=== PATIENT | male | born 1975 | race Hispanic/Latino ===

== ENCOUNTER → 2019-12-04 | Day surgery (SDC) | payer OTHER ==
--- NOTE | 2019-12-02 13:36 | Diagnostic Imaging Report ---
EXAMINATION: CHEST 2 VIEWS INDICATION: Pre-operative COMPARISON: None FINDINGS: LINES/TUBES:Right IJ tunneled hemodialysis catheter terminates in the proximal right atrium. LUNGS:The lung volumes are low. Bibasilar subsegmental atelectasis. No focal consolidation or pulmonary edema. PLEURA:No pleural effusion or pneumothorax. MEDIASTINUM:The cardiomediastinal silhouette appears normal in size and shape. BONES/SOFT TISSUES:No acute osseous injury. ABDOMEN:No free air under the diaphragm. IMPRESSION: Low lung volumes with bibasilar subsegmental atelectasis. No focal pneumonia or pulmonary edema. Signed by: Anthony August MD on 12/02/2019 1:33 PM
[~2019-12-04] MED LIST: AMIODARONE HCL200 MG PO; ASPIR 8181 MG PO; BENZONATATE100 MG PO; EPHEDRINE SULFATE INJ 50 MG/ML VIAL ONE; FENTANYL CITRATE/PF 100MCG/2 ML INJ ONE; FUROSEMIDE40 MG PO; GABAPENTIN100 MG PO; HYOSCYAMINE 0.125 MG TAB ONE; LIDOCAINE HCL 2% LOCAL INJ 5 ML SDV VIAL INJ ONE; METOPROLOL TART25 MG PO; MIDAZOLAM HCL 2 MG/2 ML VIAL ONE; MIDODRINE HCL2.5 MG PO; NEOSTIGMINE 1 MG/ML 10ML VIAL ONE; PROPOFOL IV EMULSION 10 MG/ML 50 ML VIAL ONE; SODIUM CHLORIDE 0.9% 1000ML 0 ML ONE; SODIUM CHLORIDE 0.9% 500ML 500 ML ONE
--- OUTSIDE RECORDS SUMMARY | 2019-12-04 08:01 | XMS REPORT ---
[facility] Address Unknown Phone Unavailable Care Team Providers Care General Foreman Name Role Phone BASILIO BURNETTE Unavailable Unavailable Payers Payer Name Policy Type Policy Number Effective Date Expiration Date Problems This patient has no known problems. Allergies, Adverse Reactions, Alerts Allergy Name Allergy Type Status Severity Reaction(s) Onset Date Inactive Date Treating Clinician Comments No Known Allergies DA Active U 2019-09-19 00:00:00 No Known Drug Allergies DA Active U 2019-09-12 00:00:00 No Known Drug Allergies DA Active U 2019-09-03 00:00:00 No Known Allergies DA Active U 2019-08-30 00:00:00 Medications This patient has no known medications. Results Test Description Test Time Test Comments Text Results Atomic Results Result Comments CHEST 2 VIEWS 2019-12-02 13:32:00 [place] [address] Patient Name: MILY MOSHER MR #: [id number] : 1975 Age/Sex: 44/M Req #: [id number] Adm Physician: Ordered by: JARAD NIELSON MD Report #: [id number] Location: OR Room/Bed: Procedure: [id number] DX/CHEST 2 VIEWS Exam Date: 12/02/19 Exam Time: 1315 REPORT STATUS: Signed EXAMINATION: CHEST 2 VIEWS INDICATION: Pre-operative COMPARISON: None FINDINGS: LINES/TUBES:Right IJ tunneled hemodialysis catheter terminates in the proximal right atrium. LUNGS:The lung volumes are low. Bibasilar subsegmental atelectasis. No focal consolidation or pulmonary edema. PLEURA:No pleural effusion or pneumothorax. MEDIASTINUM:The cardiomediastinal silhouette appears normal in size and shape. BONES/SOFT TISSUES:No acute osseous injury. ABDOMEN:No free air under the diaphragm. IMPRESSION: Low lung volumes with bibasilar subsegmental atelectasis. No focal pneumonia or pulmonary isidro a. Signed by: Jake Robertson MD on 12/02/2019 1:33 PM Dictated By: JAKE ROBERTSON MD 1333 Transcribed By: MAK on 12/02/19 1333 COPY TO: JARAD NIELSON MD GLUBED 2019-09-24 13:30:00 GLUBED (test code=GLUBED) 135 MG/DL 70-110 Performed by certified synthetic gem press operator at [facility] [id number] 08:50:00* Test Item Value Reference Range Comments GLUBED (test code=GLUBED) 131 MG/DL 70-110 Performed by certified synthetic gem press operator at [facility] BASIC METABOLIC [id number] 07:25:00* Test Item Value Reference Range Comments SODIUM (test code=NA) 135 mEq/L 134-147 POTASSIUM (test code=K) 3.5 mEq/L 3.4-5.0 CHLORIDE (test code=CL) 99 mEq/L 100-108 CARBON DIOXIDE (test code=CO2) 30 mEq/L 21-33 ANION GAP (test code=GAP) 10 0-20 GLUCOSE (test code=GLU) 129 mg/dL 70-110 BLOOD UREA NITROGEN (test code=BUN) 50 mg/dL 7-18 GLOMERULAR FILTRATION RATE (test code=GFR) 11.5 95-105 Units of measure=ml/min/1.73 m2 CREATININE (test code=CREAT) 5.5 mg/dL 0.6-1.3 CALCIUM (test code=CA) 9.4 mg/dL 8.0-10.5 [id number] 07:25:00* Test Item Value Reference Range Comments PHOSPHOROUS (test code=PHOS) 4.1 MG/DL 2.5-4.9 [id number] 07:25:00* Test Item Value Reference Range Comments MAGNESIUM (test code=MAG) 2.30 mg/dL 1.8-2.4 CBC W/AUTO [id number] 07:20:00* Test Item Value Reference Range Comments WHITE BLOOD CELL (test code=WBC) 13.77 x10 3/uL 4.5-11.0 RED BLOOD CELL (test code=RBC) 3.05 x10 6/uL 4.00-5.60 HEMOGLOBIN (test code=HGB) 9.5 g/dL 12.5-16.9 HEMATOCRIT (test code=HCT) 30.7 % 37.5-50.7 MEAN CELL VOLUME (test code=MCV) 100.7 fL 81.0-99.0 MEAN CELL HGB (test code=MCH) 31.1 pg 27.0-33.0 MEAN CELL HGB CONCETRATION (test code=MCHC) 30.9 g/dL 33.0-37.0 RED CELL DISTRIBUTION WIDTH CV (test code=RDW) 23.0 % 11.5-14.5 RED CELL DISTRIBUTION WIDTH SD (test code=RDW-SD) 81.0 fL 37.0-54.0 PLATELET COUNT (test code=PLT) 169 x10 3/uL 150-400 MEAN PLATELET VOLUME (test code=MPV) 11.5 fL 7.0-9.0 NEUTROPHIL % (test code=NT%) 78.7 % 56.0-77.0 IMMATURE GRANULOCYTE % (test code=IG%) 1.6 % 0.0-2.0 LYMPHOCYTE % (test code=LY%) 8.4 % 14.0-32.0 MONOCYTE % (test code=MO%) 8.0 % 4.8-9.0 EOSINOPHIL % (test code=EO%) 2.9 % 0.3-3.7 BASOPHIL % (test code=BA%) 0.4 % 0.0-2.0 NUCLEATED RBC % (test code=NRBC%) 0.0 % 0-0 NEUTROPHIL # (test code=NT#) 10.85 x10 3/uL 2.0-7.6 IMMATURE GRANULOCYTE # (test code=IG#) 0.22 x10 3/uL 0.00-0.03 LYMPHOCYTE # (test code=LY#) 1.15 x10 3/uL 1.0-3.8 MONOCYTE # (test code=MO#) 1.10 x10 3/uL 0.1-0.8 EOSINOPHIL # (test code=EO#) 0.40 x10 3/uL 0.0-0.2 BASOPHIL # (test code=BA#) 0.05 x10 3/uL 0.0-0.2 NUCLEATED RBC # (test code=NRBC#) 0.00 x10 3/uL 0.0-0.1 MANUAL DIFF REQUIRED (test code=MDIFF) NO [id number] 16:06:00* Test Item Value Reference Range Comments GLUBED (test code=GLUBED) 119 MG/DL 70-110 Performed by certified synthetic gem press operator at [facility] [id number] 12:14:00* Test Item Value Reference Range Comments GLUBED (test code=GLUBED) 140 MG/DL 70-110 Performed by certified synthetic gem press operator at [facility] TOTAL IRON BINDING [id number] 12:08:00* Test Item Value Reference Range Comments SERUM IRON (test code=IRON) 48 mcg/dL 35-150 TOTAL IRON BINDING CAPACITY (test code=TIBC) 200 mcg/dL 260-445 UIBC (test code=UIBC) 152 mcg/dL IRON SATURATION (test code=FESAT) 24.0 % 14-34 [id number] 12:08:00* Test Item Value Reference Range Comments TRANSFERRRIN (test code=TRANSF) 156 mg/dL 200-370 Performed At: [address] [id number] Beauchamp MD Ph:[phone] [id number] 08:56:00* Test Item Value Reference Range Comments GLUBED (test code=GLUBED) 110 MG/DL 70-110 Performed by certified synthetic gem press operator at [facility] BASIC METABOLIC [id number] 07:56:00* Test Item Value Reference Range Comments SODIUM (test code=NA) 137 mEq/L 134-147 POTASSIUM (test code=K) 3.2 mEq/L 3.4-5.0 CHLORIDE (test code=CL) 99 mEq/L 100-108 CARBON DIOXIDE (test code=CO2) 27 mEq/L 21-33 ANION GAP (test code=GAP) 14 0-20 GLUCOSE (test code=GLU) 122 mg/dL 70-110 BLOOD UREA NITROGEN (test code=BUN) 75 mg/dL 7-18 GLOMERULAR FILTRATION RATE (test code=GFR) 8.0 95-105 Units of measure=ml/min/1.73 m2 CREATININE (test code=CREAT) 7.5 mg/dL 0.6-1.3 CALCIUM (test code=CA) 9.3 mg/dL 8.0-10.5 [id number] 07:56:00* Test Item Value Reference Range Comments PHOSPHOROUS (test code=PHOS) 4.5 MG/DL 2.5-4.9 [id number] 07:56:00* Test Item Value Reference Range Comments MAGNESIUM (test code=MAG) 2.80 mg/dL 1.8-2.4 CBC W/AUTO [id number] 07:00:00* Test Item Value Reference Range Comments WHITE BLOOD CELL (test code=WBC) 14.79 x10 3/uL 4.5-11.0 RED BLOOD CELL (test code=RBC) 2.96 x10 6/uL 4.00-5.60 HEMOGLOBIN (test code=HGB) 9.0 g/dL 12.5-16.9 HEMATOCRIT (test code=HCT) 29.4 % 37.5-50.7 MEAN CELL VOLUME (test code=MCV) 99.3 fL 81.0-99.0 MEAN CELL HGB (test code=MCH) 30.4 pg 27.0-33.0 MEAN CELL HGB CONCETRATION (test code=MCHC) 30.6 g/dL 33.0-37.0 RED CELL DISTRIBUTION WIDTH CV (test code=RDW) 22.8 % 11.5-14.5 RED CELL DISTRIBUTION WIDTH SD (test code=RDW-SD) 79.7 fL 37.0-54.0 PLATELET COUNT (test code=PLT) 184 x10 3/uL 150-400 MEAN PLATELET VOLUME (test code=MPV) 11.2 fL 7.0-9.0 NEUTROPHIL % (test code=NT%) 78.6 % 56.0-77.0 IMMATURE GRANULOCYTE % (test code=IG%) 1.5 % 0.0-2.0 LYMPHOCYTE % (test code=LY%) 7.6 % 14.0-32.0 MONOCYTE % (test code=MO%) 9.4 % 4.8-9.0 EOSINOPHIL % (test code=EO%) 2.6 % 0.3-3.7 BASOPHIL % (test code=BA%) 0.3 % 0.0-2.0 NUCLEATED RBC % (test code=NRBC%) 0.0 % 0-0 NEUTROPHIL # (test code=NT#) 11.63 x10 3/uL 2.0-7.6 IMMATURE GRANULOCYTE # (test code=IG#) 0.22 x10 3/uL 0.00-0.03 LYMPHOCYTE # (test code=LY#) 1.12 x10 3/uL 1.0-3.8 MONOCYTE # (test code=MO#) 1.39 x10 3/uL 0.1-0.8 EOSINOPHIL # (test code=EO#) 0.39 x10 3/uL 0.0-0.2 BASOPHIL # (test code=BA#) 0.04 x10 3/uL 0.0-0.2 NUCLEATED RBC # (test code=NRBC#) 0.00 x10 3/uL 0.0-0.1 MANUAL DIFF REQUIRED (test code=MDIFF) NO [id number] 12:38:00* Test Item Value Reference Range Comments GLUBED (test code=GLUBED) 100 MG/DL 70-110 Performed by certified synthetic gem press operator at [facility] PROCALCITONIN (PCT)2019-09-22 09:41:00* Test Item Value Reference Range Comments PROCALCITONIN (PCT) (test code=PROCAL) 4.80 ng/mL 0.00-0.05 PROCALCITONIN (PCT) NORMAL RANGE (ADULT): <0.05 NG/ML. * a concentration <0.5 ng/mL represents a low risk of severe sepsis and/or septic shock.* a concentration >2 ng/mL represents a high risk of severe sepsis and/or septic shock.Nevertheless, concentrations <0.5 ng/mL do not exclude aninfection, on account of localized infections (withoutsystemic signs) which can be associated with such lowconcentrations, or a systemic infection in its initialstages (< 6 hours). Furthermore, increased procalcitonincan occur without infection. PCT concentrations between 0.5and 2.0 ng/mL should be interpreted taking into account thepatient's history. It is recommended to retest PCT within6-24 hours if any concentrations <2 ng/mL are obtained. [id number] 08:52:00* Test Item Value Reference Range Comments GLUBED (test code=GLUBED) 119 MG/DL 70-110 Performed by certified synthetic gem press operator at [facility] BASIC METABOLIC [id number] 04:34:00* Test Item Value Reference Range Comments SODIUM (test code=NA) 137 mEq/L 134-147 POTASSIUM (test code=K) 3.3 mEq/L 3.4-5.0 CHLORIDE (test code=CL) 101 mEq/L 100-108 CARBON DIOXIDE (test code=CO2) 28 mEq/L 21-33 ANION GAP (test code=GAP) 11 0-20 GLUCOSE (test code=GLU) 129 mg/dL 70-110 BLOOD UREA NITROGEN (test code=BUN) 45 mg/dL 7-18 GLOMERULAR FILTRATION RATE (test code=GFR) 13.1 95-105 Units of measure=ml/min/1.73 m2 CREATININE (test code=CREAT) 4.9 mg/dL 0.6-1.3 CALCIUM (test code=CA) 8.4 mg/dL 8.0-10.5 [id number] 04:34:00* Test Item Value Reference Range Comments PHOSPHOROUS (test code=PHOS) 3.7 MG/DL 2.5-4.9 [id number] 04:34:00* Test Item Value Reference Range Comments MAGNESIUM (test code=MAG) 2.30 mg/dL 1.8-2.4 CBC W/AUTO [id number] 04:17:00* Test Item Value Reference Range Comments WHITE BLOOD CELL (test code=WBC) 16.08 x10 3/uL 4.5-11.0 RED BLOOD CELL (test code=RBC) 3.04 x10 6/uL 4.00-5.60 HEMOGLOBIN (test code=HGB) 9.2 g/dL 12.5-16.9 HEMATOCRIT (test code=HCT) 30.0 % 37.5-50.7 MEAN CELL VOLUME (test code=MCV) 98.7 fL 81.0-99.0 MEAN CELL HGB (test code=MCH) 30.3 pg 27.0-33.0 MEAN CELL HGB CONCETRATION (test code=MCHC) 30.7 g/dL 33.0-37.0 RED CELL DISTRIBUTION WIDTH CV (test code=RDW) 23.0 % 11.5-14.5 RED CELL DISTRIBUTION WIDTH SD (test code=RDW-SD) 76.3 fL 37.0-54.0 PLATELET COUNT (test code=PLT) 191 x10 3/uL 150-400 MEAN PLATELET VOLUME (test code=MPV) 10.8 fL 7.0-9.0 NEUTROPHIL % (test code=NT%) 75.7 % 56.0-77.0 IMMATURE GRANULOCYTE % (test code=IG%) 1.6 % 0.0-2.0 LYMPHOCYTE % (test code=LY%) 10.1 % 14.0-32.0 MONOCYTE % (test code=MO%) 10.2 % 4.8-9.0 EOSINOPHIL % (test code=EO%) 2.1 % 0.3-3.7 BASOPHIL % (test code=BA%) 0.3 % 0.0-2.0 NUCLEATED RBC % (test code=NRBC%) 0.4 % 0-0 NEUTROPHIL # (test code=NT#) 12.18 x10 3/uL 2.0-7.6 IMMATURE GRANULOCYTE # (test code=IG#) 0.25 x10 3/uL 0.00-0.03 LYMPHOCYTE # (test code=LY#) 1.63 x10 3/uL 1.0-3.8 MONOCYTE # (test code=MO#) 1.64 x10 3/uL 0.1-0.8 EOSINOPHIL # (test code=EO#) 0.33 x10 3/uL 0.0-0.2 BASOPHIL # (test code=BA#) 0.05 x10 3/uL 0.0-0.2 NUCLEATED RBC # (test code=NRBC#) 0.06 x10 3/uL 0.0-0.1 MANUAL DIFF REQUIRED (test code=MDIFF) NO [id number] 21:11:00* Test Item Value Reference Range Comments GLUBED (test code=GLUBED) 100 MG/DL 70-110 Performed by certified synthetic gem press operator at [facility] [id number] 17:37:00* Test Item Value Reference Range Comments GLUBED (test code=GLUBED) 128 MG/DL 70-110 Performed by certified synthetic gem press operator at [facility] [id number] 13:20:00* Test Item Value Reference Range Comments GLUBED (test code=GLUBED) 135 MG/DL 70-110 Performed by certified synthetic gem press operator at [facility] - XR CHEST 1 [id number] 09:38:00 FAX: Blaine Pantoja [phone] [place]: St: ADM FAX: Ness Thrasher MD [phone] Name: MILY MOSHER [facility] : 1975 Age/S: 44/[place] [address] [place] [address] Unit #: [id number] Loc: [facility] [place] [address] Phys: Ness Thrasher MD Acct: [id number] Dis Date: Status: ADM IN PHONE #: [phone] Exam Date: 09/21/2019 09 FAX #: [phone] Reason: evaluate for infiltrate EXAMS: CPT CODE: [id number] XR CHEST 1 V 10780 CLINICAL HISTORY:evaluate for infiltrate COMPARISON:September 19, 2019 at 0449 Frontal film of the chest performed at 0821 on September 21, 2019 demonstrates a tracheostomy tube, dialysis catheter, and monitor leads in place. Previously noted left IJ catheter has been removed. Heart size is normal and alveolar and interstitial opacities are present bilaterally compatible without significant interval change since previous examination. IMPRESSION: 1. Interval removal of left IJ catheter. 2. Bilateral pulmonary opacities without significant interval change since previous examination. at 0938 Reported and signed by: Michael Pereira M.D. CC: Francine Pantoja DO; Ness Thrasher MD Technologist: Lyn birmingham RT(R) Trnscrd Date/Time/By: 09/21/2019 (09 38) : By: [email or web address] Orig Print D/T: S: 09/21/2019 (0941) PAGE 1 Signed Report PROCALCITONIN (PCT)2019-09-21 09:30:00* Test Item Value Reference Range Comments PROCALCITONIN (PCT) (test code=PROCAL) 5.53 ng/mL 0.00-0.05 PROCALCITONIN (PCT) NORMAL RANGE (ADULT): <0.05 NG/ML. * a concentration <0.5 ng/mL represents a low risk of severe sepsis and/or septic shock.* a concentration >2 ng/mL represents a high risk of severe sepsis and/or septic shock.Nevertheless, concentrations <0.5 ng/mL do not exclude aninfection, on account of localized infections (withoutsystemic signs) which can be associated with such lowconcentrations, or a systemic infection in its initialstages (< 6 hours). Furthermore, increased procalcitonincan occur without infection. PCT concentrations between 0.5and 2.0 ng/mL should be interpreted taking into account thepatient's history. It is recommended to retest PCT within6-24 hours if any concentrations <2 ng/mL are obtained. BASIC METABOLIC [id number] 05:43:00* Test Item Value Reference Range Comments SODIUM (test code=NA) 138 mEq/L 134-147 POTASSIUM (test code=K) 3.8 mEq/L 3.4-5.0 CHLORIDE (test code=CL) 102 mEq/L 100-108 CARBON DIOXIDE (test code=CO2) 27 mEq/L 21-33 ANION GAP (test code=GAP) 13 0-20 GLUCOSE (test code=GLU) 105 mg/dL 70-110 BLOOD UREA NITROGEN (test code=BUN) 68 mg/dL 7-18 GLOMERULAR FILTRATION RATE (test code=GFR) 10.0 95-105 Units of measure=ml/min/1.73 m2 CREATININE (test code=CREAT) 6.2 mg/dL 0.6-1.3 CALCIUM (test code=CA) 8.0 mg/dL 8.0-10.5 [id number] 05:43:00* Test Item Value Reference Range Comments PHOSPHOROUS (test code=PHOS) 6.2 MG/DL 2.5-4.9 BASIC METABOLIC [id number] 05:39:00* Test Item Value Reference Range Comments SODIUM (test code=NA) 138 mEq/L 134-147 POTASSIUM (test code=K) 3.8 mEq/L 3.4-5.0 CHLORIDE (test code=CL) 102 mEq/L 100-108 CARBON DIOXIDE (test code=CO2) 27 mEq/L 21-33 ANION GAP (test code=GAP) 13 0-20 GLUCOSE (test code=GLU) 105 mg/dL 70-110 BLOOD UREA NITROGEN (test code=BUN) 68 mg/dL 7-18 GLOMERULAR FILTRATION RATE (test code=GFR) 95-105 CREATININE (test code=CREAT) mg/dL 0.6-1.3 CALCIUM (test code=CA) 8.0 mg/dL 8.0-10.5 [id number] 05:39:00* Test Item Value Reference Range Comments PHOSPHOROUS (test code=PHOS) MG/DL 2.5-4.9 CBC W/AUTO [id number] 05:23:00* Test Item Value Reference Range Comments WHITE BLOOD CELL (test code=WBC) 17.33 x10 3/uL 4.5-11.0 RED BLOOD CELL (test code=RBC) 3.08 x10 6/uL 4.00-5.60 HEMOGLOBIN (test code=HGB) 9.3 g/dL 12.5-16.9 HEMATOCRIT (test code=HCT) 30.4 % 37.5-50.7 MEAN CELL VOLUME (test code=MCV) 98.7 fL 81.0-99.0 MEAN CELL HGB (test code=MCH) 30.2 pg 27.0-33.0 MEAN CELL HGB CONCETRATION (test code=MCHC) 30.6 g/dL 33.0-37.0 RED CELL DISTRIBUTION WIDTH CV (test code=RDW) 22.7 % 11.5-14.5 RED CELL DISTRIBUTION WIDTH SD (test code=RDW-SD) 64.5 fL 37.0-54.0 PLATELET COUNT (test code=PLT) 172 x10 3/uL 150-400 MEAN PLATELET VOLUME (test code=MPV) 11.0 fL 7.0-9.0 NEUTROPHIL % (test code=NT%) 76.7 % 56.0-77.0 IMMATURE GRANULOCYTE % (test code=IG%) 2.5 % 0.0-2.0 LYMPHOCYTE % (test code=LY%) 8.2 % 14.0-32.0 MONOCYTE % (test code=MO%) 10.7 % 4.8-9.0 EOSINOPHIL % (test code=EO%) 1.5 % 0.3-3.7 BASOPHIL % (test code=BA%) 0.4 % 0.0-2.0 NUCLEATED RBC % (test code=NRBC%) 0.5 % 0-0 NEUTROPHIL # (test code=NT#) 13.29 x10 3/uL 2.0-7.6 IMMATURE GRANULOCYTE # (test code=IG#) 0.44 x10 3/uL 0.00-0.03 LYMPHOCYTE # (test code=LY#) 1.42 x10 3/uL 1.0-3.8 MONOCYTE # (test code=MO#) 1.85 x10 3/uL 0.1-0.8 EOSINOPHIL # (test code=EO#) 0.26 x10 3/uL 0.0-0.2 BASOPHIL # (test code=BA#) 0.07 x10 3/uL 0.0-0.2 NUCLEATED RBC # (test code=NRBC#) 0.09 x10 3/uL 0.0-0.1 MANUAL DIFF REQUIRED (test code=MDIFF) NO ACUTE HEPATITIS [id number] 04:07:00* Test Item Value Reference Range Comments AB HEPATITIS A IGM (test code=HAVMAB) NON REACTIVE INDEX NON REACT. AG HEPATITIS B SURFACE (test code=HBSAG) NON REACTIVE INDEX NonReactive AB HEPATITIS B CORE IGM (test code=HBCMAB) NON REACTIVE INDEX NON REACT. AB HEPATITIS C (test code=HCVAB) NON REACTIVE INDEX NON REACT. COMMENTS: At start of hemodialysisAB HEPATITIS B [id number] 04:07:00* Test Item Value Reference Range Comments AB HEPATITIS B SURFACE (test code=HBSAB) < 3.1 mIU/mL Immunity>9.9 Status of Immunity Anti-HBs Level Inconsistent with Immunity 0.0 - 9.9Consistent with Immunity >9.9Performed At: [facility] [address] [place], [place] [id number] Sebastian Bowman MD Ph:[phone] COMMENTS: At start of [id number] 21:00:00* Test Item Value Reference Range Comments GLUBED (test code=GLUBED) 83 MG/DL 70-110 Performed by certified synthetic gem press operator at [facility] [id number] 12:42:00* Test Item Value Reference Range Comments GLUBED (test code=GLUBED) 79 MG/DL 70-110 Performed by certified synthetic gem press operator at [facility] CBC W/AUTO [id number] 10:32:00* Test Item Value Reference Range Comments WHITE BLOOD CELL (test code=WBC) 19.00 x10 3/uL 4.5-11.0 RED BLOOD CELL (test code=RBC) 2.81 x10 6/uL 4.00-5.60 HEMOGLOBIN (test code=HGB) 8.6 g/dL 12.5-16.9 HEMATOCRIT (test code=HCT) 27.2 % 37.5-50.7 MEAN CELL VOLUME (test code=MCV) 96.8 fL 81.0-99.0 MEAN CELL HGB (test code=MCH) 30.6 pg 27.0-33.0 MEAN CELL HGB CONCETRATION (test code=MCHC) 31.6 g/dL 33.0-37.0 RED CELL DISTRIBUTION WIDTH CV (test code=RDW) 22.4 % 11.5-14.5 RED CELL DISTRIBUTION WIDTH SD (test code=RDW-SD) 59.9 fL 37.0-54.0 PLATELET COUNT (test code=PLT) 163 x10 3/uL 150-400 MEAN PLATELET VOLUME (test code=MPV) 11.2 fL 7.0-9.0 MANUAL DIFF REQUIRED (test code=MDIFF) YES WBC [id number] 10:32:00* Test Item Value Reference Range Comments SEGMENTED NEUTROPHILS (test code=SEG) 79 % 37-69 LYMPHOCYTE (test code=LYMPH) 10 % 23-55 MONOCYTE (test code=MON) 4 % 0-10 EOSINOPHIL (test code=EOS) 2 % 0.0-4.0 BASOPHIL (test code=BASO) 1 % 0.0-2.0 METAMYELOCYTE (test code=META) 2.0 % 0.0-0.0 MYELOCYTE (test code=MYELO) 2 % 0.0-0.0 POLYCHROMASIA (test code=POLC) 2+ POIKILOCYTOSIS (test code=POIK) SLIGHT FEW ELLIPTOCYTES SEEN ANISOCYTOSIS (test code=ANISO) 2+ MACROCYTOSIS (test code=MACR) 1+ TARGET CELLS (test code=TGT) SEEN PLATELET ESTIMATE (test code=PLTEST) Adequate THOUSAND ADEQUATE PLATELET MORPHOLOGY (test code=PLTMORPH) LARGE PLATELETS LARGE PLTS AND RARE GIANT PLTS SEEN PLT AGGREGATES SEEN CBC W/AUTO [id number] 10:21:00* Test Item Value Reference Range Comments WHITE BLOOD CELL (test code=WBC) 19.00 x10 3/uL 4.5-11.0 RED BLOOD CELL (test code=RBC) 2.81 x10 6/uL 4.00-5.60 HEMOGLOBIN (test code=HGB) 8.6 g/dL 12.5-16.9 HEMATOCRIT (test code=HCT) 27.2 % 37.5-50.7 MEAN CELL VOLUME (test code=MCV) 96.8 fL 81.0-99.0 MEAN CELL HGB (test code=MCH) 30.6 pg 27.0-33.0 MEAN CELL HGB CONCETRATION (test code=MCHC) 31.6 g/dL 33.0-37.0 RED CELL DISTRIBUTION WIDTH CV (test code=RDW) 22.4 % 11.5-14.5 RED CELL DISTRIBUTION WIDTH SD (test code=RDW-SD) 59.9 fL 37.0-54.0 PLATELET COUNT (test code=PLT) 163 x10 3/uL 150-400 MEAN PLATELET VOLUME (test code=MPV) 11.2 fL 7.0-9.0 MANUAL DIFF REQUIRED (test code=MDIFF) YES WBC [id number] 10:21:00* Test Item Value Reference Range Comments ANISOCYTOSIS (test code=ANISO) PLATELET ESTIMATE (test code=PLTEST) THOUSAND ADEQUATE CBC W/AUTO [id number] 10:21:00* Test Item Value Reference Range Comments WHITE BLOOD CELL (test code=WBC) 19.00 x10 3/uL 4.5-11.0 RED BLOOD CELL (test code=RBC) 2.81 x10 6/uL 4.00-5.60 HEMOGLOBIN (test code=HGB) 8.6 g/dL 12.5-16.9 HEMATOCRIT (test code=HCT) 27.2 % 37.5-50.7 MEAN CELL VOLUME (test code=MCV) 96.8 fL 81.0-99.0 MEAN CELL HGB (test code=MCH) 30.6 pg 27.0-33.0 MEAN CELL HGB CONCETRATION (test code=MCHC) 31.6 g/dL 33.0-37.0 RED CELL DISTRIBUTION WIDTH CV (test code=RDW) 22.4 % 11.5-14.5 RED CELL DISTRIBUTION WIDTH SD (test code=RDW-SD) 59.9 fL 37.0-54.0 PLATELET COUNT (test code=PLT) 163 x10 3/uL 150-400 MEAN PLATELET VOLUME (test code=MPV) 11.2 fL 7.0-9.0 MANUAL DIFF REQUIRED (test code=MDIFF) YES WBC [id number] 10:21:00* Test Item Value Reference Range Comments ANISOCYTOSIS (test code=ANISO) PLATELET ESTIMATE (test code=PLTEST) THOUSAND ADEQUATE PROCALCITONIN (PCT)2019-09-20 09:13:00* Test Item Value Reference Range Comments PROCALCITONIN (PCT) (test code=PROCAL) 6.02 ng/mL 0.00-0.05 PROCALCITONIN (PCT) NORMAL RANGE (ADULT): <0.05 NG/ML. * a concentration <0.5 ng/mL represents a low risk of severe sepsis and/or septic shock.* a concentration >2 ng/mL represents a high risk of severe sepsis and/or septic shock.Nevertheless, concentrations <0.5 ng/mL do not exclude aninfection, on account of localized infections (withoutsystemic signs) which can be associated with such lowconcentrations, or a systemic infection in its initialstages (< 6 hours). Furthermore, increased procalcitonincan occur without infection. PCT concentrations between 0.5and 2.0 ng/mL should be interpreted taking into account thepatient's history. It is recommended to retest PCT within6-24 hours if any concentrations <2 ng/mL are obtained. BASIC METABOLIC [id number] 07:04:00* Test Item Value Reference Range Comments SODIUM (test code=NA) 137 mEq/L 134-147 POTASSIUM (test code=K) 3.7 mEq/L 3.4-5.0 CHLORIDE (test code=CL) 103 mEq/L 100-108 CARBON DIOXIDE (test code=CO2) 26 mEq/L 21-33 ANION GAP (test code=GAP) 12 0-20 GLUCOSE (test code=GLU) 87 mg/dL 70-110 BLOOD UREA NITROGEN (test code=BUN) 39 mg/dL 7-18 GLOMERULAR FILTRATION RATE (test code=GFR) 17.6 95-105 Units of measure=ml/min/1.73 m2 CREATININE (test code=CREAT) 3.8 mg/dL 0.6-1.3 CALCIUM (test code=CA) 7.7 mg/dL 8.0-10.5 CBC W/AUTO [id number] 06:34:00* Test Item Value Reference Range Comments WHITE BLOOD CELL (test code=WBC) 19.00 x10 3/uL 4.5-11.0 RED BLOOD CELL (test code=RBC) 2.81 x10 6/uL 4.00-5.60 HEMOGLOBIN (test code=HGB) 8.6 g/dL 12.5-16.9 HEMATOCRIT (test code=HCT) 27.2 % 37.5-50.7 MEAN CELL VOLUME (test code=MCV) 96.8 fL 81.0-99.0 MEAN CELL HGB (test code=MCH) 30.6 pg 27.0-33.0 MEAN CELL HGB CONCETRATION (test code=MCHC) 31.6 g/dL 33.0-37.0 RED CELL DISTRIBUTION WIDTH CV (test code=RDW) 22.4 % 11.5-14.5 RED CELL DISTRIBUTION WIDTH SD (test code=RDW-SD) 59.9 fL 37.0-54.0 PLATELET COUNT (test code=PLT) 163 x10 3/uL 150-400 MEAN PLATELET VOLUME (test code=MPV) 11.2 fL 7.0-9.0 NEUTROPHIL % (test code=NT%) % 56.0-77.0 LYMPHOCYTE % (test code=LY%) % 14.0-32.0 NEUTROPHIL # (test code=NT#) x10 3/uL 2.0-7.6 LYMPHOCYTE # (test code=LY#) x10 3/uL 1.0-3.8 MANUAL DIFF REQUIRED (test code=MDIFF) [id number] 06:19:00* Test Item Value Reference Range Comments GLUBED (test code=GLUBED) 81 MG/DL 70-110 Performed by certified synthetic gem press operator at [facility] HGB [id number] 21:37:00* Test Item Value Reference Range Comments HEMOGLOBIN (test code=HGB) 8.8 g/dL 12.5-16.9 HEMATOCRIT (test code=HCT) 28.4 % 37.5-50.7 [id number] 21:06:00* Test Item Value Reference Range Comments GLUBED (test code=GLUBED) 88 MG/DL 70-110 Performed by certified [facility] gem [facility] operator [facility] [facility]PATITIS [id number] 16:57:00* Test Item Value Reference Range Comments AB HEPATITIS A IGM (test code=HAVMAB) NON REACTIVE INDEX NON REACT. AG HEPATITIS B SURFACE (test code=HBSAG) NON REACTIVE INDEX NonReactive AB HEPATITIS B CORE IGM (test code=HBCMAB) NON REACTIVE INDEX NON REACT. AB HEPATITIS C (test code=HCVAB) NON REACTIVE INDEX NON REACT. COMMENTS: At start of hemodialysisAB HEPATITIS B [id number] 16:57:00* Test Item Value Reference Range Comments AB HEPATITIS B SURFACE (test code=HBSAB) COMMENTS: At start of hemodialysisACUTE HEPATITIS [id number] 16:35:00* Test Item Value Reference Range Comments AB HEPATITIS A IGM (test code=HAVMAB) INDEX NON REACT. AG HEPATITIS B SURFACE (test code=HBSAG) NON REACTIVE INDEX NonReactive AB HEPATITIS B CORE IGM (test code=HBCMAB) INDEX NON REACT. AB HEPATITIS C (test code=HCVAB) INDEX NON REACT. COMMENTS: At start of hemodialysisAB HEPATITIS B [id number] 16:35:00* Test Item Value Reference Range Comments AB HEPATITIS B SURFACE (test code=HBSAB) COMMENTS: At start of hemodialysisTOTAL IRON BINDING [id number] 16:00:00 * Test Item Value Reference Range Comments SERUM IRON (test code=IRON) 48 mcg/dL 35-150 TOTAL IRON BINDING CAPACITY (test code=TIBC) 200 mcg/dL 260-445 UIBC (test code=UIBC) 152 mcg/dL IRON SATURATION (test code=FESAT) 24.0 % 14-34 [id number] 16:00:00* Test Item Value Reference Range Comments TRANSFERRRIN (test code=TRANSF) HGB [id number] 13:13:00* Test Item Value Reference Range Comments HEMOGLOBIN (test code=HGB) 7.0 g/dL 12.5-16.9 HEMATOCRIT (test code=HCT) 23.2 % 37.5-50.7 [id number] 11:55:00* Test Item Value Reference Range Comments GLUBED (test code=GLUBED) 89 MG/DL 70-110 Performed by certified synthetic gem press operator at [facility] CBC W/AUTO [id number] 11:27:00* Test Item Value Reference Range Comments WHITE BLOOD CELL (test code=WBC) 19.84 x10 3/uL 4.5-11.0 RED BLOOD CELL (test code=RBC) 2.15 x10 6/uL 4.00-5.60 HEMOGLOBIN (test code=HGB) 6.7 g/dL 12.5-16.9 HEMATOCRIT (test code=HCT) 21.3 % 37.5-50.7 MEAN CELL VOLUME (test code=MCV) 99.1 fL 81.0-99.0 MEAN CELL HGB (test code=MCH) 31.2 pg 27.0-33.0 MEAN CELL HGB CONCETRATION (test code=MCHC) 31.5 g/dL 33.0-37.0 RED CELL DISTRIBUTION WIDTH CV (test code=RDW) 22.3 % 11.5-14.5 RED CELL DISTRIBUTION WIDTH SD (test code=RDW-SD) 61.2 fL 37.0-54.0 PLATELET COUNT (test code=PLT) 157 x10 3/uL 150-400 MEAN PLATELET VOLUME (test code=MPV) 11.7 fL 7.0-9.0 MANUAL DIFF REQUIRED (test code=MDIFF) YES WBC [id number] 11:27:00* Test Item Value Reference Range Comments SEGMENTED NEUTROPHILS (test code=SEG) 79.8 % 37-69 LYMPHOCYTE (test code=LYMPH) 6.4 % 23-55 MONOCYTE (test code=MON) 9.2 % 0-10 BASOPHIL (test code=BASO) 1.9 % 0.0-2.0 METAMYELOCYTE (test code=META) 0.9 % 0.0-0.0 MYELOCYTE (test code=MYELO) 1.8 % 0.0-0.0 NUCLEATED RED BLOOD CELL (test code=NRBC) 4.6 % ANISOCYTOSIS (test code=ANISO) 2+ MACROCYTOSIS (test code=MACR) 1+ PLATELET ESTIMATE (test code=PLTEST) Adequate THOUSAND ADEQUATE CBC W/AUTO [id number] 11:26:00* Test Item Value Reference Range Comments WHITE BLOOD CELL (test code=WBC) 19.84 x10 3/uL 4.5-11.0 RED BLOOD CELL (test code=RBC) 2.15 x10 6/uL 4.00-5.60 HEMOGLOBIN (test code=HGB) 6.7 g/dL 12.5-16.9 HEMATOCRIT (test code=HCT) 21.3 % 37.5-50.7 MEAN CELL VOLUME (test code=MCV) 99.1 fL 81.0-99.0 MEAN CELL HGB (test code=MCH) 31.2 pg 27.0-33.0 MEAN CELL HGB CONCETRATION (test code=MCHC) 31.5 g/dL 33.0-37.0 RED CELL DISTRIBUTION WIDTH CV (test code=RDW) 22.3 % 11.5-14.5 RED CELL DISTRIBUTION WIDTH SD (test code=RDW-SD) 61.2 fL 37.0-54.0 PLATELET COUNT (test code=PLT) 157 x10 3/uL 150-400 MEAN PLATELET VOLUME (test code=MPV) 11.7 fL 7.0-9.0 MANUAL DIFF REQUIRED (test code=MDIFF) YES WBC [id number] 11:26:00* Test Item Value Reference Range Comments ANISOCYTOSIS (test code=ANISO) PLATELET ESTIMATE (test code=PLTEST) THOUSAND ADEQUATE CBC W/AUTO [id number] 11:26:00* Test Item Value Reference Range Comments WHITE BLOOD CELL (test code=WBC) 19.84 x10 3/uL 4.5-11.0 RED BLOOD CELL (test code=RBC) 2.15 x10 6/uL 4.00-5.60 HEMOGLOBIN (test code=HGB) 6.7 g/dL 12.5-16.9 HEMATOCRIT (test code=HCT) 21.3 % 37.5-50.7 MEAN CELL VOLUME (test code=MCV) 99.1 fL 81.0-99.0 MEAN CELL HGB (test code=MCH) 31.2 pg 27.0-33.0 MEAN CELL HGB CONCETRATION (test code=MCHC) 31.5 g/dL 33.0-37.0 RED CELL DISTRIBUTION WIDTH CV (test code=RDW) 22.3 % 11.5-14.5 RED CELL DISTRIBUTION WIDTH SD (test code=RDW-SD) 61.2 fL 37.0-54.0 PLATELET COUNT (test code=PLT) 157 x10 3/uL 150-400 MEAN PLATELET VOLUME (test code=MPV) 11.7 fL 7.0-9.0 MANUAL DIFF REQUIRED (test code=MDIFF) YES WBC [id number] 11:26:00* Test Item Value Reference Range Comments ANISOCYTOSIS (test code=ANISO) PLATELET ESTIMATE (test code=PLTEST) THOUSAND ADEQUATE CBC W/AUTO [id number] 07:27:00* Test Item Value Reference Range Comments WHITE BLOOD CELL (test code=WBC) 19.84 x10 3/uL 4.5-11.0 RED BLOOD CELL (test code=RBC) 2.15 x10 6/uL 4.00-5.60 HEMOGLOBIN (test code=HGB) 6.7 g/dL 12.5-16.9 HEMATOCRIT (test code=HCT) 21.3 % 37.5-50.7 MEAN CELL VOLUME (test code=MCV) 99.1 fL 81.0-99.0 MEAN CELL HGB (test code=MCH) 31.2 pg 27.0-33.0 MEAN CELL HGB CONCETRATION (test code=MCHC) 31.5 g/dL 33.0-37.0 RED CELL DISTRIBUTION WIDTH CV (test code=RDW) 22.3 % 11.5-14.5 RED CELL DISTRIBUTION WIDTH SD (test code=RDW-SD) 61.2 fL 37.0-54.0 PLATELET COUNT (test code=PLT) 157 x10 3/uL 150-400 MEAN PLATELET VOLUME (test code=MPV) 11.7 fL 7.0-9.0 NEUTROPHIL % (test code=NT%) % 56.0-77.0 LYMPHOCYTE % (test code=LY%) % 14.0-32.0 NEUTROPHIL # (test code=NT#) x10 3/uL 2.0-7.6 LYMPHOCYTE # (test code=LY#) x10 3/uL 1.0-3.8 MANUAL DIFF REQUIRED (test code=MDIFF) C REACTIVE [id number] 07:23:00* Test Item Value Reference Range Comments C REACTIVE PROTEIN (test code=CRP) 167.0 MG/L 0.0-2.9 COMPREHENSIVE METABOLIC [id number] 07:18:00* Test Item Value Reference Range Comments SODIUM (test code=NA) 141 mEq/L 134-147 POTASSIUM (test code=K) 3.5 mEq/L 3.4-5.0 CHLORIDE (test code=CL) 107 mEq/L 100-108 CARBON DIOXIDE (test code=CO2) 26 mEq/L 21-33 ANION GAP (test code=GAP) 12 0-20 GLUCOSE (test code=GLU) 101 mg/dL 70-110 BLOOD UREA NITROGEN (test code=BUN) 40 mg/dL 7-18 GLOMERULAR FILTRATION RATE (test code=GFR) 21.4 95-105 Units of measure=ml/min/1.73 m2 CREATININE (test code=CREAT) 3.2 mg/dL 0.6-1.3 TOTAL PROTEIN (test code=PROT) 5.8 g/dL 6.4-8.2 ALBUMIN (test code=ALB) 2.20 g/dL 3.4-5.0 CALCIUM (test code=CA) 7.8 mg/dL 8.0-10.5 BILIRUBIN TOTAL (test code=BILT) 1.4 MG/DL <1.5 SGOT/AST (test code=AST) 199 IUnit/L 15-37 SGPT/ALT (test code=ALT) 147 IUnit/L 15-65 ALKALINE PHOSPHATASE TOTAL (test code=ALKP) 237 IUnit/L 20-125 COMPREHENSIVE METABOLIC [id number] 07:14:00* Test Item Value Reference Range Comments SODIUM (test code=NA) 141 mEq/L 134-147 POTASSIUM (test code=K) 3.5 mEq/L 3.4-5.0 CHLORIDE (test code=CL) 107 mEq/L 100-108 CARBON DIOXIDE (test code=CO2) 26 mEq/L 21-33 ANION GAP (test code=GAP) 12 0-20 GLUCOSE (test code=GLU) 101 mg/dL 70-110 BLOOD UREA NITROGEN (test code=BUN) 40 mg/dL 7-18 GLOMERULAR FILTRATION RATE (test code=GFR) 95-105 CREATININE (test code=CREAT) mg/dL 0.6-1.3 TOTAL PROTEIN (test code=PROT) g/dL 6.4-8.2 ALBUMIN (test code=ALB) g/dL 3.4-5.0 CALCIUM (test code=CA) 7.8 mg/dL 8.0-10.5 BILIRUBIN TOTAL (test code=BILT) MG/DL <1.5 SGOT/AST (test code=AST) IUnit/L 15-37 SGPT/ALT (test code=ALT) IUnit/L 15-65 ALKALINE PHOSPHATASE TOTAL (test code=ALKP) IUnit/L 20-125 - XR CHEST 1 [id number] 06:23:00 FAX: Sam Goncalves MD [place]: [address]: ADM FAX: Blaine Pantoja [phone] Name: MILY MOSHER [facility] : 1975 Age/S: 44/M [address] [place] [address] Blvd Unit #: [id number] Loc: G.3310 [place] [address] Phys: Sam Mayorga MD Acct: [id number] Dis Date: Status: ADM IN PHONE #: [phone] Exam Date: 09/19/2019 0553 FAX #: [phone] Reason: VDRF post Trach EXAMS: CPT CODE: [id number] XR CHEST 1 V 58543 Chest, single view dated 09/19/2019. HISTORY: Respiratory distress. Comparison is made to a prior study dated 09/03/2019. There has been interval placement of a tracheostomy tube. A left jugular central venous catheter is identified with the tip projecting in the superior vena cava. A right jugular hemodialysis catheter is identified with the tip projecting in the lower right atrium or inferior vena cava. A pneumothorax is not identified. The cardiomediastinal shadow is stable. The lungs demonstrate pulmonary vascular congestion with bilateral interstitial and airspace opacities, likely representing pulmonary edema. Atelectasis is suspected in both lung bases. No acute pleural space abnormalities are detected. IMPRESSION: 1. B ilateral interstitial and airspace opacities, likely representing pulmon jj edema. 2. Bilateral basilar atelectasis. SL: 131 at 0623 R eported and signed by: Cesar Allen M.D. CC: Sam sosa MD; [facility] Technologist: Michele Winslow RT(R); Milagro Dickens RT(R) Trncord Date/Time/By: 09/19/2019 (0623) : By: Anika Orig Print D/T: S: 09/19/2019 (0626) PAGE 1 Signed Report [id number] 04:04:00* Test Item Value Reference Range Comments VANCOMYCIN (test code=VANCO) 19.4 mcg/mL PROCALCITONIN (PCT)2019-09-19 03:56:00* Test Item Value Reference Range Comments PROCALCITONIN (PCT) (test code=PROCAL) 6.84 ng/mL 0.00-0.05 PROCALCITONIN (PCT) NORMAL RANGE (ADULT): <0.05 NG/ML. * a concentration <0.5 ng/mL represents a low risk of severe sepsis and/or septic shock.* a concentration >2 ng/mL represents a high risk of severe sepsis and/or septic shock.Nevertheless, concentrations <0.5 ng/mL do not exclude aninfection, on account of localized infections (withoutsystemic signs) which can be associated with such lowconcentrations, or a systemic infection in its initialstages (< 6 hours). Furthermore, increased procalcitonincan occur without infection. PCT concentrations between 0.5and 2.0 ng/mL should be interpreted taking into account thepatient's history. It is recommended to retest PCT within6-24 hours if any concentrations <2 ng/mL are obtained. C REACTIVE [id number] 03:37:00* Test Item Value Reference Range Comments C REACTIVE PROTEIN (test code=CRP) 203.0 MG/L 0.0-2.9 CBC W/AUTO [id number] 03:10:00* Test Item Value Reference Range Comments WHITE BLOOD CELL (test code=WBC) 23.65 x10 3/uL 4.5-11.0 RED BLOOD CELL (test code=RBC) 2.36 x10 6/uL 4.00-5.60 HEMOGLOBIN (test code=HGB) 7.2 g/dL 12.5-16.9 HEMATOCRIT (test code=HCT) 23.4 % 37.5-50.7 MEAN CELL VOLUME (test code=MCV) 99.2 fL 81.0-99.0 MEAN CELL HGB (test code=MCH) 30.5 pg 27.0-33.0 MEAN CELL HGB CONCETRATION (test code=MCHC) 30.8 g/dL 33.0-37.0 RED CELL DISTRIBUTION WIDTH CV (test code=RDW) 22.1 % 11.5-14.5 RED CELL DISTRIBUTION WIDTH SD (test code=RDW-SD) 60.2 fL 37.0-54.0 PLATELET COUNT (test code=PLT) 165 x10 3/uL 150-400 MEAN PLATELET VOLUME (test code=MPV) 12.0 fL 7.0-9.0 MANUAL DIFF REQUIRED (test code=MDIFF) YES WBC [id number] 03:10:00* Test Item Value Reference Range Comments SEGMENTED NEUTROPHILS (test code=SEG) 86.4 % 37-69 LYMPHOCYTE (test code=LYMPH) 5.4 % 23-55 MONOCYTE (test code=MON) 5.5 % 0-10 EOSINOPHIL (test code=EOS) 0.9 % 0.0-4.0 METAMYELOCYTE (test code=META) 1.8 % 0.0-0.0 NUCLEATED RED BLOOD CELL (test code=NRBC) 2.7 % POLYCHROMASIA (test code=POLC) 2+ HYPOCHROMIA (test code=HYPO) 1+ ANISOCYTOSIS (test code=ANISO) 1+ MACROCYTOSIS (test code=MACR) 1+ PLATELET ESTIMATE (test code=PLTEST) Adequate THOUSAND ADEQUATE COMPREHENSIVE METABOLIC [id number] 03:10:00* Test Item Value Reference Range Comments SODIUM (test code=NA) 140 mEq/L 134-147 POTASSIUM (test code=K) 3.7 mEq/L 3.4-5.0 CHLORIDE (test code=CL) 106 mEq/L 100-108 CARBON DIOXIDE (test code=CO2) 27 mEq/L 21-33 ANION GAP (test code=GAP) 11 0-20 GLUCOSE (test code=GLU) 104 mg/dL 70-110 BLOOD UREA NITROGEN (test code=BUN) 33 mg/dL 7-18 GLOMERULAR FILTRATION RATE (test code=GFR) 27.2 95-105 Units of measure=ml/min/1.73 m2 CREATININE (test code=CREAT) 2.6 mg/dL 0.6-1.3 TOTAL PROTEIN (test code=PROT) 6.1 g/dL 6.4-8.2 ALBUMIN (test code=ALB) 2.20 g/dL 3.4-5.0 CALCIUM (test code=CA) 7.7 mg/dL 8.0-10.5 BILIRUBIN TOTAL (test code=BILT) 1.5 MG/DL <1.5 SGOT/AST (test code=AST) 212 IUnit/L 15-37 SGPT/ALT (test code=ALT) 149 IUnit/L 15-65 ALKALINE PHOSPHATASE TOTAL (test code=ALKP) 249 IUnit/L 20-125 THYROID STIMULATING [id number] 03:10:00* Test Item Value Reference Range Comments THYROID STIMULATING HORMONE (test code=TSH) 3.45 0.42-5.47 Results in ifeoma-International Units/mL CBC W/AUTO [id number] 03:09:00* Test Item Value Reference Range Comments WHITE BLOOD CELL (test code=WBC) 23.65 x10 3/uL 4.5-11.0 RED BLOOD CELL (test code=RBC) 2.36 x10 6/uL 4.00-5.60 HEMOGLOBIN (test code=HGB) 7.2 g/dL 12.5-16.9 HEMATOCRIT (test code=HCT) 23.4 % 37.5-50.7 MEAN CELL VOLUME (test code=MCV) 99.2 fL 81.0-99.0 MEAN CELL HGB (test code=MCH) 30.5 pg 27.0-33.0 MEAN CELL HGB CONCETRATION (test code=MCHC) 30.8 g/dL 33.0-37.0 RED CELL DISTRIBUTION WIDTH CV (test code=RDW) 22.1 % 11.5-14.5 RED CELL DISTRIBUTION WIDTH SD (test code=RDW-SD) 60.2 fL 37.0-54.0 PLATELET COUNT (test code=PLT) 165 x10 3/uL 150-400 MEAN PLATELET VOLUME (test code=MPV) 12.0 fL 7.0-9.0 MANUAL DIFF REQUIRED (test code=MDIFF) YES WBC [id number] 03:09:00* Test Item Value Reference Range Comments ANISOCYTOSIS (test code=ANISO) PLATELET ESTIMATE (test code=PLTEST) THOUSAND ADEQUATE CBC W/AUTO [id number] 03:09:00* Test Item Value Reference Range Comments WHITE BLOOD CELL (test code=WBC) 23.65 x10 3/uL 4.5-11.0 RED BLOOD CELL (test code=RBC) 2.36 x10 6/uL 4.00-5.60 HEMOGLOBIN (test code=HGB) 7.2 g/dL 12.5-16.9 HEMATOCRIT (test code=HCT) 23.4 % 37.5-50.7 MEAN CELL VOLUME (test code=MCV) 99.2 fL 81.0-99.0 MEAN CELL HGB (test code=MCH) 30.5 pg 27.0-33.0 MEAN CELL HGB CONCETRATION (test code=MCHC) 30.8 g/dL 33.0-37.0 RED CELL DISTRIBUTION WIDTH CV (test code=RDW) 22.1 % 11.5-14.5 RED CELL DISTRIBUTION WIDTH SD (test code=RDW-SD) 60.2 fL 37.0-54.0 PLATELET COUNT (test code=PLT) 165 x10 3/uL 150-400 MEAN PLATELET VOLUME (test code=MPV) 12.0 fL 7.0-9.0 MANUAL DIFF REQUIRED (test code=MDIFF) YES WBC [id number] 03:09:00* Test Item Value Reference Range Comments ANISOCYTOSIS (test code=ANISO) PLATELET ESTIMATE (test code=PLTEST) THOUSAND ADEQUATE COMPREHENSIVE METABOLIC [id number] 02:58:00* Test Item Value Reference Range Comments SODIUM (test code=NA) 140 mEq/L 134-147 POTASSIUM (test code=K) 3.7 mEq/L 3.4-5.0 CHLORIDE (test code=CL) 106 mEq/L 100-108 CARBON DIOXIDE (test code=CO2) 27 mEq/L 21-33 ANION GAP (test code=GAP) 11 0-20 GLUCOSE (test code=GLU) 104 mg/dL 70-110 BLOOD UREA NITROGEN (test code=BUN) 33 mg/dL 7-18 GLOMERULAR FILTRATION RATE (test code=GFR) 95-105 CREATININE (test code=CREAT) mg/dL 0.6-1.3 TOTAL PROTEIN (test code=PROT) g/dL 6.4-8.2 ALBUMIN (test code=ALB) g/dL 3.4-5.0 CALCIUM (test code=CA) 7.7 mg/dL 8.0-10.5 BILIRUBIN TOTAL (test code=BILT) MG/DL <1.5 SGOT/AST (test code=AST) IUnit/L 15-37 SGPT/ALT (test code=ALT) IUnit/L 15-65 ALKALINE PHOSPHATASE TOTAL (test code=ALKP) IUnit/L 20-125 THYROID STIMULATING [id number] 02:58:00* Test Item Value Reference Range Comments THYROID STIMULATING HORMONE (test code=TSH) 0.42-5.47 CBC W/AUTO [id number] 02:43:00* Test Item Value Reference Range Comments WHITE BLOOD CELL (test code=WBC) 23.65 x10 3/uL 4.5-11.0 RED BLOOD CELL (test code=RBC) 2.36 x10 6/uL 4.00-5.60 HEMOGLOBIN (test code=HGB) 7.2 g/dL 12.5-16.9 HEMATOCRIT (test code=HCT) 23.4 % 37.5-50.7 MEAN CELL VOLUME (test code=MCV) 99.2 fL 81.0-99.0 MEAN CELL HGB (test code=MCH) 30.5 pg 27.0-33.0 MEAN CELL HGB CONCETRATION (test code=MCHC) 30.8 g/dL 33.0-37.0 RED CELL DISTRIBUTION WIDTH CV (test code=RDW) 22.1 % 11.5-14.5 RED CELL DISTRIBUTION WIDTH SD (test code=RDW-SD) 60.2 fL 37.0-54.0 PLATELET COUNT (test code=PLT) 165 x10 3/uL 150-400 MEAN PLATELET VOLUME (test code=MPV) 12.0 fL 7.0-9.0 NEUTROPHIL % (test code=NT%) % 56.0-77.0 LYMPHOCYTE % (test code=LY%) % 14.0-32.0 NEUTROPHIL # (test code=NT#) x10 3/uL 2.0-7.6 LYMPHOCYTE # (test code=LY#) x10 3/uL 1.0-3.8 MANUAL DIFF REQUIRED (test code=MDIFF) ARTERIAL BLOOD [id number] 01:50:00* Test Item Value Reference Range Comments ARTERIAL BLOOD GAS PH (test code=PHA) 7.451 7.35-7.45 ARTERIAL BLOOD GAS PCO2 (test code=PCO2A) 36.8 mmHg 35-45 ARTERIAL BLOOD GAS PO2 (test code=PO2A) 93 mmHg 80-100 BICARBONATE TOTAL HCO3 (test code=HCO3) 25.5 mmol/L 22.0-26.0 BASE EXCESS (test code=KIZZY) 2.0 mmol/L -4-4 ABG O2 SATURATION (test code=SATA) 97 % 90-100 FIO2 (test code=FIO2A) 40 % ABG DELIVERY (test code=NICOL) Vent ABG VENT MODE (test code=MODEA) AC v con ABG VENT RESP RATE (test code=RRA) 32 /MIN ABG TIDAL VOLUME (test code=TVA) 440 ml ABG PEEP (test code=PEEPA) 5 cmH2O Performed by certified synthetic gem press operator at [facility] ABG TEMPERATURE (test code=TEMPA) 99.9 F ABG SITE (test code=SITEA) Art line PREDICTED AA GRADIENT (test code=AP) 62 PREDICTED PO2 (test code=OP) 178 a/A RATIO (test code=RATIO) 0.39 TCO2 ARTERIAL (test code=TCO2A) 27 A-A GRADIENT (test code=AAGRADE) 148 - XR CHEST 1 [id number] 08:00:00Patient Name: MILY MOSHER Unit No: [id number] EXAMS: CPT CODE: [id number] XR CHEST 1 V 06789 HISTORY: Hypoxemia Comparison September 17, 2019 Location code: B2 FINDINGS: Frontal view of the chest demonstrates normal cardiomediastinal silhouette. The trachea is midline. Diffuse interstitial and alveolar opacities noted. There is no effusion or pneumothorax. The bones are intact. Tracheostomy tube and bilateral IJ catheters noted. Removal of NG tube. IMPRESSION: 1. Stable diffuse interstitial coarsening. Underlying airspace disease may present. at 0800 Reported and signed by: Norris Camara M.D. CC: Yasmany Byrnes MD; Malachi Perez MD Technologist: Charlnie Hernandez Fluoro Time: DAP (Gy m2): Air Kerma (mGy): Trscr Dt/Tm: 09/18/2019 (0800) by:[email or web address] Printed Date/Time: 09/18/2019 (0803) Name: MILY MOSHER [facility] Phys: Malachi De La Paz MD [address] : 1975 Age: 44 Sex: [place] [address] Loc: P.0226 1 Exam Date: 09/18/2019 Status: ADM IN PH: FAX: PAGE 1 Signed Report PROTHROMBIN [id number] 04:56:00* Test Item Value Reference Range Comments PROTHROMBIN TIME PATIENT (test code=PTP) 12.5 SECONDS 10.3-12.9 INTERNATIONAL NORMAL RATIO (test code=INR) 1.08 INR UNIT 0.9-1.11 The INR is useful only for monitoring anticoagulant therapy.It may be unreliable in the initial phase of antigoagulationand in unstable patients. Indication for Anticoagulation Recommended INR 1. Prevention of venous thomboembolism 2.0-3.0in high-risk patients; treatment of venousthrombosis and pulmonary embolism aftera course of heparin; prevention of systemicembolism in a variety of conditions, including atrial fibrillation and prothetic tissue heart valves, 2. Prosthetic mechanical heart valves; 2.5-3.5recurrent systemic embolism. THROMBOPLASTIN TIME [id number] 04:56:00* Test Item Value Reference Range Comments THROMBOPLASTIN TIME PARTIAL (test code=PTT) 31.1 SECONDS 26.0-35.9 INTERPRETATIVE DATA:Therapeutic range: Unfractionated heparin:47 - 71 seconds Argatroban:1.5 to 3 times the baseline PTT BASIC METABOLIC [id number] 04:55:00* Test Item Value Reference Range Comments SODIUM (test code=NA) 136 MMOL/L 136-143 POTASSIUM (test code=K) 4.2 MMOL/L 3.5-5.1 CHLORIDE (test code=CL) 99 MMOL/L 98-107 CARBON DIOXIDE (test code=CO2) 23 mmol/L 24-31 GLUCOSE (test code=GLU) 74 mg/dL 70-104 BLOOD UREA NITROGEN (test code=BUN) 40.9 MG/DL 7.0-21.0 GLOMERULAR FILTRATION RATE (test code=GFR) 35 >60 The estimated glomerular filtration rate is computed usingpatient race, age (>18), sex, and serum creatinine. If anyof the needed data elements are missing the Laboratory cannot compute an estimation of the glomerular filtration rate. CREATININE (test code=CREAT) 2.2 mg/dL 0.8-1.5 CALCIUM (test code=CA) 7.2 mg/dL 8.8-10.2 [id number] 04:55:00* Test Item Value Reference Range Comments PHOSPHOROUS (test code=PHOS) 2.9 mg/dL 2.7-4.5 [id number] 04:55:00* Test Item Value Reference Range Comments MAGNESIUM (test code=MAG) 1.7 mg/dL 1.4-2.6 CBC W/AUTO [id number] 04:45:00* Test Item Value Reference Range Comments WHITE BLOOD CELL (test code=WBC) 25.5 x10 3/uL 4.8-10.8 RED BLOOD CELL (test code=RBC) 2.34 x10 6/uL 4.70-6.10 HEMOGLOBIN (test code=HGB) 7.1 g/dL 14.5-20 HEMATOCRIT (test code=HCT) 22.0 % 42.0-52.0 MEAN CELL VOLUME (test code=MCV) 94.0 fL 80.0-94.0 MEAN CELL HGB (test code=MCH) 30.3 pg 27-31 MEAN CELL HGB CONCENTRATION (test code=MCHC) 32.3 G/DL 33-36.5 RED CELL DISTRIBUTION WIDTH (test code=RDW) 20.1 % 12.9-16.9 PLATELET COUNT (test code=PLT) 159 150-440 MEAN PLATELET VOLUME (test code=MPV) 12.4 fL 8.9-12.4 NEUTROPHIL % (test code=NT%) 73.2 % 42.2-75.2 LYMPHOCYTE % (test code=LY%) 9.4 % 20.5-51.1 MONOCYTE % (test code=MO%) 8.4 % 1.7-9.3 EOSINOPHIL % (test code=EO%) 0.2 % 0.0-7.0 BASOPHIL % (test code=BA%) 0.2 % 0-2.5 NEUTROPHIL # (test code=NT#) 18.66 x10 3/uL 1.80-7.70 LYMPHOCYTE # (test code=LY#) 2.39 x10 3/uL 1.00-4.80 MONOCYTE # (test code=MO#) 2.15 x10 3/uL 0.00-0.80 EOSINOPHIL # (test code=EO#) 0.04 x10 3/uL 0.00-0.45 BASOPHIL # (test code=BA#) 0.06 x10 3/uL 0.0-0.20 CALCIUM [id number] 04:40:00* Test Item Value Reference Range Comments CALCIUM IONIZED (test code=YVON) 1.00 mmol/L 1.1-1.3 ARTERIAL BLOOD [id number] 04:39:00* Test Item Value Reference Range Comments ARTERIAL BLOOD GAS PH (test code=PHA) 7.42 7.35-7.45 ARTERIAL BLOOD GAS PCO2 (test code=PCO2A) 35.8 mmHg 35.0-45.0 ARTERIAL BLOOD GAS PO2 (test code=PO2A) 77.0 mmHg 80.0-95.0 BICARBONATE TOTAL HCO3 (test code=HCO3) 22.8 mmol/L 22.0-24.0 BASE EXCESS (test code=KIZZY) -1.4 mmol/L (+/-)2.0 ABG O2 SATURATION (test code=SATA) 93.8 % 95.0-100.0 ABG TYPE (test code=TYPEA) VENTILATOR ARTERIAL FIO2 (test code=FIO2A) 35 % ABG DELIVERY (test code=NICOL) Vent ABG VENT MODE (test code=MODEA) AC Volume ABG VENT RESP RATE (test code=RRA) 32 /MIN ABG TIDAL VOLUME (test code=TIDAL VOLUME) 440 ML ABG PEEP (test code=PEEP) 5 cmH2O ABG SITE (test code=SITEA) Art line ABG POSITION (test code=PT POSITION) SUPINE ALLENS TEST (test code=ALLENS) NOT APPLICAPLE METHEMOGLOBIN (test code=METHGB) % 0-1.5 BASIC METABOLIC [id number] 17:37:00* Test Item Value Reference Range Comments SODIUM (test code=NA) 136 MMOL/L 136-143 POTASSIUM (test code=K) 4.6 MMOL/L 3.5-5.1 CHLORIDE (test code=CL) 100 MMOL/L 98-107 CARBON DIOXIDE (test code=CO2) 23 mmol/L 24-31 GLUCOSE (test code=GLU) 92 mg/dL 70-104 BLOOD UREA NITROGEN (test code=BUN) 49.3 MG/DL 7.0-21.0 GLOMERULAR FILTRATION RATE (test code=GFR) 30 >60 The estimated glomerular filtration rate is computed usingpatient race, age (>18), sex, and serum creatinine. If anyof the needed data elements are missing the Laboratory cannot compute an estimation of the glomerular filtration rate. CREATININE (test code=CREAT) 2.5 mg/dL 0.8-1.5 CALCIUM (test code=CA) 7.3 mg/dL 8.8-10.2 [id number] 17:37:00* Test Item Value Reference Range Comments PHOSPHOROUS (test code=PHOS) 4.2 mg/dL 2.7-4.5 [id number] 17:37:00* Test Item Value Reference Range Comments MAGNESIUM (test code=MAG) 1.9 mg/dL 1.4-2.6 CALCIUM [id number] 17:16:00* Test Item Value Reference Range Comments CALCIUM IONIZED (test code=YVON) 0.99 mmol/L 1.1-1.3 - XR FLUOROSCOPY 0-60 [id number] 16:20:00Patient Name: MILY MOSHER Unit No: [id number] EXAMS: CPT CODE: [id number] XR FLUOROSCOPY 0-60 MIN 07897 Examination: Operative fluoroscopy Location code: S17 Comparison: None Discussion: Clinical history is remarkable for catheter placement. Tunnel catheter appears to been placed likely from right IJ approach. 50.5 seconds fluoroscopic time was utilized. Impression: Please refer to the operative report. at 1620 Reported and signed by: ROBBY ZARAGOZA M.D. CC: Yasmany Byrnes MD Technologist: Nikolas Jugo Fluoro Time: DAP (Gy m2): Air Kerma (mGy): Trscr Dt/Tm: 09/17/2019 (1620) by:[email or web address] Printed Date/Time: 09/17/2019 (7072) Name: MILY MOSHER [facility] Phys: Yasmany Sliva [id number] : 1975 Age: 44 Sex: M [place] [address] Loc: P.0226 1 Exam Date: 09/17/2019 Status: ADM IN PH: FAX: PAGE 1 Signed Report [id number] 08:56:00* Test Item Value Reference Range Comments MAGNESIUM (test code=MAG) 2.0 mg/dL 1.4-2.6 - XR CHEST 1 [id number] 08:17:00Patient Name: MILY MOSHER Unit No: [id number] EXAMS: CPT CODE: [id number] XR CHEST 1 V [id number] EXAM: - XR CHEST 1 V LOCATION: C3 HISTORY: hypoxemia COMPARISON: 09/16/2019 FINDINGS: Single view of the chest. Indwelling lines and tubes are unchanged in position. Endotracheal tube tip is 5 cm above the crist[place]. No pneumothorax. Unchanged interstitial opacities in the mid to lower lungs bilaterally. Prominence of the perihilar vasculature. The mediastinal contours are unremarkable/unchanged. No acute osseous findings are present. IMPRESSION: Unchanged vascular congestion and interstitial edema. at 0817 Reported and signed by: CYNTHIA DYER M.D. CC: Yasmany Byrnes MD; Cresencio [place] MD Technologist: Charline Hernandez Fluoro Time: DAP (Gy m2): Air Kerma (mGy): Trscr Dt/Tm: 09/17/2019 (816) by:[email or web address] Printed Date/Time: 09/17/2019 (819) Name: MOSHER,[facility] Phys: Cresencio Padilla [address] : 1975 Age: 44 Sex: M [place], [place] [id number] Loc: P.0226 1 Exam Date: 09/17/2019 Status: ADM IN PH: FAX: PAGE 1 Signed Report CALCIUM [id number] 07:51:00* Test Item Value Reference Range Comments CALCIUM IONIZED (test code=YVON) 1.07 mmol/L 1.1-1.3 RENAL FUNCTION [id number] 05:35:00* Test Item Value Reference Range Comments SODIUM (test code=NA) 134 MMOL/L 136-143 POTASSIUM (test code=K) 4.7 MMOL/L 3.5-5.1 CHLORIDE (test code=CL) 100 MMOL/L 98-107 CARBON DIOXIDE (test code=CO2) 16 mmol/L 24-31 GLUCOSE (test code=GLU) 101 mg/dL 70-104 BLOOD UREA NITROGEN (test code=BUN) 47.3 MG/DL 7.0-21.0 GLOMERULAR FILTRATION RATE (test code=GFR) 32 >60 The estimated glomerular filtration rate is computed usingpatient race, age (>18), sex, and serum creatinine. If anyof the needed data elements are missing the Laboratory cannot compute an estimation of the glomerular filtration rate. CREATININE (test code=CREAT) 2.4 mg/dL 0.8-1.5 ALBUMIN (test code=ALB) 3.4 G/DL 3.5-5.0 CALCIUM (test code=CA) 8.1 mg/dL 8.8-10.2 PHOSPHOROUS (test code=PHOS) 2.8 mg/dL 2.7-4.5 BASIC METABOLIC [id number] 04:52:00* Test Item Value Reference Range Comments SODIUM (test code=NA) 137 MMOL/L 136-143 POTASSIUM (test code=K) 4.6 MMOL/L 3.5-5.1 CHLORIDE (test code=CL) 100 MMOL/L 98-107 CARBON DIOXIDE (test code=CO2) 24 mmol/L 24-31 GLUCOSE (test code=GLU) 102 mg/dL 70-104 BLOOD UREA NITROGEN (test code=BUN) 47.4 MG/DL 7.0-21.0 GLOMERULAR FILTRATION RATE (test code=GFR) 33 >60 The estimated glomerular filtration rate is computed usingpatient race, age (>18), sex, and serum creatinine. If anyof the needed data elements are missing the Laboratory cannot compute an estimation of the glomerular filtration rate. CREATININE (test code=CREAT) 2.3 mg/dL 0.8-1.5 CALCIUM (test code=CA) 7.7 mg/dL 8.8-10.2 ARTERIAL BLOOD [id number] 04:29:00* Test Item Value Reference Range Comments ARTERIAL BLOOD GAS PH (test code=PHA) 7.36 7.35-7.45 ARTERIAL BLOOD GAS PCO2 (test code=PCO2A) 42.4 mmHg 35.0-45.0 ARTERIAL BLOOD GAS PO2 (test code=PO2A) 67.6 mmHg 80.0-95.0 BICARBONATE TOTAL HCO3 (test code=HCO3) 23.3 mmol/L 22.0-24.0 BASE EXCESS (test code=KIZZY) -2.2 mmol/L (+/-)2.0 ABG O2 SATURATION (test code=SATA) 91.9 % 95.0-100.0 ABG TYPE (test code=TYPEA) VENTILATOR ARTERIAL FIO2 (test code=FIO2A) 40 % ABG DELIVERY (test code=NICOL) Vent ABG VENT MODE (test code=MODEA) AC Volume ABG VENT RESP RATE (test code=RRA) 32 /MIN ABG TIDAL VOLUME (test code=TIDAL VOLUME) 440 ML ABG PEEP (test code=PEEP) 5 cmH2O ABG SITE (test code=SITEA) Art line ABG POSITION (test code=PT POSITION) SEMI ALLENS TEST (test code=ALLENS) NOT APPLICAPLE METHEMOGLOBIN (test code=METHGB) % 0-1.5 CBC W/AUTO [id number] 04:28:00* Test Item Value Reference Range Comments WHITE BLOOD CELL (test code=WBC) 37.7 x10 3/uL 4.8-10.8 RED BLOOD CELL (test code=RBC) 2.81 x10 6/uL 4.70-6.10 HEMOGLOBIN (test code=HGB) 8.5 g/dL 14.5-20 HEMATOCRIT (test code=HCT) 26.5 % 42.0-52.0 MEAN CELL VOLUME (test code=MCV) 94.3 fL 80.0-94.0 MEAN CELL HGB (test code=MCH) 30.2 pg 27-31 MEAN CELL HGB CONCENTRATION (test code=MCHC) 32.1 G/DL 33-36.5 RED CELL DISTRIBUTION WIDTH (test code=RDW) 19.5 % 12.9-16.9 PLATELET COUNT (test code=PLT) 162 150-440 MEAN PLATELET VOLUME (test code=MPV) 12.2 fL 8.9-12.4 NEUTROPHIL % (test code=NT%) 69.4 % 42.2-75.2 LYMPHOCYTE % (test code=LY%) 10.3 % 20.5-51.1 MONOCYTE % (test code=MO%) 10.1 % 1.7-9.3 EOSINOPHIL % (test code=EO%) 0.1 % 0.0-7.0 BASOPHIL % (test code=BA%) 0.5 % 0-2.5 NEUTROPHIL # (test code=NT#) 26.18 x10 3/uL 1.80-7.70 LYMPHOCYTE # (test code=LY#) 3.88 x10 3/uL 1.00-4.80 MONOCYTE # (test code=MO#) 3.81 x10 3/uL 0.00-0.80 EOSINOPHIL # (test code=EO#) 0.03 x10 3/uL 0.00-0.45 BASOPHIL # (test code=BA#) 0.17 x10 3/uL 0.0-0.20 [id number] 03:39:00* Test Item Value Reference Range Comments VANCOMYCIN (test code=VANCO) 13.3 ug/mL 5.0-40.0 BASIC METABOLIC [id number] 19:07:00* Test Item Value Reference Range Comments SODIUM (test code=NA) 137 MMOL/L 136-143 POTASSIUM (test code=K) 5.0 MMOL/L 3.5-5.1 CHLORIDE (test code=CL) 102 MMOL/L 98-107 CARBON DIOXIDE (test code=CO2) 20 mmol/L 24-31 GLUCOSE (test code=GLU) 121 mg/dL 70-104 BLOOD UREA NITROGEN (test code=BUN) 50.4 MG/DL 7.0-21.0 GLOMERULAR FILTRATION RATE (test code=GFR) 29 >60 The estimated glomerular filtration rate is computed usingpatient race, age (>18), sex, and serum creatinine. If anyof the needed data elements are missing the Laboratory cannot compute an estimation of the glomerular filtration rate. CREATININE (test code=CREAT) 2.6 mg/dL 0.8-1.5 CALCIUM (test code=CA) 8.0 mg/dL 8.8-10.2 [id number] 19:07:00* Test Item Value Reference Range Comments PHOSPHOROUS (test code=PHOS) 3.0 mg/dL 2.7-4.5 [id number] 19:07:00* Test Item Value Reference Range Comments MAGNESIUM (test code=MAG) 2.2 mg/dL 1.4-2.6 CALCIUM [id number] 18:48:00* Test Item Value Reference Range Comments CALCIUM IONIZED (test code=YVON) 1.09 mmol/L 1.1-1.3 ARTERIAL BLOOD [id number] 15:08:00* Test Item Value Reference Range Comments ARTERIAL BLOOD GAS PH (test code=PHA) 7.29 7.35-7.45 ARTERIAL BLOOD GAS PCO2 (test code=PCO2A) 44.0 mmHg 35.0-45.0 ARTERIAL BLOOD GAS PO2 (test code=PO2A) 251.0 mmHg 80.0-95.0 BICARBONATE TOTAL HCO3 (test code=HCO3) 21.2 mmol/L 22.0-24.0 BASE EXCESS (test code=KIZZY) -5.2 mmol/L (+/-)2.0 ABG O2 SATURATION (test code=SATA) 97.7 % 95.0-100.0 ABG TYPE (test code=TYPEA) VENTILATOR ARTERIAL FIO2 (test code=FIO2A) 100 % ABG DELIVERY (test code=NICOL) Vent ABG VENT MODE (test code=MODEA) A/C 32 ABG PATIENT RESP RATE (test code=RRPATA) 34 /MIN 12-20 ABG VENT RESP RATE (test code=RRA) 32 /MIN ABG TIDAL VOLUME (test code=TIDAL VOLUME) 440 ML ABG PEEP (test code=PEEP) 450 cmH2O ABG SITE (test code=SITEA) ARET LINE ALLENS TEST (test code=ALLENS) N/A TOTAL HGB (test code=THB) 9.9 g/dL 13.0-17.0 METHEMOGLOBIN (test code=METHGB) 0.9 % 0-1.5 - XR CHEST 1 [id number] 08:04:00Patient Name: MILY MOSHER Unit No: [id number] EXAMS: CPT CODE: [id number] XR CHEST 1 V 03061 HISTORY: Dyspnea, hypoxemia Comparison to September 15, 2019 Location code: B2 FINDINGS: Frontal view of the chest demonstrates normal cardiomediastinal silhouette. The trachea is midline. Central venous congestion with mild interstitial edema. There is no effusion or pneumothorax. The bones are intact. Support lines and tubes are stable. IMPRESSION: Central venous congestion with interstitial edema. at 0804 Reported and signed by: Norris Camara M.D. CC: Yasmany Byrnes MD; Cresencio [place] MD Technologist: Charline Hernandez Fluoro Time: DAP (Gy m2): Air Kerma (mGy): Trscr Dt/Tm: 09/16/2019 (0804) by:[email or web address] Printed Date/Time: 09/16/2019 (0807) Name: MILY MOSHER [facility] Phys: Cresencio Padilla [address] : 1975 Age: 44 [facility]: [place] [address] [id number] Loc: P.0226 1 Exam Date: 09/16/2019 Status: ADM IN PH: FAX: PAGE 1 Signed Report CALCIUM [id number] 07:35:00* Test Item Value Reference Range Comments CALCIUM IONIZED (test code=YVON) 1.07 mmol/L 1.1-1.3 ARTERIAL BLOOD [id number] 05:41:00* Test Item Value Reference Range Comments ARTERIAL BLOOD GAS PH (test code=PHA) 7.33 7.35-7.45 ARTERIAL BLOOD GAS PCO2 (test code=PCO2A) 44.5 mmHg 35.0-45.0 ARTERIAL BLOOD GAS PO2 (test code=PO2A) 83.0 mmHg 80.0-95.0 BICARBONATE TOTAL HCO3 (test code=HCO3) 23.0 mmol/L 22.0-24.0 BASE EXCESS (test code=KIZZY) -3.2 mmol/L (+/-)2.0 ABG O2 SATURATION (test code=SATA) % 95.0-100.0 ABG TYPE (test code=TYPEA) VENTILATOR ARTERIAL FIO2 (test code=FIO2A) 50 % ABG DELIVERY (test code=NICOL) Vent ABG VENT MODE (test code=MODEA) AC Volume ABG PATIENT RESP RATE (test code=RRPATA) 32 /MIN 12-20 ABG VENT RESP RATE (test code=RRA) 32 /MIN ABG TIDAL VOLUME (test code=TIDAL VOLUME) 440 ML ABG PEEP (test code=PEEP) 5 cmH2O ABG SITE (test code=SITEA) Art line ABG POSITION (test code=PT POSITION) SEMI ALLENS TEST (test code=ALLENS) NOT APPLICAPLE HGB TEMP CORRECTED (test code=HGBTC) G/DL TOTAL HGB (test code=THB) 12.4 g/dL 13.0-17.0 METHEMOGLOBIN (test code=METHGB) % 0-1.5 LACTIC [id number] 05:03:00* Test Item Value Reference Range Comments LACTIC ACID (test code=LACT) 8.4 mg/dL 4.5-18.0 VANCOMYCIN [id number] 05:02:00* Test Item Value Reference Range Comments VANCOMYCIN TROUGH (test code=VANCT) 19.4 mcg/ML 10.0-20.0 BASIC METABOLIC [id number] 05:02:00* Test Item Value Reference Range Comments SODIUM (test code=NA) 136 MMOL/L 136-143 POTASSIUM (test code=K) 5.3 MMOL/L 3.5-5.1 CHLORIDE (test code=CL) 99 MMOL/L 98-107 CARBON DIOXIDE (test code=CO2) 24 mmol/L 24-31 GLUCOSE (test code=GLU) 139 mg/dL 70-104 BLOOD UREA NITROGEN (test code=BUN) 44.3 MG/DL 7.0-21.0 GLOMERULAR FILTRATION RATE (test code=GFR) 42 >60 The estimated glomerular filtration rate is computed usingpatient race, age (>18), sex, and serum creatinine. If anyof the needed data elements are missing the Laboratory cannot compute an estimation of the glomerular filtration rate. CREATININE (test code=CREAT) 1.9 mg/dL 0.8-1.5 CALCIUM (test code=CA) 8.1 mg/dL 8.8-10.2 LIVER FUNCTION [id number] 05:02:00* Test Item Value Reference Range Comments TOTAL PROTEIN (test code=PROT) 6.6 g/dL 6.3-8.3 ALBUMIN (test code=ALB) 3.6 G/DL 3.5-5.0 BILIRUBIN TOTAL (test code=BILT) 1.0 mg/dL 0.2-1.0 BILIRUBIN DIRECT (test code=BILD) 0.4 mg/dL 0.0-0.2 SGOT/AST (test code=AST) 103 IU/L 10-34 SGPT/ALT (test code=ALT) 118 U/L 10-44 ALKALINE PHOSPHATASE (test code=ALKP) 195 U/L 45-120 [id number] 05:02:00* Test Item Value Reference Range Comments PHOSPHOROUS (test code=PHOS) 3.1 mg/dL 2.7-4.5 [id number] 05:02:00* Test Item Value Reference Range Comments MAGNESIUM (test code=MAG) 2.1 mg/dL 1.4-2.6 PROTHROMBIN [id number] 04:51:00* Test Item Value Reference Range Comments PROTHROMBIN TIME PATIENT (test code=PTP) 12.3 SECONDS 10.3-12.9 INTERNATIONAL NORMAL RATIO (test code=INR) 1.06 INR UNIT 0.9-1.11 The INR is useful only for monitoring anticoagulant therapy.It may be unreliable in the initial phase of antigoagulationand in unstable patients. Indication for Anticoagulation Recommended INR 1. Prevention of venous thomboembolism 2.0-3.0in high-risk patients; treatment of venousthrombosis and pulmonary embolism aftera course of heparin; prevention of systemicembolism in a variety of conditions, including atrial fibrillation and prothetic tissue heart valves, 2. Prosthetic mechanical heart valves; 2.5-3.5recurrent systemic embolism. THROMBOPLASTIN TIME [id number] 04:51:00* Test Item Value Reference Range Comments THROMBOPLASTIN TIME PARTIAL (test code=PTT) 28.1 SECONDS 26.0-35.9 INTERPRETATIVE DATA:Therapeutic range: Unfractionated heparin:47 - 71 seconds Argatroban:1.5 to 3 times the baseline PTT CBC W/AUTO [id number] 04:32:00* Test Item Value Reference Range Comments WHITE BLOOD CELL (test code=WBC) 30.4 x10 3/uL 4.8-10.8 RED BLOOD CELL (test code=RBC) 3.08 x10 6/uL 4.70-6.10 HEMOGLOBIN (test code=HGB) 9.3 g/dL 14.5-20 HEMATOCRIT (test code=HCT) 28.8 % 42.0-52.0 MEAN CELL VOLUME (test code=MCV) 93.5 fL 80.0-94.0 MEAN CELL HGB (test code=MCH) 30.2 pg 27-31 MEAN CELL HGB CONCENTRATION (test code=MCHC) 32.3 G/DL 33-36.5 RED CELL DISTRIBUTION WIDTH (test code=RDW) 18.7 % 12.9-16.9 PLATELET COUNT (test code=PLT) 133 150-440 MEAN PLATELET VOLUME (test code=MPV) 12.6 fL 8.9-12.4 NEUTROPHIL % (test code=NT%) 75.4 % 42.2-75.2 LYMPHOCYTE % (test code=LY%) 6.9 % 20.5-51.1 MONOCYTE % (test code=MO%) 10.3 % 1.7-9.3 EOSINOPHIL % (test code=EO%) 0.0 % 0.0-7.0 BASOPHIL % (test code=BA%) 0.5 % 0-2.5 NEUTROPHIL # (test code=NT#) 22.88 x10 3/uL 1.80-7.70 LYMPHOCYTE # (test code=LY#) 2.09 x10 3/uL 1.00-4.80 MONOCYTE # (test code=MO#) 3.12 x10 3/uL 0.00-0.80 EOSINOPHIL # (test code=EO#) 0.01 x10 3/uL 0.00-0.45 BASOPHIL # (test code=BA#) 0.16 x10 3/uL 0.0-0.20 [id number] 21:48:00* Test Item Value Reference Range Comments GLUBED (test code=GLUBED) 117 MG/DL 70-105 CALCIUM [id number] 17:27:00* Test Item Value Reference Range Comments CALCIUM IONIZED (test code=YVON) 1.06 mmol/L 1.1-1.3 BASIC METABOLIC [id number] 17:23:00* Test Item Value Reference Range Comments SODIUM (test code=NA) 135 MMOL/L 136-143 POTASSIUM (test code=K) 5.0 MMOL/L 3.5-5.1 CHLORIDE (test code=CL) 99 MMOL/L 98-107 CARBON DIOXIDE (test code=CO2) 20 mmol/L 24-31 GLUCOSE (test code=GLU) 107 mg/dL 70-104 BLOOD UREA NITROGEN (test code=BUN) 45.2 MG/DL 7.0-21.0 GLOMERULAR FILTRATION RATE (test code=GFR) 37 >60 The estimated glomerular filtration rate is computed usingpatient race, age (>18), sex, and serum creatinine. If anyof the needed data elements are missing the Laboratory cannot compute an estimation of the glomerular filtration rate. CREATININE (test code=CREAT) 2.1 mg/dL 0.8-1.5 CALCIUM (test code=CA) 7.9 mg/dL 8.8-10.2 [id number] 17:23:00* Test Item Value Reference Range Comments PHOSPHOROUS (test code=PHOS) 3.1 mg/dL 2.7-4.5 [id number] 17:23:00* Test Item Value Reference Range Comments MAGNESIUM (test code=MAG) 2.0 mg/dL 1.4-2.6 - XR CHEST 1 [id number] 16:28:00Patient Name: MILY MOSHER Unit No: [id number] EXAMS: CPT CODE: [id number] XR CHEST 1 V 64133 EXAM: Portable chest x-ray Dictation location: A1 COMPARISON: Chest x-ray performed earlier the same day INDICATION: LINE PLACEMENT DISCUSSION: The previously noted left IJ central venous catheter has been removed and replaced; the new left IJ central venous catheter tip overlies the appropriate position over the upper SVC. The endotracheal tube and right IJ central venous catheter are unchanged in position. No pneumothorax is seen. There is persistent bilateral interstitial and alveolar opacity over the lungs, not significant changed. The cardiac silhouette is within normal limits. No acute bony abnormalities are identified. IMPRESSION: Interval replacement of the left IJ central venous catheter, with tip over the appropriate position over the upper SVC. No pneumothorax is seen. Otherwise, no interval change. at 1628 Reported and signed by: Ronny Rosas M.D. CC: Yasmany Byrnes MD; Cresencio [place] MD Technologist: Cathie Fulton Time: DAP (Gy m2): Air Kerma (mGy): Trscr Dt/Tm: 09/15/2019 (1628) by:[email or web address] Printed Date/Time: 09/15/2019 (2925) Name: MILY MOSHER [facility] Phys: Cresencio Padilla [address] : 1975 Age: 44 Sex: [place] [address] Loc: P.0226 1 Exam Date: 09/15/2019 Status: ADM IN PH: FAX: PAGE 1 Signed Report - XR CHEST 1 [id number] 12:45:00Patient Name: MILY MOSHER Unit No: [id number] EXAMS: CPT CODE: [id number] XR CHEST 1 V 66536 EXAM: Portable chest x-ray Dictation location: B2 COMPARISON: Chest x-ray performed earlier the same day INDICATION: line placement DISCUSSION: There has been interval removal and replacement of the right IJ central venous catheter, with a new catheter overlying the appropriate position over the upper SVC. No pneumothorax is seen. The left IJ central venous catheter, endotracheal tube, and upper enteric tube are unchanged in position. Interstitial and alveolar opacity throughout the lungs is similar. The cardiac silhouette is within normal limits. No acute bony abnormalities are identified. IMPRESSION: 1. Interval replacement of the right IJ central venous catheter, with tip over the appropriate position. No pneumothorax is seen. 2. Otherwise, no interval change. at 1245 Reported and signed by: Ronny Rosas M.D. CC: Yasmany Byrnes MD; Cresencio [place] MD Technologist: Cathie Fulton Time: DAP (Gy m2): Air Kerma (mGy): Trscr Dt/Tm: 09/15/2019 (1245) by:[email or web address] Printed Date/Time: 09/15/2019 (0847) Name: MILY MOSHER [facility] Phys: [id number] - Cresencio [place] [address] : 1975 Age: 44 Sex: [place] [address] Loc: P.0226 1 Exam Date: 09/15/2019 Status: ADM IN PH: FAX: PAGE 1 Signed Report - XR CHEST 1 [id number] 07:27:00Patient Name: MILY MOSHER Unit No: [id number] EXAMS: CPT CODE: [id number] XR CHEST 1 V 03189 EXAM: Portable chest x-ray Dictation location: A1 COMPARISON: Chest x-ray performed one day prior INDICATION: hypoxemia DI SCUSSION: The endotracheal tube, right and left IJ central venous catheter s, and upper enteric tube overlie the appropriate position. There is slightly improved bilateral alveolar opacity. No pleural effusion is se en. The cardiomediastinal silhouette is within normal limits. No acute b racquel abnormalities are identified. IMPRESSION: Slightly i mproved pneumonia or pulmonary edema. Electronically Karen d by Marisol Rosas on 09/15/2019 at 07 Reported and signed by: Ronny Rosas M.D. CC: Yasmany Byrnes MD; Cresencio Menard echnologist: Norma Fulton Time : DAP (Gy m2): Air Kerma (mGy): Trscr Dt/Tm: 09/15/2019 (726) by:[email or web address] Printed Date/Time: 09/15/2019 (729 ) Name: MILY MOSHER [facility] Phys: Cresencio Padilla [address] : 1975 Age: 44 Sex: [place] [address] Loc: P.0226 1 E xam Date: 09/15/2019 Status: ADM IN PH: FAX: PAGE 1 Signed Report BASIC METABOLIC [id number] 04:47:00* Test Item Value Reference Range Comments SODIUM (test code=NA) 138 MMOL/L 136-143 POTASSIUM (test code=K) 4.7 MMOL/L 3.5-5.1 CHLORIDE (test code=CL) 100 MMOL/L 98-107 CARBON DIOXIDE (test code=CO2) 24 mmol/L 24-31 GLUCOSE (test code=GLU) 133 mg/dL 70-104 BLOOD UREA NITROGEN (test code=BUN) 48.2 MG/DL 7.0-21.0 GLOMERULAR FILTRATION RATE (test code=GFR) 35 >60 The estimated glomerular filtration rate is computed usingpatient race, age (>18), sex, and serum creatinine. If anyof the needed data elements are missing the Laboratory cannot compute an estimation of the glomerular filtration rate. CREATININE (test code=CREAT) 2.2 mg/dL 0.8-1.5 CALCIUM (test code=CA) 7.4 mg/dL 8.8-10.2 [id number] 04:47:00* Test Item Value Reference Range Comments MAGNESIUM (test code=MAG) 2.1 mg/dL 1.4-2.6 [id number] 04:47:00* Test Item Value Reference Range Comments PHOSPHOROUS (test code=PHOS) 3.2 mg/dL 2.7-4.5 [id number] 04:46:00* Test Item Value Reference Range Comments VANCOMYCIN (test code=VANCO) 18.3 ug/mL 5.0-40.0 CBC W/AUTO [id number] 04:44:00* Test Item Value Reference Range Comments WHITE BLOOD CELL (test code=WBC) 37.4 x10 3/uL 4.8-10.8 RED BLOOD CELL (test code=RBC) 3.11 x10 6/uL 4.70-6.10 HEMOGLOBIN (test code=HGB) 9.3 g/dL 14.5-20 HEMATOCRIT (test code=HCT) 29.0 % 42.0-52.0 MEAN CELL VOLUME (test code=MCV) 93.2 fL 80.0-94.0 MEAN CELL HGB (test code=MCH) 29.9 pg 27-31 MEAN CELL HGB CONCENTRATION (test code=MCHC) 32.1 G/DL 33-36.5 RED CELL DISTRIBUTION WIDTH (test code=RDW) 18.6 % 12.9-16.9 PLATELET COUNT (test code=PLT) 130 150-440 MEAN PLATELET VOLUME (test code=MPV) 12.4 fL 8.9-12.4 NEUTROPHIL % (test code=NT%) 73.0 % 42.2-75.2 LYMPHOCYTE % (test code=LY%) 8.2 % 20.5-51.1 MONOCYTE % (test code=MO%) 9.9 % 1.7-9.3 EOSINOPHIL % (test code=EO%) 0.0 % 0.0-7.0 BASOPHIL % (test code=BA%) 0.6 % 0-2.5 NEUTROPHIL # (test code=NT#) 27.26 x10 3/uL 1.80-7.70 LYMPHOCYTE # (test code=LY#) 3.07 x10 3/uL 1.00-4.80 MONOCYTE # (test code=MO#) 3.70 x10 3/uL 0.00-0.80 EOSINOPHIL # (test code=EO#) 0.00 x10 3/uL 0.00-0.45 BASOPHIL # (test code=BA#) 0.24 x10 3/uL 0.0-0.20 LACTIC [id number] 04:39:00* Test Item Value Reference Range Comments LACTIC ACID (test code=LACT) 10.0 mg/dL 4.5-18.0 ARTERIAL BLOOD [id number] 04:28:00* Test Item Value Reference Range Comments ARTERIAL BLOOD GAS PH (test code=PHA) 7.33 7.35-7.45 ARTERIAL BLOOD GAS PCO2 (test code=PCO2A) 41.7 mmHg 35.0-45.0 ARTERIAL BLOOD GAS PO2 (test code=PO2A) 90.9 mmHg 80.0-95.0 BICARBONATE TOTAL HCO3 (test code=HCO3) 21.4 mmol/L 22.0-24.0 BASE EXCESS (test code=KIZZY) -4.3 mmol/L (+/-)2.0 ABG O2 SATURATION (test code=SATA) 95.9 % 95.0-100.0 ABG TYPE (test code=TYPEA) VENTILATOR ARTERIAL FIO2 (test code=FIO2A) 60 % ABG VENT MODE (test code=MODEA) AC Volume ABG PATIENT RESP RATE (test code=RRPATA) 32 /MIN 12-20 ABG VENT RESP RATE (test code=RRA) 32 /MIN ABG TIDAL VOLUME (test code=TIDAL VOLUME) 440 ML ABG PEEP (test code=PEEP) 5 cmH2O ABG SITE (test code=SITEA) Art line ALLENS TEST (test code=ALLENS) NOT APPLICAPLE TOTAL HGB (test code=THB) 10.5 g/dL 13.0-17.0 METHEMOGLOBIN (test code=METHGB) % 0-1.5 CALCIUM [id number] 04:23:00* Test Item Value Reference Range Comments CALCIUM IONIZED (test code=YVON) 1.07 mmol/L 1.1-1.3 [id number] 04:22:00* Test Item Value Reference Range Comments GLUBED (test code=GLUBED) 139 MG/DL 70-105 BASIC METABOLIC [id number] 18:56:00* Test Item Value Reference Range Comments SODIUM (test code=NA) 138 MMOL/L 136-143 POTASSIUM (test code=K) 4.7 MMOL/L 3.5-5.1 CHLORIDE (test code=CL) 98 MMOL/L 98-107 CARBON DIOXIDE (test code=CO2) 25 mmol/L 24-31 GLUCOSE (test code=GLU) 188 mg/dL 70-104 BLOOD UREA NITROGEN (test code=BUN) 56.5 MG/DL 7.0-21.0 GLOMERULAR FILTRATION RATE (test code=GFR) 29 >60 The estimated glomerular filtration rate is computed usingpatient race, age (>18), sex, and serum creatinine. If anyof the needed data elements are missing the Laboratory cannot compute an estimation of the glomerular filtration rate. CREATININE (test code=CREAT) 2.6 mg/dL 0.8-1.5 CALCIUM (test code=CA) 7.5 mg/dL 8.8-10.2 [id number] 18:56:00* Test Item Value Reference Range Comments PHOSPHOROUS (test code=PHOS) 3.6 mg/dL 2.7-4.5 [id number] 18:56:00* Test Item Value Reference Range Comments MAGNESIUM (test code=MAG) 2.3 mg/dL 1.4-2.6 CALCIUM [id number] 18:38:00* Test Item Value Reference Range Comments CALCIUM IONIZED (test code=YVON) 1.05 mmol/L 1.1-1.3 PROTHROMBIN [id number] 12:24:00* Test Item Value Reference Range Comments PROTHROMBIN TIME PATIENT (test code=PTP) 13.2 SECONDS 10.3-12.9 INTERNATIONAL NORMAL RATIO (test code=INR) 1.13 INR UNIT 0.9-1.11 The INR is useful only for monitoring anticoagulant therapy.It may be unreliable in the initial phase of antigoagulationand in unstable patients. Indication for Anticoagulation Recommended INR 1. Prevention of venous thomboembolism 2.0-3.0in high-risk patients; treatment of venousthrombosis and pulmonary embolism aftera course of heparin; prevention of systemicembolism in a variety of conditions, including atrial fibrillation and prothetic tissue heart valves, 2. Prosthetic mechanical heart valves; 2.5-3.5recurrent systemic embolism. THROMBOPLASTIN TIME [id number] 12:24:00* Test Item Value Reference Range Comments THROMBOPLASTIN TIME PARTIAL (test code=PTT) 31.1 SECONDS 26.0-35.9 INTERPRETATIVE DATA:Therapeutic range: Unfractionated heparin:47 - 71 seconds Argatroban:1.5 to 3 times the baseline PTT CBC W/O [id number] 12:16:00* Test Item Value Reference Range Comments WHITE BLOOD CELL (test code=WBC) 39.8 x10 3/uL 4.8-10.8 RED BLOOD CELL (test code=RBC) 3.34 x10 6/uL 4.70-6.10 HEMOGLOBIN (test code=HGB) 9.9 g/dL 14.5-20 HEMATOCRIT (test code=HCT) 30.8 % 42.0-52.0 MEAN CELL VOLUME (test code=MCV) 92.2 fL 80.0-94.0 MEAN CELL HGB (test code=MCH) 29.6 pg 27-31 MEAN CELL HGB CONCENTRATION (test code=MCHC) 32.1 G/DL 33-36.5 RED CELL DISTRIBUTION WIDTH (test code=RDW-SD) 58 % 35-47 PLATELET COUNT (test code=PLT) 136 150-440 - XR CHEST 1 [id number] 08:20:00Patient Name: MILY MOSHER Unit No: [id number] EXAMS: CPT CODE: [id number] XR CHEST 1 V [id number] HISTORY: ET tube, ECMO Comparison September 13, 2019 Location code: B2 FINDINGS: Frontal view of the chest demonstrates normal cardiomediastinal silhouette. The trachea is midline. Diffuse bilateral alveolar opacities. There is no effusion or pneumothorax. The bones are intact. ET tube, NG tube and bilateral IJ catheters are stable. IMPRESSION: Diffuse bilateral airspace disease, slightly progressed from prior at 0820 Reported and signed by: Norris Camara M.D. CC: Miriam Chirinos MD; Yasmany Byrnes MD Technologist: Norma Fulton Time: DAP (Gy m2): Air Kerma (mGy): Trscr Dt/Tm: 09/14/2019 (0820) by:[email or web address] Printed Date/Time: 09/14/2019 (6323) Name: MILY MOSHER [facility] Phys: LU0.1 - Craig Chirinosnjanet [address] : 1975 Age: 44 Sex: [place] [address] [id number] Loc: P.0226 1 Exam Date: 09/14/2019 Status: ADM IN PH: FAX: PAGE 1 Signed Report ARTERIAL BLOOD GAS 2019-09-14 06:11:00* Test Item Value Reference Range Comments ARTERIAL BLOOD GAS PH (test code=PHA) 7.34 7.35-7.45 ARTERIAL BLOOD GAS PCO2 (test code=PCO2A) 48.4 mmHg 35.0-45.0 ARTERIAL BLOOD GAS PO2 (test code=PO2A) 72.5 mmHg 80.0-95.0 BICARBONATE TOTAL HCO3 (test code=HCO3) 25.6 mmol/L 22.0-24.0 BASE EXCESS (test code=KIZZY) -0.5 mmol/L (+/-)2.0 ABG O2 SATURATION (test code=SATA) 92.7 % 95.0-100.0 ABG TYPE (test code=TYPEA) VENTILATOR ARTERIAL FIO2 (test code=FIO2A) 60 % ABG DELIVERY (test code=NICOL) Vent ABG VENT MODE (test code=MODEA) AC Volume ABG PATIENT RESP RATE (test code=RRPATA) 34 /MIN 12-20 ABG VENT RESP RATE (test code=RRA) 32 /MIN ABG TIDAL VOLUME (test code=TIDAL VOLUME) 440 ML ABG PEEP (test code=PEEP) 5 cmH2O ABG SITE (test code=SITEA) Art line ABG POSITION (test code=PT POSITION) SEMI ALLENS TEST (test code=ALLENS) NOT APPLICAPLE TOTAL HGB (test code=THB) 11.6 g/dL 13.0-17.0 METHEMOGLOBIN (test code=METHGB) 0.8 % 0-1.5 LACTIC [id number] 05:39:00* Test Item Value Reference Range Comments LACTIC ACID (test code=LACT) 15.1 mg/dL 4.5-18.0 [id number] 05:38:00* Test Item Value Reference Range Comments PHOSPHOROUS (test code=PHOS) 2.8 mg/dL 2.7-4.5 [id number] 05:38:00* Test Item Value Reference Range Comments MAGNESIUM (test code=MAG) 2.1 mg/dL 1.4-2.6 BASIC METABOLIC [id number] 05:37:00* Test Item Value Reference Range Comments SODIUM (test code=NA) 133 MMOL/L 136-143 POTASSIUM (test code=K) 3.9 MMOL/L 3.5-5.1 CHLORIDE (test code=CL) 100 MMOL/L 98-107 CARBON DIOXIDE (test code=CO2) 25 mmol/L 24-31 GLUCOSE (test code=GLU) 135 mg/dL 70-104 BLOOD UREA NITROGEN (test code=BUN) 36.9 MG/DL 7.0-21.0 GLOMERULAR FILTRATION RATE (test code=GFR) 47 >60 The estimated glomerular filtration rate is computed usingpatient race, age (>18), sex, and serum creatinine. If anyof the needed data elements are missing the Laboratory cannot compute an estimation of the glomerular filtration rate. CREATININE (test code=CREAT) 1.7 mg/dL 0.8-1.5 CALCIUM (test code=CA) 7.3 mg/dL 8.8-10.2 CBC W/AUTO [id number] 05:32:00* Test Item Value Reference Range Comments WHITE BLOOD CELL (test code=WBC) 35.1 x10 3/uL 4.8-10.8 RED BLOOD CELL (test code=RBC) 3.47 x10 6/uL 4.70-6.10 HEMOGLOBIN (test code=HGB) 10.1 g/dL 14.5-20 HEMATOCRIT (test code=HCT) 32.0 % 42.0-52.0 MEAN CELL VOLUME (test code=MCV) 92.2 fL 80.0-94.0 MEAN CELL HGB (test code=MCH) 29.1 pg 27-31 MEAN CELL HGB CONCENTRATION (test code=MCHC) 31.6 G/DL 33-36.5 RED CELL DISTRIBUTION WIDTH (test code=RDW) 18.9 % 12.9-16.9 PLATELET COUNT (test code=PLT) 134 150-440 MEAN PLATELET VOLUME (test code=MPV) 12.2 fL 8.9-12.4 NEUTROPHIL % (test code=NT%) 75.8 % 42.2-75.2 LYMPHOCYTE % (test code=LY%) 5.8 % 20.5-51.1 MONOCYTE % (test code=MO%) 10.5 % 1.7-9.3 EOSINOPHIL % (test code=EO%) 0.0 % 0.0-7.0 BASOPHIL % (test code=BA%) 0.2 % 0-2.5 NEUTROPHIL # (test code=NT#) 26.61 x10 3/uL 1.80-7.70 LYMPHOCYTE # (test code=LY#) 2.04 x10 3/uL 1.00-4.80 MONOCYTE # (test code=MO#) 3.68 x10 3/uL 0.00-0.80 EOSINOPHIL # (test code=EO#) 0.01 x10 3/uL 0.00-0.45 BASOPHIL # (test code=BA#) 0.08 x10 3/uL 0.0-0.20 [id number] 04:57:00* Test Item Value Reference Range Comments VANCOMYCIN (test code=VANCO) 23.7 ug/mL 5.0-40.0 ARTERIAL BLOOD [id number] 04:20:00* Test Item Value Reference Range Comments ARTERIAL BLOOD GAS PH (test code=PHA) 7.34 7.35-7.45 ARTERIAL BLOOD GAS PCO2 (test code=PCO2A) 47.0 mmHg 35.0-45.0 ARTERIAL BLOOD GAS PO2 (test code=PO2A) 75.5 mmHg 80.0-95.0 BICARBONATE TOTAL HCO3 (test code=HCO3) 24.7 mmol/L 22.0-24.0 BASE EXCESS (test code=KIZZY) -1.3 mmol/L (+/-)2.0 ABG O2 SATURATION (test code=SATA) 93.7 % 95.0-100.0 ABG TYPE (test code=TYPEA) VENTILATOR ARTERIAL FIO2 (test code=FIO2A) 60 % ABG DELIVERY (test code=NICOL) Vent ABG VENT MODE (test code=MODEA) AC Volume ABG PATIENT RESP RATE (test code=RRPATA) 32 /MIN 12-20 ABG VENT RESP RATE (test code=RRA) 32 /MIN ABG TIDAL VOLUME (test code=TIDAL VOLUME) 440 ML ABG PEEP (test code=PEEP) 5 cmH2O ABG SITE (test code=SITEA) Art line ABG POSITION (test code=PT POSITION) SEMI ALLENS TEST (test code=ALLENS) NOT APPLICAPLE TOTAL HGB (test code=THB) 11.4 g/dL 13.0-17.0 METHEMOGLOBIN (test code=METHGB) 0.9 % 0-1.5 CALCIUM [id number] 04:20:00* Test Item Value Reference Range Comments CALCIUM IONIZED (test code=YVON) 1.10 mmol/L 1.1-1.3 [id number] 03:38:00* Test Item Value Reference Range Comments GLUBED (test code=GLUBED) 113 MG/DL 70-105 [id number] 03:38:00* Test Item Value Reference Range Comments GLUBED (test code=GLUBED) 123 MG/DL 70-105 [id number] 03:38:00* Test Item Value Reference Range Comments GLUBED (test code=GLUBED) 123 MG/DL 70-105 ARTERIAL BLOOD [id number] 01:24:00* Test Item Value Reference Range Comments ARTERIAL BLOOD GAS PH (test code=PHA) 7.31 7.35-7.45 ARTERIAL BLOOD GAS PCO2 (test code=PCO2A) 49.9 mmHg 35.0-45.0 ARTERIAL BLOOD GAS PO2 (test code=PO2A) 90.6 mmHg 80.0-95.0 BICARBONATE TOTAL HCO3 (test code=HCO3) 24.6 mmol/L 22.0-24.0 BASE EXCESS (test code=KIZZY) -2.0 mmol/L (+/-)2.0 ABG O2 SATURATION (test code=SATA) 95.8 % 95.0-100.0 ABG TYPE (test code=TYPEA) VENTILATOR ARTERIAL FIO2 (test code=FIO2A) 60 % ABG DELIVERY (test code=NICOL) Vent ABG VENT MODE (test code=MODEA) AC Volume ABG PATIENT RESP RATE (test code=RRPATA) 32 /MIN 12-20 ABG VENT RESP RATE (test code=RRA) 32 /MIN ABG TIDAL VOLUME (test code=TIDAL VOLUME) 430 ML ABG PEEP (test code=PEEP) 8 cmH2O ABG SITE (test code=SITEA) Art line ABG POSITION (test code=PT POSITION) SEMI ALLENS TEST (test code=ALLENS) NOT APPLICAPLE TOTAL HGB (test code=THB) 11.8 g/dL 13.0-17.0 METHEMOGLOBIN (test code=METHGB) <0.8 % 0-1.5 ARTERIAL BLOOD [id number] 00:34:00* Test Item Value Reference Range Comments ARTERIAL BLOOD GAS PH (test code=PHA) 7.28 7.35-7.45 ARTERIAL BLOOD GAS PCO2 (test code=PCO2A) 53.5 mmHg 35.0-45.0 ARTERIAL BLOOD GAS PO2 (test code=PO2A) 86.8 mmHg 80.0-95.0 BICARBONATE TOTAL HCO3 (test code=HCO3) 24.7 mmol/L 22.0-24.0 BASE EXCESS (test code=KIZZY) -2.5 mmol/L (+/-)2.0 ABG O2 SATURATION (test code=SATA) 95.1 % 95.0-100.0 ABG TYPE (test code=TYPEA) VENTILATOR ARTERIAL FIO2 (test code=FIO2A) 60 % ABG DELIVERY (test code=NICOL) Vent ABG VENT MODE (test code=MODEA) AC Volume ABG PATIENT RESP RATE (test code=RRPATA) 31 /MIN 12-20 ABG VENT RESP RATE (test code=RRA) 30 /MIN ABG TIDAL VOLUME (test code=TIDAL VOLUME) 430 ML ABG PEEP (test code=PEEP) 10 cmH2O ABG SITE (test code=SITEA) Art line ABG POSITION (test code=PT POSITION) SEMI ALLENS TEST (test code=ALLENS) NOT APPLICAPLE TOTAL HGB (test code=THB) 11.8 g/dL 13.0-17.0 METHEMOGLOBIN (test code=METHGB) <0.8 % 0-1.5 CBC W/MANUAL [id number] 21:12:00* Test Item Value Reference Range Comments WHITE BLOOD CELL (test code=WBC) 34.1 x10 3/uL 4.8-10.8 CORRECTED WBC (test code=CWBC) 30.4 K/mm3 4.8-10.8 | ~~ Corrected WBC Result ~~ || WBC has been corrected due to NRBC | RED BLOOD CELL (test code=RBC) 3.39 x10 6/uL 4.70-6.10 HEMOGLOBIN (test code=HGB) 10.1 g/dL 14.5-20 HEMATOCRIT (test code=HCT) 30.9 % 42.0-52.0 MEAN CELL VOLUME (test code=MCV) 91.2 fL 80.0-94.0 MEAN CELL HGB (test code=MCH) 29.8 pg 27-31 MEAN CELL HGB CONCENTRATION (test code=MCHC) 32.7 G/DL 33-36.5 RED CELL DISTRIBUTION WIDTH (test code=RDW) 18.6 % 12.9-16.9 PLATELET COUNT (test code=PLT) 153 150-440 MEAN PLATELET VOLUME (test code=MPV) 12.2 fL 8.9-12.4 TOTAL CELLS COUNTED (test code=TCC) 100 #CELLS SEGMENTED NEUTROPHILS (test code=SEG) 76 % 43-65 BAND NEUTROPHIL (test code=BAND) 4 % 0-1 LYMPHOCYTE (test code=LYMPH) 9 % 20.5-45.5 MONOCYTE (test code=MON) 9 % 5.5-11.7 MYELOCYTE (test code=MYELO) 2 % 0-0 NUCLEATED RED BLOOD CELL (test code=NRBC) 12.0 % 0-1 Result reported to by LIZANDRO on 09/13/19 @ 2111. PERIPHERAL SMEAR submitted to Pathologist for review.Refer to Corrected WBC Result. ANISOCYTOSIS (test code=ANISO) 1+ NONE SEEN CBC W/MANUAL [id number] 21:12:00* Test Item Value Reference Range Comments WHITE BLOOD CELL (test code=WBC) 34.1 x10 3/uL 4.8-10.8 CORRECTED WBC (test code=CWBC) 30.4 K/mm3 4.8-10.8 | ~~ Corrected WBC Result ~~ || WBC has been corrected due to NRBC | RED BLOOD CELL (test code=RBC) 3.39 x10 6/uL 4.70-6.10 HEMOGLOBIN (test code=HGB) 10.1 g/dL 14.5-20 HEMATOCRIT (test code=HCT) 30.9 % 42.0-52.0 MEAN CELL VOLUME (test code=MCV) 91.2 fL 80.0-94.0 MEAN CELL HGB (test code=MCH) 29.8 pg 27-31 MEAN CELL HGB CONCENTRATION (test code=MCHC) 32.7 G/DL 33-36.5 RED CELL DISTRIBUTION WIDTH (test code=RDW) 18.6 % 12.9-16.9 PLATELET COUNT (test code=PLT) 153 150-440 MEAN PLATELET VOLUME (test code=MPV) 12.2 fL 8.9-12.4 TOTAL CELLS COUNTED (test code=TCC) 100 #CELLS SEGMENTED NEUTROPHILS (test code=SEG) 76 % 43-65 BAND NEUTROPHIL (test code=BAND) 4 % 0-1 LYMPHOCYTE (test code=LYMPH) 9 % 20.5-45.5 MONOCYTE (test code=MON) 9 % 5.5-11.7 MYELOCYTE (test code=MYELO) 2 % 0-0 NUCLEATED RED BLOOD CELL (test code=NRBC) 12.0 % 0-1 Result reported to by LIZANDRO on 09/13/19 @ 2111. PERIPHERAL SMEAR submitted to Pathologist for review.Refer to Corrected WBC Result. ANISOCYTOSIS (test code=ANISO) 1+ NONE SEEN ARTERIAL BLOOD [id number] 20:46:00* Test Item Value Reference Range Comments ARTERIAL BLOOD GAS PH (test code=PHA) 7.33 7.35-7.45 ARTERIAL BLOOD GAS PCO2 (test code=PCO2A) 46.6 mmHg 35.0-45.0 ARTERIAL BLOOD GAS PO2 (test code=PO2A) 87.1 mmHg 80.0-95.0 BICARBONATE TOTAL HCO3 (test code=HCO3) 24.1 mmol/L 22.0-24.0 BASE EXCESS (test code=KIZZY) -2.0 mmol/L (+/-)2.0 ABG O2 SATURATION (test code=SATA) 95.4 % 95.0-100.0 ABG TYPE (test code=TYPEA) VENTILATOR ARTERIAL FIO2 (test code=FIO2A) 60 % ABG DELIVERY (test code=NICOL) Vent ABG VENT MODE (test code=MODEA) AC Volume ABG PATIENT RESP RATE (test code=RRPATA) 31 /MIN 12-20 ABG VENT RESP RATE (test code=RRA) 30 /MIN ABG TIDAL VOLUME (test code=TIDAL VOLUME) 430 ML ABG PEEP (test code=PEEP) 10 cmH2O ABG SITE (test code=SITEA) Art line ABG POSITION (test code=PT POSITION) SEMI ALLENS TEST (test code=ALLENS) NOT APPLICAPLE TOTAL HGB (test code=THB) 12.1 g/dL 13.0-17.0 METHEMOGLOBIN (test code=METHGB) 1.0 % 0-1.5 CALCIUM [id number] 20:46:00* Test Item Value Reference Range Comments CALCIUM IONIZED (test code=YVON) 1.09 mmol/L 1.1-1.3 CBC W/MANUAL [id number] 20:43:00* Test Item Value Reference Range Comments WHITE BLOOD CELL (test code=WBC) 34.1 x10 3/uL 4.8-10.8 RED BLOOD CELL (test code=RBC) 3.39 x10 6/uL 4.70-6.10 HEMOGLOBIN (test code=HGB) 10.1 g/dL 14.5-20 HEMATOCRIT (test code=HCT) 30.9 % 42.0-52.0 MEAN CELL VOLUME (test code=MCV) 91.2 fL 80.0-94.0 MEAN CELL HGB (test code=MCH) 29.8 pg 27-31 MEAN CELL HGB CONCENTRATION (test code=MCHC) 32.7 G/DL 33-36.5 RED CELL DISTRIBUTION WIDTH (test code=RDW) 18.6 % 12.9-16.9 PLATELET COUNT (test code=PLT) 153 150-440 MEAN PLATELET VOLUME (test code=MPV) 12.2 fL 8.9-12.4 TOTAL CELLS COUNTED (test code=TCC) #CELLS SEGMENTED NEUTROPHILS (test code=SEG) % 43-65 LYMPHOCYTE (test code=LYMPH) % 20.5-45.5 CBC W/MANUAL [id number] 20:43:00* Test Item Value Reference Range Comments WHITE BLOOD CELL (test code=WBC) 34.1 x10 3/uL 4.8-10.8 RED BLOOD CELL (test code=RBC) 3.39 x10 6/uL 4.70-6.10 HEMOGLOBIN (test code=HGB) 10.1 g/dL 14.5-20 HEMATOCRIT (test code=HCT) 30.9 % 42.0-52.0 MEAN CELL VOLUME (test code=MCV) 91.2 fL 80.0-94.0 MEAN CELL HGB (test code=MCH) 29.8 pg 27-31 MEAN CELL HGB CONCENTRATION (test code=MCHC) 32.7 G/DL 33-36.5 RED CELL DISTRIBUTION WIDTH (test code=RDW) 18.6 % 12.9-16.9 PLATELET COUNT (test code=PLT) 153 150-440 MEAN PLATELET VOLUME (test code=MPV) 12.2 fL 8.9-12.4 TOTAL CELLS COUNTED (test code=TCC) #CELLS SEGMENTED NEUTROPHILS (test code=SEG) % 43-65 LYMPHOCYTE (test code=LYMPH) % 20.5-45.5 BASIC METABOLIC [id number] 20:38:00* Test Item Value Reference Range Comments SODIUM (test code=NA) 137 MMOL/L 136-143 POTASSIUM (test code=K) 5.1 MMOL/L 3.5-5.1 CHLORIDE (test code=CL) 100 MMOL/L 98-107 CARBON DIOXIDE (test code=CO2) 25 mmol/L 24-31 GLUCOSE (test code=GLU) 126 mg/dL 70-104 BLOOD UREA NITROGEN (test code=BUN) 38.0 MG/DL 7.0-21.0 GLOMERULAR FILTRATION RATE (test code=GFR) 44 >60 The estimated glomerular filtration rate is computed usingpatient race, age (>18), sex, and serum creatinine. If anyof the needed data elements are missing the Laboratory cannot compute an estimation of the glomerular filtration rate. CREATININE (test code=CREAT) 1.8 mg/dL 0.8-1.5 CALCIUM (test code=CA) 7.9 mg/dL 8.8-10.2 [id number] 20:38:00* Test Item Value Reference Range Comments PHOSPHOROUS (test code=PHOS) 3.1 mg/dL 2.7-4.5 [id number] 20:38:00* Test Item Value Reference Range Comments MAGNESIUM (test code=MAG) 2.5 mg/dL 1.4-2.6 LACTIC [id number] 20:38:00* Test Item Value Reference Range Comments LACTIC ACID (test code=LACT) 14.9 mg/dL 4.5-18.0 ARTERIAL BLOOD [id number] 18:30:00* Test Item Value Reference Range Comments ARTERIAL BLOOD GAS PH (test code=PHA) 7.31 7.35-7.45 ARTERIAL BLOOD GAS PCO2 (test code=PCO2A) 49.4 mmHg 35.0-45.0 ARTERIAL BLOOD GAS PO2 (test code=PO2A) 80.5 mmHg 80.0-95.0 BICARBONATE TOTAL HCO3 (test code=HCO3) 24.4 mmol/L 22.0-24.0 BASE EXCESS (test code=KIZZY) -2.1 mmol/L (+/-)2.0 ABG O2 SATURATION (test code=SATA) 94.1 % 95.0-100.0 ABG TYPE (test code=TYPEA) VENTILATOR ARTERIAL FIO2 (test code=FIO2A) 60 % ABG VENT MODE (test code=MODEA) AC Volume ABG PATIENT RESP RATE (test code=RRPATA) 31 /MIN 12-20 ABG VENT RESP RATE (test code=RRA) 30 /MIN ABG TIDAL VOLUME (test code=TIDAL VOLUME) 430 ML ABG PEEP (test code=PEEP) 10 cmH2O ABG SITE (test code=SITEA) Art line ABG POSITION (test code=PT POSITION) SF ALLENS TEST (test code=ALLENS) NA TOTAL HGB (test code=THB) 12.2 g/dL 13.0-17.0 METHEMOGLOBIN (test code=METHGB) 0.9 % 0-1.5 CALCIUM [id number] 18:30:00* Test Item Value Reference Range Comments CALCIUM IONIZED (test code=YVON) 1.12 mmol/L 1.1-1.3 CALCIUM [id number] 16:36:00* Test Item Value Reference Range Comments CALCIUM IONIZED (test code=YVON) 1.15 mmol/L 1.1-1.3 ARTERIAL BLOOD [id number] 16:35:00* Test Item Value Reference Range Comments ARTERIAL BLOOD GAS PH (test code=PHA) 7.26 7.35-7.45 ARTERIAL BLOOD GAS PCO2 (test code=PCO2A) 49.5 mmHg 35.0-45.0 ARTERIAL BLOOD GAS PO2 (test code=PO2A) 99.7 mmHg 80.0-95.0 BICARBONATE TOTAL HCO3 (test code=HCO3) 21.0 mmol/L 22.0-24.0 BASE EXCESS (test code=KIZZY) -6.3 mmol/L (+/-)2.0 ABG O2 SATURATION (test code=SATA) 96.1 % 95.0-100.0 ABG TYPE (test code=TYPEA) VENTILATOR ARTERIAL FIO2 (test code=FIO2A) 70 % ABG VENT MODE (test code=MODEA) AC Volume ABG PATIENT RESP RATE (test code=RRPATA) 31 /MIN 12-20 ABG VENT RESP RATE (test code=RRA) 28 /MIN ABG TIDAL VOLUME (test code=TIDAL VOLUME) 430 ML ABG PEEP (test code=PEEP) 10 cmH2O ABG SITE (test code=SITEA) Art line ABG POSITION (test code=PT POSITION) SF ALLENS TEST (test code=ALLENS) NA TOTAL HGB (test code=THB) 12.1 g/dL 13.0-17.0 METHEMOGLOBIN (test code=METHGB) <0.8 % 0-1.5 - DUP VEIN [id number] 14:59:00Patient Name: MILY MOSHER Unit No: [id number] EXAMS: CPT CODE: [id number] DUP VEIN JOSEPH [id number] Bilateral lower extremity venous Doppler ultrasound 09/13/2019 CLINICAL INDICATION: Edema COMPARISON: None available LOCATION: W1 TECHNIQUE: Grayscale, color Doppler, spectral wave form analysis of the deep venous system of the bilateral lower extremities was performed. FINDINGS: The left common femoral and bilateral femoral, and popliteal veins are normally compressible and demonstrate normal spontaneous phasic wave forms. The visualized calf veins are patent. The right common femoral vein is not visualized due to an overlying dressing. IMPRESSION: No evidence for deep venous thrombus in either visualized lower extremity. at 0652 Reported and signed by: ERIK MTZ M.D. CC: Yasmany Byrnes MD; Cresencio [place] MD Technologist: Shira Spencer Probe: Trscr Dt/Tm: 09/13/2019 (3238) by:[email or web address] Printed Date/Time: 09/13/2019 (0702) Name: [facility] Phys: Cresencio Padilla [address] : 0 1975 Age: 44 Sex: [place] [address] Acct No: [id number] Loc: P.0226 1 Exam Date: 019 Status: ADM IN PH: FAX: PAGE 1 Signed Report CBC W/MANUAL [id number] 13:56:00* Test Item Value Reference Range Comments WHITE BLOOD CELL (test code=WBC) 35.0 x10 3/uL 4.8-10.8 CORRECTED WBC (test code=CWBC) 31.5 K/mm3 4.8-10.8 | ~~ Corrected WBC Result ~~ || WBC has been corrected due to NRBC | RED BLOOD CELL (test code=RBC) 3.68 x10 6/uL 4.70-6.10 HEMOGLOBIN (test code=HGB) 10.7 g/dL 14.5-20 HEMATOCRIT (test code=HCT) 33.3 % 42.0-52.0 MEAN CELL VOLUME (test code=MCV) 90.5 fL 80.0-94.0 MEAN CELL HGB (test code=MCH) 29.1 pg 27-31 MEAN CELL HGB CONCENTRATION (test code=MCHC) 32.1 G/DL 33-36.5 RED CELL DISTRIBUTION WIDTH (test code=RDW) 18.7 % 12.9-16.9 PLATELET COUNT (test code=PLT) 190 150-440 MEAN PLATELET VOLUME (test code=MPV) 11.5 fL 8.9-12.4 TOTAL CELLS COUNTED (test code=TCC) 100 #CELLS SEGMENTED NEUTROPHILS (test code=SEG) 75 % 43-65 BAND NEUTROPHIL (test code=BAND) 4 % 0-1 LYMPHOCYTE (test code=LYMPH) 9 % 20.5-45.5 MONOCYTE (test code=MON) 8 % 5.5-11.7 MYELOCYTE (test code=MYELO) 4 % 0-0 NUCLEATED RED BLOOD CELL (test code=NRBC) 11.0 % 0-1 Refer to Corrected WBC Result. POLYCHROMASIA (test code=POLC) 1+ NONE SEEN ANISOCYTOSIS (test code=ANISO) 1+ NONE SEEN PLATELET MORPHOLOGY (test code=PLTMORPH) NORMAL NORMAL BASIC METABOLIC [id number] 13:02:00* Test Item Value Reference Range Comments SODIUM (test code=NA) 138 MMOL/L 136-143 POTASSIUM (test code=K) 5.1 MMOL/L 3.5-5.1 CHLORIDE (test code=CL) 102 MMOL/L 98-107 CARBON DIOXIDE (test code=CO2) 26 mmol/L 24-31 GLUCOSE (test code=GLU) 123 mg/dL 70-104 BLOOD UREA NITROGEN (test code=BUN) 35.4 MG/DL 7.0-21.0 GLOMERULAR FILTRATION RATE (test code=GFR) 47 >60 The estimated glomerular filtration rate is computed usingpatient race, age (>18), sex, and serum creatinine. If anyof the needed data elements are missing the Laboratory cannot compute an estimation of the glomerular filtration rate. CREATININE (test code=CREAT) 1.7 mg/dL 0.8-1.5 CALCIUM (test code=CA) 8.1 mg/dL 8.8-10.2 [id number] 13:02:00* Test Item Value Reference Range Comments PHOSPHOROUS (test code=PHOS) 3.6 mg/dL 2.7-4.5 [id number] 13:02:00* Test Item Value Reference Range Comments MAGNESIUM (test code=MAG) 2.5 mg/dL 1.4-2.6 LACTIC [id number] 13:01:00* Test Item Value Reference Range Comments LACTIC ACID (test code=LACT) 16.8 mg/dL 4.5-18.0 THROMBOPLASTIN TIME [id number] 12:55:00* Test Item Value Reference Range Comments THROMBOPLASTIN TIME PARTIAL (test code=PTT) 45.8 SECONDS 26.0-35.9 INTERPRETATIVE DATA:Therapeutic range: Unfractionated heparin:47 - 71 seconds Argatroban:1.5 to 3 times the baseline PTT CBC W/MANUAL [id number] 12:23:00* Test Item Value Reference Range Comments WHITE BLOOD CELL (test code=WBC) 35.0 x10 3/uL 4.8-10.8 RED BLOOD CELL (test code=RBC) 3.68 x10 6/uL 4.70-6.10 HEMOGLOBIN (test code=HGB) 10.7 g/dL 14.5-20 HEMATOCRIT (test code=HCT) 33.3 % 42.0-52.0 MEAN CELL VOLUME (test code=MCV) 90.5 fL 80.0-94.0 MEAN CELL HGB (test code=MCH) 29.1 pg 27-31 MEAN CELL HGB CONCENTRATION (test code=MCHC) 32.1 G/DL 33-36.5 RED CELL DISTRIBUTION WIDTH (test code=RDW) 18.7 % 12.9-16.9 PLATELET COUNT (test code=PLT) 190 150-440 MEAN PLATELET VOLUME (test code=MPV) 11.5 fL 8.9-12.4 TOTAL CELLS COUNTED (test code=TCC) #CELLS SEGMENTED NEUTROPHILS (test code=SEG) % 43-65 LYMPHOCYTE (test code=LYMPH) % 20.5-45.5 CBC W/MANUAL [id number] 12:17:00* Test Item Value Reference Range Comments WHITE BLOOD CELL (test code=WBC) 35.0 x10 3/uL 4.8-10.8 RED BLOOD CELL (test code=RBC) 3.68 x10 6/uL 4.70-6.10 HEMOGLOBIN (test code=HGB) 10.7 g/dL 14.5-20 HEMATOCRIT (test code=HCT) 33.3 % 42.0-52.0 MEAN CELL VOLUME (test code=MCV) 90.5 fL 80.0-94.0 MEAN CELL HGB (test code=MCH) 29.1 pg 27-31 MEAN CELL HGB CONCENTRATION (test code=MCHC) 32.1 G/DL 33-36.5 RED CELL DISTRIBUTION WIDTH (test code=RDW) 18.7 % 12.9-16.9 PLATELET COUNT (test code=PLT) 190 150-440 MEAN PLATELET VOLUME (test code=MPV) 11.5 fL 8.9-12.4 TOTAL CELLS COUNTED (test code=TCC) #CELLS SEGMENTED NEUTROPHILS (test code=SEG) % 43-65 LYMPHOCYTE (test code=LYMPH) % 20.5-45.5 ARTERIAL BLOOD [id number] 12:16:00* Test Item Value Reference Range Comments ARTERIAL BLOOD GAS PH (test code=PHA) 7.31 7.35-7.45 ARTERIAL BLOOD GAS PCO2 (test code=PCO2A) 46.3 mmHg 35.0-45.0 ARTERIAL BLOOD GAS PO2 (test code=PO2A) 93.2 mmHg 80.0-95.0 BICARBONATE TOTAL HCO3 (test code=HCO3) 22.5 mmol/L 22.0-24.0 BASE EXCESS (test code=KIZZY) -3.9 mmol/L (+/-)2.0 ABG O2 SATURATION (test code=SATA) 95.9 % 95.0-100.0 ABG TYPE (test code=TYPEA) VENTILATOR ARTERIAL FIO2 (test code=FIO2A) 70 % ABG VENT MODE (test code=MODEA) AC Volume ABG PATIENT RESP RATE (test code=RRPATA) 31 /MIN 12-20 ABG VENT RESP RATE (test code=RRA) 28 /MIN ABG TIDAL VOLUME (test code=TIDAL VOLUME) 430 ML ABG PEEP (test code=PEEP) 10 cmH2O ABG SITE (test code=SITEA) Art line ABG POSITION (test code=PT POSITION) SF ALLENS TEST (test code=ALLENS) NA TOTAL HGB (test code=THB) 11.8 g/dL 13.0-17.0 METHEMOGLOBIN (test code=METHGB) <0.8 % 0-1.5 CALCIUM [id number] 12:16:00* Test Item Value Reference Range Comments CALCIUM IONIZED (test code=YVON) 1.14 mmol/L 1.1-1.3 CBC W/MANUAL [id number] 08:49:00* Test Item Value Reference Range Comments WHITE BLOOD CELL (test code=WBC) 35.8 x10 3/uL 4.8-10.8 RED BLOOD CELL (test code=RBC) 3.78 x10 6/uL 4.70-6.10 HEMOGLOBIN (test code=HGB) 11.1 g/dL 14.5-20 HEMATOCRIT (test code=HCT) 34.2 % 42.0-52.0 MEAN CELL VOLUME (test code=MCV) 90.5 fL 80.0-94.0 MEAN CELL HGB (test code=MCH) 29.4 pg 27-31 MEAN CELL HGB CONCENTRATION (test code=MCHC) 32.5 G/DL 33-36.5 RED CELL DISTRIBUTION WIDTH (test code=RDW) 18.7 % 12.9-16.9 PLATELET COUNT (test code=PLT) 176 150-440 MEAN PLATELET VOLUME (test code=MPV) 12.3 fL 8.9-12.4 TOTAL CELLS COUNTED (test code=TCC) 100 #CELLS SEGMENTED NEUTROPHILS (test code=SEG) 76 % 43-65 BAND NEUTROPHIL (test code=BAND) 3 % 0-1 LYMPHOCYTE (test code=LYMPH) 11 % 20.5-45.5 MONOCYTE (test code=MON) 10 % 5.5-11.7 HYPOCHROMIA (test code=HYPO) 1+ NONE SEEN PLATELET ESTIMATE (test code=PLTEST) ADEQUATE ADEQUATE THROMBOPLASTIN TIME [id number] 07:16:00* Test Item Value Reference Range Comments THROMBOPLASTIN TIME PARTIAL (test code=PTT) 41.6 SECONDS 26.0-35.9 DELTA NOTIFIED ORTIZ DREW RN @0716INTERPRETATIVE DATA:Therapeutic range: Unfractionated heparin:47 - 71 seconds Argatroban:1.5 to 3 times the baseline PTT ARTERIAL BLOOD [id number] 06:50:00* Test Item Value Reference Range Comments ARTERIAL BLOOD GAS PH (test code=PHA) 7.31 7.35-7.45 ARTERIAL BLOOD GAS PCO2 (test code=PCO2A) 44.0 mmHg 35.0-45.0 ARTERIAL BLOOD GAS PO2 (test code=PO2A) 84.2 mmHg 80.0-95.0 BICARBONATE TOTAL HCO3 (test code=HCO3) 21.7 mmol/L 22.0-24.0 BASE EXCESS (test code=KIZZY) -4.4 mmol/L (+/-)2.0 ABG O2 SATURATION (test code=SATA) 95.0 % 95.0-100.0 ABG TYPE (test code=TYPEA) VENTILATOR ARTERIAL FIO2 (test code=FIO2A) 70 % ABG DELIVERY (test code=NICOL) Vent ABG VENT MODE (test code=MODEA) AC Volume ABG VENT RESP RATE (test code=RRA) 28 /MIN ABG TIDAL VOLUME (test code=TIDAL VOLUME) 430 ML ABG PEEP (test code=PEEP) 10 cmH2O ABG SITE (test code=SITEA) Art line ABG POSITION (test code=PT POSITION) SUPINE ALLENS TEST (test code=ALLENS) NOT APPLICAPLE METHEMOGLOBIN (test code=METHGB) % 0-1.5 CALCIUM [id number] 06:50:00* Test Item Value Reference Range Comments CALCIUM IONIZED (test code=YVON) 1.12 mmol/L 1.1-1.3 - XR CHEST 1 [id number] 05:19:00Patient Name: MILY MOSHER Unit No: [id number] EXAMS: CPT CODE: [id number] XR CHEST 1 V [id number] STUDY: Chest radiograph HISTORY: ECMO, endotracheal tube. COMPARISON: 09/12/2019 TECHNIQUE: Frontal view of the chest. SITE: R16 FINDINGS: Endotracheal tube, bilateral internal jugular venous catheters and enteric tube are in similar positions. The cardiac silhouette is stable in size. Again seen is pulmonary vascular congestion. There is a streaky opacity at the left lung base, unchanged. There are persistent small pleural effusions. No pneumothorax is demonstrated. IMPRESSION: No significant interval change. at 0519 Reported and signed by: ELLA AVALOS M.D. CC: Miriam Chirinos MD; Yasmany Byrnes MD Technologist: Charline Hernandez Fluoro Time: DAP (Gy m2): Air Kerma (mGy): Trscr Dt/Tm: 09/13/2019 (0509) by:[email or web address] Printed Date/Time: 09/13/2019 (2739) Name: MILY MOSHER [facility] Phys: [id number] - Miriam Chirinos [id number] : 1975 Age: 44 Sex: [place] [id number] Loc: P.[id number] 1 Exam Date: 09/13/2019 Status: ADM IN PH: FAX: PAGE 1 Signed Report ARTERIAL BLOOD GAS 2019-09-13 05:17:00* Test Item Value Reference Range Comments ARTERIAL BLOOD GAS PH (test code=PHA) 7.30 7.35-7.45 ARTERIAL BLOOD GAS PCO2 (test code=PCO2A) 48.4 mmHg 35.0-45.0 ARTERIAL BLOOD GAS PO2 (test code=PO2A) 88.4 mmHg 80.0-95.0 BICARBONATE TOTAL HCO3 (test code=HCO3) 23.2 mmol/L 22.0-24.0 BASE EXCESS (test code=KIZZY) -3.4 mmol/L (+/-)2.0 ABG O2 SATURATION (test code=SATA) 95.4 % 95.0-100.0 ABG TYPE (test code=TYPEA) VENTILATOR ARTERIAL FIO2 (test code=FIO2A) 70 % ABG DELIVERY (test code=NICOL) Vent ABG VENT MODE (test code=MODEA) AC Volume ABG VENT RESP RATE (test code=RRA) 28 /MIN ABG TIDAL VOLUME (test code=TIDAL VOLUME) 430 ML ABG PEEP (test code=PEEP) 10 cmH2O ABG SITE (test code=SITEA) Art line ABG POSITION (test code=PT POSITION) SUPINE ALLENS TEST (test code=ALLENS) NOT APPLICAPLE METHEMOGLOBIN (test code=METHGB) % 0-1.5 VANCOMYCIN [id number] 04:02:00* Test Item Value Reference Range Comments VANCOMYCIN TROUGH (test code=VANCT) 20.7 mcg/ML 10.0-20.0 [id number] 03:26:00* Test Item Value Reference Range Comments PHOSPHOROUS (test code=PHOS) 4.1 mg/dL 2.7-4.5 BASIC METABOLIC [id number] 03:25:00* Test Item Value Reference Range Comments SODIUM (test code=NA) 139 MMOL/L 136-143 POTASSIUM (test code=K) 4.6 MMOL/L 3.5-5.1 CHLORIDE (test code=CL) 102 MMOL/L 98-107 CARBON DIOXIDE (test code=CO2) 23 mmol/L 24-31 GLUCOSE (test code=GLU) 146 mg/dL 70-104 BLOOD UREA NITROGEN (test code=BUN) 37.2 MG/DL 7.0-21.0 GLOMERULAR FILTRATION RATE (test code=GFR) 51 >60 The estimated glomerular filtration rate is computed usingpatient race, age (>18), sex, and serum creatinine. If anyof the needed data elements are missing the Laboratory cannot compute an estimation of the glomerular filtration rate. CREATININE (test code=CREAT) 1.6 mg/dL 0.8-1.5 CALCIUM (test code=CA) 7.9 mg/dL 8.8-10.2 LACTIC [id number] 03:25:00* Test Item Value Reference Range Comments LACTIC ACID (test code=LACT) 16.9 mg/dL 4.5-18.0 [id number] 03:25:00* Test Item Value Reference Range Comments MAGNESIUM (test code=MAG) 2.3 mg/dL 1.4-2.6 [id number] 03:19:00* Test Item Value Reference Range Comments GLUBED (test code=GLUBED) 129 MG/DL 70-105 [id number] 03:19:00* Test Item Value Reference Range Comments GLUBED (test code=GLUBED) 128 MG/DL 70-105 CBC W/MANUAL [id number] 03:10:00* Test Item Value Reference Range Comments WHITE BLOOD CELL (test code=WBC) 35.8 x10 3/uL 4.8-10.8 RED BLOOD CELL (test code=RBC) 3.78 x10 6/uL 4.70-6.10 HEMOGLOBIN (test code=HGB) 11.1 g/dL 14.5-20 HEMATOCRIT (test code=HCT) 34.2 % 42.0-52.0 MEAN CELL VOLUME (test code=MCV) 90.5 fL 80.0-94.0 MEAN CELL HGB (test code=MCH) 29.4 pg 27-31 MEAN CELL HGB CONCENTRATION (test code=MCHC) 32.5 G/DL 33-36.5 RED CELL DISTRIBUTION WIDTH (test code=RDW) 18.7 % 12.9-16.9 PLATELET COUNT (test code=PLT) 176 150-440 MEAN PLATELET VOLUME (test code=MPV) 12.3 fL 8.9-12.4 TOTAL CELLS COUNTED (test code=TCC) #CELLS SEGMENTED NEUTROPHILS (test code=SEG) % 43-65 LYMPHOCYTE (test code=LYMPH) % 20.5-45.5 CBC W/MANUAL [id number] 03:10:00* Test Item Value Reference Range Comments WHITE BLOOD CELL (test code=WBC) 35.8 x10 3/uL 4.8-10.8 RED BLOOD CELL (test code=RBC) 3.78 x10 6/uL 4.70-6.10 HEMOGLOBIN (test code=HGB) 11.1 g/dL 14.5-20 HEMATOCRIT (test code=HCT) 34.2 % 42.0-52.0 MEAN CELL VOLUME (test code=MCV) 90.5 fL 80.0-94.0 MEAN CELL HGB (test code=MCH) 29.4 pg 27-31 MEAN CELL HGB CONCENTRATION (test code=MCHC) 32.5 G/DL 33-36.5 RED CELL DISTRIBUTION WIDTH (test code=RDW) 18.7 % 12.9-16.9 PLATELET COUNT (test code=PLT) 176 150-440 MEAN PLATELET VOLUME (test code=MPV) 12.3 fL 8.9-12.4 TOTAL CELLS COUNTED (test code=TCC) #CELLS SEGMENTED NEUTROPHILS (test code=SEG) % 43-65 LYMPHOCYTE (test code=LYMPH) % 20.5-45.5 ARTERIAL BLOOD [id number] 03:09:00* Test Item Value Reference Range Comments ARTERIAL BLOOD GAS PH (test code=PHA) 7.30 7.35-7.45 ARTERIAL BLOOD GAS PCO2 (test code=PCO2A) 47.8 mmHg 35.0-45.0 ARTERIAL BLOOD GAS PO2 (test code=PO2A) 81.9 mmHg 80.0-95.0 BICARBONATE TOTAL HCO3 (test code=HCO3) 23.0 mmol/L 22.0-24.0 BASE EXCESS (test code=KIZZY) -3.5 mmol/L (+/-)2.0 ABG O2 SATURATION (test code=SATA) 94.7 % 95.0-100.0 ABG TYPE (test code=TYPEA) VENTILATOR ARTERIAL FIO2 (test code=FIO2A) 70 % ABG DELIVERY (test code=NICOL) Vent ABG VENT MODE (test code=MODEA) AC Volume ABG VENT RESP RATE (test code=RRA) 30 /MIN ABG TIDAL VOLUME (test code=TIDAL VOLUME) 430 ML ABG PEEP (test code=PEEP) 10 cmH2O ABG SITE (test code=SITEA) Art line ABG POSITION (test code=PT POSITION) SUPINE ALLENS TEST (test code=ALLENS) NOT APPLICAPLE METHEMOGLOBIN (test code=METHGB) <0.8 % 0-1.5 THROMBOPLASTIN TIME [id number] 00:39:00* Test Item Value Reference Range Comments THROMBOPLASTIN TIME PARTIAL (test code=PTT) 70.7 SECONDS 26.0-35.9 INTERPRETATIVE DATA:Therapeutic range: Unfractionated heparin:47 - 71 seconds Argatroban:1.5 to 3 times the baseline PTT ARTERIAL BLOOD [id number] 00:21:00* Test Item Value Reference Range Comments ARTERIAL BLOOD GAS PH (test code=PHA) 7.25 7.35-7.45 ARTERIAL BLOOD GAS PCO2 (test code=PCO2A) 53.6 mmHg 35.0-45.0 ARTERIAL BLOOD GAS PO2 (test code=PO2A) 84.4 mmHg 80.0-95.0 BICARBONATE TOTAL HCO3 (test code=HCO3) 23.1 mmol/L 22.0-24.0 BASE EXCESS (test code=KIZZY) -4.5 mmol/L (+/-)2.0 ABG O2 SATURATION (test code=SATA) 94.5 % 95.0-100.0 ABG TYPE (test code=TYPEA) VENTILATOR ARTERIAL FIO2 (test code=FIO2A) 70 % ABG DELIVERY (test code=NICOL) Vent ABG VENT MODE (test code=MODEA) AC Volume ABG VENT RESP RATE (test code=RRA) 30 /MIN ABG TIDAL VOLUME (test code=TIDAL VOLUME) 400 ML ABG PEEP (test code=PEEP) 10 cmH2O ABG SITE (test code=SITEA) Art line ABG POSITION (test code=PT POSITION) SUPINE ALLENS TEST (test code=ALLENS) NOT APPLICAPLE METHEMOGLOBIN (test code=METHGB) <0.8 % 0-1.5 CALCIUM [id number] 00:21:00* Test Item Value Reference Range Comments CALCIUM IONIZED (test code=YVON) 1.14 mmol/L 1.1-1.3 [id number] 21:57:00* Test Item Value Reference Range Comments GLUBED (test code=GLUBED) 85 MG/DL 70-105 [id number] 21:57:00* Test Item Value Reference Range Comments GLUBED (test code=GLUBED) 124 MG/DL 70-105 [id number] 21:56:00* Test Item Value Reference Range Comments GLUBED (test code=GLUBED) 117 MG/DL 70-105 [id number] 21:56:00* Test Item Value Reference Range Comments GLUBED (test code=GLUBED) 104 MG/DL 70-105 ARTERIAL BLOOD [id number] 21:22:00* Test Item Value Reference Range Comments ARTERIAL BLOOD GAS PH (test code=PHA) 7.20 7.35-7.45 ARTERIAL BLOOD GAS PCO2 (test code=PCO2A) 57.0 mmHg 35.0-45.0 ARTERIAL BLOOD GAS PO2 (test code=PO2A) 92.9 mmHg 80.0-95.0 BICARBONATE TOTAL HCO3 (test code=HCO3) 21.8 mmol/L 22.0-24.0 BASE EXCESS (test code=KIZZY) -6.7 mmol/L (+/-)2.0 ABG O2 SATURATION (test code=SATA) 95.2 % 95.0-100.0 ABG TYPE (test code=TYPEA) VENTILATOR ARTERIAL FIO2 (test code=FIO2A) 70 % ABG DELIVERY (test code=NICOL) Vent ABG VENT MODE (test code=MODEA) AC Volume ABG VENT RESP RATE (test code=RRA) 30 /MIN ABG TIDAL VOLUME (test code=TIDAL VOLUME) 380 ML ABG PEEP (test code=PEEP) 10 cmH2O ABG SITE (test code=SITEA) Art line ABG POSITION (test code=PT POSITION) SUPINE ALLENS TEST (test code=ALLENS) NOT APPLICAPLE METHEMOGLOBIN (test code=METHGB) 0.9 % 0-1.5 ARTERIAL BLOOD [id number] 20:32:00* Test Item Value Reference Range Comments ARTERIAL BLOOD GAS PH (test code=PHA) 7.15 7.35-7.45 ARTERIAL BLOOD GAS PCO2 (test code=PCO2A) 62.7 mmHg 35.0-45.0 Critical Value reported toFirst Name:ELLA Last Name:CONSUELO READ BACK AND VERIFIEDby P.RCS.TV, on 09/12/19, @ 2030. ARTERIAL BLOOD GAS PO2 (test code=PO2A) 107.6 mmHg 80.0-95.0 BICARBONATE TOTAL HCO3 (test code=HCO3) 21.4 mmol/L 22.0-24.0 BASE EXCESS (test code=KIZZY) -8.1 mmol/L (+/-)2.0 ABG O2 SATURATION (test code=SATA) 96.3 % 95.0-100.0 ABG TYPE (test code=TYPEA) VENTILATOR ARTERIAL FIO2 (test code=FIO2A) 70 % ABG DELIVERY (test code=NICOL) Vent ABG VENT MODE (test code=MODEA) AC Volume ABG VENT RESP RATE (test code=RRA) 30 /MIN ABG TIDAL VOLUME (test code=TIDAL VOLUME) 360 ML ABG PEEP (test code=PEEP) 10 cmH2O ABG SITE (test code=SITEA) Art line ABG POSITION (test code=PT POSITION) SUPINE ALLENS TEST (test code=ALLENS) NOT APPLICAPLE METHEMOGLOBIN (test code=METHGB) 0.9 % 0-1.5 ARTERIAL BLOOD [id number] 19:37:00* Test Item Value Reference Range Comments ARTERIAL BLOOD GAS PH (test code=PHA) 7.13 7.35-7.45 ARTERIAL BLOOD GAS PCO2 (test code=PCO2A) 68.5 mmHg 35.0-45.0 Critical Value reported toFirst Name:ELLA Last Name:DIPIKA READ BACK AND VERIFIEDby P.[employer]CS.[employer], on 09/12/19, @ 1936. ARTERIAL BLOOD GAS PO2 (test code=PO2A) 111.0 mmHg 80.0-95.0 BICARBONATE TOTAL HCO3 (test code=HCO3) 22.3 mmol/L 22.0-24.0 BASE EXCESS (test code=KIZZY) -7.7 mmol/L (+/-)2.0 ABG O2 SATURATION (test code=SATA) 96.6 % 95.0-100.0 ABG TYPE (test code=TYPEA) VENTILATOR ARTERIAL FIO2 (test code=FIO2A) 70 % ABG DELIVERY (test code=NICOL) Vent ABG VENT MODE (test code=MODEA) AC Volume ABG VENT RESP RATE (test code=RRA) 26 /MIN ABG TIDAL VOLUME (test code=TIDAL VOLUME) 350 ML ABG PEEP (test code=PEEP) 12 cmH2O ABG SITE (test code=SITEA) Art line ABG POSITION (test code=PT POSITION) SUPINE ALLENS TEST (test code=ALLENS) NOT APPLICAPLE METHEMOGLOBIN (test code=METHGB) <0.8 % 0-1.5 THROMBOPLASTIN TIME [id number] 19:10:00* Test Item Value Reference Range Comments THROMBOPLASTIN TIME PARTIAL (test code=PTT) 46.8 SECONDS 26.0-35.9 INTERPRETATIVE DATA:Therapeutic range: Unfractionated heparin:47 - 71 seconds Argatroban:1.5 to 3 times the baseline PTT CBC W/AUTO [id number] 19:04:00* Test Item Value Reference Range Comments WHITE BLOOD CELL (test code=WBC) 40.4 x10 3/uL 4.8-10.8 RED BLOOD CELL (test code=RBC) 3.97 x10 6/uL 4.70-6.10 HEMOGLOBIN (test code=HGB) 11.6 g/dL 14.5-20 HEMATOCRIT (test code=HCT) 36.0 % 42.0-52.0 MEAN CELL VOLUME (test code=MCV) 90.7 fL 80.0-94.0 MEAN CELL HGB (test code=MCH) 29.2 pg 27-31 MEAN CELL HGB CONCENTRATION (test code=MCHC) 32.2 G/DL 33-36.5 RED CELL DISTRIBUTION WIDTH (test code=RDW) 18.4 % 12.9-16.9 PLATELET COUNT (test code=PLT) 202 150-440 MEAN PLATELET VOLUME (test code=MPV) 12.2 fL 8.9-12.4 NEUTROPHIL % (test code=NT%) 69.4 % 42.2-75.2 LYMPHOCYTE % (test code=LY%) 5.9 % 20.5-51.1 MONOCYTE % (test code=MO%) 13.5 % 1.7-9.3 EOSINOPHIL % (test code=EO%) 0.0 % 0.0-7.0 BASOPHIL % (test code=BA%) 0.8 % 0-2.5 NEUTROPHIL # (test code=NT#) 28.08 x10 3/uL 1.80-7.70 LYMPHOCYTE # (test code=LY#) 2.39 x10 3/uL 1.00-4.80 MONOCYTE # (test code=MO#) 5.45 x10 3/uL 0.00-0.80 EOSINOPHIL # (test code=EO#) 0.01 x10 3/uL 0.00-0.45 BASOPHIL # (test code=BA#) 0.32 x10 3/uL 0.0-0.20 LACTIC [id number] 19:01:00* Test Item Value Reference Range Comments LACTIC ACID (test code=LACT) 14.8 mg/dL 4.5-18.0 BASIC METABOLIC [id number] 19:00:00* Test Item Value Reference Range Comments SODIUM (test code=NA) 136 MMOL/L 136-143 POTASSIUM (test code=K) 4.4 MMOL/L 3.5-5.1 CHLORIDE (test code=CL) 100 MMOL/L 98-107 CARBON DIOXIDE (test code=CO2) 23 mmol/L 24-31 GLUCOSE (test code=GLU) 107 mg/dL 70-104 BLOOD UREA NITROGEN (test code=BUN) 44.2 MG/DL 7.0-21.0 GLOMERULAR FILTRATION RATE (test code=GFR) 35 >60 The estimated glomerular filtration rate is computed usingpatient race, age (>18), sex, and serum creatinine. If anyof the needed data elements are missing the Laboratory cannot compute an estimation of the glomerular filtration rate. CREATININE (test code=CREAT) 2.2 mg/dL 0.8-1.5 CALCIUM (test code=CA) 8.7 mg/dL 8.8-10.2 [id number] 19:00:00* Test Item Value Reference Range Comments PHOSPHOROUS (test code=PHOS) 6.0 mg/dL 2.7-4.5 [id number] 19:00:00* Test Item Value Reference Range Comments MAGNESIUM (test code=MAG) 2.2 mg/dL 1.4-2.6 ARTERIAL BLOOD [id number] 18:37:00* Test Item Value Reference Range Comments ARTERIAL BLOOD GAS PH (test code=PHA) 7.17 7.35-7.45 ARTERIAL BLOOD GAS PCO2 (test code=PCO2A) 58.0 mmHg 35.0-45.0 ARTERIAL BLOOD GAS PO2 (test code=PO2A) 81.0 mmHg 80.0-95.0 BICARBONATE TOTAL HCO3 (test code=HCO3) 21.0 mmol/L 22.0-24.0 BASE EXCESS (test code=KIZZY) -8.0 mmol/L (+/-)2.0 ABG O2 SATURATION (test code=SATA) 93.0 % 95.0-100.0 ABG VENT MODE (test code=MODEA) AC Pressure ABG PATIENT RESP RATE (test code=RRPATA) 26 /MIN 12-20 ABG VENT RESP RATE (test code=RRA) 26 /MIN ABG PEEP (test code=PEEP) 13 cmH2O HGB TEMP CORRECTED (test code=HGBTC) G/DL TOTAL HGB (test code=THB) 12.7 g/dL 13.0-17.0 METHEMOGLOBIN (test code=METHGB) 0.8 % 0-1.5 ARTERIAL BLOOD [id number] 17:22:00* Test Item Value Reference Range Comments ARTERIAL BLOOD GAS PH (test code=PHA) 7.11 7.35-7.45 ARTERIAL BLOOD GAS PCO2 (test code=PCO2A) 66.0 mmHg 35.0-45.0 Critical Value reported toFirst Name:ELLA LOCKETT Last Name:RESULTS READ BACK AND VERIFIEDby P.RCS.SXL, on 09/12/19, @ 0594. ARTERIAL BLOOD GAS PO2 (test code=PO2A) 112.0 mmHg 80.0-95.0 BICARBONATE TOTAL HCO3 (test code=HCO3) 21.0 mmol/L 22.0-24.0 BASE EXCESS (test code=KIZZY) -8.9 mmol/L (+/-)2.0 ABG O2 SATURATION (test code=SATA) 96.0 % 95.0-100.0 ABG VENT MODE (test code=MODEA) AC Pressure ABG PATIENT RESP RATE (test code=RRPATA) 22 /MIN 12-20 ABG VENT RESP RATE (test code=RRA) 22 /MIN ABG SITE (test code=SITEA) Art line TOTAL HGB (test code=THB) 12.6 g/dL 13.0-17.0 METHEMOGLOBIN (test code=METHGB) 1.0 % 0-1.5 LACTIC [id number] 15:46:00* Test Item Value Reference Range Comments LACTIC ACID (test code=LACT) 17.0 mg/dL 4.5-18.0 ARTERIAL BLOOD [id number] 13:25:00* Test Item Value Reference Range Comments ARTERIAL BLOOD GAS PH (test code=PHA) 7.28 7.35-7.45 ARTERIAL BLOOD GAS PCO2 (test code=PCO2A) 43.7 mmHg 35.0-45.0 ARTERIAL BLOOD GAS PO2 (test code=PO2A) 149.0 mmHg 80.0-95.0 BICARBONATE TOTAL HCO3 (test code=HCO3) 20.3 mmol/L 22.0-24.0 BASE EXCESS (test code=KIZZY) -6.1 mmol/L (+/-)2.0 ABG O2 SATURATION (test code=SATA) 96.7 % 95.0-100.0 ABG TYPE (test code=TYPEA) VENTILATOR ARTERIAL FIO2 (test code=FIO2A) 100 % ABG DELIVERY (test code=NICOL) Vent ABG VENT MODE (test code=MODEA) AC Volume ABG PATIENT RESP RATE (test code=RRPATA) 20 /MIN 12-20 ABG VENT RESP RATE (test code=RRA) 20 /MIN ABG TIDAL VOLUME (test code=TIDAL VOLUME) 500 ML ABG SITE (test code=SITEA) Art line HGB TEMP CORRECTED (test code=HGBTC) 10.1 G/DL METHEMOGLOBIN (test code=METHGB) % 0-1.5 COAGULATION TIME [id number] 12:00:00* Test Item Value Reference Range Comments COAGULATION TIME ACTIVATED (test code=ACT) 153 SECONDS 74-137 ARTERIAL BLOOD [id number] 11:59:00* Test Item Value Reference Range Comments ARTERIAL BLOOD GAS PH (test code=PHA) 7.39 7.35-7.45 ARTERIAL BLOOD GAS PCO2 (test code=PCO2A) 34.2 mmHg 35.0-45.0 ARTERIAL BLOOD GAS PO2 (test code=PO2A) 142.0 mmHg 80.0-95.0 BICARBONATE TOTAL HCO3 (test code=HCO3) 20.5 mmol/L 22.0-24.0 BASE EXCESS (test code=KIZZY) -3.8 mmol/L (+/-)2.0 ABG O2 SATURATION (test code=SATA) 96.5 % 95.0-100.0 ABG TYPE (test code=TYPEA) VENTILATOR ARTERIAL FIO2 (test code=FIO2A) 100 % ABG DELIVERY (test code=NICOL) Vent ABG VENT MODE (test code=MODEA) AC Volume ABG PATIENT RESP RATE (test code=RRPATA) 20 /MIN 12-20 ABG VENT RESP RATE (test code=RRA) 20 /MIN ABG TIDAL VOLUME (test code=TIDAL VOLUME) 450 ML ABG PEEP (test code=PEEP) 5 cmH2O ABG SITE (test code=SITEA) ART LINE TOTAL HGB (test code=THB) 8.5 g/dL 13.0-17.0 METHEMOGLOBIN (test code=METHGB) 0.9 % 0-1.5 CBC W/MANUAL [id number] 11:20:00* Test Item Value Reference Range Comments WHITE BLOOD CELL (test code=WBC) 34.3 x10 3/uL 4.8-10.8 RED BLOOD CELL (test code=RBC) 2.79 x10 6/uL 4.70-6.10 HEMOGLOBIN (test code=HGB) 8.3 g/dL 14.5-20 HEMATOCRIT (test code=HCT) 25.7 % 42.0-52.0 MEAN CELL VOLUME (test code=MCV) 92.1 fL 80.0-94.0 MEAN CELL HGB (test code=MCH) 29.7 pg 27-31 MEAN CELL HGB CONCENTRATION (test code=MCHC) 32.3 G/DL 33-36.5 RED CELL DISTRIBUTION WIDTH (test code=RDW) 18.2 % 12.9-16.9 PLATELET COUNT (test code=PLT) 197 150-440 MEAN PLATELET VOLUME (test code=MPV) 12.9 fL 8.9-12.4 TOTAL CELLS COUNTED (test code=TCC) 100 #CELLS SEGMENTED NEUTROPHILS (test code=SEG) 78 % 43-65 BAND NEUTROPHIL (test code=BAND) 7 % 0-1 LYMPHOCYTE (test code=LYMPH) 9 % 20.5-45.5 MONOCYTE (test code=MON) 6 % 5.5-11.7 POLYCHROMASIA (test code=POLC) 1+ NONE SEEN BASOPHILIC STIPPLING (test code=STP) 1+ NONE SEEN ANISOCYTOSIS (test code=ANISO) 1+ NONE SEEN PLATELET ESTIMATE (test code=PLTEST) ADEQUATE ADEQUATE LACTIC [id number] 10:42:00* Test Item Value Reference Range Comments LACTIC ACID (test code=LACT) 30.7 mg/dL 4.5-18.0 Critical Value reported toFirst Name:LOBO Last Name:JULIANE READ BACK AND VERIFIEDby JESSA, on 09/12/19, @ 1042. PROCALCITONIN (PCT)2019-09-12 10:22:00* Test Item Value Reference Range Comments PROCALCITONIN (PCT) (test code=PROCAL) 1.19 NG/ML 0.00-0.09 INTERPRETATIVE DATA:HIGH ACUITY INFECTIONS ALGORITHM:(i.e. high risk, severe sepsis, ICU) If PCT concentration <0.25 ng/mL or drops by 90%, stoppingantibiotic therapy is strongly encouraged. If PCT concentration <0.50 ng/mL or drops by 80%, stoppingantibiotic therapy is encouraged. If PCT concentration >0.50 ng/mL, stopping antibiotictherapy is discouraged. If PCT concentration >1.00 ng/mL, stopping antibiotictherapy is strongly discouraged. Consider continuing antibiotics if clinically unstable. MODERATE ACUITY INFECTIONS ALGORITHM:(hospitalized non-ICU patients with respiratory tractinfections or sepsis) If PCT concentration <0.10 ng/mL or drops by 90%, stoppingantibiotic therapy is strongly encouraged. If PCT concentration <0.25 ng/mL or drops by 80%, stoppingantibiotic therapy is encouraged. If PCT concentration >0.25 ng/mL, stopping antibiotictherapy is discouraged. If PCT concentration >0.50 ng/mL, stopping antibiotictherapy is strongly discouraged. Consider continuing antibiotics if clinically unstable. BASIC METABOLIC [id number] 09:08:00* Test Item Value Reference Range Comments SODIUM (test code=NA) 140 MMOL/L 136-143 POTASSIUM (test code=K) 4.7 MMOL/L 3.5-5.1 CHLORIDE (test code=CL) 101 MMOL/L 98-107 CARBON DIOXIDE (test code=CO2) 23 mmol/L 24-31 GLUCOSE (test code=GLU) 124 mg/dL 70-104 BLOOD UREA NITROGEN (test code=BUN) 36.3 MG/DL 7.0-21.0 GLOMERULAR FILTRATION RATE (test code=GFR) 51 >60 The estimated glomerular filtration rate is computed usingpatient race, age (>18), sex, and serum creatinine. If anyof the needed data elements are missing the Laboratory cannot compute an estimation of the glomerular filtration rate. CREATININE (test code=CREAT) 1.6 mg/dL 0.8-1.5 CALCIUM (test code=CA) 9.6 mg/dL 8.8-10.2 THROMBOPLASTIN TIME [id number] 08:36:00* Test Item Value Reference Range Comments THROMBOPLASTIN TIME PARTIAL (test code=PTT) 74.1 SECONDS 26.0-35.9 INTERPRETATIVE DATA:Therapeutic range: Unfractionated heparin:47 - 71 seconds Argatroban:1.5 to 3 times the baseline PTT LACTIC [id number] 08:26:00* Test Item Value Reference Range Comments LACTIC ACID (test code=LACT) 25.0 mg/dL 4.5-18.0 Critical Value reported toFirst Name:Madison Last Name:MAAMEKALEY READ BACK AND VERIFIEDby PAimeLABAime, on 09/12/19, @ 0826. - XR CHEST 1 [id number] 08:08:00Patient Name: MILY MOSHER Unit No: [id number] EXAMS: CPT CODE: [id number] XR CHEST 1 V [id number] Chest one view AP 09/12/2019 8:08 AM CLINICAL INDICATION: Acute respiratory failure COMPARISON: 09/11/2019 LOCATION: W1 IMPRESSION: Cardiomediastinal contours are within normal limits. There is moderately advanced pulmonary edema, similar to the prior examination. Superimposed pneumonia should be excluded clinically. There are trace bilateral pleural effusions. Support hardware is unchanged in position. at 0808 Reported and signed by: ERIK MTZ M.D. CC: Miriam Chirinos MD; Yasmany Byrnes MD Technologist: Charline Hernandez Fluoro Time: DAP (Gy m2): Air Kerma (mGy): Trscr Dt/Tm: 09/12/2019 (0808) by:[email or web address] Printed Date/Time: 09/12/2019 (08) Name: [facility] Phys: [id number] - Miriam Chirinos [id number] : 1975 Age: 44 Sex: [place] [address] Acct No: B [id number] Loc: P.0226 1 Exam Date: 09/12 Status: ADM IN PH: FAX: PAGE 1 Signed Report HGB [id number] 08:05:00 * Test Item Value Reference Range Comments HEMOGLOBIN (test code=HGB) 8.5 g/dL 14.5-20 HEMATOCRIT (test code=HCT) 25.8 % 42.0-52.0 VANCOMYCIN [id number] 05:08:00* Test Item Value Reference Range Comments VANCOMYCIN TROUGH (test code=VANCT) 15.5 mcg/ML 10.0-20.0 [id number] 05:08:00* Test Item Value Reference Range Comments PHOSPHOROUS (test code=PHOS) 3.1 mg/dL 2.7-4.5 THROMBOPLASTIN TIME [id number] 04:55:00* Test Item Value Reference Range Comments THROMBOPLASTIN TIME PARTIAL (test code=PTT) 68.4 SECONDS 26.0-35.9 INTERPRETATIVE DATA:Therapeutic range: Unfractionated heparin:47 - 71 seconds Argatroban:1.5 to 3 times the baseline PTT BASIC METABOLIC [id number] 04:54:00* Test Item Value Reference Range Comments SODIUM (test code=NA) 138 MMOL/L 136-143 POTASSIUM (test code=K) 4.2 MMOL/L 3.5-5.1 CHLORIDE (test code=CL) 101 MMOL/L 98-107 CARBON DIOXIDE (test code=CO2) 26 mmol/L 24-31 GLUCOSE (test code=GLU) 128 mg/dL 70-104 BLOOD UREA NITROGEN (test code=BUN) 36.0 MG/DL 7.0-21.0 GLOMERULAR FILTRATION RATE (test code=GFR) 59 >60 The estimated glomerular filtration rate is computed usingpatient race, age (>18), sex, and serum creatinine. If anyof the needed data elements are missing the Laboratory cannot compute an estimation of the glomerular filtration rate. CREATININE (test code=CREAT) 1.4 mg/dL 0.8-1.5 CALCIUM (test code=CA) 9.7 mg/dL 8.8-10.2 [id number] 04:53:00* Test Item Value Reference Range Comments MAGNESIUM (test code=MAG) 2.1 mg/dL 1.4-2.6 LACTIC [id number] 04:51:00* Test Item Value Reference Range Comments LACTIC ACID (test code=LACT) 16.7 mg/dL 4.5-18.0 CBC W/MANUAL [id number] 04:33:00* Test Item Value Reference Range Comments WHITE BLOOD CELL (test code=WBC) 34.3 x10 3/uL 4.8-10.8 RED BLOOD CELL (test code=RBC) 2.79 x10 6/uL 4.70-6.10 HEMOGLOBIN (test code=HGB) 8.3 g/dL 14.5-20 HEMATOCRIT (test code=HCT) 25.7 % 42.0-52.0 MEAN CELL VOLUME (test code=MCV) 92.1 fL 80.0-94.0 MEAN CELL HGB (test code=MCH) 29.7 pg 27-31 MEAN CELL HGB CONCENTRATION (test code=MCHC) 32.3 G/DL 33-36.5 RED CELL DISTRIBUTION WIDTH (test code=RDW) 18.2 % 12.9-16.9 PLATELET COUNT (test code=PLT) 197 150-440 MEAN PLATELET VOLUME (test code=MPV) 12.9 fL 8.9-12.4 TOTAL CELLS COUNTED (test code=TCC) #CELLS SEGMENTED NEUTROPHILS (test code=SEG) % 43-65 LYMPHOCYTE (test code=LYMPH) % 20.5-45.5 CBC W/MANUAL [id number] 04:33:00* Test Item Value Reference Range Comments WHITE BLOOD CELL (test code=WBC) 34.3 x10 3/uL 4.8-10.8 RED BLOOD CELL (test code=RBC) 2.79 x10 6/uL 4.70-6.10 HEMOGLOBIN (test code=HGB) 8.3 g/dL 14.5-20 HEMATOCRIT (test code=HCT) 25.7 % 42.0-52.0 MEAN CELL VOLUME (test code=MCV) 92.1 fL 80.0-94.0 MEAN CELL HGB (test code=MCH) 29.7 pg 27-31 MEAN CELL HGB CONCENTRATION (test code=MCHC) 32.3 G/DL 33-36.5 RED CELL DISTRIBUTION WIDTH (test code=RDW) 18.2 % 12.9-16.9 PLATELET COUNT (test code=PLT) 197 150-440 MEAN PLATELET VOLUME (test code=MPV) 12.9 fL 8.9-12.4 TOTAL CELLS COUNTED (test code=TCC) #CELLS SEGMENTED NEUTROPHILS (test code=SEG) % 43-65 LYMPHOCYTE (test code=LYMPH) % 20.5-45.5 CALCIUM [id number] 04:26:00* Test Item Value Reference Range Comments CALCIUM IONIZED (test code=YVON) 1.32 mmol/L 1.1-1.3 ARTERIAL BLOOD [id number] 04:25:00* Test Item Value Reference Range Comments ARTERIAL BLOOD GAS PH (test code=PHA) 7.34 7.35-7.45 ARTERIAL BLOOD GAS PCO2 (test code=PCO2A) 45.2 mmHg 35.0-45.0 ARTERIAL BLOOD GAS PO2 (test code=PO2A) 119.0 mmHg 80.0-95.0 BICARBONATE TOTAL HCO3 (test code=HCO3) 23.9 mmol/L 22.0-24.0 BASE EXCESS (test code=KIZZY) -1.9 mmol/L (+/-)2.0 ABG O2 SATURATION (test code=SATA) 97.1 % 95.0-100.0 ABG TYPE (test code=TYPEA) VENTILATOR ARTERIAL FIO2 (test code=FIO2A) 70 % ABG DELIVERY (test code=NICOL) Vent ABG VENT MODE (test code=MODEA) AC Pressure ABG VENT RESP RATE (test code=RRA) 20 /MIN ABG PEEP (test code=PEEP) 13 cmH2O ABG SITE (test code=SITEA) Art line ABG POSITION (test code=PT POSITION) SUPINE ALLENS TEST (test code=ALLENS) NOT APPLICAPLE METHEMOGLOBIN (test code=METHGB) <0.8 % 0-1.5 ARTERIAL BLOOD [id number] 02:39:00* Test Item Value Reference Range Comments ARTERIAL BLOOD GAS PH (test code=PHA) 7.31 7.35-7.45 ARTERIAL BLOOD GAS PCO2 (test code=PCO2A) 50.3 mmHg 35.0-45.0 ARTERIAL BLOOD GAS PO2 (test code=PO2A) 86.9 mmHg 80.0-95.0 BICARBONATE TOTAL HCO3 (test code=HCO3) 24.9 mmol/L 22.0-24.0 BASE EXCESS (test code=KIZZY) -1.5 mmol/L (+/-)2.0 ABG O2 SATURATION (test code=SATA) 94.7 % 95.0-100.0 ABG TYPE (test code=TYPEA) VENTILATOR ARTERIAL FIO2 (test code=FIO2A) 70 % ABG DELIVERY (test code=NICOL) Vent ABG VENT MODE (test code=MODEA) AC Pressure ABG VENT RESP RATE (test code=RRA) 20 /MIN ABG PEEP (test code=PEEP) 13 cmH2O ABG SITE (test code=SITEA) Art line ABG POSITION (test code=PT POSITION) SUPINE ALLENS TEST (test code=ALLENS) NOT APPLICAPLE METHEMOGLOBIN (test code=METHGB) <0.8 % 0-1.5 LACTIC [id number] 01:00:00* Test Item Value Reference Range Comments LACTIC ACID (test code=LACT) 12.9 mg/dL 4.5-18.0 BASIC METABOLIC [id number] 00:40:00* Test Item Value Reference Range Comments SODIUM (test code=NA) 135 MMOL/L 136-143 POTASSIUM (test code=K) 4.2 MMOL/L 3.5-5.1 CHLORIDE (test code=CL) 98 MMOL/L 98-107 CARBON DIOXIDE (test code=CO2) 26 mmol/L 24-31 GLUCOSE (test code=GLU) 111 mg/dL 70-104 BLOOD UREA NITROGEN (test code=BUN) 34.3 MG/DL 7.0-21.0 GLOMERULAR FILTRATION RATE (test code=GFR) 55 >60 The estimated glomerular filtration rate is computed usingpatient race, age (>18), sex, and serum creatinine. If anyof the needed data elements are missing the Laboratory cannot compute an estimation of the glomerular filtration rate. CREATININE (test code=CREAT) 1.5 mg/dL 0.8-1.5 CALCIUM (test code=CA) 9.9 mg/dL 8.8-10.2 [id number] 00:40:00* Test Item Value Reference Range Comments PHOSPHOROUS (test code=PHOS) 3.4 mg/dL 2.7-4.5 [id number] 00:40:00* Test Item Value Reference Range Comments MAGNESIUM (test code=MAG) 2.4 mg/dL 1.4-2.6 CALCIUM [id number] 00:35:00* Test Item Value Reference Range Comments CALCIUM IONIZED (test code=YVON) 1.31 mmol/L 1.1-1.3 THROMBOPLASTIN TIME [id number] 00:35:00* Test Item Value Reference Range Comments THROMBOPLASTIN TIME PARTIAL (test code=PTT) 70.5 SECONDS 26.0-35.9 INTERPRETATIVE DATA:Therapeutic range: Unfractionated heparin:47 - 71 seconds Argatroban:1.5 to 3 times the baseline PTT ARTERIAL BLOOD [id number] 00:34:00* Test Item Value Reference Range Comments ARTERIAL BLOOD GAS PH (test code=PHA) 7.31 7.35-7.45 ARTERIAL BLOOD GAS PCO2 (test code=PCO2A) 47.6 mmHg 35.0-45.0 ARTERIAL BLOOD GAS PO2 (test code=PO2A) 115.2 mmHg 80.0-95.0 BICARBONATE TOTAL HCO3 (test code=HCO3) 23.3 mmol/L 22.0-24.0 BASE EXCESS (test code=KIZZY) -3.1 mmol/L (+/-)2.0 ABG O2 SATURATION (test code=SATA) 96.9 % 95.0-100.0 ABG TYPE (test code=TYPEA) VENTILATOR ARTERIAL FIO2 (test code=FIO2A) 80 % ABG DELIVERY (test code=NICOL) Vent ABG VENT MODE (test code=MODEA) AC Pressure ABG VENT RESP RATE (test code=RRA) 22 /MIN ABG PEEP (test code=PEEP) 14 cmH2O ABG SITE (test code=SITEA) Art line ABG POSITION (test code=PT POSITION) SUPINE ALLENS TEST (test code=ALLENS) NOT APPLICAPLE METHEMOGLOBIN (test code=METHGB) <0.8 % 0-1.5 HGB [id number] 00:27:00* Test Item Value Reference Range Comments HEMOGLOBIN (test code=HGB) 8.6 g/dL 14.5-20 HEMATOCRIT (test code=HCT) 26.1 % 42.0-52.0 [id number] 21:12:00* Test Item Value Reference Range Comments GLUBED (test code=GLUBED) 123 MG/DL 70-105 [id number] 21:12:00* Test Item Value Reference Range Comments GLUBED (test code=GLUBED) 105 MG/DL 70-105 [id number] 21:12:00* Test Item Value Reference Range Comments GLUBED (test code=GLUBED) 108 MG/DL 70-105 THROMBOPLASTIN TIME [id number] 20:52:00* Test Item Value Reference Range Comments THROMBOPLASTIN TIME PARTIAL (test code=PTT) 74.1 SECONDS 26.0-35.9 INTERPRETATIVE DATA:Therapeutic range: Unfractionated heparin:47 - 71 seconds Argatroban:1.5 to 3 times the baseline PTT BASIC METABOLIC [id number] 20:47:00* Test Item Value Reference Range Comments SODIUM (test code=NA) 137 MMOL/L 136-143 POTASSIUM (test code=K) 4.3 MMOL/L 3.5-5.1 CHLORIDE (test code=CL) 99 MMOL/L 98-107 CARBON DIOXIDE (test code=CO2) 26 mmol/L 24-31 GLUCOSE (test code=GLU) 151 mg/dL 70-104 BLOOD UREA NITROGEN (test code=BUN) 35.8 MG/DL 7.0-21.0 GLOMERULAR FILTRATION RATE (test code=GFR) 55 >60 The estimated glomerular filtration rate is computed usingpatient race, age (>18), sex, and serum creatinine. If anyof the needed data elements are missing the Laboratory cannot compute an estimation of the glomerular filtration rate. CREATININE (test code=CREAT) 1.5 mg/dL 0.8-1.5 CALCIUM (test code=CA) 9.5 mg/dL 8.8-10.2 LACTIC [id number] 20:46:00* Test Item Value Reference Range Comments LACTIC ACID (test code=LACT) 18.6 mg/dL 4.5-18.0 Critical Value reported toFirst Name:LIZZY Last Name:JENI READ BACK AND VERIFIEDby P.[facility], on 09/11/19, @ 2044. HGB [id number] 20:30:00* Test Item Value Reference Range Comments HEMOGLOBIN (test code=HGB) 8.6 g/dL 14.5-20 HEMATOCRIT (test code=HCT) 26.3 % 42.0-52.0 ARTERIAL BLOOD [id number] 20:23:00* Test Item Value Reference Range Comments ARTERIAL BLOOD GAS PH (test code=PHA) 7.28 7.35-7.45 ARTERIAL BLOOD GAS PCO2 (test code=PCO2A) 48.4 mmHg 35.0-45.0 ARTERIAL BLOOD GAS PO2 (test code=PO2A) 83.1 mmHg 80.0-95.0 BICARBONATE TOTAL HCO3 (test code=HCO3) 22.1 mmol/L 22.0-24.0 BASE EXCESS (test code=KIZZY) -4.7 mmol/L (+/-)2.0 ABG O2 SATURATION (test code=SATA) 93.6 % 95.0-100.0 ABG TYPE (test code=TYPEA) VENTILATOR ARTERIAL FIO2 (test code=FIO2A) 80 % ABG DELIVERY (test code=NICOL) Vent ABG VENT MODE (test code=MODEA) AC Pressure ABG VENT RESP RATE (test code=RRA) 25 /MIN ABG PEEP (test code=PEEP) 15 cmH2O ABG SITE (test code=SITEA) Art line ABG POSITION (test code=PT POSITION) SUPINE ALLENS TEST (test code=ALLENS) NOT APPLICAPLE METHEMOGLOBIN (test code=METHGB) 0.9 % 0-1.5 CALCIUM [id number] 20:23:00* Test Item Value Reference Range Comments CALCIUM IONIZED (test code=YVON) 1.34 mmol/L 1.1-1.3 BASIC METABOLIC [id number] 16:57:00* Test Item Value Reference Range Comments SODIUM (test code=NA) 140 MMOL/L 136-143 POTASSIUM (test code=K) 4.2 MMOL/L 3.5-5.1 CHLORIDE (test code=CL) 100 MMOL/L 98-107 CARBON DIOXIDE (test code=CO2) 27 mmol/L 24-31 GLUCOSE (test code=GLU) 97 mg/dL 70-104 BLOOD UREA NITROGEN (test code=BUN) 18.5 MG/DL 7.0-21.0 GLOMERULAR FILTRATION RATE (test code=GFR) >=60 max estimate >60 The estimated glomerular filtration rate is computed usingpatient race, age (>18), sex, and serum creatinine. If anyof the needed data elements are missing the Laboratory cannot compute an estimation of the glomerular filtration rate. CREATININE (test code=CREAT) 0.5 mg/dL 0.8-1.5 CALCIUM (test code=CA) 7.1 mg/dL 8.8-10.2 [id number] 16:57:00* Test Item Value Reference Range Comments PHOSPHOROUS (test code=PHOS) 5.6 mg/dL 2.7-4.5 [id number] 16:57:00* Test Item Value Reference Range Comments MAGNESIUM (test code=MAG) 1.8 mg/dL 1.4-2.6 LACTIC [id number] 16:31:00* Test Item Value Reference Range Comments LACTIC ACID (test code=LACT) 13.4 mg/dL 4.5-18.0 THROMBOPLASTIN TIME [id number] 16:20:00* Test Item Value Reference Range Comments THROMBOPLASTIN TIME PARTIAL (test code=PTT) 74.4 SECONDS 26.0-35.9 INTERPRETATIVE DATA:Therapeutic range: Unfractionated heparin:47 - 71 seconds Argatroban:1.5 to 3 times the baseline PTT THROMBOPLASTIN TIME [id number] 16:20:00* Test Item Value Reference Range Comments THROMBOPLASTIN TIME PARTIAL (test code=PTT) 74.4 SECONDS 26.0-35.9 INTERPRETATIVE DATA:Therapeutic range: Unfractionated heparin:47 - 71 seconds Argatroban:1.5 to 3 times the baseline PTT HGB [id number] 16:10:00* Test Item Value Reference Range Comments HEMOGLOBIN (test code=HGB) 8.4 g/dL 14.5-20 HEMATOCRIT (test code=HCT) 25.1 % 42.0-52.0 CALCIUM [id number] 16:10:00* Test Item Value Reference Range Comments CALCIUM IONIZED (test code=YVON) 1.32 mmol/L 1.1-1.3 ARTERIAL BLOOD [id number] 16:08:00* Test Item Value Reference Range Comments ARTERIAL BLOOD GAS PH (test code=PHA) 7.35 7.35-7.45 ARTERIAL BLOOD GAS PCO2 (test code=PCO2A) 45.8 mmHg 35.0-45.0 ARTERIAL BLOOD GAS PO2 (test code=PO2A) 60.6 mmHg 80.0-95.0 BICARBONATE TOTAL HCO3 (test code=HCO3) 24.6 mmol/L 22.0-24.0 BASE EXCESS (test code=KIZZY) -1.1 mmol/L (+/-)2.0 ABG O2 SATURATION (test code=SATA) 88.2 % 95.0-100.0 ABG TYPE (test code=TYPEA) VENTILATOR ARTERIAL FIO2 (test code=FIO2A) 70 % ABG VENT MODE (test code=MODEA) AC Pressure ABG PATIENT RESP RATE (test code=RRPATA) 25 /MIN 12-20 ABG VENT RESP RATE (test code=RRA) 25 /MIN ABG PEEP (test code=PEEP) 12 cmH2O ABG SITE (test code=SITEA) Art line ABG POSITION (test code=PT POSITION) SF ALLENS TEST (test code=ALLENS) NOT APPLICAPLE TOTAL HGB (test code=THB) 9.6 g/dL 13.0-17.0 METHEMOGLOBIN (test code=METHGB) 1.0 % 0-1.5 - XR CHEST 1 [id number] 14:37:00Patient Name: MILY MOSHER Unit No: [id number] EXAMS: CPT CODE: [id number] XR CHEST 1 V 14899 INDICATIONS: hypoxemia COMPARISON: Comparison is made with prior study of 09/11/2019 Location: W1 A single portable AP view of the chest demonstrates the tip of the endotracheal tube 3 cm above the cristiana. A nasogastric tube extends the stomach. A left IJ temporary hemodialysis catheter and a right IJ central line appear unchanged. Cardiomegaly and hazy bilateral lung opacities are again seen, slightly more confluent in the bilateral upper lobes and right lower lung. The appearance is unchanged. No apparent pleural effusion nor pneumothorax. Chronic osseous changes are present. IMPRESSIONS: 1. Various lines and tubes are seen in suitable position. 2. Cardiomegaly and hazy bilateral lung opacities are unchanged. Consider pulmonary edema or pneumonia. at 1437 Reported and signed by: Marcos Wilkinson MD CC: Yasmany Byrnes MD; Cresencio [place] MD Technologist: Nikolas Jugo Fluoro Time: DAP (Gy m2): Air Kerma (mGy): Trscr Dt/Tm: 09/11/2019 (1437) by:[email or web address] Printed Date/Time: 09/11/2019 (7820) Name: MOSHERMILY [facility] Phys: Cresencio Padilla [address] : 1975 Age: 44 Sex: [place] [address] Loc: P.0226 1 Exam Date: 09/11/2019 Status: ADM IN PH: FAX: PAGE 1 Signed Report BASIC METABOLIC PANEL 2019-09-11 12:22:00* Test Item Value Reference Range Comments SODIUM (test code=NA) 138 MMOL/L 136-143 POTASSIUM (test code=K) 4.4 MMOL/L 3.5-5.1 CHLORIDE (test code=CL) 100 MMOL/L 98-107 CARBON DIOXIDE (test code=CO2) 27 mmol/L 24-31 GLUCOSE (test code=GLU) 107 mg/dL 70-104 BLOOD UREA NITROGEN (test code=BUN) 36.6 MG/DL 7.0-21.0 GLOMERULAR FILTRATION RATE (test code=GFR) 55 >60 The estimated glomerular filtration rate is computed usingpatient race, age (>18), sex, and serum creatinine. If anyof the needed data elements are missing the Laboratory cannot compute an estimation of the glomerular filtration rate. CREATININE (test code=CREAT) 1.5 mg/dL 0.8-1.5 CALCIUM (test code=CA) 9.7 mg/dL 8.8-10.2 LACTIC [id number] 12:22:00* Test Item Value Reference Range Comments LACTIC ACID (test code=LACT) 13.8 mg/dL 4.5-18.0 ARTERIAL BLOOD [id number] 12:18:00* Test Item Value Reference Range Comments ARTERIAL BLOOD GAS PH (test code=PHA) 7.44 7.35-7.45 ARTERIAL BLOOD GAS PCO2 (test code=PCO2A) 36.5 mmHg 35.0-45.0 ARTERIAL BLOOD GAS PO2 (test code=PO2A) 431.8 mmHg 80.0-95.0 Critical Value reported toFirst Name:ELLA Last Name:URIAH READ BACK AND VERIFIEDby PANGY, on 09/11/19, @ 1217. BICARBONATE TOTAL HCO3 (test code=HCO3) 24.3 mmol/L 22.0-24.0 BASE EXCESS (test code=KIZZY) 0.4 mmol/L (+/-)2.0 ABG O2 SATURATION (test code=SATA) 99.1 % 95.0-100.0 ABG TYPE (test code=TYPEA) ECMO ARTERIAL FIO2 (test code=FIO2A) 100 % ABG L/M (test code=L/M) 4 L/MIN ABG VENT MODE (test code=MODEA) ECMO METHEMOGLOBIN (test code=METHGB) % 0-1.5 ARTERIAL BLOOD [id number] 12:17:00* Test Item Value Reference Range Comments ARTERIAL BLOOD GAS PH (test code=PHA) 7.44 7.35-7.45 ARTERIAL BLOOD GAS PCO2 (test code=PCO2A) 36.5 mmHg 35.0-45.0 ARTERIAL BLOOD GAS PO2 (test code=PO2A) 431.8 mmHg 80.0-95.0 Critical Value reported toFirst Name:ELLA Last Name:MIRNALAURENILANA READ BACK AND VERIFIEDby CHRISTINE, on 09/11/19, @ 1217. BICARBONATE TOTAL HCO3 (test code=HCO3) mmol/L 22.0-24.0 BASE EXCESS (test code=KIZZY) mmol/L (+/-)2.0 ABG O2 SATURATION (test code=SATA) % 95.0-100.0 METHEMOGLOBIN (test code=METHGB) % 0-1.5 THROMBOPLASTIN TIME [id number] 12:15:00* Test Item Value Reference Range Comments THROMBOPLASTIN TIME PARTIAL (test code=PTT) 73.8 SECONDS 26.0-35.9 INTERPRETATIVE DATA:Therapeutic range: Unfractionated heparin:47 - 71 seconds Argatroban:1.5 to 3 times the baseline PTT CALCIUM [id number] 12:13:00* Test Item Value Reference Range Comments CALCIUM IONIZED (test code=YVON) 1.27 mmol/L 1.1-1.3 ARTERIAL BLOOD [id number] 12:11:00* Test Item Value Reference Range Comments ARTERIAL BLOOD GAS PH (test code=PHA) 7.34 7.35-7.45 ARTERIAL BLOOD GAS PCO2 (test code=PCO2A) 46.0 mmHg 35.0-45.0 ARTERIAL BLOOD GAS PO2 (test code=PO2A) 68.3 mmHg 80.0-95.0 BICARBONATE TOTAL HCO3 (test code=HCO3) 24.4 mmol/L 22.0-24.0 BASE EXCESS (test code=KIZZY) -1.4 mmol/L (+/-)2.0 ABG O2 SATURATION (test code=SATA) 91.7 % 95.0-100.0 ABG TYPE (test code=TYPEA) VENTILATOR ARTERIAL FIO2 (test code=FIO2A) 65 % ABG VENT MODE (test code=MODEA) AC Pressure ABG PATIENT RESP RATE (test code=RRPATA) 25 /MIN 12-20 ABG VENT RESP RATE (test code=RRA) 25 /MIN ABG PEEP (test code=PEEP) 10 cmH2O ABG PRESSURE SUPPORT (test code=PSABG) 0 cmH2O ABG SITE (test code=SITEA) Art line ABG POSITION (test code=PT POSITION) SF ALLENS TEST (test code=ALLENS) NA TOTAL HGB (test code=THB) 9.5 g/dL 13.0-17.0 METHEMOGLOBIN (test code=METHGB) 0.9 % 0-1.5 HGB [id number] 12:08:00* Test Item Value Reference Range Comments HEMOGLOBIN (test code=HGB) 8.4 g/dL 14.5-20 HEMATOCRIT (test code=HCT) 25.4 % 42.0-52.0 LACTIC DEHYDROGENASE(LDH)2019-09-11 11:25:00* Test Item Value Reference Range Comments LACTIC DEHYDROGENASE(LDH) (test code=LDH) 471 U/L 135-225 BASIC METABOLIC [id number] 11:14:00* Test Item Value Reference Range Comments SODIUM (test code=NA) 138 MMOL/L 136-143 POTASSIUM (test code=K) 4.5 MMOL/L 3.5-5.1 CHLORIDE (test code=CL) 99 MMOL/L 98-107 CARBON DIOXIDE (test code=CO2) 26 mmol/L 24-31 GLUCOSE (test code=GLU) 110 mg/dL 70-104 BLOOD UREA NITROGEN (test code=BUN) 36.1 MG/DL 7.0-21.0 GLOMERULAR FILTRATION RATE (test code=GFR) 55 >60 The estimated glomerular filtration rate is computed usingpatient race, age (>18), sex, and serum creatinine. If anyof the needed data elements are missing the Laboratory cannot compute an estimation of the glomerular filtration rate. CREATININE (test code=CREAT) 1.5 mg/dL 0.8-1.5 CALCIUM (test code=CA) 9.3 mg/dL 8.8-10.2 [id number] 11:14:00* Test Item Value Reference Range Comments PHOSPHOROUS (test code=PHOS) 4.3 mg/dL 2.7-4.5 [id number] 11:14:00* Test Item Value Reference Range Comments MAGNESIUM (test code=MAG) 2.1 mg/dL 1.4-2.6 BASIC METABOLIC [id number] 11:14:00* Test Item Value Reference Range Comments SODIUM (test code=NA) 138 MMOL/L 136-143 POTASSIUM (test code=K) 4.5 MMOL/L 3.5-5.1 CHLORIDE (test code=CL) 99 MMOL/L 98-107 CARBON DIOXIDE (test code=CO2) 26 mmol/L 24-31 GLUCOSE (test code=GLU) 110 mg/dL 70-104 BLOOD UREA NITROGEN (test code=BUN) 36.1 MG/DL 7.0-21.0 GLOMERULAR FILTRATION RATE (test code=GFR) 55 >60 The estimated glomerular filtration rate is computed usingpatient race, age (>18), sex, and serum creatinine. If anyof the needed data elements are missing the Laboratory cannot compute an estimation of the glomerular filtration rate. CREATININE (test code=CREAT) 1.5 mg/dL 0.8-1.5 CALCIUM (test code=CA) 9.3 mg/dL 8.8-10.2 [id number] 11:14:00* Test Item Value Reference Range Comments PHOSPHOROUS (test code=PHOS) 4.3 mg/dL 2.7-4.5 [id number] 11:14:00* Test Item Value Reference Range Comments MAGNESIUM (test code=MAG) 2.1 mg/dL 1.4-2.6 THROMBOPLASTIN TIME [id number] 09:12:00* Test Item Value Reference Range Comments THROMBOPLASTIN TIME PARTIAL (test code=PTT) 71.7 SECONDS 26.0-35.9 INTERPRETATIVE DATA:Therapeutic range: Unfractionated heparin:47 - 71 seconds Argatroban:1.5 to 3 times the baseline PTT LACTIC [id number] 09:09:00* Test Item Value Reference Range Comments LACTIC ACID (test code=LACT) 16.9 mg/dL 4.5-18.0 CALCIUM [id number] 08:45:00* Test Item Value Reference Range Comments CALCIUM IONIZED (test code=YVON) 1.27 mmol/L 1.1-1.3 ARTERIAL BLOOD [id number] 08:44:00* Test Item Value Reference Range Comments ARTERIAL BLOOD GAS PH (test code=PHA) 7.32 7.35-7.45 ARTERIAL BLOOD GAS PCO2 (test code=PCO2A) 47.3 mmHg 35.0-45.0 ARTERIAL BLOOD GAS PO2 (test code=PO2A) 67.3 mmHg 80.0-95.0 BICARBONATE TOTAL HCO3 (test code=HCO3) 23.7 mmol/L 22.0-24.0 BASE EXCESS (test code=KIZZY) -2.4 mmol/L (+/-)2.0 ABG O2 SATURATION (test code=SATA) 90.5 % 95.0-100.0 ABG TYPE (test code=TYPEA) VENTILATOR ARTERIAL FIO2 (test code=FIO2A) 65 % ABG VENT MODE (test code=MODEA) AC Pressure ABG PATIENT RESP RATE (test code=RRPATA) 25 /MIN 12-20 ABG VENT RESP RATE (test code=RRA) 25 /MIN ABG PEEP (test code=PEEP) 10 cmH2O ABG SITE (test code=SITEA) Art line ABG POSITION (test code=PT POSITION) SF ALLENS TEST (test code=ALLENS) NA TOTAL HGB (test code=THB) 8.3 g/dL 13.0-17.0 METHEMOGLOBIN (test code=METHGB) 1.2 % 0-1.5 - XR CHEST 1 [id number] 07:36:00Patient Name: MILY MOSHER Unit No: [id number] EXAMS: CPT CODE: [id number] XR CHEST 1 V [id number] Chest one view AP 09/11/2019 7:35 AM CLINICAL INDICATION: Respiratory failure COMPARISON: 09/10/2019 LOCATION: W1 IMPRESSION: Support hardware is unchanged in position. Cardiomediastinal contours are stable. Pulmonary edema has improved and is now moderate in degree. Bibasilar opacities suggest a combination of pleural fluid and atelectasis. Pneumonia should be excluded clinically. at 0736 Reported and signed by: ERIK MTZ M.D. CC: Yasmany Byrnes MD; Malachi Perez MD Technologist: Charline Hernandez Fluoro Time: DAP (Gy m2): Air Kerma (mGy): Trscr Dt/Tm: 09/11/2019 (0736) by:[email or web address] Printed Date/Time: 09/11/2019 (0742) Name: MILY MOSHER [facility] Phys: Malachi De La Paz MD [address] : 1975 Age: 44 Sex: [place] [id number] Loc: P.0226 1 Exam Date: 09/11/2019 Status: ADM IN PH: FAX: PAGE 1 Signed Report LACTIC DEHYDROGENASE(LDH)2019-09-11 06:33:00* Test Item Value Reference Range Comments LACTIC DEHYDROGENASE(LDH) (test code=LDH) 447 U/L 135-225 ARTERIAL BLOOD [id number] 06:24:00* Test Item Value Reference Range Comments ARTERIAL BLOOD GAS PH (test code=PHA) 7.36 7.35-7.45 ARTERIAL BLOOD GAS PCO2 (test code=PCO2A) 42.3 mmHg 35.0-45.0 ARTERIAL BLOOD GAS PO2 (test code=PO2A) 73.2 mmHg 80.0-95.0 BICARBONATE TOTAL HCO3 (test code=HCO3) 23.1 mmol/L 22.0-24.0 BASE EXCESS (test code=KIZZY) -2.3 mmol/L (+/-)2.0 ABG O2 SATURATION (test code=SATA) 92.3 % 95.0-100.0 ABG TYPE (test code=TYPEA) VENTILATOR ARTERIAL FIO2 (test code=FIO2A) 60 % ABG DELIVERY (test code=NICOL) Vent ABG VENT MODE (test code=MODEA) AC Pressure ABG VENT RESP RATE (test code=RRA) 25 /MIN ABG PEEP (test code=PEEP) 10 cmH2O ABG SITE (test code=SITEA) Art line ABG POSITION (test code=PT POSITION) SUPINE ALLENS TEST (test code=ALLENS) NOT APPLICAPLE METHEMOGLOBIN (test code=METHGB) <0.8 % 0-1.5 CALCIUM [id number] 06:24:00* Test Item Value Reference Range Comments CALCIUM IONIZED (test code=YVON) 1.25 mmol/L 1.1-1.3 [id number] 05:33:00* Test Item Value Reference Range Comments VANCOMYCIN (test code=VANCO) 16.0 ug/mL 5.0-40.0 [id number] 05:17:00* Test Item Value Reference Range Comments PHOSPHOROUS (test code=PHOS) 4.0 mg/dL 2.7-4.5 [id number] 05:17:00* Test Item Value Reference Range Comments MAGNESIUM (test code=MAG) 2.1 mg/dL 1.4-2.6 BASIC METABOLIC [id number] 05:17:00* Test Item Value Reference Range Comments SODIUM (test code=NA) 138 MMOL/L 136-143 POTASSIUM (test code=K) 4.3 MMOL/L 3.5-5.1 CHLORIDE (test code=CL) 103 MMOL/L 98-107 CARBON DIOXIDE (test code=CO2) 25 mmol/L 24-31 GLUCOSE (test code=GLU) 95 mg/dL 70-104 BLOOD UREA NITROGEN (test code=BUN) 31.0 MG/DL 7.0-21.0 GLOMERULAR FILTRATION RATE (test code=GFR) 51 >60 The estimated glomerular filtration rate is computed usingpatient race, age (>18), sex, and serum creatinine. If anyof the needed data elements are missing the Laboratory cannot compute an estimation of the glomerular filtration rate. CREATININE (test code=CREAT) 1.6 mg/dL 0.8-1.5 CALCIUM (test code=CA) 9.1 mg/dL 8.8-10.2 LACTIC [id number] 04:54:00* Test Item Value Reference Range Comments LACTIC ACID (test code=LACT) 16.7 mg/dL 4.5-18.0 PROTHROMBIN [id number] 04:45:00* Test Item Value Reference Range Comments PROTHROMBIN TIME PATIENT (test code=PTP) 12.2 SECONDS 10.3-12.9 INTERNATIONAL NORMAL RATIO (test code=INR) 1.05 INR UNIT 0.9-1.11 The INR is useful only for monitoring anticoagulant therapy.It may be unreliable in the initial phase of antigoagulationand in unstable patients. Indication for Anticoagulation Recommended INR 1. Prevention of venous thomboembolism 2.0-3.0in high-risk patients; treatment of venousthrombosis and pulmonary embolism aftera course of heparin; prevention of systemicembolism in a variety of conditions, including atrial fibrillation and prothetic tissue heart valves, 2. Prosthetic mechanical heart valves; 2.5-3.5recurrent systemic embolism. THROMBOPLASTIN TIME [id number] 04:45:00* Test Item Value Reference Range Comments THROMBOPLASTIN TIME PARTIAL (test code=PTT) 71.0 SECONDS 26.0-35.9 INTERPRETATIVE DATA:Therapeutic range: Unfractionated heparin:47 - 71 seconds Argatroban:1.5 to 3 times the baseline PTT CBC W/AUTO [id number] 04:27:00* Test Item Value Reference Range Comments WHITE BLOOD CELL (test code=WBC) 32.7 x10 3/uL 4.8-10.8 RED BLOOD CELL (test code=RBC) 2.41 x10 6/uL 4.70-6.10 HEMOGLOBIN (test code=HGB) 7.5 g/dL 14.5-20 HEMATOCRIT (test code=HCT) 22.7 % 42.0-52.0 MEAN CELL VOLUME (test code=MCV) 94.2 fL 80.0-94.0 MEAN CELL HGB (test code=MCH) 31.1 pg 27-31 MEAN CELL HGB CONCENTRATION (test code=MCHC) 33.0 G/DL 33-36.5 RED CELL DISTRIBUTION WIDTH (test code=RDW) 17.1 % 12.9-16.9 PLATELET COUNT (test code=PLT) 196 150-440 MEAN PLATELET VOLUME (test code=MPV) 12.2 fL 8.9-12.4 NEUTROPHIL % (test code=NT%) 77.1 % 42.2-75.2 LYMPHOCYTE % (test code=LY%) 4.6 % 20.5-51.1 MONOCYTE % (test code=MO%) 9.0 % 1.7-9.3 EOSINOPHIL % (test code=EO%) 0.1 % 0.0-7.0 BASOPHIL % (test code=BA%) 0.3 % 0-2.5 NEUTROPHIL # (test code=NT#) 25.16 x10 3/uL 1.80-7.70 LYMPHOCYTE # (test code=LY#) 1.51 x10 3/uL 1.00-4.80 MONOCYTE # (test code=MO#) 2.95 x10 3/uL 0.00-0.80 EOSINOPHIL # (test code=EO#) 0.03 x10 3/uL 0.00-0.45 BASOPHIL # (test code=BA#) 0.09 x10 3/uL 0.0-0.20 ARTERIAL BLOOD [id number] 04:25:00* Test Item Value Reference Range Comments ARTERIAL BLOOD GAS PH (test code=PHA) 7.33 7.35-7.45 ARTERIAL BLOOD GAS PCO2 (test code=PCO2A) 46.9 mmHg 35.0-45.0 ARTERIAL BLOOD GAS PO2 (test code=PO2A) 142.5 mmHg 80.0-95.0 BICARBONATE TOTAL HCO3 (test code=HCO3) 24.0 mmol/L 22.0-24.0 BASE EXCESS (test code=KIZZY) -2.1 mmol/L (+/-)2.0 ABG O2 SATURATION (test code=SATA) 98.2 % 95.0-100.0 ABG TYPE (test code=TYPEA) VENTILATOR ARTERIAL FIO2 (test code=FIO2A) 80 % ABG DELIVERY (test code=NICOL) Vent ABG VENT MODE (test code=MODEA) AC Pressure ABG VENT RESP RATE (test code=RRA) 25 /MIN ABG PEEP (test code=PEEP) 10 cmH2O ABG SITE (test code=SITEA) Art line ABG POSITION (test code=PT POSITION) SUPINE ALLENS TEST (test code=ALLENS) NOT APPLICAPLE METHEMOGLOBIN (test code=METHGB) 1.0 % 0-1.5 [id number] 02:33:00* Test Item Value Reference Range Comments GLUBED (test code=GLUBED) 112 MG/DL 70-105 [id number] 02:33:00* Test Item Value Reference Range Comments GLUBED (test code=GLUBED) 111 MG/DL 70-105 [id number] 02:33:00* Test Item Value Reference Range Comments GLUBED (test code=GLUBED) 108 MG/DL 70-105 [id number] 02:33:00* Test Item Value Reference Range Comments GLUBED (test code=GLUBED) 122 MG/DL 70-105 [id number] 02:33:00* Test Item Value Reference Range Comments GLUBED (test code=GLUBED) 130 MG/DL 70-105 [id number] 02:33:00* Test Item Value Reference Range Comments GLUBED (test code=GLUBED) 146 MG/DL 70-105 ARTERIAL BLOOD [id number] 02:26:00* Test Item Value Reference Range Comments ARTERIAL BLOOD GAS PH (test code=PHA) 7.37 7.35-7.45 ARTERIAL BLOOD GAS PCO2 (test code=PCO2A) 41.9 mmHg 35.0-45.0 ARTERIAL BLOOD GAS PO2 (test code=PO2A) 121.2 mmHg 80.0-95.0 BICARBONATE TOTAL HCO3 (test code=HCO3) 23.8 mmol/L 22.0-24.0 BASE EXCESS (test code=KIZZY) -1.4 mmol/L (+/-)2.0 ABG O2 SATURATION (test code=SATA) 97.2 % 95.0-100.0 ABG TYPE (test code=TYPEA) VENTILATOR ARTERIAL FIO2 (test code=FIO2A) 80 % ABG DELIVERY (test code=NICOL) Vent ABG VENT MODE (test code=MODEA) AC Pressure ABG VENT RESP RATE (test code=RRA) 25 /MIN ABG PEEP (test code=PEEP) 10 cmH2O ABG SITE (test code=SITEA) Art line ABG POSITION (test code=PT POSITION) SUPINE ALLENS TEST (test code=ALLENS) NOT APPLICAPLE METHEMOGLOBIN (test code=METHGB) 0.8 % 0-1.5 ARTERIAL BLOOD [id number] 02:26:00* Test Item Value Reference Range Comments ARTERIAL BLOOD GAS PH (test code=PHA) 7.37 7.35-7.45 ARTERIAL BLOOD GAS PCO2 (test code=PCO2A) 41.9 mmHg 35.0-45.0 ARTERIAL BLOOD GAS PO2 (test code=PO2A) 121.2 mmHg 80.0-95.0 BICARBONATE TOTAL HCO3 (test code=HCO3) 23.8 mmol/L 22.0-24.0 BASE EXCESS (test code=KIZZY) -1.4 mmol/L (+/-)2.0 ABG O2 SATURATION (test code=SATA) 97.2 % 95.0-100.0 ABG TYPE (test code=TYPEA) VENTILATOR ARTERIAL FIO2 (test code=FIO2A) 80 % ABG DELIVERY (test code=NICOL) Vent ABG VENT MODE (test code=MODEA) AC Pressure ABG VENT RESP RATE (test code=RRA) 25 /MIN ABG PEEP (test code=PEEP) 10 cmH2O ABG SITE (test code=SITEA) Art line ABG POSITION (test code=PT POSITION) SUPINE ALLENS TEST (test code=ALLENS) NOT APPLICAPLE METHEMOGLOBIN (test code=METHGB) 0.8 % 0-1.5 ARTERIAL BLOOD [id number] 00:46:00* Test Item Value Reference Range Comments ARTERIAL BLOOD GAS PH (test code=PHA) 7.36 7.35-7.45 ARTERIAL BLOOD GAS PCO2 (test code=PCO2A) 48.3 mmHg 35.0-45.0 ARTERIAL BLOOD GAS PO2 (test code=PO2A) 113.9 mmHg 80.0-95.0 BICARBONATE TOTAL HCO3 (test code=HCO3) 26.4 mmol/L 22.0-24.0 BASE EXCESS (test code=KIZZY) 0.5 mmol/L (+/-)2.0 ABG O2 SATURATION (test code=SATA) 97.2 % 95.0-100.0 ABG TYPE (test code=TYPEA) VENTILATOR ARTERIAL FIO2 (test code=FIO2A) 100 % ABG DELIVERY (test code=NICOL) Vent ABG VENT MODE (test code=MODEA) AC Pressure ABG VENT RESP RATE (test code=RRA) 25 /MIN ABG PEEP (test code=PEEP) 10 cmH2O ABG SITE (test code=SITEA) Art line ABG POSITION (test code=PT POSITION) SUPINE ALLENS TEST (test code=ALLENS) NOT APPLICAPLE METHEMOGLOBIN (test code=METHGB) 1.1 % 0-1.5 CALCIUM [id number] 00:46:00* Test Item Value Reference Range Comments CALCIUM IONIZED (test code=YVON) 1.23 mmol/L 1.1-1.3 BASIC METABOLIC [id number] 00:37:00* Test Item Value Reference Range Comments SODIUM (test code=NA) 137 MMOL/L 136-143 POTASSIUM (test code=K) 4.0 MMOL/L 3.5-5.1 CHLORIDE (test code=CL) 103 MMOL/L 98-107 CARBON DIOXIDE (test code=CO2) 25 mmol/L 24-31 GLUCOSE (test code=GLU) 93 mg/dL 70-104 BLOOD UREA NITROGEN (test code=BUN) 29.9 MG/DL 7.0-21.0 GLOMERULAR FILTRATION RATE (test code=GFR) 55 >60 The estimated glomerular filtration rate is computed usingpatient race, age (>18), sex, and serum creatinine. If anyof the needed data elements are missing the Laboratory cannot compute an estimation of the glomerular filtration rate. CREATININE (test code=CREAT) 1.5 mg/dL 0.8-1.5 CALCIUM (test code=CA) 8.6 mg/dL 8.8-10.2 [id number] 00:37:00* Test Item Value Reference Range Comments PHOSPHOROUS (test code=PHOS) 3.6 mg/dL 2.7-4.5 [id number] 00:37:00* Test Item Value Reference Range Comments MAGNESIUM (test code=MAG) 1.9 mg/dL 1.4-2.6 LACTIC [id number] 00:36:00* Test Item Value Reference Range Comments LACTIC ACID (test code=LACT) 17.2 mg/dL 4.5-18.0 THROMBOPLASTIN TIME [id number] 00:27:00* Test Item Value Reference Range Comments THROMBOPLASTIN TIME PARTIAL (test code=PTT) 71.2 SECONDS 26.0-35.9 INTERPRETATIVE DATA:Therapeutic range: Unfractionated heparin:47 - 71 seconds Argatroban:1.5 to 3 times the baseline PTT CBC W/AUTO [id number] 00:16:00* Test Item Value Reference Range Comments WHITE BLOOD CELL (test code=WBC) 30.1 x10 3/uL 4.8-10.8 RED BLOOD CELL (test code=RBC) 2.42 x10 6/uL 4.70-6.10 HEMOGLOBIN (test code=HGB) 7.4 g/dL 14.5-20 HEMATOCRIT (test code=HCT) 22.8 % 42.0-52.0 MEAN CELL VOLUME (test code=MCV) 94.2 fL 80.0-94.0 MEAN CELL HGB (test code=MCH) 30.6 pg 27-31 MEAN CELL HGB CONCENTRATION (test code=MCHC) 32.5 G/DL 33-36.5 RED CELL DISTRIBUTION WIDTH (test code=RDW) 17.1 % 12.9-16.9 PLATELET COUNT (test code=PLT) 176 150-440 MEAN PLATELET VOLUME (test code=MPV) 11.6 fL 8.9-12.4 NEUTROPHIL % (test code=NT%) 75.8 % 42.2-75.2 LYMPHOCYTE % (test code=LY%) 4.7 % 20.5-51.1 MONOCYTE % (test code=MO%) 9.4 % 1.7-9.3 EOSINOPHIL % (test code=EO%) 0.1 % 0.0-7.0 BASOPHIL % (test code=BA%) 0.2 % 0-2.5 NEUTROPHIL # (test code=NT#) 22.81 x10 3/uL 1.80-7.70 LYMPHOCYTE # (test code=LY#) 1.41 x10 3/uL 1.00-4.80 MONOCYTE # (test code=MO#) 2.83 x10 3/uL 0.00-0.80 EOSINOPHIL # (test code=EO#) 0.02 x10 3/uL 0.00-0.45 BASOPHIL # (test code=BA#) 0.07 x10 3/uL 0.0-0.20 CBC W/MANUAL [id number] 21:24:00* Test Item Value Reference Range Comments WHITE BLOOD CELL (test code=WBC) 26.5 x10 3/uL 4.8-10.8 RED BLOOD CELL (test code=RBC) 2.47 x10 6/uL 4.70-6.10 HEMOGLOBIN (test code=HGB) 7.5 g/dL 14.5-20 HEMATOCRIT (test code=HCT) 23.2 % 42.0-52.0 MEAN CELL VOLUME (test code=MCV) 93.9 fL 80.0-94.0 MEAN CELL HGB (test code=MCH) 30.4 pg 27-31 MEAN CELL HGB CONCENTRATION (test code=MCHC) 32.3 G/DL 33-36.5 RED CELL DISTRIBUTION WIDTH (test code=RDW) 17.2 % 12.9-16.9 PLATELET COUNT (test code=PLT) 151 150-440 MEAN PLATELET VOLUME (test code=MPV) 11.9 fL 8.9-12.4 TOTAL CELLS COUNTED (test code=TCC) 100 #CELLS SEGMENTED NEUTROPHILS (test code=SEG) 91 % 43-65 LYMPHOCYTE (test code=LYMPH) 0 % 20.5-45.5 MONOCYTE (test code=MON) 4 % 5.5-11.7 EOSINOPHIL (test code=EOS) 1 % 0.9-2.9 MYELOCYTE (test code=MYELO) 4 % 0-0 ANISOCYTOSIS (test code=ANISO) 1+ NONE SEEN CBC W/MANUAL [id number] 21:22:00* Test Item Value Reference Range Comments WHITE BLOOD CELL (test code=WBC) 26.5 x10 3/uL 4.8-10.8 RED BLOOD CELL (test code=RBC) 2.47 x10 6/uL 4.70-6.10 HEMOGLOBIN (test code=HGB) 7.5 g/dL 14.5-20 HEMATOCRIT (test code=HCT) 23.2 % 42.0-52.0 MEAN CELL VOLUME (test code=MCV) 93.9 fL 80.0-94.0 MEAN CELL HGB (test code=MCH) 30.4 pg 27-31 MEAN CELL HGB CONCENTRATION (test code=MCHC) 32.3 G/DL 33-36.5 RED CELL DISTRIBUTION WIDTH (test code=RDW) 17.2 % 12.9-16.9 PLATELET COUNT (test code=PLT) 151 150-440 MEAN PLATELET VOLUME (test code=MPV) 11.9 fL 8.9-12.4 TOTAL CELLS COUNTED (test code=TCC) 100 #CELLS SEGMENTED NEUTROPHILS (test code=SEG) 91 % 43-65 LYMPHOCYTE (test code=LYMPH) % 20.5-45.5 MONOCYTE (test code=MON) 4 % 5.5-11.7 EOSINOPHIL (test code=EOS) 1 % 0.9-2.9 MYELOCYTE (test code=MYELO) 4 % 0-0 ANISOCYTOSIS (test code=ANISO) 1+ NONE SEEN BASIC METABOLIC [id number] 20:43:00* Test Item Value Reference Range Comments SODIUM (test code=NA) 137 MMOL/L 136-143 POTASSIUM (test code=K) 3.9 MMOL/L 3.5-5.1 CHLORIDE (test code=CL) 103 MMOL/L 98-107 CARBON DIOXIDE (test code=CO2) 23 mmol/L 24-31 GLUCOSE (test code=GLU) 99 mg/dL 70-104 BLOOD UREA NITROGEN (test code=BUN) 28.4 MG/DL 7.0-21.0 GLOMERULAR FILTRATION RATE (test code=GFR) 55 >60 The estimated glomerular filtration rate is computed usingpatient race, age (>18), sex, and serum creatinine. If anyof the needed data elements are missing the Laboratory cannot compute an estimation of the glomerular filtration rate. CREATININE (test code=CREAT) 1.5 mg/dL 0.8-1.5 CALCIUM (test code=CA) 8.3 mg/dL 8.8-10.2 [id number] 20:43:00* Test Item Value Reference Range Comments PHOSPHOROUS (test code=PHOS) 3.0 mg/dL 2.7-4.5 [id number] 20:43:00* Test Item Value Reference Range Comments MAGNESIUM (test code=MAG) 2.0 mg/dL 1.4-2.6 LACTIC [id number] 20:40:00* Test Item Value Reference Range Comments LACTIC ACID (test code=LACT) 18.5 mg/dL 4.5-18.0 Critical Value reported toFirst Name:LYLE Last Name:CINENIRESULTS READ BACK AND VERIFIEDby GREGORY, on 09/10/19, @ 2039. ARTERIAL BLOOD [id number] 20:36:00* Test Item Value Reference Range Comments ARTERIAL BLOOD GAS PH (test code=PHA) 7.38 7.35-7.45 ARTERIAL BLOOD GAS PCO2 (test code=PCO2A) 49.5 mmHg 35.0-45.0 ARTERIAL BLOOD GAS PO2 (test code=PO2A) 109.0 mmHg 80.0-95.0 BICARBONATE TOTAL HCO3 (test code=HCO3) 28.3 mmol/L 22.0-24.0 BASE EXCESS (test code=KIZZY) 2.6 mmol/L (+/-)2.0 ABG O2 SATURATION (test code=SATA) 97.3 % 95.0-100.0 ABG TYPE (test code=TYPEA) VENTILATOR ARTERIAL FIO2 (test code=FIO2A) 100 % ABG DELIVERY (test code=NICOL) Vent ABG VENT MODE (test code=MODEA) AC Pressure ABG VENT RESP RATE (test code=RRA) 25 /MIN ABG PEEP (test code=PEEP) 10 cmH2O ABG SITE (test code=SITEA) Art line ABG POSITION (test code=PT POSITION) SUPINE ALLENS TEST (test code=ALLENS) NOT APPLICAPLE METHEMOGLOBIN (test code=METHGB) 1.3 % 0-1.5 CALCIUM [id number] 20:36:00* Test Item Value Reference Range Comments CALCIUM IONIZED (test code=YVON) 1.18 mmol/L 1.1-1.3 PROTHROMBIN [id number] 20:35:00* Test Item Value Reference Range Comments PROTHROMBIN TIME PATIENT (test code=PTP) 12.3 SECONDS 10.3-12.9 INTERNATIONAL NORMAL RATIO (test code=INR) 1.06 INR UNIT 0.9-1.11 The INR is useful only for monitoring anticoagulant therapy.It may be unreliable in the initial phase of antigoagulationand in unstable patients. Indication for Anticoagulation Recommended INR 1. Prevention of venous thomboembolism 2.0-3.0in high-risk patients; treatment of venousthrombosis and pulmonary embolism aftera course of heparin; prevention of systemicembolism in a variety of conditions, including atrial fibrillation and prothetic tissue heart valves, 2. Prosthetic mechanical heart valves; 2.5-3.5recurrent systemic embolism. THROMBOPLASTIN TIME [id number] 20:35:00* Test Item Value Reference Range Comments THROMBOPLASTIN TIME PARTIAL (test code=PTT) SECONDS 26.0-35.9 PROTHROMBIN [id number] 20:35:00* Test Item Value Reference Range Comments PROTHROMBIN TIME PATIENT (test code=PTP) 12.3 SECONDS 10.3-12.9 INTERNATIONAL NORMAL RATIO (test code=INR) 1.06 INR UNIT 0.9-1.11 The INR is useful only for monitoring anticoagulant therapy.It may be unreliable in the initial phase of antigoagulationand in unstable patients. Indication for Anticoagulation Recommended INR 1. Prevention of venous thomboembolism 2.0-3.0in high-risk patients; treatment of venousthrombosis and pulmonary embolism aftera course of heparin; prevention of systemicembolism in a variety of conditions, including atrial fibrillation and prothetic tissue heart valves, 2. Prosthetic mechanical heart valves; 2.5-3.5recurrent systemic embolism. THROMBOPLASTIN TIME [id number] 20:35:00* Test Item Value Reference Range Comments THROMBOPLASTIN TIME PARTIAL (test code=PTT) 72.3 SECONDS 26.0-35.9 INTERPRETATIVE DATA:Therapeutic range: Unfractionated heparin:47 - 71 seconds Argatroban:1.5 to 3 times the baseline PTT CBC W/MANUAL [id number] 20:28:00* Test Item Value Reference Range Comments WHITE BLOOD CELL (test code=WBC) 26.5 x10 3/uL 4.8-10.8 RED BLOOD CELL (test code=RBC) 2.47 x10 6/uL 4.70-6.10 HEMOGLOBIN (test code=HGB) 7.5 g/dL 14.5-20 HEMATOCRIT (test code=HCT) 23.2 % 42.0-52.0 MEAN CELL VOLUME (test code=MCV) 93.9 fL 80.0-94.0 MEAN CELL HGB (test code=MCH) 30.4 pg 27-31 MEAN CELL HGB CONCENTRATION (test code=MCHC) 32.3 G/DL 33-36.5 RED CELL DISTRIBUTION WIDTH (test code=RDW) 17.2 % 12.9-16.9 PLATELET COUNT (test code=PLT) 151 150-440 MEAN PLATELET VOLUME (test code=MPV) 11.9 fL 8.9-12.4 TOTAL CELLS COUNTED (test code=TCC) #CELLS SEGMENTED NEUTROPHILS (test code=SEG) % 43-65 LYMPHOCYTE (test code=LYMPH) % 20.5-45.5 CBC W/MANUAL [id number] 20:28:00* Test Item Value Reference Range Comments WHITE BLOOD CELL (test code=WBC) 26.5 x10 3/uL 4.8-10.8 RED BLOOD CELL (test code=RBC) 2.47 x10 6/uL 4.70-6.10 HEMOGLOBIN (test code=HGB) 7.5 g/dL 14.5-20 HEMATOCRIT (test code=HCT) 23.2 % 42.0-52.0 MEAN CELL VOLUME (test code=MCV) 93.9 fL 80.0-94.0 MEAN CELL HGB (test code=MCH) 30.4 pg 27-31 MEAN CELL HGB CONCENTRATION (test code=MCHC) 32.3 G/DL 33-36.5 RED CELL DISTRIBUTION WIDTH (test code=RDW) 17.2 % 12.9-16.9 PLATELET COUNT (test code=PLT) 151 150-440 MEAN PLATELET VOLUME (test code=MPV) 11.9 fL 8.9-12.4 TOTAL CELLS COUNTED (test code=TCC) #CELLS SEGMENTED NEUTROPHILS (test code=SEG) % 43-65 LYMPHOCYTE (test code=LYMPH) % 20.5-45.5 [id number] 20:25:00* Test Item Value Reference Range Comments GLUBED (test code=GLUBED) 144 MG/DL 70-105 BASIC METABOLIC [id number] 17:31:00* Test Item Value Reference Range Comments SODIUM (test code=NA) 138 MMOL/L 136-143 POTASSIUM (test code=K) 4.6 MMOL/L 3.5-5.1 CHLORIDE (test code=CL) 99 MMOL/L 98-107 CARBON DIOXIDE (test code=CO2) 24 mmol/L 24-31 GLUCOSE (test code=GLU) 139 mg/dL 70-104 BLOOD UREA NITROGEN (test code=BUN) 33.2 MG/DL 7.0-21.0 GLOMERULAR FILTRATION RATE (test code=GFR) 55 >60 The estimated glomerular filtration rate is computed usingpatient race, age (>18), sex, and serum creatinine. If anyof the needed data elements are missing the Laboratory cannot compute an estimation of the glomerular filtration rate. CREATININE (test code=CREAT) 1.5 mg/dL 0.8-1.5 CALCIUM (test code=CA) 8.3 mg/dL 8.8-10.2 BASIC METABOLIC [id number] 17:31:00* Test Item Value Reference Range Comments SODIUM (test code=NA) 138 MMOL/L 136-143 POTASSIUM (test code=K) 4.6 MMOL/L 3.5-5.1 CHLORIDE (test code=CL) 99 MMOL/L 98-107 CARBON DIOXIDE (test code=CO2) 24 mmol/L 24-31 GLUCOSE (test code=GLU) 139 mg/dL 70-104 BLOOD UREA NITROGEN (test code=BUN) 33.2 MG/DL 7.0-21.0 GLOMERULAR FILTRATION RATE (test code=GFR) 55 >60 The estimated glomerular filtration rate is computed usingpatient race, age (>18), sex, and serum creatinine. If anyof the needed data elements are missing the Laboratory cannot compute an estimation of the glomerular filtration rate. CREATININE (test code=CREAT) 1.5 mg/dL 0.8-1.5 CALCIUM (test code=CA) 8.3 mg/dL 8.8-10.2 LACTIC DEHYDROGENASE(LDH)[id number] 17:23:00* Test Item Value Reference Range Comments LACTIC DEHYDROGENASE(LDH) (test code=LDH) 467 U/L 135-225 BASIC METABOLIC [id number] 17:23:00* Test Item Value Reference Range Comments SODIUM (test code=NA) 138 MMOL/L 136-143 POTASSIUM (test code=K) 4.6 MMOL/L 3.5-5.1 CHLORIDE (test code=CL) 99 MMOL/L 98-107 CARBON DIOXIDE (test code=CO2) 24 mmol/L 24-31 GLUCOSE (test code=GLU) 139 mg/dL 70-104 BLOOD UREA NITROGEN (test code=BUN) 33.2 MG/DL 7.0-21.0 GLOMERULAR FILTRATION RATE (test code=GFR) 55 >60 The estimated glomerular filtration rate is computed usingpatient race, age (>18), sex, and serum creatinine. If anyof the needed data elements are missing the Laboratory cannot compute an estimation of the glomerular filtration rate. CREATININE (test code=CREAT) 1.5 mg/dL 0.8-1.5 CALCIUM (test code=CA) mg/dL 8.8-10.2 THROMBOPLASTIN TIME [id number] 17:11:00* Test Item Value Reference Range Comments THROMBOPLASTIN TIME PARTIAL (test code=PTT) 68.1 SECONDS 26.0-35.9 INTERPRETATIVE DATA:Therapeutic range: Unfractionated heparin:47 - 71 seconds Argatroban:1.5 to 3 times the baseline PTT LACTIC [id number] 17:04:00* Test Item Value Reference Range Comments LACTIC ACID (test code=LACT) 18.2 mg/dL 4.5-18.0 Critical Value reported toFirst Name:KATHERYN Last Name:JAK READ BACK AND VERIFIEDby PAimeLABTIFFANIE, on 09/10/19, @ 2613. [id number] 17:03:00* Test Item Value Reference Range Comments HEMOGLOBIN (test code=HGB) 7.6 g/dL 14.5-20 [id number] 17:03:00* Test Item Value Reference Range Comments HEMATOCRIT (test code=HCT) 23.2 % 42.0-52.0 CALCIUM [id number] 16:47:00* Test Item Value Reference Range Comments CALCIUM IONIZED (test code=YVON) 1.04 mmol/L 1.1-1.3 ARTERIAL BLOOD [id number] 16:41:00* Test Item Value Reference Range Comments ARTERIAL BLOOD GAS PH (test code=PHA) 7.37 7.35-7.45 ARTERIAL BLOOD GAS PCO2 (test code=PCO2A) 47.3 mmHg 35.0-45.0 ARTERIAL BLOOD GAS PO2 (test code=PO2A) 111.5 mmHg 80.0-95.0 BICARBONATE TOTAL HCO3 (test code=HCO3) 26.9 mmol/L 22.0-24.0 BASE EXCESS (test code=KIZZY) 1.3 mmol/L (+/-)2.0 ABG O2 SATURATION (test code=SATA) 97.0 % 95.0-100.0 ABG VENT MODE (test code=MODEA) AC Pressure ABG PATIENT RESP RATE (test code=RRPATA) 25 /MIN 12-20 ABG VENT RESP RATE (test code=RRA) 25 /MIN ABG PEEP (test code=PEEP) 10 cmH2O ABG SITE (test code=SITEA) Art line ABG POSITION (test code=PT POSITION) SUPINE HGB TEMP CORRECTED (test code=HGBTC) G/DL TOTAL HGB (test code=THB) 9.0 g/dL 13.0-17.0 METHEMOGLOBIN (test code=METHGB) 1.2 % 0-1.5 [facility] [id number] 15:36:00* Test Item Value Reference Range Comments [facility] (test code=MISCSER) SEE COMMENT Resp Virus Panel (RVP) PCR Influenza A: Positive Positive for Influenza A 2008 H1N1 Reference Interval: Negative Influenza B: NegativeReference Interval: Negative RSV A: NegativeReference Interval: Negative RSV B: NegativeReference Interval: Negative Parainfluenza 1: NegativeReference Interval: Negative Parainfluenza 2: NegativeReference Interval: Negative Parainfluenza 3: NegativeReference Interval: Negative Rhinovirus: NegativeReference Interval: Negative Metapneumovirus: NegativeReference Interval: Negative Adenovirus: NegativeReference Interval: Negative Performed at: COUNTS [facility] [address] TEST #: [id number]: [id number] METABOLIC [id number] 13:27:00* Test Item Value Reference Range Comments SODIUM (test code=NA) 139 MMOL/L 136-143 POTASSIUM (test code=K) 4.7 MMOL/L 3.5-5.1 CHLORIDE (test code=CL) 100 MMOL/L 98-107 CARBON DIOXIDE (test code=CO2) 24 mmol/L 24-31 GLUCOSE (test code=GLU) 143 mg/dL 70-104 BLOOD UREA NITROGEN (test code=BUN) 35.6 MG/DL 7.0-21.0 GLOMERULAR FILTRATION RATE (test code=GFR) 47 >60 The estimated glomerular filtration rate is computed usingpatient race, age (>18), sex, and serum creatinine. If anyof the needed data elements are missing the Laboratory cannot compute an estimation of the glomerular filtration rate. CREATININE (test code=CREAT) 1.7 mg/dL 0.8-1.5 CALCIUM (test code=CA) 7.7 mg/dL 8.8-10.2 [id number] 13:27:00* Test Item Value Reference Range Comments PHOSPHOROUS (test code=PHOS) 3.5 mg/dL 2.7-4.5 [id number] 13:27:00* Test Item Value Reference Range Comments MAGNESIUM (test code=MAG) 2.2 mg/dL 1.4-2.6 LACTIC [id number] 13:22:00* Test Item Value Reference Range Comments LACTIC ACID (test code=LACT) 16.4 mg/dL 4.5-18.0 THROMBOPLASTIN TIME [id number] 12:47:00* Test Item Value Reference Range Comments THROMBOPLASTIN TIME PARTIAL (test code=PTT) 70.9 SECONDS 26.0-35.9 INTERPRETATIVE DATA:Therapeutic range: Unfractionated heparin:47 - 71 seconds Argatroban:1.5 to 3 times the baseline PTT CALCIUM [id number] 12:37:00* Test Item Value Reference Range Comments CALCIUM IONIZED (test code=YVON) 1.05 mmol/L 1.1-1.3 [id number] 12:33:00* Test Item Value Reference Range Comments HEMOGLOBIN (test code=HGB) 7.7 g/dL 14.5-20 [id number] 12:33:00* Test Item Value Reference Range Comments HEMATOCRIT (test code=HCT) 23.8 % 42.0-52.0 ARTERIAL BLOOD [id number] 12:31:00* Test Item Value Reference Range Comments ARTERIAL BLOOD GAS PH (test code=PHA) 7.34 7.35-7.45 ARTERIAL BLOOD GAS PCO2 (test code=PCO2A) 51.6 mmHg 35.0-45.0 ARTERIAL BLOOD GAS PO2 (test code=PO2A) 92.3 mmHg 80.0-95.0 BICARBONATE TOTAL HCO3 (test code=HCO3) 27.0 mmol/L 22.0-24.0 BASE EXCESS (test code=KIZZY) 0.7 mmol/L (+/-)2.0 ABG O2 SATURATION (test code=SATA) 95.7 % 95.0-100.0 ABG VENT MODE (test code=MODEA) AC Pressure ABG PATIENT RESP RATE (test code=RRPATA) 25 /MIN 12-20 ABG VENT RESP RATE (test code=RRA) 25 /MIN ABG PEEP (test code=PEEP) 10 cmH2O ABG SITE (test code=SITEA) Art line ABG POSITION (test code=PT POSITION) SUPINE TOTAL HGB (test code=THB) 10.8 g/dL 13.0-17.0 METHEMOGLOBIN (test code=METHGB) 1.0 % 0-1.5 ARTERIAL BLOOD [id number] 12:14:00* Test Item Value Reference Range Comments ARTERIAL BLOOD GAS PH (test code=PHA) 7.37 7.35-7.45 ARTERIAL BLOOD GAS PCO2 (test code=PCO2A) 47.0 mmHg 35.0-45.0 ARTERIAL BLOOD GAS PO2 (test code=PO2A) 483.0 mmHg 80.0-95.0 Critical Value reported toFirst Name:LEAH Last Name:RESULTS READ BACK AND VERIFIEDby P.RCS.SXL, on 09/10/19, @ 1212. BICARBONATE TOTAL HCO3 (test code=HCO3) 26.0 mmol/L 22.0-24.0 BASE EXCESS (test code=KIZZY) 0.6 mmol/L (+/-)2.0 ABG O2 SATURATION (test code=SATA) 99.0 % 95.0-100.0 ABG DELIVERY (test code=NICOL) OXYGENATOR ABG VENT MODE (test code=MODEA) ECMO ABG PATIENT RESP RATE (test code=RRPATA) 25 /MIN 12-20 ABG VENT RESP RATE (test code=RRA) 25 /MIN ABG PEEP (test code=PEEP) 10 cmH2O ABG SITE (test code=SITEA) OXYGENATOR METHEMOGLOBIN (test code=METHGB) % 0-1.5 CALCIUM [id number] 10:48:00* Test Item Value Reference Range Comments CALCIUM IONIZED (test code=YVON) 1.07 mmol/L 1.1-1.3 BASIC METABOLIC [id number] 09:30:00* Test Item Value Reference Range Comments SODIUM (test code=NA) 137 MMOL/L 136-143 POTASSIUM (test code=K) 4.9 MMOL/L 3.5-5.1 CHLORIDE (test code=CL) 101 MMOL/L 98-107 CARBON DIOXIDE (test code=CO2) 24 mmol/L 24-31 GLUCOSE (test code=GLU) 140 mg/dL 70-104 BLOOD UREA NITROGEN (test code=BUN) 33.5 MG/DL 7.0-21.0 GLOMERULAR FILTRATION RATE (test code=GFR) 44 >60 The estimated glomerular filtration rate is computed usingpatient race, age (>18), sex, and serum creatinine. If anyof the needed data elements are missing the Laboratory cannot compute an estimation of the glomerular filtration rate. CREATININE (test code=CREAT) 1.8 mg/dL 0.8-1.5 CALCIUM (test code=CA) 8.0 mg/dL 8.8-10.2 LACTIC [id number] 09:09:00* Test Item Value Reference Range Comments LACTIC ACID (test code=LACT) 13.8 mg/dL 4.5-18.0 THROMBOPLASTIN TIME [id number] 08:32:00* Test Item Value Reference Range Comments THROMBOPLASTIN TIME PARTIAL (test code=PTT) 65.1 SECONDS 26.0-35.9 INTERPRETATIVE DATA:Therapeutic range: Unfractionated heparin:47 - 71 seconds Argatroban:1.5 to 3 times the baseline PTT [id number] 08:27:00* Test Item Value Reference Range Comments HEMOGLOBIN (test code=HGB) 7.9 g/dL 14.5-20 [id number] 08:27:00* Test Item Value Reference Range Comments HEMATOCRIT (test code=HCT) 24.6 % 42.0-52.0 ARTERIAL BLOOD [id number] 08:20:00* Test Item Value Reference Range Comments ARTERIAL BLOOD GAS PH (test code=PHA) 7.32 7.35-7.45 ARTERIAL BLOOD GAS PCO2 (test code=PCO2A) 44.7 mmHg 35.0-45.0 ARTERIAL BLOOD GAS PO2 (test code=PO2A) 100.7 mmHg 80.0-95.0 BICARBONATE TOTAL HCO3 (test code=HCO3) 22.6 mmol/L 22.0-24.0 BASE EXCESS (test code=KIZZY) -3.4 mmol/L (+/-)2.0 ABG O2 SATURATION (test code=SATA) 96.4 % 95.0-100.0 ABG VENT MODE (test code=MODEA) AC Pressure ABG PATIENT RESP RATE (test code=RRPATA) 25 /MIN 12-20 ABG VENT RESP RATE (test code=RRA) 25 /MIN ABG PEEP (test code=PEEP) 10 cmH2O ABG SITE (test code=SITEA) Art line HGB TEMP CORRECTED (test code=HGBTC) 8.8 G/DL METHEMOGLOBIN (test code=METHGB) <0.8 % 0-1.5 LACTIC DEHYDROGENASE(LDH)2019-09-10 08:03:00* Test Item Value Reference Range Comments LACTIC DEHYDROGENASE(LDH) (test code=LDH) 512 U/L 135-225 - XR CHEST 1 [id number] 08:03:00Patient Name: MILY MOSHER Unit No: [id number] EXAMS: CPT CODE: [id number] XR CHEST 1 V [id number] Chest one view AP 09/10/2019 8:02 AM CLINICAL INDICATION: ECMO COMPARISON: 09/09/2019 LOCATION: W1 IMPRESSION: Lung volumes remain low. There is high-grade pulmonary edema, unchanged. No pneumothorax is evident. The mediastinal contours are stable. Support hardware is unchanged in position. at 0803 Reported and signed by: ERIK MTZ M.D. CC: Yasmany Byrnes MD; Malachi Perez MD Technologist: Charline Hernandez Fluoro Time: DAP (Gy m2): Air Kerma (mGy): Trscr Dt/Tm: 09/10/2019 (0803) by:[email or web address] Printed Date/Time: 09/10/2019 (805) Name: MILY MOSHER [facility] Phys: Malachi De La Paz MD [id number] : 1975 Age: 44 [place]: [place] [address] Loc: P.0226 1 Exam Date: 09/10/2019 Status: ADM IN PH: FAX: PAGE 1 Signed Report VANCOMYCIN TROUGH 2019-09-10 06:00:00* Test Item Value Reference Range Comments VANCOMYCIN TROUGH (test code=VANCT) 14.9 mcg/ML 10.0-20.0 LIVER FUNCTION [id number] 05:48:00* Test Item Value Reference Range Comments TOTAL PROTEIN (test code=PROT) 6.6 g/dL 6.3-8.3 ALBUMIN (test code=ALB) 3.7 G/DL 3.5-5.0 BILIRUBIN TOTAL (test code=BILT) 0.7 mg/dL 0.2-1.0 BILIRUBIN DIRECT (test code=BILD) 0.3 mg/dL 0.0-0.2 SGOT/AST (test code=AST) 56 IU/L 10-34 SGPT/ALT (test code=ALT) 50 U/L 10-44 ALKALINE PHOSPHATASE (test code=ALKP) 98 U/L 45-120 RENAL FUNCTION [id number] 05:35:00* Test Item Value Reference Range Comments SODIUM (test code=NA) 134 MMOL/L 136-143 POTASSIUM (test code=K) 5.1 MMOL/L 3.5-5.1 CHLORIDE (test code=CL) 97 MMOL/L 98-107 CARBON DIOXIDE (test code=CO2) 25 mmol/L 24-31 GLUCOSE (test code=GLU) 136 mg/dL 70-104 BLOOD UREA NITROGEN (test code=BUN) 35.3 MG/DL 7.0-21.0 GLOMERULAR FILTRATION RATE (test code=GFR) 42 >60 The estimated glomerular filtration rate is computed usingpatient race, age (>18), sex, and serum creatinine. If anyof the needed data elements are missing the Laboratory cannot compute an estimation of the glomerular filtration rate. CREATININE (test code=CREAT) 1.9 mg/dL 0.8-1.5 ALBUMIN (test code=ALB) 3.6 G/DL 3.5-5.0 CALCIUM (test code=CA) 8.1 mg/dL 8.8-10.2 PHOSPHOROUS (test code=PHOS) 3.5 mg/dL 2.7-4.5 [id number] 05:35:00* Test Item Value Reference Range Comments MAGNESIUM (test code=MAG) 2.6 mg/dL 1.4-2.6 LACTIC [id number] 05:12:00* Test Item Value Reference Range Comments LACTIC ACID (test code=LACT) 15.5 mg/dL 4.5-18.0 PROTHROMBIN [id number] 05:11:00* Test Item Value Reference Range Comments PROTHROMBIN TIME PATIENT (test code=PTP) 12.1 SECONDS 10.3-12.9 INTERNATIONAL NORMAL RATIO (test code=INR) 1.04 INR UNIT 0.9-1.11 The INR is useful only for monitoring anticoagulant therapy.It may be unreliable in the initial phase of antigoagulationand in unstable patients. Indication for Anticoagulation Recommended INR 1. Prevention of venous thomboembolism 2.0-3.0in high-risk patients; treatment of venousthrombosis and pulmonary embolism aftera course of heparin; prevention of systemicembolism in a variety of conditions, including atrial fibrillation and prothetic tissue heart valves, 2. Prosthetic mechanical heart valves; 2.5-3.5recurrent systemic embolism. THROMBOPLASTIN TIME [id number] 05:11:00* Test Item Value Reference Range Comments THROMBOPLASTIN TIME PARTIAL (test code=PTT) 64.2 SECONDS 26.0-35.9 INTERPRETATIVE DATA:Therapeutic range: Unfractionated heparin:47 - 71 seconds Argatroban:1.5 to 3 times the baseline PTT CBC W/AUTO [id number] 04:53:00* Test Item Value Reference Range Comments WHITE BLOOD CELL (test code=WBC) 18.5 x10 3/uL 4.8-10.8 RED BLOOD CELL (test code=RBC) 2.28 x10 6/uL 4.70-6.10 HEMOGLOBIN (test code=HGB) 7.2 g/dL 14.5-20 HEMATOCRIT (test code=HCT) 22.1 % 42.0-52.0 MEAN CELL VOLUME (test code=MCV) 96.9 fL 80.0-94.0 MEAN CELL HGB (test code=MCH) 31.6 pg 27-31 MEAN CELL HGB CONCENTRATION (test code=MCHC) 32.6 G/DL 33-36.5 RED CELL DISTRIBUTION WIDTH (test code=RDW) 15.8 % 12.9-16.9 PLATELET COUNT (test code=PLT) 135 150-440 MEAN PLATELET VOLUME (test code=MPV) 12.5 fL 8.9-12.4 NEUTROPHIL % (test code=NT%) 77.3 % 42.2-75.2 LYMPHOCYTE % (test code=LY%) 5.3 % 20.5-51.1 MONOCYTE % (test code=MO%) 5.7 % 1.7-9.3 EOSINOPHIL % (test code=EO%) 0.3 % 0.0-7.0 BASOPHIL % (test code=BA%) 0.3 % 0-2.5 NEUTROPHIL # (test code=NT#) 14.28 x10 3/uL 1.80-7.70 LYMPHOCYTE # (test code=LY#) 0.98 x10 3/uL 1.00-4.80 MONOCYTE # (test code=MO#) 1.06 x10 3/uL 0.00-0.80 EOSINOPHIL # (test code=EO#) 0.05 x10 3/uL 0.00-0.45 BASOPHIL # (test code=BA#) 0.05 x10 3/uL 0.0-0.20 ARTERIAL BLOOD [id number] 04:39:00* Test Item Value Reference Range Comments ARTERIAL BLOOD GAS PH (test code=PHA) 7.37 7.35-7.45 ARTERIAL BLOOD GAS PCO2 (test code=PCO2A) 44.3 mmHg 35.0-45.0 ARTERIAL BLOOD GAS PO2 (test code=PO2A) 104.1 mmHg 80.0-95.0 BICARBONATE TOTAL HCO3 (test code=HCO3) 24.9 mmol/L 22.0-24.0 BASE EXCESS (test code=KIZZY) -0.4 mmol/L (+/-)2.0 ABG O2 SATURATION (test code=SATA) 96.8 % 95.0-100.0 ABG TYPE (test code=TYPEA) VENTILATOR ARTERIAL FIO2 (test code=FIO2A) 100 % ABG DELIVERY (test code=NICOL) Vent ABG VENT MODE (test code=MODEA) AC Pressure ABG VENT RESP RATE (test code=RRA) 25 /MIN ABG PEEP (test code=PEEP) 10 cmH2O ABG SITE (test code=SITEA) Art line ABG POSITION (test code=PT POSITION) SUPINE ALLENS TEST (test code=ALLENS) NOT APPLICAPLE METHEMOGLOBIN (test code=METHGB) 1.0 % 0-1.5 CALCIUM [id number] 04:39:00* Test Item Value Reference Range Comments CALCIUM IONIZED (test code=YVON) 1.09 mmol/L 1.1-1.3 LACTIC [id number] 01:01:00* Test Item Value Reference Range Comments LACTIC ACID (test code=LACT) 19.5 mg/dL 4.5-18.0 Critical Value reported toFirst Name:PATTI Last Name:CIMENIRESULTS READ BACK AND VERIFIEDby P.LABERIC, on 09/10/19, @ 0101. BASIC METABOLIC [id number] 01:00:00* Test Item Value Reference Range Comments SODIUM (test code=NA) 132 MMOL/L 136-143 POTASSIUM (test code=K) 5.3 MMOL/L 3.5-5.1 CHLORIDE (test code=CL) 96 MMOL/L 98-107 CARBON DIOXIDE (test code=CO2) 25 mmol/L 24-31 GLUCOSE (test code=GLU) 147 mg/dL 70-104 BLOOD UREA NITROGEN (test code=BUN) 35.7 MG/DL 7.0-21.0 GLOMERULAR FILTRATION RATE (test code=GFR) 39 >60 The estimated glomerular filtration rate is computed usingpatient race, age (>18), sex, and serum creatinine. If anyof the needed data elements are missing the Laboratory cannot compute an estimation of the glomerular filtration rate. CREATININE (test code=CREAT) 2.0 mg/dL 0.8-1.5 CALCIUM (test code=CA) 8.3 mg/dL 8.8-10.2 [id number] 01:00:00* Test Item Value Reference Range Comments MAGNESIUM (test code=MAG) 2.6 mg/dL 1.4-2.6 [id number] 01:00:00* Test Item Value Reference Range Comments PHOSPHOROUS (test code=PHOS) 4.0 mg/dL 2.7-4.5 PROTHROMBIN [id number] 00:39:00* Test Item Value Reference Range Comments PROTHROMBIN TIME PATIENT (test code=PTP) 12.1 SECONDS 10.3-12.9 INTERNATIONAL NORMAL RATIO (test code=INR) 1.04 INR UNIT 0.9-1.11 The INR is useful only for monitoring anticoagulant therapy.It may be unreliable in the initial phase of antigoagulationand in unstable patients. Indication for Anticoagulation Recommended INR 1. Prevention of venous thomboembolism 2.0-3.0in high-risk patients; treatment of venousthrombosis and pulmonary embolism aftera course of heparin; prevention of systemicembolism in a variety of conditions, including atrial fibrillation and prothetic tissue heart valves, 2. Prosthetic mechanical heart valves; 2.5-3.5recurrent systemic embolism. THROMBOPLASTIN TIME [id number] 00:39:00* Test Item Value Reference Range Comments THROMBOPLASTIN TIME PARTIAL (test code=PTT) 62.5 SECONDS 26.0-35.9 INTERPRETATIVE DATA:Therapeutic range: Unfractionated heparin:47 - 71 seconds Argatroban:1.5 to 3 times the baseline PTT CBC W/AUTO [id number] 00:32:00* Test Item Value Reference Range Comments WHITE BLOOD CELL (test code=WBC) 22.0 x10 3/uL 4.8-10.8 RED BLOOD CELL (test code=RBC) 2.63 x10 6/uL 4.70-6.10 HEMOGLOBIN (test code=HGB) 8.1 g/dL 14.5-20 HEMATOCRIT (test code=HCT) 25.5 % 42.0-52.0 MEAN CELL VOLUME (test code=MCV) 97.0 fL 80.0-94.0 MEAN CELL HGB (test code=MCH) 30.8 pg 27-31 MEAN CELL HGB CONCENTRATION (test code=MCHC) 31.8 G/DL 33-36.5 RED CELL DISTRIBUTION WIDTH (test code=RDW) 15.9 % 12.9-16.9 PLATELET COUNT (test code=PLT) 144 150-440 MEAN PLATELET VOLUME (test code=MPV) 12.3 fL 8.9-12.4 NEUTROPHIL % (test code=NT%) 78.2 % 42.2-75.2 LYMPHOCYTE % (test code=LY%) 4.9 % 20.5-51.1 MONOCYTE % (test code=MO%) 4.6 % 1.7-9.3 EOSINOPHIL % (test code=EO%) 0.3 % 0.0-7.0 BASOPHIL % (test code=BA%) 0.4 % 0-2.5 NEUTROPHIL # (test code=NT#) 17.20 x10 3/uL 1.80-7.70 LYMPHOCYTE # (test code=LY#) 1.07 x10 3/uL 1.00-4.80 MONOCYTE # (test code=MO#) 1.02 x10 3/uL 0.00-0.80 EOSINOPHIL # (test code=EO#) 0.07 x10 3/uL 0.00-0.45 BASOPHIL # (test code=BA#) 0.08 x10 3/uL 0.0-0.20 CBC W/AUTO [id number] 00:31:00* Test Item Value Reference Range Comments WHITE BLOOD CELL (test code=WBC) 22.0 x10 3/uL 4.8-10.8 RED BLOOD CELL (test code=RBC) 2.63 x10 6/uL 4.70-6.10 HEMOGLOBIN (test code=HGB) 8.1 g/dL 14.5-20 HEMATOCRIT (test code=HCT) 25.5 % 42.0-52.0 MEAN CELL VOLUME (test code=MCV) 97.0 fL 80.0-94.0 MEAN CELL HGB (test code=MCH) 30.8 pg 27-31 MEAN CELL HGB CONCENTRATION (test code=MCHC) 31.8 G/DL 33-36.5 RED CELL DISTRIBUTION WIDTH (test code=RDW) 15.9 % 12.9-16.9 PLATELET COUNT (test code=PLT) 144 150-440 MEAN PLATELET VOLUME (test code=MPV) 12.3 fL 8.9-12.4 NEUTROPHIL % (test code=NT%) 78.2 % 42.2-75.2 LYMPHOCYTE % (test code=LY%) 4.9 % 20.5-51.1 MONOCYTE % (test code=MO%) 4.6 % 1.7-9.3 EOSINOPHIL % (test code=EO%) 0.3 % 0.0-7.0 BASOPHIL % (test code=BA%) 0.4 % 0-2.5 NEUTROPHIL # (test code=NT#) 17.20 x10 3/uL 1.80-7.70 LYMPHOCYTE # (test code=LY#) 1.07 x10 3/uL 1.00-4.80 MONOCYTE # (test code=MO#) 1.02 x10 3/uL 0.00-0.80 EOSINOPHIL # (test code=EO#) 0.07 x10 3/uL 0.00-0.45 BASOPHIL # (test code=BA#) 0.08 x10 3/uL 0.0-0.20 CALCIUM [id number] 00:25:00* Test Item Value Reference Range Comments CALCIUM IONIZED (test code=YVON) 1.10 mmol/L 1.1-1.3 ARTERIAL BLOOD [id number] 00:24:00* Test Item Value Reference Range Comments ARTERIAL BLOOD GAS PH (test code=PHA) 7.33 7.35-7.45 ARTERIAL BLOOD GAS PCO2 (test code=PCO2A) 44.6 mmHg 35.0-45.0 ARTERIAL BLOOD GAS PO2 (test code=PO2A) 86.7 mmHg 80.0-95.0 BICARBONATE TOTAL HCO3 (test code=HCO3) 23.0 mmol/L 22.0-24.0 BASE EXCESS (test code=KIZZY) -2.8 mmol/L (+/-)2.0 ABG O2 SATURATION (test code=SATA) 95.2 % 95.0-100.0 ABG TYPE (test code=TYPEA) VENTILATOR ARTERIAL FIO2 (test code=FIO2A) 100 % ABG DELIVERY (test code=NICOL) Vent ABG VENT MODE (test code=MODEA) AC Pressure ABG VENT RESP RATE (test code=RRA) 25 /MIN ABG PEEP (test code=PEEP) 10 cmH2O ABG SITE (test code=SITEA) Art line ABG POSITION (test code=PT POSITION) SUPINE ALLENS TEST (test code=ALLENS) NOT APPLICAPLE METHEMOGLOBIN (test code=METHGB) <0.8 % 0-1.5 BASIC METABOLIC [id number] 20:47:00* Test Item Value Reference Range Comments SODIUM (test code=NA) 134 MMOL/L 136-143 POTASSIUM (test code=K) 5.0 MMOL/L 3.5-5.1 CHLORIDE (test code=CL) 98 MMOL/L 98-107 CARBON DIOXIDE (test code=CO2) 25 mmol/L 24-31 GLUCOSE (test code=GLU) 134 mg/dL 70-104 BLOOD UREA NITROGEN (test code=BUN) 36.2 MG/DL 7.0-21.0 GLOMERULAR FILTRATION RATE (test code=GFR) 39 >60 The estimated glomerular filtration rate is computed usingpatient race, age (>18), sex, and serum creatinine. If anyof the needed data elements are missing the Laboratory cannot compute an estimation of the glomerular filtration rate. CREATININE (test code=CREAT) 2.0 mg/dL 0.8-1.5 CALCIUM (test code=CA) 8.3 mg/dL 8.8-10.2 [id number] 20:38:00* Test Item Value Reference Range Comments PHOSPHOROUS (test code=PHOS) 3.5 mg/dL 2.7-4.5 [id number] 20:38:00* Test Item Value Reference Range Comments MAGNESIUM (test code=MAG) 2.6 mg/dL 1.4-2.6 LACTIC [id number] 20:37:00* Test Item Value Reference Range Comments LACTIC ACID (test code=LACT) 16.6 mg/dL 4.5-18.0 PROTHROMBIN [id number] 20:36:00* Test Item Value Reference Range Comments PROTHROMBIN TIME PATIENT (test code=PTP) 12.3 SECONDS 10.3-12.9 INTERNATIONAL NORMAL RATIO (test code=INR) 1.06 INR UNIT 0.9-1.11 The INR is useful only for monitoring anticoagulant therapy.It may be unreliable in the initial phase of antigoagulationand in unstable patients. Indication for Anticoagulation Recommended INR 1. Prevention of venous thomboembolism 2.0-3.0in high-risk patients; treatment of venousthrombosis and pulmonary embolism aftera course of heparin; prevention of systemicembolism in a variety of conditions, including atrial fibrillation and prothetic tissue heart valves, 2. Prosthetic mechanical heart valves; 2.5-3.5recurrent systemic embolism. THROMBOPLASTIN TIME [id number] 20:35:00* Test Item Value Reference Range Comments THROMBOPLASTIN TIME PARTIAL (test code=PTT) 72.4 SECONDS 26.0-35.9 INTERPRETATIVE DATA:Therapeutic range: Unfractionated heparin:47 - 71 seconds Argatroban:1.5 to 3 times the baseline PTT [id number] 20:24:00* Test Item Value Reference Range Comments HEMOGLOBIN (test code=HGB) 8.2 g/dL 14.5-20 [id number] 20:24:00* Test Item Value Reference Range Comments HEMATOCRIT (test code=HCT) 25.1 % 42.0-52.0 ARTERIAL BLOOD [id number] 20:22:00* Test Item Value Reference Range Comments ARTERIAL BLOOD GAS PH (test code=PHA) 7.32 7.35-7.45 ARTERIAL BLOOD GAS PCO2 (test code=PCO2A) 46.9 mmHg 35.0-45.0 ARTERIAL BLOOD GAS PO2 (test code=PO2A) 98.4 mmHg 80.0-95.0 BICARBONATE TOTAL HCO3 (test code=HCO3) 23.8 mmol/L 22.0-24.0 BASE EXCESS (test code=KIZZY) -2.4 mmol/L (+/-)2.0 ABG O2 SATURATION (test code=SATA) 96.4 % 95.0-100.0 ABG TYPE (test code=TYPEA) VENTILATOR ARTERIAL FIO2 (test code=FIO2A) 100 % ABG DELIVERY (test code=NICOL) Vent ABG VENT MODE (test code=MODEA) AC Pressure ABG VENT RESP RATE (test code=RRA) 25 /MIN ABG PEEP (test code=PEEP) 10 cmH2O ABG SITE (test code=SITEA) Art line ABG POSITION (test code=PT POSITION) SUPINE ALLENS TEST (test code=ALLENS) NOT APPLICAPLE METHEMOGLOBIN (test code=METHGB) 0.8 % 0-1.5 CALCIUM [id number] 20:22:00* Test Item Value Reference Range Comments CALCIUM IONIZED (test code=YVON) 1.13 mmol/L 1.1-1.3 ANCA AB [id number] 17:08:00* Test Item Value Reference Range Comments AB ANTI-NEUTROPHIL CYTO C-ANCA (test code=NEUTCABC) <1:20 titer Neg:<1:20 AB MYELOPEROXIDASE (test code=MPOAB) < 9.0 U/mL 0.0-9.0 AB ANTI-NEUTROPHIL CYTO P-ANCA (test code=NEUTCABP) <1:20 titer Neg:<1:20 The presence of positive fluorescence exhibiting P-ANCA orC-ANCA patterns alone is not specific for the diagnosis ofWegener's Granulomatosis (WG) or microscopic polyangiitis.Decisions about treatment should not be based solely onANCA IFA results. The International ANCA Group Consensusrecommends follow up testing of positive sera with both DC-3 and MPO-ANCA enzyme immunoassays. As many as 5% serumsamples are positive only by EIA. Ref. AM J Clin [id number];111:507-513. PROTEINASE 3 AB (test code=PR3AB) < 3.5 U/mL 0.0-3.5 ATYPICAL pANCA (test code=ANCACOM) <1:20 titer Neg:<1:20 The atypical pANCA pattern has been observed in asignificant percentage of patients with ulcerative colitis,primary sclerosing cholangitis and autoimmune hepatitis.Performed At: [facility] [id number] Sanjai MD Ph:[phone] LACTIC DEHYDROGENASE(LDH)2019-09-09 17:00:00* Test Item Value Reference Range Comments LACTIC DEHYDROGENASE(LDH) (test code=LDH) 544 U/L 135-225 BASIC METABOLIC [id number] 17:00:00* Test Item Value Reference Range Comments SODIUM (test code=NA) 137 MMOL/L 136-143 POTASSIUM (test code=K) 4.9 MMOL/L 3.5-5.1 CHLORIDE (test code=CL) 99 MMOL/L 98-107 CARBON DIOXIDE (test code=CO2) 25 mmol/L 24-31 GLUCOSE (test code=GLU) 117 mg/dL 70-104 BLOOD UREA NITROGEN (test code=BUN) 34.5 MG/DL 7.0-21.0 GLOMERULAR FILTRATION RATE (test code=GFR) 42 >60 The estimated glomerular filtration rate is computed usingpatient race, age (>18), sex, and serum creatinine. If anyof the needed data elements are missing the Laboratory cannot compute an estimation of the glomerular filtration rate. CREATININE (test code=CREAT) 1.9 mg/dL 0.8-1.5 CALCIUM (test code=CA) 8.2 mg/dL 8.8-10.2 LACTIC [id number] 16:51:00* Test Item Value Reference Range Comments LACTIC ACID (test code=LACT) 16.0 mg/dL 4.5-18.0 THROMBOPLASTIN TIME [id number] 16:47:00* Test Item Value Reference Range Comments THROMBOPLASTIN TIME PARTIAL (test code=PTT) 70.6 SECONDS 26.0-35.9 INTERPRETATIVE DATA:Therapeutic range: Unfractionated heparin:47 - 71 seconds Argatroban:1.5 to 3 times the baseline PTT [id number] 16:43:00* Test Item Value Reference Range Comments HEMOGLOBIN (test code=HGB) 8.0 g/dL 14.5-20 [id number] 16:43:00* Test Item Value Reference Range Comments HEMATOCRIT (test code=HCT) 24.9 % 42.0-52.0 ARTERIAL BLOOD [id number] 16:33:00* Test Item Value Reference Range Comments ARTERIAL BLOOD GAS PH (test code=PHA) 7.32 7.35-7.45 ARTERIAL BLOOD GAS PCO2 (test code=PCO2A) 45.2 mmHg 35.0-45.0 ARTERIAL BLOOD GAS PO2 (test code=PO2A) 74.2 mmHg 80.0-95.0 BICARBONATE TOTAL HCO3 (test code=HCO3) 22.8 mmol/L 22.0-24.0 BASE EXCESS (test code=KIZZY) -3.3 mmol/L (+/-)2.0 ABG O2 SATURATION (test code=SATA) 93.0 % 95.0-100.0 ABG TYPE (test code=TYPEA) VENTILATOR ARTERIAL FIO2 (test code=FIO2A) 100 % ABG DELIVERY (test code=NICOL) Vent ABG VENT MODE (test code=MODEA) OTHER- SEE COMMENT PC 18, RR 25, +10 , 100% ABG PATIENT RESP RATE (test code=RRPATA) 25 /MIN 12-20 ABG VENT RESP RATE (test code=RRA) 25 /MIN ABG PEEP (test code=PEEP) 10 cmH2O ABG TEMPERATURE (test code=TEMPA) 37.0 C ABG SITE (test code=SITEA) Art line ABG POSITION (test code=PT POSITION) SEMI TOTAL HGB (test code=THB) 10.6 g/dL 13.0-17.0 METHEMOGLOBIN (test code=METHGB) % 0-1.5 CALCIUM [id number] 16:31:00* Test Item Value Reference Range Comments CALCIUM IONIZED (test code=YVON) 1.09 mmol/L 1.1-1.3 BASIC METABOLIC [id number] 14:30:00* Test Item Value Reference Range Comments SODIUM (test code=NA) 137 MMOL/L 136-143 POTASSIUM (test code=K) 5.3 MMOL/L 3.5-5.1 CHLORIDE (test code=CL) 100 MMOL/L 98-107 CARBON DIOXIDE (test code=CO2) 25 mmol/L 24-31 GLUCOSE (test code=GLU) 142 mg/dL 70-104 BLOOD UREA NITROGEN (test code=BUN) 38.9 MG/DL 7.0-21.0 GLOMERULAR FILTRATION RATE (test code=GFR) 39 >60 The estimated glomerular filtration rate is computed usingpatient race, age (>18), sex, and serum creatinine. If anyof the needed data elements are missing the Laboratory cannot compute an estimation of the glomerular filtration rate. CREATININE (test code=CREAT) 2.0 mg/dL 0.8-1.5 CALCIUM (test code=CA) 8.0 mg/dL 8.8-10.2 [id number] 14:30:00* Test Item Value Reference Range Comments PHOSPHOROUS (test code=PHOS) 3.9 mg/dL 2.7-4.5 [id number] 14:30:00* Test Item Value Reference Range Comments MAGNESIUM (test code=MAG) 2.6 mg/dL 1.4-2.6 LACTIC [id number] 13:42:00* Test Item Value Reference Range Comments LACTIC ACID (test code=LACT) 16.0 mg/dL 4.5-18.0 THROMBOPLASTIN TIME [id number] 13:25:00* Test Item Value Reference Range Comments THROMBOPLASTIN TIME PARTIAL (test code=PTT) 70.8 SECONDS 26.0-35.9 INTERPRETATIVE DATA:Therapeutic range: Unfractionated heparin:47 - 71 seconds Argatroban:1.5 to 3 times the baseline PTT THROMBOPLASTIN TIME [id number] 13:25:00* Test Item Value Reference Range Comments THROMBOPLASTIN TIME PARTIAL (test code=PTT) 70.8 SECONDS 26.0-35.9 INTERPRETATIVE DATA:Therapeutic range: Unfractionated heparin:47 - 71 seconds Argatroban:1.5 to 3 times the baseline PTT CBC W/AUTO [id number] 13:21:00* Test Item Value Reference Range Comments WHITE BLOOD CELL (test code=WBC) 23.2 x10 3/uL 4.8-10.8 RED BLOOD CELL (test code=RBC) 2.57 x10 6/uL 4.70-6.10 HEMOGLOBIN (test code=HGB) 8.0 g/dL 14.5-20 HEMATOCRIT (test code=HCT) 25.1 % 42.0-52.0 MEAN CELL VOLUME (test code=MCV) 97.7 fL 80.0-94.0 MEAN CELL HGB (test code=MCH) 31.1 pg 27-31 MEAN CELL HGB CONCENTRATION (test code=MCHC) 31.9 G/DL 33-36.5 RED CELL DISTRIBUTION WIDTH (test code=RDW) 15.2 % 12.9-16.9 PLATELET COUNT (test code=PLT) 135 150-440 MEAN PLATELET VOLUME (test code=MPV) 12.6 fL 8.9-12.4 NEUTROPHIL % (test code=NT%) 71.7 % 42.2-75.2 LYMPHOCYTE % (test code=LY%) 5.9 % 20.5-51.1 MONOCYTE % (test code=MO%) 8.5 % 1.7-9.3 EOSINOPHIL % (test code=EO%) 0.5 % 0.0-7.0 BASOPHIL % (test code=BA%) 0.4 % 0-2.5 NEUTROPHIL # (test code=NT#) 16.65 x10 3/uL 1.80-7.70 LYMPHOCYTE # (test code=LY#) 1.38 x10 3/uL 1.00-4.80 MONOCYTE # (test code=MO#) 1.97 x10 3/uL 0.00-0.80 EOSINOPHIL # (test code=EO#) 0.11 x10 3/uL 0.00-0.45 BASOPHIL # (test code=BA#) 0.09 x10 3/uL 0.0-0.20 CALCIUM [id number] 12:50:00* Test Item Value Reference Range Comments CALCIUM IONIZED (test code=YVON) 1.07 mmol/L 1.1-1.3 ARTERIAL BLOOD [id number] 12:49:00* Test Item Value Reference Range Comments ARTERIAL BLOOD GAS PH (test code=PHA) 7.30 7.35-7.45 ARTERIAL BLOOD GAS PCO2 (test code=PCO2A) 45.1 mmHg 35.0-45.0 ARTERIAL BLOOD GAS PO2 (test code=PO2A) 67.9 mmHg 80.0-95.0 BICARBONATE TOTAL HCO3 (test code=HCO3) 21.9 mmol/L 22.0-24.0 BASE EXCESS (test code=KIZZY) -4.3 mmol/L (+/-)2.0 ABG O2 SATURATION (test code=SATA) 90.8 % 95.0-100.0 ABG TYPE (test code=TYPEA) VENTILATOR ARTERIAL FIO2 (test code=FIO2A) 100 % ABG PATIENT RESP RATE (test code=RRPATA) 25 /MIN 12-20 ABG VENT RESP RATE (test code=RRA) 25 /MIN ABG PEEP (test code=PEEP) 10 cmH2O ABG TEMPERATURE (test code=TEMPA) 37.0 C ABG SITE (test code=SITEA) Art line ABG POSITION (test code=PT POSITION) SEMI TOTAL HGB (test code=THB) 9.0 g/dL 13.0-17.0 METHEMOGLOBIN (test code=METHGB) % 0-1.5 ARTERIAL BLOOD [id number] 12:48:00* Test Item Value Reference Range Comments ARTERIAL BLOOD GAS PH (test code=PHA) 7.34 7.35-7.45 ARTERIAL BLOOD GAS PCO2 (test code=PCO2A) 45.2 mmHg 35.0-45.0 ARTERIAL BLOOD GAS PO2 (test code=PO2A) 473.3 mmHg 80.0-95.0 Critical Value reported toFirst Name:RODOLFO EASTMAN Last Name:CPPRESULTS READ BACK AND VERIFIEDby EFRAIN, on 09/09/19, @ 1246. BICARBONATE TOTAL HCO3 (test code=HCO3) 23.8 mmol/L 22.0-24.0 BASE EXCESS (test code=KIZZY) -2.0 mmol/L (+/-)2.0 ABG O2 SATURATION (test code=SATA) 99.0 % 95.0-100.0 ABG TYPE (test code=TYPEA) VENTILATOR ARTERIAL FIO2 (test code=FIO2A) 100 % ABG PATIENT RESP RATE (test code=RRPATA) 25 /MIN 12-20 ABG PEEP (test code=PEEP) 10 cmH2O ABG TEMPERATURE (test code=TEMPA) 37.0 C ABG SITE (test code=SITEA) Other ECHMO MACHINE ABG POSITION (test code=PT POSITION) SUPINE TOTAL HGB (test code=THB) 9.2 g/dL 13.0-17.0 METHEMOGLOBIN (test code=METHGB) % 0-1.5 PROCALCITONIN (PCT)2019-09-09 12:01:00* Test Item Value Reference Range Comments PROCALCITONIN (PCT) (test code=PROCAL) 4.89 NG/ML 0.00-0.09 INTERPRETATIVE DATA:HIGH ACUITY INFECTIONS ALGORITHM:(i.e. high risk, severe sepsis, ICU) If PCT concentration <0.25 ng/mL or drops by 90%, stoppingantibiotic therapy is strongly encouraged. If PCT concentration <0.50 ng/mL or drops by 80%, stoppingantibiotic therapy is encouraged. If PCT concentration >0.50 ng/mL, stopping antibiotictherapy is discouraged. If PCT concentration >1.00 ng/mL, stopping antibiotictherapy is strongly discouraged. Consider continuing antibiotics if clinically unstable. MODERATE ACUITY INFECTIONS ALGORITHM:(hospitalized non-ICU patients with respiratory tractinfections or sepsis) If PCT concentration <0.10 ng/mL or drops by 90%, stoppingantibiotic therapy is strongly encouraged. If PCT concentration <0.25 ng/mL or drops by 80%, stoppingantibiotic therapy is encouraged. If PCT concentration >0.25 ng/mL, stopping antibiotictherapy is discouraged. If PCT concentration >0.50 ng/mL, stopping antibiotictherapy is strongly discouraged. Consider continuing antibiotics if clinically unstable. PROCALCITONIN (PCT)2019-09-09 12:00:00* Test Item Value Reference Range Comments PROCALCITONIN (PCT) (test code=PROCAL) 4.16 NG/ML 0.00-0.09 INTERPRETATIVE DATA:HIGH ACUITY INFECTIONS ALGORITHM:(i.e. high risk, severe sepsis, ICU) If PCT concentration <0.25 ng/mL or drops by 90%, stoppingantibiotic therapy is strongly encouraged. If PCT concentration <0.50 ng/mL or drops by 80%, stoppingantibiotic therapy is encouraged. If PCT concentration >0.50 ng/mL, stopping antibiotictherapy is discouraged. If PCT concentration >1.00 ng/mL, stopping antibiotictherapy is strongly discouraged. Consider continuing antibiotics if clinically unstable. MODERATE ACUITY INFECTIONS ALGORITHM:(hospitalized non-ICU patients with respiratory tractinfections or sepsis) If PCT concentration <0.10 ng/mL or drops by 90%, stoppingantibiotic therapy is strongly encouraged. If PCT concentration <0.25 ng/mL or drops by 80%, stoppingantibiotic therapy is encouraged. If PCT concentration >0.25 ng/mL, stopping antibiotictherapy is discouraged. If PCT concentration >0.50 ng/mL, stopping antibiotictherapy is strongly discouraged. Consider continuing antibiotics if clinically unstable. PROCALCITONIN (PCT)2019-09-09 12:00:00* Test Item Value Reference Range Comments PROCALCITONIN (PCT) (test code=PROCAL) 4.69 NG/ML 0.00-0.09 INTERPRETATIVE DATA:HIGH ACUITY INFECTIONS ALGORITHM:(i.e. high risk, severe sepsis, ICU) If PCT concentration <0.25 ng/mL or drops by 90%, stoppingantibiotic therapy is strongly encouraged. If PCT concentration <0.50 ng/mL or drops by 80%, stoppingantibiotic therapy is encouraged. If PCT concentration >0.50 ng/mL, stopping antibiotictherapy is discouraged. If PCT concentration >1.00 ng/mL, stopping antibiotictherapy is strongly discouraged. Consider continuing antibiotics if clinically unstable. MODERATE ACUITY INFECTIONS ALGORITHM:(hospitalized non-ICU patients with respiratory tractinfections or sepsis) If PCT concentration <0.10 ng/mL or drops by 90%, stoppingantibiotic therapy is strongly encouraged. If PCT concentration <0.25 ng/mL or drops by 80%, stoppingantibiotic therapy is encouraged. If PCT concentration >0.25 ng/mL, stopping antibiotictherapy is discouraged. If PCT concentration >0.50 ng/mL, stopping antibiotictherapy is strongly discouraged. Consider continuing antibiotics if clinically unstable. [id number] 09:13:00* Test Item Value Reference Range Comments POTASSIUM (test code=K) 4.5 MMOL/L 3.5-5.1 [id number] 09:13:00* Test Item Value Reference Range Comments GLUCOSE (test code=GLU) 141 mg/dL 70-104 THROMBOPLASTIN TIME [id number] 08:58:00* Test Item Value Reference Range Comments THROMBOPLASTIN TIME PARTIAL (test code=PTT) 69.0 SECONDS 26.0-35.9 INTERPRETATIVE DATA:Therapeutic range: Unfractionated heparin:47 - 71 seconds Argatroban:1.5 to 3 times the baseline PTT LACTIC DEHYDROGENASE(LDH)2019-09-09 08:56:00* Test Item Value Reference Range Comments LACTIC DEHYDROGENASE(LDH) (test code=LDH) 584 U/L 135-225 [id number] 08:52:00* Test Item Value Reference Range Comments POTASSIUM (test code=K) 4.5 MMOL/L 3.5-5.1 [id number] 08:52:00* Test Item Value Reference Range Comments GLUCOSE (test code=GLU) mg/dL 70-104 LACTIC [id number] 08:52:00* Test Item Value Reference Range Comments LACTIC ACID (test code=LACT) 11.0 mg/dL 4.5-18.0 CALCIUM [id number] 08:33:00* Test Item Value Reference Range Comments CALCIUM IONIZED (test code=YVON) 1.16 mmol/L 1.1-1.3 ARTERIAL BLOOD [id number] 08:33:00* Test Item Value Reference Range Comments ARTERIAL BLOOD GAS PH (test code=PHA) 7.25 7.35-7.45 ARTERIAL BLOOD GAS PCO2 (test code=PCO2A) 50.3 mmHg 35.0-45.0 ARTERIAL BLOOD GAS PO2 (test code=PO2A) 53.6 mmHg 80.0-95.0 BICARBONATE TOTAL HCO3 (test code=HCO3) 22.0 mmol/L 22.0-24.0 BASE EXCESS (test code=KIZZY) -5.0 mmol/L (+/-)2.0 ABG O2 SATURATION (test code=SATA) 79.5 % 95.0-100.0 ABG TYPE (test code=TYPEA) VENTILATOR ARTERIAL FIO2 (test code=FIO2A) 100 % ABG VENT MODE (test code=MODEA) OTHER- SEE COMMENT PRESSURE CONTROL ABG PATIENT RESP RATE (test code=RRPATA) 25 /MIN 12-20 ABG VENT RESP RATE (test code=RRA) 25 /MIN ABG PEEP (test code=PEEP) 10 cmH2O ABG PRESSURE SUPPORT (test code=PSABG) 18 cmH2O ABG TEMPERATURE (test code=TEMPA) 37.0 C ABG SITE (test code=SITEA) Art line ABG POSITION (test code=PT POSITION) SUPINE TOTAL HGB (test code=THB) 8.3 g/dL 13.0-17.0 METHEMOGLOBIN (test code=METHGB) % 0-1.5 [id number] 08:19:00* Test Item Value Reference Range Comments GLUBED (test code=GLUBED) 106 MG/DL 70-105 [id number] 08:19:00* Test Item Value Reference Range Comments GLUBED (test code=GLUBED) 114 MG/DL 70-105 [id number] 08:19:00* Test Item Value Reference Range Comments GLUBED (test code=GLUBED) 115 MG/DL 70-105 [id number] 08:19:00* Test Item Value Reference Range Comments GLUBED (test code=GLUBED) 146 MG/DL 70-105 [id number] 08:19:00* Test Item Value Reference Range Comments GLUBED (test code=GLUBED) 142 MG/DL 70-105 [id number] 08:19:00* Test Item Value Reference Range Comments GLUBED (test code=GLUBED) 145 MG/DL 70-105 [id number] 08:18:00* Test Item Value Reference Range Comments GLUBED (test code=GLUBED) 136 MG/DL 70-105 [id number] 08:18:00* Test Item Value Reference Range Comments GLUBED (test code=GLUBED) 140 MG/DL 70-105 [id number] 08:18:00* Test Item Value Reference Range Comments GLUBED (test code=GLUBED) 94 MG/DL 70-105 [id number] 08:18:00* Test Item Value Reference Range Comments GLUBED (test code=GLUBED) 42 MG/DL 70-105 [id number] 08:18:00* Test Item Value Reference Range Comments GLUBED (test code=GLUBED) 130 MG/DL 70-105 [id number] 08:18:00* Test Item Value Reference Range Comments GLUBED (test code=GLUBED) 133 MG/DL 70-105 [id number] 08:18:00* Test Item Value Reference Range Comments GLUBED (test code=GLUBED) 158 MG/DL 70-105 [id number] 08:18:00* Test Item Value Reference Range Comments GLUBED (test code=GLUBED) 140 MG/DL 70-105 [id number] 08:18:00* Test Item Value Reference Range Comments GLUBED (test code=GLUBED) 123 MG/DL 70-105 [id number] 08:18:00* Test Item Value Reference Range Comments GLUBED (test code=GLUBED) 128 MG/DL 70-105 [id number] 08:18:00* Test Item Value Reference Range Comments GLUBED (test code=GLUBED) 156 MG/DL 70-105 [id number] 08:18:00* Test Item Value Reference Range Comments GLUBED (test code=GLUBED) 173 MG/DL 70-105 [id number] 08:18:00* Test Item Value Reference Range Comments GLUBED (test code=GLUBED) 174 MG/DL 70-105 [id number] 08:18:00* Test Item Value Reference Range Comments GLUBED (test code=GLUBED) 175 MG/DL 70-105 [id number] 08:18:00* Test Item Value Reference Range Comments GLUBED (test code=GLUBED) 217 MG/DL 70-105 [id number] 08:18:00* Test Item Value Reference Range Comments GLUBED (test code=GLUBED) 186 MG/DL 70-105 [id number] 08:18:00* Test Item Value Reference Range Comments GLUBED (test code=GLUBED) 218 MG/DL 70-105 [id number] 08:18:00* Test Item Value Reference Range Comments GLUBED (test code=GLUBED) 232 MG/DL 70-105 [id number] 08:17:00* Test Item Value Reference Range Comments GLUBED (test code=GLUBED) 139 MG/DL 70-105 - XR CHEST 1 [id number] 07:41:00Patient Name: MILY MOSHER Unit No: [id number] EXAMS: CPT CODE: [id number] XR CHEST 1 V [id number] Chest one view AP 09/09/2019 7:41 AM CLINICAL INDICATION: Respiratory failure COMPARISON: 09/08/2019 LOCATION: W1 IMPRESSION: Support hardware is unchanged in position. Cardiomediastinal contours are stable. Pulmonary edema is marginally improved but remains moderate in degree. There is a trace left pleural effusion. Superimposed pneumonia should be excluded clinically. at 0741 Reported and signed by: ERIK MTZ M.D. CC: Yasmany Byrnes MD; Malachi Perez MD Technologist: Charline Hernandez Fluoro Time: DAP (Gy m2): Air Kerma (mGy): Trscr Dt/Tm: 09/09/2019 (0741) by:[email or web address] Printed Date/Time: 09/09/2019 (0744) Name: MILY MOSHER [facility] Phys: Malachi De La Paz MD [id number] : 1975 Age: 44 Sex: [place] [address] [id number] Loc: P.0226 1 Exam Date: 09/09/2019 Status: ADM IN PH: FAX: PAGE 1 Signed Report [id number] 04:49:00* Test Item Value Reference Range Comments VANCOMYCIN (test code=VANCO) 18.8 ug/mL 5.0-40.0 BASIC METABOLIC [id number] 04:48:00* Test Item Value Reference Range Comments SODIUM (test code=NA) 129 MMOL/L 136-143 POTASSIUM (test code=K) 4.3 MMOL/L 3.5-5.1 CHLORIDE (test code=CL) 95 MMOL/L 98-107 CARBON DIOXIDE (test code=CO2) 24 mmol/L 24-31 GLUCOSE (test code=GLU) 109 mg/dL 70-104 BLOOD UREA NITROGEN (test code=BUN) 41.9 MG/DL 7.0-21.0 GLOMERULAR FILTRATION RATE (test code=GFR) 30 >60 The estimated glomerular filtration rate is computed usingpatient race, age (>18), sex, and serum creatinine. If anyof the needed data elements are missing the Laboratory cannot compute an estimation of the glomerular filtration rate. CREATININE (test code=CREAT) 2.5 mg/dL 0.8-1.5 CALCIUM (test code=CA) 8.2 mg/dL 8.8-10.2 [id number] 04:48:00* Test Item Value Reference Range Comments PHOSPHOROUS (test code=PHOS) 3.3 mg/dL 2.7-4.5 [id number] 04:48:00* Test Item Value Reference Range Comments MAGNESIUM (test code=MAG) 2.5 mg/dL 1.4-2.6 LIVER FUNCTION [id number] 04:48:00* Test Item Value Reference Range Comments TOTAL PROTEIN (test code=PROT) 6.6 g/dL 6.3-8.3 ALBUMIN (test code=ALB) 3.1 G/DL 3.5-5.0 BILIRUBIN TOTAL (test code=BILT) 0.8 mg/dL 0.2-1.0 BILIRUBIN DIRECT (test code=BILD) 0.3 mg/dL 0.0-0.2 SGOT/AST (test code=AST) 55 IU/L 10-34 SGPT/ALT (test code=ALT) 41 U/L 10-44 ALKALINE PHOSPHATASE (test code=ALKP) 86 U/L 45-120 LACTIC [id number] 04:48:00* Test Item Value Reference Range Comments LACTIC ACID (test code=LACT) 15.4 mg/dL 4.5-18.0 ARTERIAL BLOOD [id number] 04:42:00* Test Item Value Reference Range Comments ARTERIAL BLOOD GAS PH (test code=PHA) 7.44 7.35-7.45 ARTERIAL BLOOD GAS PCO2 (test code=PCO2A) 33.1 mmHg 35.0-45.0 ARTERIAL BLOOD GAS PO2 (test code=PO2A) 141.2 mmHg 80.0-95.0 BICARBONATE TOTAL HCO3 (test code=HCO3) 21.7 mmol/L 22.0-24.0 BASE EXCESS (test code=KIZZY) -2.1 mmol/L (+/-)2.0 ABG O2 SATURATION (test code=SATA) 98.3 % 95.0-100.0 ABG TYPE (test code=TYPEA) VENTILATOR ARTERIAL FIO2 (test code=FIO2A) 100 % ABG DELIVERY (test code=NICOL) Vent ABG VENT MODE (test code=MODEA) AC PC 18 ABG PATIENT RESP RATE (test code=RRPATA) 25 /MIN 12-20 ABG VENT RESP RATE (test code=RRA) 25 /MIN ABG PEEP (test code=PEEP) 10 cmH2O ABG SITE (test code=SITEA) Art line ABG POSITION (test code=PT POSITION) SEMI ALLENS TEST (test code=ALLENS) NOT APPLICAPLE TOTAL HGB (test code=THB) 7.9 g/dL 13.0-17.0 METHEMOGLOBIN (test code=METHGB) 1.1 % 0-1.5 CALCIUM [id number] 04:42:00* Test Item Value Reference Range Comments CALCIUM IONIZED (test code=YVON) 1.07 mmol/L 1.1-1.3 PROTHROMBIN [id number] 04:24:00* Test Item Value Reference Range Comments PROTHROMBIN TIME PATIENT (test code=PTP) 12.7 SECONDS 10.3-12.9 INTERNATIONAL NORMAL RATIO (test code=INR) 1.09 INR UNIT 0.9-1.11 The INR is useful only for monitoring anticoagulant therapy.It may be unreliable in the initial phase of antigoagulationand in unstable patients. Indication for Anticoagulation Recommended INR 1. Prevention of venous thomboembolism 2.0-3.0in high-risk patients; treatment of venousthrombosis and pulmonary embolism aftera course of heparin; prevention of systemicembolism in a variety of conditions, including atrial fibrillation and prothetic tissue heart valves, 2. Prosthetic mechanical heart valves; 2.5-3.5recurrent systemic embolism. THROMBOPLASTIN TIME [id number] 04:24:00* Test Item Value Reference Range Comments THROMBOPLASTIN TIME PARTIAL (test code=PTT) 71.9 SECONDS 26.0-35.9 INTERPRETATIVE DATA:Therapeutic range: Unfractionated heparin:47 - 71 seconds Argatroban:1.5 to 3 times the baseline PTT CBC W/AUTO [id number] 04:10:00* Test Item Value Reference Range Comments WHITE BLOOD CELL (test code=WBC) 19.5 x10 3/uL 4.8-10.8 RED BLOOD CELL (test code=RBC) 2.29 x10 6/uL 4.70-6.10 HEMOGLOBIN (test code=HGB) 7.1 g/dL 14.5-20 HEMATOCRIT (test code=HCT) 22.3 % 42.0-52.0 MEAN CELL VOLUME (test code=MCV) 97.4 fL 80.0-94.0 MEAN CELL HGB (test code=MCH) 31.0 pg 27-31 MEAN CELL HGB CONCENTRATION (test code=MCHC) 31.8 G/DL 33-36.5 RED CELL DISTRIBUTION WIDTH (test code=RDW) 15.0 % 12.9-16.9 PLATELET COUNT (test code=PLT) 128 150-440 MEAN PLATELET VOLUME (test code=MPV) 12.2 fL 8.9-12.4 NEUTROPHIL % (test code=NT%) 70.2 % 42.2-75.2 LYMPHOCYTE % (test code=LY%) 6.3 % 20.5-51.1 MONOCYTE % (test code=MO%) 7.2 % 1.7-9.3 EOSINOPHIL % (test code=EO%) 0.7 % 0.0-7.0 BASOPHIL % (test code=BA%) 0.2 % 0-2.5 NEUTROPHIL # (test code=NT#) 13.64 x10 3/uL 1.80-7.70 LYMPHOCYTE # (test code=LY#) 1.23 x10 3/uL 1.00-4.80 MONOCYTE # (test code=MO#) 1.40 x10 3/uL 0.00-0.80 EOSINOPHIL # (test code=EO#) 0.14 x10 3/uL 0.00-0.45 BASOPHIL # (test code=BA#) 0.04 x10 3/uL 0.0-0.20 [id number] 01:11:00* Test Item Value Reference Range Comments PHOSPHOROUS (test code=PHOS) 3.0 mg/dL 2.7-4.5 [id number] 01:11:00* Test Item Value Reference Range Comments MAGNESIUM (test code=MAG) 2.5 mg/dL 1.4-2.6 CBC W/AUTO [id number] 01:06:00* Test Item Value Reference Range Comments WHITE BLOOD CELL (test code=WBC) 21.6 x10 3/uL 4.8-10.8 RED BLOOD CELL (test code=RBC) 2.59 x10 6/uL 4.70-6.10 HEMOGLOBIN (test code=HGB) 8.1 g/dL 14.5-20 HEMATOCRIT (test code=HCT) 25.1 % 42.0-52.0 MEAN CELL VOLUME (test code=MCV) 96.9 fL 80.0-94.0 MEAN CELL HGB (test code=MCH) 31.3 pg 27-31 MEAN CELL HGB CONCENTRATION (test code=MCHC) 32.3 G/DL 33-36.5 RED CELL DISTRIBUTION WIDTH (test code=RDW) 14.7 % 12.9-16.9 PLATELET COUNT (test code=PLT) 140 150-440 MEAN PLATELET VOLUME (test code=MPV) 12.2 fL 8.9-12.4 NEUTROPHIL % (test code=NT%) 70.0 % 42.2-75.2 LYMPHOCYTE % (test code=LY%) 7.0 % 20.5-51.1 MONOCYTE % (test code=MO%) 6.8 % 1.7-9.3 EOSINOPHIL % (test code=EO%) 0.5 % 0.0-7.0 BASOPHIL % (test code=BA%) 0.3 % 0-2.5 NEUTROPHIL # (test code=NT#) 15.09 x10 3/uL 1.80-7.70 LYMPHOCYTE # (test code=LY#) 1.51 x10 3/uL 1.00-4.80 MONOCYTE # (test code=MO#) 1.46 x10 3/uL 0.00-0.80 EOSINOPHIL # (test code=EO#) 0.10 x10 3/uL 0.00-0.45 BASOPHIL # (test code=BA#) 0.07 x10 3/uL 0.0-0.20 LACTIC [id number] 01:05:00* Test Item Value Reference Range Comments LACTIC ACID (test code=LACT) 18.5 mg/dL 4.5-18.0 Critical Value reported toFirst Name:PATTI Last Name:MARTINEENIRESULTS READ BACK AND VERIFIEDby PAimeLABERIC, on 09/09/19, @ 0105. THROMBOPLASTIN TIME [id number] 01:04:00* Test Item Value Reference Range Comments THROMBOPLASTIN TIME PARTIAL (test code=PTT) 81.2 SECONDS 26.0-35.9 INTERPRETATIVE DATA:Therapeutic range: Unfractionated heparin:47 - 71 seconds Argatroban:1.5 to 3 times the baseline PTT BASIC METABOLIC [id number] 01:04:00* Test Item Value Reference Range Comments SODIUM (test code=NA) 129 MMOL/L 136-143 POTASSIUM (test code=K) 4.2 MMOL/L 3.5-5.1 CHLORIDE (test code=CL) 94 MMOL/L 98-107 CARBON DIOXIDE (test code=CO2) 24 mmol/L 24-31 GLUCOSE (test code=GLU) 111 mg/dL 70-104 BLOOD UREA NITROGEN (test code=BUN) 34.9 MG/DL 7.0-21.0 GLOMERULAR FILTRATION RATE (test code=GFR) 39 >60 The estimated glomerular filtration rate is computed usingpatient race, age (>18), sex, and serum creatinine. If anyof the needed data elements are missing the Laboratory cannot compute an estimation of the glomerular filtration rate. CREATININE (test code=CREAT) 2.0 mg/dL 0.8-1.5 CALCIUM (test code=CA) 8.5 mg/dL 8.8-10.2 CALCIUM [id number] 00:42:00* Test Item Value Reference Range Comments CALCIUM IONIZED (test code=YVON) 1.13 mmol/L 1.1-1.3 ARTERIAL BLOOD [id number] 00:41:00* Test Item Value Reference Range Comments ARTERIAL BLOOD GAS PH (test code=PHA) 7.41 7.35-7.45 ARTERIAL BLOOD GAS PCO2 (test code=PCO2A) 38.2 mmHg 35.0-45.0 ARTERIAL BLOOD GAS PO2 (test code=PO2A) 104.3 mmHg 80.0-95.0 BICARBONATE TOTAL HCO3 (test code=HCO3) 23.7 mmol/L 22.0-24.0 BASE EXCESS (test code=KIZZY) -0.7 mmol/L (+/-)2.0 ABG O2 SATURATION (test code=SATA) 96.9 % 95.0-100.0 ABG TYPE (test code=TYPEA) VENTILATOR ARTERIAL FIO2 (test code=FIO2A) 100 % ABG DELIVERY (test code=NICOL) Vent ABG VENT MODE (test code=MODEA) AC PC 18 ABG PATIENT RESP RATE (test code=RRPATA) 25 /MIN 12-20 ABG VENT RESP RATE (test code=RRA) 25 /MIN ABG PEEP (test code=PEEP) 10 cmH2O ABG SITE (test code=SITEA) Art line ABG POSITION (test code=PT POSITION) SEMI TOTAL HGB (test code=THB) 9.4 g/dL 13.0-17.0 METHEMOGLOBIN (test code=METHGB) <0.8 % 0-1.5 LACTIC [id number] 21:12:00* Test Item Value Reference Range Comments LACTIC ACID (test code=LACT) 18.2 mg/dL 4.5-18.0 Critical Value reported toFirst Name:PERICO Last Name:ERWINBRET READ BACK AND VERIFIEDby P.LAB.IX, on 09/08/19, @ 2112. [id number] 21:09:00* Test Item Value Reference Range Comments POTASSIUM (test code=K) 4.5 MMOL/L 3.5-5.1 THROMBOPLASTIN TIME [id number] 21:06:00* Test Item Value Reference Range Comments THROMBOPLASTIN TIME PARTIAL (test code=PTT) 82.6 SECONDS 26.0-35.9 INTERPRETATIVE DATA:Therapeutic range: Unfractionated heparin:47 - 71 seconds Argatroban:1.5 to 3 times the baseline PTT ARTERIAL BLOOD [id number] 20:54:00* Test Item Value Reference Range Comments ARTERIAL BLOOD GAS PH (test code=PHA) 7.38 7.35-7.45 ARTERIAL BLOOD GAS PCO2 (test code=PCO2A) 43.2 mmHg 35.0-45.0 ARTERIAL BLOOD GAS PO2 (test code=PO2A) 82.3 mmHg 80.0-95.0 BICARBONATE TOTAL HCO3 (test code=HCO3) 25.2 mmol/L 22.0-24.0 BASE EXCESS (test code=KIZZY) 0.0 mmol/L (+/-)2.0 ABG O2 SATURATION (test code=SATA) 95.0 % 95.0-100.0 ABG TYPE (test code=TYPEA) VENTILATOR ARTERIAL FIO2 (test code=FIO2A) 100 % ABG DELIVERY (test code=NICOL) Vent ABG VENT MODE (test code=MODEA) PC 18 ABG PATIENT RESP RATE (test code=RRPATA) 25 /MIN 12-20 ABG VENT RESP RATE (test code=RRA) 25 /MIN ABG PEEP (test code=PEEP) 10 cmH2O ABG SITE (test code=SITEA) Art line ABG POSITION (test code=PT POSITION) SEMI ALLENS TEST (test code=ALLENS) NOT APPLICAPLE TOTAL HGB (test code=THB) 9.8 g/dL 13.0-17.0 METHEMOGLOBIN (test code=METHGB) 0.9 % 0-1.5 CALCIUM [id number] 20:54:00* Test Item Value Reference Range Comments CALCIUM IONIZED (test code=YVON) 1.11 mmol/L 1.1-1.3 [id number] 20:11:00* Test Item Value Reference Range Comments GLUBED (test code=GLUBED) 141 MG/DL 70-105 [id number] 20:11:00* Test Item Value Reference Range Comments GLUBED (test code=GLUBED) 139 MG/DL 70-105 [id number] 20:11:00* Test Item Value Reference Range Comments GLUBED (test code=GLUBED) 165 MG/DL 70-105 [id number] 20:11:00* Test Item Value Reference Range Comments GLUBED (test code=GLUBED) 149 MG/DL 70-105 [id number] 20:11:00* Test Item Value Reference Range Comments GLUBED (test code=GLUBED) 134 MG/DL 70-105 [id number] 20:11:00* Test Item Value Reference Range Comments GLUBED (test code=GLUBED) 97 MG/DL 70-105 [id number] 20:11:00* Test Item Value Reference Range Comments GLUBED (test code=GLUBED) 120 MG/DL 70-105 VENOUS BLOOD [id number] 18:10:00* Test Item Value Reference Range Comments VENOUS BLOOD GAS PH (test code=PHV) 7.36 7.35-7.45 VENOUS BLOOD GAS PCO2 (test code=PCO2V) 45.5 mmHg >46 VENOUS BLOOD GAS PO2 (test code=PO2V) 46.8 mmHg >40 VBG HCO3 (test code=HCO3V) 25 meq/L VBG BASE EXCESS (test code=JOANN) -0.7 MMOL/L VENOUS BLOOD GAS O2 SAT (test code=O2SATV) 79 % >75 VENOUS BLOOD GAS TYPE (test code=TYPEV) VBG VBG VENT MODE (test code=MODEV) ECMO A-A GRADIENT (test code=AAGRADE) CBC W/AUTO [id number] 17:48:00* Test Item Value Reference Range Comments WHITE BLOOD CELL (test code=WBC) 22.2 x10 3/uL 4.8-10.8 RED BLOOD CELL (test code=RBC) 2.71 x10 6/uL 4.70-6.10 HEMOGLOBIN (test code=HGB) 8.5 g/dL 14.5-20 HEMATOCRIT (test code=HCT) 26.0 % 42.0-52.0 MEAN CELL VOLUME (test code=MCV) 95.9 fL 80.0-94.0 MEAN CELL HGB (test code=MCH) 31.4 pg 27-31 MEAN CELL HGB CONCENTRATION (test code=MCHC) 32.7 G/DL 33-36.5 RED CELL DISTRIBUTION WIDTH (test code=RDW) 14.9 % 12.9-16.9 PLATELET COUNT (test code=PLT) 129 150-440 MEAN PLATELET VOLUME (test code=MPV) 12.2 fL 8.9-12.4 NEUTROPHIL % (test code=NT%) 70.2 % 42.2-75.2 LYMPHOCYTE % (test code=LY%) 6.5 % 20.5-51.1 MONOCYTE % (test code=MO%) 6.6 % 1.7-9.3 EOSINOPHIL % (test code=EO%) 0.5 % 0.0-7.0 BASOPHIL % (test code=BA%) 0.5 % 0-2.5 NEUTROPHIL # (test code=NT#) 15.58 x10 3/uL 1.80-7.70 LYMPHOCYTE # (test code=LY#) 1.44 x10 3/uL 1.00-4.80 MONOCYTE # (test code=MO#) 1.46 x10 3/uL 0.00-0.80 EOSINOPHIL # (test code=EO#) 0.11 x10 3/uL 0.00-0.45 BASOPHIL # (test code=BA#) 0.11 x10 3/uL 0.0-0.20 Spec Comments: REDRAW LAB TO CONFIRM OUT OF TREND [facility] 2019-09-08 17:13:00* Test Item Value Reference Range Comments SODIUM (test code=NA) 129 MMOL/L 136-143 POTASSIUM (test code=K) 3.9 MMOL/L 3.5-5.1 CHLORIDE (test code=CL) 95 MMOL/L 98-107 CARBON DIOXIDE (test code=CO2) 25 mmol/L 24-31 GLUCOSE (test code=GLU) 138 mg/dL 70-104 BLOOD UREA NITROGEN (test code=BUN) 34.2 MG/DL 7.0-21.0 GLOMERULAR FILTRATION RATE (test code=GFR) 39 >60 The estimated glomerular filtration rate is computed usingpatient race, age (>18), sex, and serum creatinine. If anyof the needed data elements are missing the Laboratory cannot compute an estimation of the glomerular filtration rate. CREATININE (test code=CREAT) 2.0 mg/dL 0.8-1.5 CALCIUM (test code=CA) 8.3 mg/dL 8.8-10.2 [id number] 17:13:00* Test Item Value Reference Range Comments PHOSPHOROUS (test code=PHOS) 2.9 mg/dL 2.7-4.5 [id number] 17:13:00* Test Item Value Reference Range Comments MAGNESIUM (test code=MAG) 2.3 mg/dL 1.4-2.6 LACTIC [id number] 17:13:00* Test Item Value Reference Range Comments LACTIC ACID (test code=LACT) 14.5 mg/dL 4.5-18.0 THROMBOPLASTIN TIME [id number] 17:11:00* Test Item Value Reference Range Comments THROMBOPLASTIN TIME PARTIAL (test code=PTT) 74.4 SECONDS 26.0-35.9 INTERPRETATIVE DATA:Therapeutic range: Unfractionated heparin:47 - 71 seconds Argatroban:1.5 to 3 times the baseline PTT CBC W/AUTO [id number] 17:06:00* Test Item Value Reference Range Comments WHITE BLOOD CELL (test code=WBC) 14.5 x10 3/uL 4.8-10.8 RED BLOOD CELL (test code=RBC) 4.00 x10 6/uL 4.70-6.10 HEMOGLOBIN (test code=HGB) 12.5 g/dL 14.5-20 HEMATOCRIT (test code=HCT) 38.3 % 42.0-52.0 MEAN CELL VOLUME (test code=MCV) 95.8 fL 80.0-94.0 MEAN CELL HGB (test code=MCH) 31.3 pg 27-31 MEAN CELL HGB CONCENTRATION (test code=MCHC) 32.6 G/DL 33-36.5 RED CELL DISTRIBUTION WIDTH (test code=RDW) 14.8 % 12.9-16.9 PLATELET COUNT (test code=PLT) 96 150-440 MATCHES PREVIOUS, NO CLOT IN SPECIMEN MEAN PLATELET VOLUME (test code=MPV) 12.0 fL 8.9-12.4 NEUTROPHIL % (test code=NT%) 68.6 % 42.2-75.2 LYMPHOCYTE % (test code=LY%) 6.5 % 20.5-51.1 MONOCYTE % (test code=MO%) 7.1 % 1.7-9.3 EOSINOPHIL % (test code=EO%) 0.6 % 0.0-7.0 BASOPHIL % (test code=BA%) 1.2 % 0-2.5 NEUTROPHIL # (test code=NT#) 9.95 x10 3/uL 1.80-7.70 LYMPHOCYTE # (test code=LY#) 0.94 x10 3/uL 1.00-4.80 MONOCYTE # (test code=MO#) 1.03 x10 3/uL 0.00-0.80 EOSINOPHIL # (test code=EO#) 0.08 x10 3/uL 0.00-0.45 BASOPHIL # (test code=BA#) 0.17 x10 3/uL 0.0-0.20 CALCIUM [id number] 17:04:00* Test Item Value Reference Range Comments CALCIUM IONIZED (test code=YVON) 1.15 mmol/L 1.1-1.3 ARTERIAL BLOOD [id number] 17:03:00* Test Item Value Reference Range Comments ARTERIAL BLOOD GAS PH (test code=PHA) 7.38 7.35-7.45 ARTERIAL BLOOD GAS PCO2 (test code=PCO2A) 38.6 mmHg 35.0-45.0 ARTERIAL BLOOD GAS PO2 (test code=PO2A) 71.9 mmHg 80.0-95.0 BICARBONATE TOTAL HCO3 (test code=HCO3) 22.1 mmol/L 22.0-24.0 BASE EXCESS (test code=KIZZY) -2.8 mmol/L (+/-)2.0 ABG O2 SATURATION (test code=SATA) 92.7 % 95.0-100.0 ABG TYPE (test code=TYPEA) VENTILATOR ARTERIAL FIO2 (test code=FIO2A) 100 % ABG VENT MODE (test code=MODEA) AC Pressure ABG PATIENT RESP RATE (test code=RRPATA) 25 /MIN 12-20 ABG VENT RESP RATE (test code=RRA) 25 /MIN ABG PEEP (test code=PEEP) 10 cmH2O ABG SITE (test code=SITEA) Art line ABG POSITION (test code=PT POSITION) SF ALLENS TEST (test code=ALLENS) NA TOTAL HGB (test code=THB) 10.2 g/dL 13.0-17.0 METHEMOGLOBIN (test code=METHGB) 0.8 % 0-1.5 [id number] 13:28:00* Test Item Value Reference Range Comments POTASSIUM (test code=K) 4.7 MMOL/L 3.5-5.1 LACTIC [id number] 13:28:00* Test Item Value Reference Range Comments LACTIC ACID (test code=LACT) 13.5 mg/dL 4.5-18.0 CALCIUM [id number] 13:15:00* Test Item Value Reference Range Comments CALCIUM IONIZED (test code=YVON) 1.15 mmol/L 1.1-1.3 ARTERIAL BLOOD [id number] 13:14:00* Test Item Value Reference Range Comments ARTERIAL BLOOD GAS PH (test code=PHA) 7.37 7.35-7.45 ARTERIAL BLOOD GAS PCO2 (test code=PCO2A) 42.0 mmHg 35.0-45.0 ARTERIAL BLOOD GAS PO2 (test code=PO2A) 69.7 mmHg 80.0-95.0 BICARBONATE TOTAL HCO3 (test code=HCO3) 24.0 mmol/L 22.0-24.0 BASE EXCESS (test code=KIZZY) -1.2 mmol/L (+/-)2.0 ABG O2 SATURATION (test code=SATA) 92.5 % 95.0-100.0 ABG TYPE (test code=TYPEA) VENTILATOR ARTERIAL FIO2 (test code=FIO2A) 100 % ABG VENT MODE (test code=MODEA) AC Pressure ABG PATIENT RESP RATE (test code=RRPATA) 25 /MIN 12-20 ABG VENT RESP RATE (test code=RRA) 25 /MIN ABG PEEP (test code=PEEP) 10 cmH2O ABG SITE (test code=SITEA) Art line ABG POSITION (test code=PT POSITION) SF ALLENS TEST (test code=ALLENS) NA TOTAL HGB (test code=THB) 11.2 g/dL 13.0-17.0 METHEMOGLOBIN (test code=METHGB) <0.8 % 0-1.5 THROMBOPLASTIN TIME [id number] 13:13:00* Test Item Value Reference Range Comments THROMBOPLASTIN TIME PARTIAL (test code=PTT) 77.9 SECONDS 26.0-35.9 INTERPRETATIVE DATA:Therapeutic range: Unfractionated heparin:47 - 71 seconds Argatroban:1.5 to 3 times the baseline PTT ARTERIAL BLOOD [id number] 12:12:00* Test Item Value Reference Range Comments ARTERIAL BLOOD GAS PH (test code=PHA) 7.40 7.35-7.45 ARTERIAL BLOOD GAS PCO2 (test code=PCO2A) 42.1 mmHg 35.0-45.0 ARTERIAL BLOOD GAS PO2 (test code=PO2A) 514.6 mmHg 80.0-95.0 Critical Value reported toFirst Name:VENU Last Name:ILANA READ BACK AND VERIFIEDby P.RCS.LIJ, on 09/08/19, @ 1210. BICARBONATE TOTAL HCO3 (test code=HCO3) 25.5 mmol/L 22.0-24.0 BASE EXCESS (test code=KIZZY) 0.6 mmol/L (+/-)2.0 ABG O2 SATURATION (test code=SATA) 99.3 % 95.0-100.0 ABG TYPE (test code=TYPEA) ECMO ARTERIAL FIO2 (test code=FIO2A) 100 % ABG L/M (test code=L/M) 4 L/MIN ABG VENT MODE (test code=MODEA) ECMO ABG PATIENT RESP RATE (test code=RRPATA) 25 /MIN 12-20 TOTAL HGB (test code=THB) 9.6 g/dL 13.0-17.0 METHEMOGLOBIN (test code=METHGB) 1.0 % 0-1.5 ARTERIAL BLOOD [id number] 12:10:00* Test Item Value Reference Range Comments ARTERIAL BLOOD GAS PH (test code=PHA) 7.40 7.35-7.45 ARTERIAL BLOOD GAS PCO2 (test code=PCO2A) 42.1 mmHg 35.0-45.0 ARTERIAL BLOOD GAS PO2 (test code=PO2A) 514.6 mmHg 80.0-95.0 Critical Value reported toFirst Name:VENU Last Name:ILANA READ BACK AND VERIFIEDby P.RCS.LIJ, on 09/08/19, @ 1210. BICARBONATE TOTAL HCO3 (test code=HCO3) mmol/L 22.0-24.0 BASE EXCESS (test code=KIZZY) mmol/L (+/-)2.0 ABG O2 SATURATION (test code=SATA) % 95.0-100.0 METHEMOGLOBIN (test code=METHGB) % 0-1.5 CBC W/MANUAL [id number] 11:36:00* Test Item Value Reference Range Comments WHITE BLOOD CELL (test code=WBC) 38.9 x10 3/uL 4.8-10.8 RED BLOOD CELL (test code=RBC) 3.17 x10 6/uL 4.70-6.10 HEMOGLOBIN (test code=HGB) 9.9 g/dL 14.5-20 HEMATOCRIT (test code=HCT) 30.9 % 42.0-52.0 MEAN CELL VOLUME (test code=MCV) 97.5 fL 80.0-94.0 MEAN CELL HGB (test code=MCH) 31.2 pg 27-31 MEAN CELL HGB CONCENTRATION (test code=MCHC) 32.0 G/DL 33-36.5 RED CELL DISTRIBUTION WIDTH (test code=RDW) 14.9 % 12.9-16.9 PLATELET COUNT (test code=PLT) 165 150-440 MEAN PLATELET VOLUME (test code=MPV) 12.7 fL 8.9-12.4 TOTAL CELLS COUNTED (test code=TCC) 100 #CELLS SEGMENTED NEUTROPHILS (test code=SEG) 72 % 43-65 BAND NEUTROPHIL (test code=BAND) 8 % 0-1 LYMPHOCYTE (test code=LYMPH) 8 % 20.5-45.5 MONOCYTE (test code=MON) 8 % 5.5-11.7 METAMYELOCYTE (test code=META) 4 % 0-0 NUCLEATED RED BLOOD CELL (test code=NRBC) 2.0 % 0-1 POLYCHROMASIA (test code=POLC) 1+ NONE SEEN HYPOCHROMIA (test code=HYPO) 1+ NONE SEEN BASIC METABOLIC [id number] 08:46:00* Test Item Value Reference Range Comments SODIUM (test code=NA) 132 MMOL/L 136-143 POTASSIUM (test code=K) 3.9 MMOL/L 3.5-5.1 CHLORIDE (test code=CL) 98 MMOL/L 98-107 CARBON DIOXIDE (test code=CO2) 26 mmol/L 24-31 GLUCOSE (test code=GLU) 136 mg/dL 70-104 BLOOD UREA NITROGEN (test code=BUN) 35.5 MG/DL 7.0-21.0 GLOMERULAR FILTRATION RATE (test code=GFR) 39 >60 The estimated glomerular filtration rate is computed usingpatient race, age (>18), sex, and serum creatinine. If anyof the needed data elements are missing the Laboratory cannot compute an estimation of the glomerular filtration rate. CREATININE (test code=CREAT) 2.0 mg/dL 0.8-1.5 CALCIUM (test code=CA) 8.4 mg/dL 8.8-10.2 [id number] 08:46:00* Test Item Value Reference Range Comments PHOSPHOROUS (test code=PHOS) 2.5 mg/dL 2.7-4.5 [id number] 08:46:00* Test Item Value Reference Range Comments MAGNESIUM (test code=MAG) 2.0 mg/dL 1.4-2.6 LACTIC [id number] 08:46:00* Test Item Value Reference Range Comments LACTIC ACID (test code=LACT) 14.8 mg/dL 4.5-18.0 THROMBOPLASTIN TIME [id number] 08:22:00* Test Item Value Reference Range Comments THROMBOPLASTIN TIME PARTIAL (test code=PTT) 69.5 SECONDS 26.0-35.9 INTERPRETATIVE DATA:Therapeutic range: Unfractionated heparin:47 - 71 seconds Argatroban:1.5 to 3 times the baseline PTT CBC W/AUTO [id number] 08:20:00* Test Item Value Reference Range Comments WHITE BLOOD CELL (test code=WBC) 24.5 x10 3/uL 4.8-10.8 RED BLOOD CELL (test code=RBC) 2.70 x10 6/uL 4.70-6.10 HEMOGLOBIN (test code=HGB) 8.4 g/dL 14.5-20 HEMATOCRIT (test code=HCT) 26.2 % 42.0-52.0 MEAN CELL VOLUME (test code=MCV) 97.0 fL 80.0-94.0 MEAN CELL HGB (test code=MCH) 31.1 pg 27-31 MEAN CELL HGB CONCENTRATION (test code=MCHC) 32.1 G/DL 33-36.5 RED CELL DISTRIBUTION WIDTH (test code=RDW) 15.1 % 12.9-16.9 PLATELET COUNT (test code=PLT) 128 150-440 MEAN PLATELET VOLUME (test code=MPV) 12.2 fL 8.9-12.4 NEUTROPHIL % (test code=NT%) 68.7 % 42.2-75.2 LYMPHOCYTE % (test code=LY%) 7.2 % 20.5-51.1 MONOCYTE % (test code=MO%) 6.7 % 1.7-9.3 EOSINOPHIL % (test code=EO%) 0.2 % 0.0-7.0 BASOPHIL % (test code=BA%) 0.5 % 0-2.5 NEUTROPHIL # (test code=NT#) 16.82 x10 3/uL 1.80-7.70 LYMPHOCYTE # (test code=LY#) 1.76 x10 3/uL 1.00-4.80 MONOCYTE # (test code=MO#) 1.63 x10 3/uL 0.00-0.80 EOSINOPHIL # (test code=EO#) 0.06 x10 3/uL 0.00-0.45 BASOPHIL # (test code=BA#) 0.12 x10 3/uL 0.0-0.20 CALCIUM [id number] 08:13:00* Test Item Value Reference Range Comments CALCIUM IONIZED (test code=YVON) 1.18 mmol/L 1.1-1.3 ARTERIAL BLOOD [id number] 08:12:00* Test Item Value Reference Range Comments ARTERIAL BLOOD GAS PH (test code=PHA) 7.36 7.35-7.45 ARTERIAL BLOOD GAS PCO2 (test code=PCO2A) 45.1 mmHg 35.0-45.0 ARTERIAL BLOOD GAS PO2 (test code=PO2A) 56.9 mmHg 80.0-95.0 BICARBONATE TOTAL HCO3 (test code=HCO3) 25.0 mmol/L 22.0-24.0 BASE EXCESS (test code=KIZZY) -0.6 mmol/L (+/-)2.0 ABG O2 SATURATION (test code=SATA) 86.5 % 95.0-100.0 ABG TYPE (test code=TYPEA) VENTILATOR ARTERIAL FIO2 (test code=FIO2A) 80 % ABG VENT MODE (test code=MODEA) AC Pressure ABG PATIENT RESP RATE (test code=RRPATA) 25 /MIN 12-20 ABG VENT RESP RATE (test code=RRA) 25 /MIN ABG PEEP (test code=PEEP) 10 cmH2O ABG SITE (test code=SITEA) Art line ABG POSITION (test code=PT POSITION) SF ALLENS TEST (test code=ALLENS) NA TOTAL HGB (test code=THB) 9.3 g/dL 13.0-17.0 METHEMOGLOBIN (test code=METHGB) 1.0 % 0-1.5 - XR CHEST 1 [id number] 05:41:00Patient Name: MILY MOSHER Unit No: [id number] EXAMS: CPT CODE: [id number] XR CHEST 1 V [id number] AFTER HOURS SERVICE ON: 09/08/2019 5:40 AM AP Portable Chest Location Code M12 HISTORY: ECMO/ RESP FAILURE FINDINGS: Inspiration is shallow. Cardiac silhouette is in the upper limits of normal. Extensive bilateral alveolar infiltrates are again seen without significant improvement from 09/07/2019. There is no pneumothorax. ETT, NGT, left IJ catheter and right IJ line are stable. IMPRESSION: No significant interval change. at 0541 Reported and signed by: CORRINE FUENTES M.D. CC: Yasmany Byrnes MD; Malachi Perez MD Technologist: Norma Fulton Time: DAP (Gy m2): Air Kerma (mGy): Trscr Dt/Tm: 09/08/2019 (0541) by:[email or web address] Printed Date/Time: 09/08/2019 (0544) Name: MILY MOSHER [facility] Phys: Malachi De La Paz MD [id number] : 1975 Age: 44 Sex: [place] [address] Loc: P.0226 1 Exam Date: 09/08/2019 Status: ADM IN PH: FAX: PAGE 1 Signed Report [id number] 05:27:00* Test Item Value Reference Range Comments VANCOMYCIN (test code=VANCO) 19.9 ug/mL 5.0-40.0 LACTIC [id number] 05:16:00* Test Item Value Reference Range Comments LACTIC ACID (test code=LACT) 23.1 mg/dL 4.5-18.0 Critical Value reported toFirst Name:TAMI Last Name:DEMETRIUS READ BACK AND VERIFIEDby GEORGINA, on 09/08/19, @ 0555. BASIC METABOLIC [id number] 05:15:00* Test Item Value Reference Range Comments SODIUM (test code=NA) 134 MMOL/L 136-143 POTASSIUM (test code=K) 4.0 MMOL/L 3.5-5.1 CHLORIDE (test code=CL) 96 MMOL/L 98-107 CARBON DIOXIDE (test code=CO2) 25 mmol/L 24-31 GLUCOSE (test code=GLU) 185 mg/dL 70-104 BLOOD UREA NITROGEN (test code=BUN) 33.5 MG/DL 7.0-21.0 GLOMERULAR FILTRATION RATE (test code=GFR) 39 >60 The estimated glomerular filtration rate is computed usingpatient race, age (>18), sex, and serum creatinine. If anyof the needed data elements are missing the Laboratory cannot compute an estimation of the glomerular filtration rate. CREATININE (test code=CREAT) 2.0 mg/dL 0.8-1.5 CALCIUM (test code=CA) 10.4 mg/dL 8.8-10.2 LIVER FUNCTION [id number] 05:15:00* Test Item Value Reference Range Comments TOTAL PROTEIN (test code=PROT) 7.0 g/dL 6.3-8.3 ALBUMIN (test code=ALB) 3.4 G/DL 3.5-5.0 BILIRUBIN TOTAL (test code=BILT) 1.0 mg/dL 0.2-1.0 BILIRUBIN DIRECT (test code=BILD) 0.5 mg/dL 0.0-0.2 SGOT/AST (test code=AST) 79 IU/L 10-34 SGPT/ALT (test code=ALT) 51 U/L 10-44 ALKALINE PHOSPHATASE (test code=ALKP) 116 U/L 45-120 [id number] 05:15:00* Test Item Value Reference Range Comments PHOSPHOROUS (test code=PHOS) 2.7 mg/dL 2.7-4.5 LACTIC DEHYDROGENASE(LDH)2019-09-08 05:15:00* Test Item Value Reference Range Comments LACTIC DEHYDROGENASE(LDH) (test code=LDH) 803 U/L 135-225 [id number] 05:15:00* Test Item Value Reference Range Comments MAGNESIUM (test code=MAG) 2.2 mg/dL 1.4-2.6 THROMBOPLASTIN TIME [id number] 04:50:00* Test Item Value Reference Range Comments THROMBOPLASTIN TIME PARTIAL (test code=PTT) 56.4 SECONDS 26.0-35.9 INTERPRETATIVE DATA:Therapeutic range: Unfractionated heparin:47 - 71 seconds Argatroban:1.5 to 3 times the baseline PTT CBC W/MANUAL [id number] 04:40:00* Test Item Value Reference Range Comments WHITE BLOOD CELL (test code=WBC) 38.9 x10 3/uL 4.8-10.8 RED BLOOD CELL (test code=RBC) 3.17 x10 6/uL 4.70-6.10 HEMOGLOBIN (test code=HGB) 9.9 g/dL 14.5-20 HEMATOCRIT (test code=HCT) 30.9 % 42.0-52.0 MEAN CELL VOLUME (test code=MCV) 97.5 fL 80.0-94.0 MEAN CELL HGB (test code=MCH) 31.2 pg 27-31 MEAN CELL HGB CONCENTRATION (test code=MCHC) 32.0 G/DL 33-36.5 RED CELL DISTRIBUTION WIDTH (test code=RDW) 14.9 % 12.9-16.9 PLATELET COUNT (test code=PLT) 165 150-440 MEAN PLATELET VOLUME (test code=MPV) 12.7 fL 8.9-12.4 TOTAL CELLS COUNTED (test code=TCC) #CELLS SEGMENTED NEUTROPHILS (test code=SEG) % 43-65 LYMPHOCYTE (test code=LYMPH) % 20.5-45.5 CBC W/MANUAL [id number] 04:40:00* Test Item Value Reference Range Comments WHITE BLOOD CELL (test code=WBC) 38.9 x10 3/uL 4.8-10.8 RED BLOOD CELL (test code=RBC) 3.17 x10 6/uL 4.70-6.10 HEMOGLOBIN (test code=HGB) 9.9 g/dL 14.5-20 HEMATOCRIT (test code=HCT) 30.9 % 42.0-52.0 MEAN CELL VOLUME (test code=MCV) 97.5 fL 80.0-94.0 MEAN CELL HGB (test code=MCH) 31.2 pg 27-31 MEAN CELL HGB CONCENTRATION (test code=MCHC) 32.0 G/DL 33-36.5 RED CELL DISTRIBUTION WIDTH (test code=RDW) 14.9 % 12.9-16.9 PLATELET COUNT (test code=PLT) 165 150-440 MEAN PLATELET VOLUME (test code=MPV) 12.7 fL 8.9-12.4 TOTAL CELLS COUNTED (test code=TCC) #CELLS SEGMENTED NEUTROPHILS (test code=SEG) % 43-65 LYMPHOCYTE (test code=LYMPH) % 20.5-45.5 CALCIUM [id number] 04:11:00* Test Item Value Reference Range Comments CALCIUM IONIZED (test code=YVON) 1.19 mmol/L 1.1-1.3 ARTERIAL BLOOD [id number] 04:11:00* Test Item Value Reference Range Comments ARTERIAL BLOOD GAS PH (test code=PHA) 7.33 7.35-7.45 ARTERIAL BLOOD GAS PCO2 (test code=PCO2A) 46.8 mmHg 35.0-45.0 ARTERIAL BLOOD GAS PO2 (test code=PO2A) 74.4 mmHg 80.0-95.0 BICARBONATE TOTAL HCO3 (test code=HCO3) 24.3 mmol/L 22.0-24.0 BASE EXCESS (test code=KIZZY) -1.7 mmol/L (+/-)2.0 ABG O2 SATURATION (test code=SATA) 92.9 % 95.0-100.0 ABG TYPE (test code=TYPEA) VENTILATOR ARTERIAL FIO2 (test code=FIO2A) 80 % ABG DELIVERY (test code=NICOL) Vent ABG VENT MODE (test code=MODEA) PC 18 ABG PATIENT RESP RATE (test code=RRPATA) 25 /MIN 12-20 ABG VENT RESP RATE (test code=RRA) 25 /MIN ABG PEEP (test code=PEEP) 10 cmH2O ABG SITE (test code=SITEA) Art line ABG POSITION (test code=PT POSITION) SEMI ALLENS TEST (test code=ALLENS) NOT APPLICAPLE TOTAL HGB (test code=THB) 11.1 g/dL 13.0-17.0 METHEMOGLOBIN (test code=METHGB) 0.9 % 0-1.5 BASIC METABOLIC [id number] 00:46:00* Test Item Value Reference Range Comments SODIUM (test code=NA) 130 MMOL/L 136-143 POTASSIUM (test code=K) 4.4 MMOL/L 3.5-5.1 CHLORIDE (test code=CL) 96 MMOL/L 98-107 CARBON DIOXIDE (test code=CO2) 24 mmol/L 24-31 GLUCOSE (test code=GLU) 126 mg/dL 70-104 BLOOD UREA NITROGEN (test code=BUN) 34.5 MG/DL 7.0-21.0 GLOMERULAR FILTRATION RATE (test code=GFR) 37 >60 The estimated glomerular filtration rate is computed usingpatient race, age (>18), sex, and serum creatinine. If anyof the needed data elements are missing the Laboratory cannot compute an estimation of the glomerular filtration rate. CREATININE (test code=CREAT) 2.1 mg/dL 0.8-1.5 CALCIUM (test code=CA) 9.9 mg/dL 8.8-10.2 [id number] 00:46:00* Test Item Value Reference Range Comments PHOSPHOROUS (test code=PHOS) 3.3 mg/dL 2.7-4.5 [id number] 00:46:00* Test Item Value Reference Range Comments MAGNESIUM (test code=MAG) 2.2 mg/dL 1.4-2.6 LACTIC [id number] 00:43:00* Test Item Value Reference Range Comments LACTIC ACID (test code=LACT) 17.0 mg/dL 4.5-18.0 THROMBOPLASTIN TIME [id number] 00:38:00* Test Item Value Reference Range Comments THROMBOPLASTIN TIME PARTIAL (test code=PTT) 63.9 SECONDS 26.0-35.9 INTERPRETATIVE DATA:Therapeutic range: Unfractionated heparin:47 - 71 seconds Argatroban:1.5 to 3 times the baseline PTT ARTERIAL BLOOD [id number] 00:31:00* Test Item Value Reference Range Comments ARTERIAL BLOOD GAS PH (test code=PHA) 7.40 7.35-7.45 ARTERIAL BLOOD GAS PCO2 (test code=PCO2A) 40.0 mmHg 35.0-45.0 ARTERIAL BLOOD GAS PO2 (test code=PO2A) 66.3 mmHg 80.0-95.0 BICARBONATE TOTAL HCO3 (test code=HCO3) 24.3 mmol/L 22.0-24.0 BASE EXCESS (test code=KIZZY) -0.4 mmol/L (+/-)2.0 ABG O2 SATURATION (test code=SATA) 92.3 % 95.0-100.0 ABG TYPE (test code=TYPEA) VENTILATOR ARTERIAL FIO2 (test code=FIO2A) 80 % ABG DELIVERY (test code=NICOL) Vent ABG VENT MODE (test code=MODEA) PC 18 ABG PATIENT RESP RATE (test code=RRPATA) 25 /MIN 12-20 ABG VENT RESP RATE (test code=RRA) 25 /MIN ABG PEEP (test code=PEEP) 10 cmH2O ABG SITE (test code=SITEA) Art line ABG POSITION (test code=PT POSITION) SEMI ALLENS TEST (test code=ALLENS) NOT APPLICAPLE TOTAL HGB (test code=THB) 11.0 g/dL 13.0-17.0 METHEMOGLOBIN (test code=METHGB) 1.0 % 0-1.5 CALCIUM [id number] 00:31:00* Test Item Value Reference Range Comments CALCIUM IONIZED (test code=YVON) 1.19 mmol/L 1.1-1.3 [id number] 21:59:00* Test Item Value Reference Range Comments GLUBED (test code=GLUBED) 109 MG/DL 70-105 [id number] 21:59:00* Test Item Value Reference Range Comments GLUBED (test code=GLUBED) 106 MG/DL 70-105 [id number] 21:59:00* Test Item Value Reference Range Comments GLUBED (test code=GLUBED) 107 MG/DL 70-105 [id number] 21:59:00* Test Item Value Reference Range Comments GLUBED (test code=GLUBED) 117 MG/DL 70-105 [id number] 21:59:00* Test Item Value Reference Range Comments GLUBED (test code=GLUBED) 103 MG/DL 70-105 [id number] 21:59:00* Test Item Value Reference Range Comments GLUBED (test code=GLUBED) 112 MG/DL 70-105 [id number] 21:59:00* Test Item Value Reference Range Comments GLUBED (test code=GLUBED) 98 MG/DL 70-105 [id number] 21:59:00* Test Item Value Reference Range Comments GLUBED (test code=GLUBED) 107 MG/DL 70-105 [id number] 21:59:00* Test Item Value Reference Range Comments GLUBED (test code=GLUBED) 91 MG/DL 70-105 [id number] 21:59:00* Test Item Value Reference Range Comments GLUBED (test code=GLUBED) 109 MG/DL 70-105 [id number] 21:59:00* Test Item Value Reference Range Comments GLUBED (test code=GLUBED) 93 MG/DL 70-105 [id number] 21:59:00* Test Item Value Reference Range Comments GLUBED (test code=GLUBED) 86 MG/DL 70-105 BASIC METABOLIC [id number] 21:01:00* Test Item Value Reference Range Comments SODIUM (test code=NA) 130 MMOL/L 136-143 POTASSIUM (test code=K) 4.5 MMOL/L 3.5-5.1 CHLORIDE (test code=CL) 97 MMOL/L 98-107 CARBON DIOXIDE (test code=CO2) 23 mmol/L 24-31 GLUCOSE (test code=GLU) 133 mg/dL 70-104 BLOOD UREA NITROGEN (test code=BUN) 33.4 MG/DL 7.0-21.0 GLOMERULAR FILTRATION RATE (test code=GFR) 33 >60 The estimated glomerular filtration rate is computed usingpatient race, age (>18), sex, and serum creatinine. If anyof the needed data elements are missing the Laboratory cannot compute an estimation of the glomerular filtration rate. CREATININE (test code=CREAT) 2.3 mg/dL 0.8-1.5 CALCIUM (test code=CA) 11.4 mg/dL 8.8-10.2 [id number] 21:01:00* Test Item Value Reference Range Comments PHOSPHOROUS (test code=PHOS) 3.9 mg/dL 2.7-4.5 [id number] 21:01:00* Test Item Value Reference Range Comments MAGNESIUM (test code=MAG) 2.2 mg/dL 1.4-2.6 LACTIC [id number] 21:00:00* Test Item Value Reference Range Comments LACTIC ACID (test code=LACT) 22.4 mg/dL 4.5-18.0 Critical Value reported toFirst Name:KATHERYN Last Name:AVA READ BACK AND VERIFIEDby GREGORY, on 09/07/19, @ 2100. THROMBOPLASTIN TIME [id number] 20:56:00* Test Item Value Reference Range Comments THROMBOPLASTIN TIME PARTIAL (test code=PTT) 66.0 SECONDS 26.0-35.9 INTERPRETATIVE DATA:Therapeutic range: Unfractionated heparin:47 - 71 seconds Argatroban:1.5 to 3 times the baseline PTT [id number] 20:24:00* Test Item Value Reference Range Comments GLUBED (test code=GLUBED) 116 MG/DL 70-105 CALCIUM [id number] 20:21:00* Test Item Value Reference Range Comments CALCIUM IONIZED (test code=YVON) 1.42 mmol/L 1.1-1.3 ARTERIAL BLOOD [id number] 20:20:00* Test Item Value Reference Range Comments ARTERIAL BLOOD GAS PH (test code=PHA) 7.36 7.35-7.45 ARTERIAL BLOOD GAS PCO2 (test code=PCO2A) 38.8 mmHg 35.0-45.0 ARTERIAL BLOOD GAS PO2 (test code=PO2A) 46.9 mmHg 80.0-95.0 BICARBONATE TOTAL HCO3 (test code=HCO3) 21.5 mmol/L 22.0-24.0 BASE EXCESS (test code=KIZZY) -3.5 mmol/L (+/-)2.0 ABG O2 SATURATION (test code=SATA) 82.1 % 95.0-100.0 ABG TYPE (test code=TYPEA) VENTILATOR ARTERIAL FIO2 (test code=FIO2A) 80 % ABG DELIVERY (test code=NICOL) Vent ABG VENT MODE (test code=MODEA) DC CTRL 18 ABG PATIENT RESP RATE (test code=RRPATA) 25 /MIN 12-20 ABG VENT RESP RATE (test code=RRA) 25 /MIN ABG PEEP (test code=PEEP) 10 cmH2O ABG SITE (test code=SITEA) Art line ABG POSITION (test code=PT POSITION) SEMI ALLENS TEST (test code=ALLENS) NOT APPLICAPLE TOTAL HGB (test code=THB) 11.2 g/dL 13.0-17.0 METHEMOGLOBIN (test code=METHGB) % 0-1.5 LACTIC DEHYDROGENASE(LDH)2019-09-07 17:28:00* Test Item Value Reference Range Comments LACTIC DEHYDROGENASE(LDH) (test code=LDH) 763 U/L 135-225 ADD ONBASIC METABOLIC [id number] 16:59:00* Test Item Value Reference Range Comments SODIUM (test code=NA) 135 MMOL/L 136-143 POTASSIUM (test code=K) 5.1 MMOL/L 3.5-5.1 CHLORIDE (test code=CL) 97 MMOL/L 98-107 CARBON DIOXIDE (test code=CO2) 22 mmol/L 24-31 GLUCOSE (test code=GLU) 140 mg/dL 70-104 BLOOD UREA NITROGEN (test code=BUN) 32.2 MG/DL 7.0-21.0 GLOMERULAR FILTRATION RATE (test code=GFR) 37 >60 The estimated glomerular filtration rate is computed usingpatient race, age (>18), sex, and serum creatinine. If anyof the needed data elements are missing the Laboratory cannot compute an estimation of the glomerular filtration rate. CREATININE (test code=CREAT) 2.1 mg/dL 0.8-1.5 CALCIUM (test code=CA) 9.0 mg/dL 8.8-10.2 LACTIC [id number] 16:58:00* Test Item Value Reference Range Comments LACTIC ACID (test code=LACT) 20.0 mg/dL 4.5-18.0 Critical Value reported toFirst Name:ELLA Daniel Name:FELIXTRANGNikhil READ BACK AND VERIFIEDby PAimeLABTIFFANIE, on 09/07/19, @ 6085. THROMBOPLASTIN TIME [id number] 16:40:00* Test Item Value Reference Range Comments THROMBOPLASTIN TIME PARTIAL (test code=PTT) 63.3 SECONDS 26.0-35.9 INTERPRETATIVE DATA:Therapeutic range: Unfractionated heparin:47 - 71 seconds Argatroban:1.5 to 3 times the baseline PTT [id number] 16:38:00* Test Item Value Reference Range Comments HEMATOCRIT (test code=HCT) 33.3 % 42.0-52.0 ARTERIAL BLOOD [id number] 16:24:00* Test Item Value Reference Range Comments ARTERIAL BLOOD GAS PH (test code=PHA) 7.35 7.35-7.45 ARTERIAL BLOOD GAS PCO2 (test code=PCO2A) 45.2 mmHg 35.0-45.0 ARTERIAL BLOOD GAS PO2 (test code=PO2A) 66.7 mmHg 80.0-95.0 BICARBONATE TOTAL HCO3 (test code=HCO3) 24.5 mmol/L 22.0-24.0 BASE EXCESS (test code=KIZZY) -1.2 mmol/L (+/-)2.0 ABG O2 SATURATION (test code=SATA) 92.0 % 95.0-100.0 ABG TYPE (test code=TYPEA) VENTILATOR ARTERIAL FIO2 (test code=FIO2A) 80 % ABG VENT MODE (test code=MODEA) AC Pressure ABG PATIENT RESP RATE (test code=RRPATA) 25 /MIN 12-20 ABG VENT RESP RATE (test code=RRA) 25 /MIN ABG PEEP (test code=PEEP) 10 cmH2O ABG SITE (test code=SITEA) Art line ABG POSITION (test code=PT POSITION) SF ALLENS TEST (test code=ALLENS) NA TOTAL HGB (test code=THB) 11.8 g/dL 13.0-17.0 METHEMOGLOBIN (test code=METHGB) <0.8 % 0-1.5 CALCIUM [id number] 16:24:00* Test Item Value Reference Range Comments CALCIUM IONIZED (test code=YVON) 1.20 mmol/L 1.1-1.3 ARTERIAL BLOOD [id number] 15:22:00* Test Item Value Reference Range Comments ARTERIAL BLOOD GAS PH (test code=PHA) 7.34 7.35-7.45 ARTERIAL BLOOD GAS PCO2 (test code=PCO2A) 44.7 mmHg 35.0-45.0 ARTERIAL BLOOD GAS PO2 (test code=PO2A) 406.9 mmHg 80.0-95.0 Critical Value reported toFirst Name:ZACK Last Name:URIAH READ BACK AND VERIFIEDby CHRISTINE, on 09/07/19, @ 1524. BICARBONATE TOTAL HCO3 (test code=HCO3) 23.5 mmol/L 22.0-24.0 BASE EXCESS (test code=KIZZY) -2.4 mmol/L (+/-)2.0 ABG O2 SATURATION (test code=SATA) 98.9 % 95.0-100.0 ABG TYPE (test code=TYPEA) ARTERIAL FIO2 (test code=FIO2A) 100 % ABG L/M (test code=L/M) 4 L/MIN ABG VENT MODE (test code=MODEA) ECMO ABG SITE (test code=SITEA) Other TOTAL HGB (test code=THB) 11.3 g/dL 13.0-17.0 METHEMOGLOBIN (test code=METHGB) 0.9 % 0-1.5 BASIC METABOLIC [id number] 15:21:00* Test Item Value Reference Range Comments SODIUM (test code=NA) 133 MMOL/L 136-143 POTASSIUM (test code=K) 5.0 MMOL/L 3.5-5.1 CHLORIDE (test code=CL) 97 MMOL/L 98-107 CARBON DIOXIDE (test code=CO2) 23 mmol/L 24-31 GLUCOSE (test code=GLU) 118 mg/dL 70-104 BLOOD UREA NITROGEN (test code=BUN) 33.9 MG/DL 7.0-21.0 GLOMERULAR FILTRATION RATE (test code=GFR) 32 >60 The estimated glomerular filtration rate is computed usingpatient race, age (>18), sex, and serum creatinine. If anyof the needed data elements are missing the Laboratory cannot compute an estimation of the glomerular filtration rate. CREATININE (test code=CREAT) 2.4 mg/dL 0.8-1.5 CALCIUM (test code=CA) 8.9 mg/dL 8.8-10.2 [id number] 15:21:00* Test Item Value Reference Range Comments PHOSPHOROUS (test code=PHOS) 3.6 mg/dL 2.7-4.5 [id number] 15:21:00* Test Item Value Reference Range Comments MAGNESIUM (test code=MAG) 2.4 mg/dL 1.4-2.6 ARTERIAL BLOOD [id number] 15:20:00* Test Item Value Reference Range Comments ARTERIAL BLOOD GAS PH (test code=PHA) 7.34 7.35-7.45 ARTERIAL BLOOD GAS PCO2 (test code=PCO2A) 44.7 mmHg 35.0-45.0 ARTERIAL BLOOD GAS PO2 (test code=PO2A) 406.9 mmHg 80.0-95.0 Critical Value reported toFirst Name:ZACK Last Name:URIAH READ BACK AND VERIFIEDby PAimeRCSMANUELA, on 09/07/19, @ 1520. BICARBONATE TOTAL HCO3 (test code=HCO3) mmol/L 22.0-24.0 BASE EXCESS (test code=KIZZY) mmol/L (+/-)2.0 ABG O2 SATURATION (test code=SATA) % 95.0-100.0 METHEMOGLOBIN (test code=METHGB) % 0-1.5 LACTIC [id number] 13:10:00* Test Item Value Reference Range Comments LACTIC ACID (test code=LACT) 19.3 mg/dL 4.5-18.0 Critical Value reported toFirst Name:ELLA Last Name:JV READ BACK AND VERIFIEDby P.LABSEAN, on 09/07/19, @ 1310. THROMBOPLASTIN TIME [id number] 12:21:00* Test Item Value Reference Range Comments THROMBOPLASTIN TIME PARTIAL (test code=PTT) 62.9 SECONDS 26.0-35.9 INTERPRETATIVE DATA:Therapeutic range: Unfractionated heparin:47 - 71 seconds Argatroban:1.5 to 3 times the baseline PTT CALCIUM [id number] 12:19:00* Test Item Value Reference Range Comments CALCIUM IONIZED (test code=YVON) 1.21 mmol/L 1.1-1.3 ARTERIAL BLOOD [id number] 12:18:00* Test Item Value Reference Range Comments ARTERIAL BLOOD GAS PH (test code=PHA) 7.36 7.35-7.45 ARTERIAL BLOOD GAS PCO2 (test code=PCO2A) 46.0 mmHg 35.0-45.0 ARTERIAL BLOOD GAS PO2 (test code=PO2A) 66.1 mmHg 80.0-95.0 BICARBONATE TOTAL HCO3 (test code=HCO3) 25.3 mmol/L 22.0-24.0 BASE EXCESS (test code=KIZZY) -0.4 mmol/L (+/-)2.0 ABG O2 SATURATION (test code=SATA) 91.3 % 95.0-100.0 ABG TYPE (test code=TYPEA) VENTILATOR ARTERIAL FIO2 (test code=FIO2A) 80 % ABG VENT MODE (test code=MODEA) AC Pressure ABG PATIENT RESP RATE (test code=RRPATA) 25 /MIN 12-20 ABG VENT RESP RATE (test code=RRA) 25 /MIN ABG PEEP (test code=PEEP) 10 cmH2O ABG SITE (test code=SITEA) Art line ABG POSITION (test code=PT POSITION) SF ALLENS TEST (test code=ALLENS) NA TOTAL HGB (test code=THB) 12.1 g/dL 13.0-17.0 METHEMOGLOBIN (test code=METHGB) 0.9 % 0-1.5 [id number] 12:11:00* Test Item Value Reference Range Comments HEMOGLOBIN (test code=HGB) 10.7 g/dL 14.5-20 BASIC METABOLIC [id number] 09:34:00* Test Item Value Reference Range Comments SODIUM (test code=NA) 136 MMOL/L 136-143 POTASSIUM (test code=K) 5.0 MMOL/L 3.5-5.1 CHLORIDE (test code=CL) 97 MMOL/L 98-107 CARBON DIOXIDE (test code=CO2) 22 mmol/L 24-31 GLUCOSE (test code=GLU) 114 mg/dL 70-104 BLOOD UREA NITROGEN (test code=BUN) 32.0 MG/DL 7.0-21.0 GLOMERULAR FILTRATION RATE (test code=GFR) 35 >60 The estimated glomerular filtration rate is computed usingpatient race, age (>18), sex, and serum creatinine. If anyof the needed data elements are missing the Laboratory cannot compute an estimation of the glomerular filtration rate. CREATININE (test code=CREAT) 2.2 mg/dL 0.8-1.5 CALCIUM (test code=CA) 8.4 mg/dL 8.8-10.2 LACTIC [id number] 09:19:00* Test Item Value Reference Range Comments LACTIC ACID (test code=LACT) 23.0 mg/dL 4.5-18.0 Critical Value reported toFirst Name:ELAL Sanchez Name:NOHEMI READ BACK AND VERIFIEDby MICHELET, on 09/07/19, @ 7896. THROMBOPLASTIN TIME [id number] 08:49:00* Test Item Value Reference Range Comments THROMBOPLASTIN TIME PARTIAL (test code=PTT) 60.9 SECONDS 26.0-35.9 INTERPRETATIVE DATA:Therapeutic range: Unfractionated heparin:47 - 71 seconds Argatroban:1.5 to 3 times the baseline PTT HGB [id number] 08:37:00* Test Item Value Reference Range Comments HEMOGLOBIN (test code=HGB) 10.8 g/dL 14.5-20 HEMATOCRIT (test code=HCT) 33.7 % 42.0-52.0 ARTERIAL BLOOD [id number] 08:35:00* Test Item Value Reference Range Comments ARTERIAL BLOOD GAS PH (test code=PHA) 7.36 7.35-7.45 ARTERIAL BLOOD GAS PCO2 (test code=PCO2A) 40.4 mmHg 35.0-45.0 ARTERIAL BLOOD GAS PO2 (test code=PO2A) 45.1 mmHg 80.0-95.0 BICARBONATE TOTAL HCO3 (test code=HCO3) 22.4 mmol/L 22.0-24.0 BASE EXCESS (test code=KIZZY) -2.8 mmol/L (+/-)2.0 ABG O2 SATURATION (test code=SATA) 78.8 % 95.0-100.0 ABG TYPE (test code=TYPEA) VENTILATOR ARTERIAL FIO2 (test code=FIO2A) 60 % ABG VENT MODE (test code=MODEA) AC Pressure ABG PATIENT RESP RATE (test code=RRPATA) 25 /MIN 12-20 ABG VENT RESP RATE (test code=RRA) 25 /MIN ABG PEEP (test code=PEEP) 10 cmH2O ABG SITE (test code=SITEA) Art line ABG POSITION (test code=PT POSITION) SF ALLENS TEST (test code=ALLENS) NA TOTAL HGB (test code=THB) 12.0 g/dL 13.0-17.0 METHEMOGLOBIN (test code=METHGB) 0.8 % 0-1.5 CALCIUM [id number] 08:35:00* Test Item Value Reference Range Comments CALCIUM IONIZED (test code=YVON) 1.16 mmol/L 1.1-1.3 - XR CHEST 1 [id number] 07:55:00Patient Name: MILY MOSHER Unit No: [id number] EXAMS: CPT CODE: [id number] XR CHEST 1 V [id number] EXAM: Portable chest one view. Location code:J9 HISTORY: Respiratory failure COMPARISON: 09/06/2019 Findings: Stable position of ET tube, right IJ catheter, NG tube, and left IJ catheter. The cardiac silhouette is normal in size. Diffuse bilateral airspace disease. No large pleural effusion or pneumothorax. The bones are intact. IMPRESSION: Stable diffuse severe airspace disease. at 0755 Reported and signed by: GALINA BAEZ M.D. CC: Yasmany Byrnes MD; Malachi Perez MD Technologist: Norma Fulton Time: DAP (Gy m2): Air Kerma (mGy): Trscr Dt/Tm: 09/07/2019 (0755) by:[email or web address] Printed Date/Time: 09/07/2019 (0758) Name: MILY MOSHER [facility] Phys: Malachi De La Paz MD [address] : 1975 Age: 44 Sex: [place] [address] Loc: P.0226 1 Exam Date: 09/07/2019 Status: ADM IN PH: FAX: PAGE 1 Signed Report ARTERIAL BLOOD [id number] 06:16:00* Test Item Value Reference Range Comments ARTERIAL BLOOD GAS PH (test code=PHA) 7.36 7.35-7.45 ARTERIAL BLOOD GAS PCO2 (test code=PCO2A) 42.9 mmHg 35.0-45.0 ARTERIAL BLOOD GAS PO2 (test code=PO2A) 59.3 mmHg 80.0-95.0 BICARBONATE TOTAL HCO3 (test code=HCO3) 23.7 mmol/L 22.0-24.0 BASE EXCESS (test code=KIZZY) 1.8 mmol/L (+/-)2.0 ABG O2 SATURATION (test code=SATA) 90.3 % 95.0-100.0 ABG TYPE (test code=TYPEA) VENTILATOR ARTERIAL FIO2 (test code=FIO2A) 60 % ABG DELIVERY (test code=NICOL) Vent ABG VENT MODE (test code=MODEA) PRESSURE CONTROL ABG PATIENT RESP RATE (test code=RRPATA) 25 /MIN 12-20 ABG VENT RESP RATE (test code=RRA) 25 /MIN ABG PEEP (test code=PEEP) 10 cmH2O ABG SITE (test code=SITEA) Art line ALLENS TEST (test code=ALLENS) NOT APPLICAPLE METHEMOGLOBIN (test code=METHGB) % 0-1.5 VANCOMYCIN [id number] 05:23:00* Test Item Value Reference Range Comments VANCOMYCIN TROUGH (test code=VANCT) 19.6 mcg/ML 10.0-20.0 ARTERIAL BLOOD [id number] 05:14:00* Test Item Value Reference Range Comments ARTERIAL BLOOD GAS PH (test code=PHA) 7.35 7.35-7.45 ARTERIAL BLOOD GAS PCO2 (test code=PCO2A) 39.5 mmHg 35.0-45.0 ARTERIAL BLOOD GAS PO2 (test code=PO2A) 59.1 mmHg 80.0-95.0 BICARBONATE TOTAL HCO3 (test code=HCO3) 21.3 mmol/L 22.0-24.0 BASE EXCESS (test code=KIZZY) 4.0 mmol/L (+/-)2.0 ABG O2 SATURATION (test code=SATA) 89.3 % 95.0-100.0 ABG TYPE (test code=TYPEA) VENTILATOR ARTERIAL FIO2 (test code=FIO2A) 60 % ABG VENT MODE (test code=MODEA) PRESSURE CONTROL ABG PATIENT RESP RATE (test code=RRPATA) 25 /MIN 12-20 ABG VENT RESP RATE (test code=RRA) 25 /MIN ABG PEEP (test code=PEEP) 10 cmH2O ABG SITE (test code=SITEA) Art line ALLENS TEST (test code=ALLENS) NOT APPLICAPLE METHEMOGLOBIN (test code=METHGB) % 0-1.5 ARTERIAL BLOOD [id number] 04:36:00* Test Item Value Reference Range Comments ARTERIAL BLOOD GAS PH (test code=PHA) 7.35 7.35-7.45 ARTERIAL BLOOD GAS PCO2 (test code=PCO2A) 44.4 mmHg 35.0-45.0 ARTERIAL BLOOD GAS PO2 (test code=PO2A) 41.2 mmHg 80.0-95.0 BICARBONATE TOTAL HCO3 (test code=HCO3) 23.9 mmol/L 22.0-24.0 BASE EXCESS (test code=KIZZY) 1.8 mmol/L (+/-)2.0 ABG O2 SATURATION (test code=SATA) 75.5 % 95.0-100.0 ABG TYPE (test code=TYPEA) VENTILATOR ARTERIAL FIO2 (test code=FIO2A) 40 % ABG DELIVERY (test code=NICOL) Vent ABG VENT MODE (test code=MODEA) PRESSURE CONTROL ABG PATIENT RESP RATE (test code=RRPATA) 25 /MIN 12-20 ABG VENT RESP RATE (test code=RRA) 25 /MIN ABG TIDAL VOLUME (test code=TIDAL VOLUME) ML ABG PEEP (test code=PEEP) 8 cmH2O ABG SITE (test code=SITEA) Art line ALLENS TEST (test code=ALLENS) NOT APPLICAPLE METHEMOGLOBIN (test code=METHGB) % 0-1.5 BASIC METABOLIC [id number] 04:29:00* Test Item Value Reference Range Comments SODIUM (test code=NA) 134 MMOL/L 136-143 POTASSIUM (test code=K) 5.1 MMOL/L 3.5-5.1 CHLORIDE (test code=CL) 97 MMOL/L 98-107 CARBON DIOXIDE (test code=CO2) 24 mmol/L 24-31 GLUCOSE (test code=GLU) 113 mg/dL 70-104 BLOOD UREA NITROGEN (test code=BUN) 33.1 MG/DL 7.0-21.0 GLOMERULAR FILTRATION RATE (test code=GFR) 32 >60 The estimated glomerular filtration rate is computed usingpatient race, age (>18), sex, and serum creatinine. If anyof the needed data elements are missing the Laboratory cannot compute an estimation of the glomerular filtration rate. CREATININE (test code=CREAT) 2.4 mg/dL 0.8-1.5 CALCIUM (test code=CA) 8.1 mg/dL 8.8-10.2 LIVER FUNCTION [id number] 04:29:00* Test Item Value Reference Range Comments TOTAL PROTEIN (test code=PROT) 6.5 g/dL 6.3-8.3 ALBUMIN (test code=ALB) 3.3 G/DL 3.5-5.0 BILIRUBIN TOTAL (test code=BILT) 1.1 mg/dL 0.2-1.0 BILIRUBIN DIRECT (test code=BILD) 0.6 mg/dL 0.0-0.2 SGOT/AST (test code=AST) 91 IU/L 10-34 SGPT/ALT (test code=ALT) 54 U/L 10-44 ALKALINE PHOSPHATASE (test code=ALKP) 111 U/L 45-120 [id number] 04:29:00* Test Item Value Reference Range Comments PHOSPHOROUS (test code=PHOS) 2.9 mg/dL 2.7-4.5 [id number] 04:29:00* Test Item Value Reference Range Comments MAGNESIUM (test code=MAG) 2.4 mg/dL 1.4-2.6 LACTIC [id number] 04:28:00* Test Item Value Reference Range Comments LACTIC ACID (test code=LACT) 24.7 mg/dL 4.5-18.0 Critical Value reported toFirst Name:RACH Last Name:LIYAHKEELYOMAIRAXENIA READ BACK AND VERIFIEDby PAimeLABJULIANA, on 09/07/19, @ 0428. LACTIC DEHYDROGENASE(LDH)2019-09-07 04:28:00* Test Item Value Reference Range Comments LACTIC DEHYDROGENASE(LDH) (test code=LDH) 665 U/L 135-225 PROTHROMBIN [id number] 04:23:00* Test Item Value Reference Range Comments PROTHROMBIN TIME PATIENT (test code=PTP) 12.9 SECONDS 10.3-12.9 INTERNATIONAL NORMAL RATIO (test code=INR) 1.11 INR UNIT 0.9-1.11 The INR is useful only for monitoring anticoagulant therapy.It may be unreliable in the initial phase of antigoagulationand in unstable patients. Indication for Anticoagulation Recommended INR 1. Prevention of venous thomboembolism 2.0-3.0in high-risk patients; treatment of venousthrombosis and pulmonary embolism aftera course of heparin; prevention of systemicembolism in a variety of conditions, including atrial fibrillation and prothetic tissue heart valves, 2. Prosthetic mechanical heart valves; 2.5-3.5recurrent systemic embolism. Spec Comments: ON HEPARIN DRIPCALCIUM [id number] 04:22:00* Test Item Value Reference Range Comments CALCIUM IONIZED (test code=YVON) 1.09 mmol/L 1.1-1.3 ARTERIAL BLOOD [id number] 04:21:00* Test Item Value Reference Range Comments ARTERIAL BLOOD GAS PH (test code=PHA) 7.38 7.35-7.45 ARTERIAL BLOOD GAS PCO2 (test code=PCO2A) 43.4 mmHg 35.0-45.0 ARTERIAL BLOOD GAS PO2 (test code=PO2A) 42.5 mmHg 80.0-95.0 BICARBONATE TOTAL HCO3 (test code=HCO3) 24.9 mmol/L 22.0-24.0 BASE EXCESS (test code=KIZZY) 0.5 mmol/L (+/-)2.0 ABG O2 SATURATION (test code=SATA) 78.9 % 95.0-100.0 ABG TYPE (test code=TYPEA) VENTILATOR ARTERIAL FIO2 (test code=FIO2A) 40 % ABG DELIVERY (test code=NICOL) Vent ABG VENT MODE (test code=MODEA) PRESSURE CONTROL ABG PATIENT RESP RATE (test code=RRPATA) 25 /MIN 12-20 ABG VENT RESP RATE (test code=RRA) 25 /MIN ABG PEEP (test code=PEEP) 8 cmH2O METHEMOGLOBIN (test code=METHGB) % 0-1.5 THROMBOPLASTIN TIME [id number] 04:19:00* Test Item Value Reference Range Comments THROMBOPLASTIN TIME PARTIAL (test code=PTT) 50.2 SECONDS 26.0-35.9 INTERPRETATIVE DATA:Therapeutic range: Unfractionated heparin:47 - 71 seconds Argatroban:1.5 to 3 times the baseline PTT CBC W/AUTO [id number] 04:10:00* Test Item Value Reference Range Comments WHITE BLOOD CELL (test code=WBC) 32.1 x10 3/uL 4.8-10.8 RED BLOOD CELL (test code=RBC) 3.76 x10 6/uL 4.70-6.10 HEMOGLOBIN (test code=HGB) 11.6 g/dL 14.5-20 HEMATOCRIT (test code=HCT) 36.4 % 42.0-52.0 MEAN CELL VOLUME (test code=MCV) 96.8 fL 80.0-94.0 MEAN CELL HGB (test code=MCH) 30.9 pg 27-31 MEAN CELL HGB CONCENTRATION (test code=MCHC) 31.9 G/DL 33-36.5 RED CELL DISTRIBUTION WIDTH (test code=RDW) 15.1 % 12.9-16.9 PLATELET COUNT (test code=PLT) 137 150-440 MEAN PLATELET VOLUME (test code=MPV) 12.3 fL 8.9-12.4 NEUTROPHIL % (test code=NT%) 73.2 % 42.2-75.2 LYMPHOCYTE % (test code=LY%) 8.0 % 20.5-51.1 MONOCYTE % (test code=MO%) 5.6 % 1.7-9.3 EOSINOPHIL % (test code=EO%) 0.1 % 0.0-7.0 BASOPHIL % (test code=BA%) 0.3 % 0-2.5 NEUTROPHIL # (test code=NT#) 23.48 x10 3/uL 1.80-7.70 LYMPHOCYTE # (test code=LY#) 2.58 x10 3/uL 1.00-4.80 MONOCYTE # (test code=MO#) 1.80 x10 3/uL 0.00-0.80 EOSINOPHIL # (test code=EO#) 0.02 x10 3/uL 0.00-0.45 BASOPHIL # (test code=BA#) 0.09 x10 3/uL 0.0-0.20 BASIC METABOLIC [id number] 00:33:00* Test Item Value Reference Range Comments SODIUM (test code=NA) 135 MMOL/L 136-143 POTASSIUM (test code=K) 5.2 MMOL/L 3.5-5.1 CHLORIDE (test code=CL) 99 MMOL/L 98-107 CARBON DIOXIDE (test code=CO2) 24 mmol/L 24-31 GLUCOSE (test code=GLU) 125 mg/dL 70-104 BLOOD UREA NITROGEN (test code=BUN) 31.8 MG/DL 7.0-21.0 GLOMERULAR FILTRATION RATE (test code=GFR) 30 >60 The estimated glomerular filtration rate is computed usingpatient race, age (>18), sex, and serum creatinine. If anyof the needed data elements are missing the Laboratory cannot compute an estimation of the glomerular filtration rate. CREATININE (test code=CREAT) 2.5 mg/dL 0.8-1.5 CALCIUM (test code=CA) 7.8 mg/dL 8.8-10.2 [id number] 00:33:00* Test Item Value Reference Range Comments PHOSPHOROUS (test code=PHOS) 3.1 mg/dL 2.7-4.5 [id number] 00:33:00* Test Item Value Reference Range Comments MAGNESIUM (test code=MAG) 2.6 mg/dL 1.4-2.6 LACTIC [id number] 00:32:00* Test Item Value Reference Range Comments LACTIC ACID (test code=LACT) 19.1 mg/dL 4.5-18.0 Critical Value reported toFirst Name:AMANDEEP Last Name:ELBA READ BACK AND VERIFIEDby GEORGINA, on 09/07/19, @ 0032. THROMBOPLASTIN TIME [id number] 00:31:00* Test Item Value Reference Range Comments THROMBOPLASTIN TIME PARTIAL (test code=PTT) 58.4 SECONDS 26.0-35.9 INTERPRETATIVE DATA:Therapeutic range: Unfractionated heparin:47 - 71 seconds Argatroban:1.5 to 3 times the baseline PTT CALCIUM [id number] 00:27:00* Test Item Value Reference Range Comments CALCIUM IONIZED (test code=YVON) 1.11 mmol/L 1.1-1.3 HGB [id number] 00:16:00* Test Item Value Reference Range Comments HEMOGLOBIN (test code=HGB) 12.2 g/dL 14.5-20 HEMATOCRIT (test code=HCT) 38.6 % 42.0-52.0 ARTERIAL BLOOD [id number] 23:08:00* Test Item Value Reference Range Comments ARTERIAL BLOOD GAS PH (test code=PHA) 7.37 7.35-7.45 ARTERIAL BLOOD GAS PCO2 (test code=PCO2A) 40.2 mmHg 35.0-45.0 ARTERIAL BLOOD GAS PO2 (test code=PO2A) 176.8 mmHg 80.0-95.0 BICARBONATE TOTAL HCO3 (test code=HCO3) 22.5 mmol/L 22.0-24.0 BASE EXCESS (test code=KIZZY) 2.6 mmol/L (+/-)2.0 ABG O2 SATURATION (test code=SATA) 98.6 % 95.0-100.0 ABG TYPE (test code=TYPEA) VENTILATOR ARTERIAL FIO2 (test code=FIO2A) 40 % ABG DELIVERY (test code=NICOL) Vent ABG VENT MODE (test code=MODEA) PRESSURE CONTROL ABG PATIENT RESP RATE (test code=RRPATA) 25 /MIN 12-20 ABG VENT RESP RATE (test code=RRA) 25 /MIN ABG PEEP (test code=PEEP) 10 cmH2O ABG SITE (test code=SITEA) Art line ALLENS TEST (test code=ALLENS) NOT APPLICAPLE METHEMOGLOBIN (test code=METHGB) % 0-1.5 ARTERIAL BLOOD [id number] 20:42:00* Test Item Value Reference Range Comments ARTERIAL BLOOD GAS PH (test code=PHA) 7.31 7.35-7.45 ARTERIAL BLOOD GAS PCO2 (test code=PCO2A) 49.0 mmHg 35.0-45.0 ARTERIAL BLOOD GAS PO2 (test code=PO2A) 399.5 mmHg 80.0-95.0 Critical Value reported toFirst Name:KATHERYN Last Name:ANOOP READ BACK AND VERIFIEDby P.RCS.HTN, on 09/06/19, @ 2039. BICARBONATE TOTAL HCO3 (test code=HCO3) 24.2 mmol/L 22.0-24.0 BASE EXCESS (test code=KIZZY) 2.4 mmol/L (+/-)2.0 ABG O2 SATURATION (test code=SATA) 99.2 % 95.0-100.0 ABG TYPE (test code=TYPEA) VENTILATOR ARTERIAL FIO2 (test code=FIO2A) 60 % ABG DELIVERY (test code=NICOL) Vent ABG VENT MODE (test code=MODEA) PC ABG VENT RESP RATE (test code=RRA) 25 /MIN ABG PEEP (test code=PEEP) 10 cmH2O ABG SITE (test code=SITEA) Art line ALLENS TEST (test code=ALLENS) NOT APPLICAPLE METHEMOGLOBIN (test code=METHGB) % 0-1.5 LACTIC DEHYDROGENASE(LDH)2019-09-06 20:30:00* Test Item Value Reference Range Comments LACTIC DEHYDROGENASE(LDH) (test code=LDH) 506 U/L 135-225 BASIC METABOLIC [id number] 20:24:00* Test Item Value Reference Range Comments SODIUM (test code=NA) 135 MMOL/L 136-143 POTASSIUM (test code=K) 5.2 MMOL/L 3.5-5.1 CHLORIDE (test code=CL) 101 MMOL/L 98-107 CARBON DIOXIDE (test code=CO2) 25 mmol/L 24-31 GLUCOSE (test code=GLU) 119 mg/dL 70-104 BLOOD UREA NITROGEN (test code=BUN) 32.7 MG/DL 7.0-21.0 GLOMERULAR FILTRATION RATE (test code=GFR) 28 >60 The estimated glomerular filtration rate is computed usingpatient race, age (>18), sex, and serum creatinine. If anyof the needed data elements are missing the Laboratory cannot compute an estimation of the glomerular filtration rate. CREATININE (test code=CREAT) 2.7 mg/dL 0.8-1.5 CALCIUM (test code=CA) 8.7 mg/dL 8.8-10.2 [id number] 20:24:00* Test Item Value Reference Range Comments PHOSPHOROUS (test code=PHOS) 4.1 mg/dL 2.7-4.5 [id number] 20:24:00* Test Item Value Reference Range Comments MAGNESIUM (test code=MAG) 2.6 mg/dL 1.4-2.6 LACTIC [id number] 20:24:00* Test Item Value Reference Range Comments LACTIC ACID (test code=LACT) 16.2 mg/dL 4.5-18.0 ARTERIAL BLOOD [id number] 20:20:00* Test Item Value Reference Range Comments ARTERIAL BLOOD GAS PH (test code=PHA) 7.28 7.35-7.45 ARTERIAL BLOOD GAS PCO2 (test code=PCO2A) 50.2 mmHg 35.0-45.0 ARTERIAL BLOOD GAS PO2 (test code=PO2A) 388.8 mmHg 80.0-95.0 Critical Value reported toFirst Name:KATHERYN Last Name:NAKITACHARXENIA READ BACK AND VERIFIEDby PROBINHTN, on 09/06/19, @ 2011. BICARBONATE TOTAL HCO3 (test code=HCO3) 23.3 mmol/L 22.0-24.0 BASE EXCESS (test code=KIZZY) 3.8 mmol/L (+/-)2.0 ABG O2 SATURATION (test code=SATA) 99.1 % 95.0-100.0 ABG TYPE (test code=TYPEA) VENTILATOR ARTERIAL FIO2 (test code=FIO2A) 60 % ABG DELIVERY (test code=NICOL) Vent ABG VENT MODE (test code=MODEA) PRESSURE CONTROL ABG PATIENT RESP RATE (test code=RRPATA) 25 /MIN 12-20 ABG VENT RESP RATE (test code=RRA) 25 /MIN ABG PEEP (test code=PEEP) 10 cmH2O ABG SITE (test code=SITEA) Art line ALLENS TEST (test code=ALLENS) NOT APPLICAPLE METHEMOGLOBIN (test code=METHGB) % 0-1.5 THROMBOPLASTIN TIME [id number] 20:15:00* Test Item Value Reference Range Comments THROMBOPLASTIN TIME PARTIAL (test code=PTT) 90.0 SECONDS 26.0-35.9 INTERPRETATIVE DATA:Therapeutic range: Unfractionated heparin:47 - 71 seconds Argatroban:1.5 to 3 times the baseline PTT Spec Comments: ON HEPARIN DRIPHGB [id number] 20:08:00* Test Item Value Reference Range Comments HEMOGLOBIN (test code=HGB) 13.0 g/dL 14.5-20 HEMATOCRIT (test code=HCT) 41.3 % 42.0-52.0 ARTERIAL BLOOD [id number] 18:53:00* Test Item Value Reference Range Comments ARTERIAL BLOOD GAS PH (test code=PHA) 7.29 7.35-7.45 ARTERIAL BLOOD GAS PCO2 (test code=PCO2A) 47.1 mmHg 35.0-45.0 ARTERIAL BLOOD GAS PO2 (test code=PO2A) 100.4 mmHg 80.0-95.0 BICARBONATE TOTAL HCO3 (test code=HCO3) 22.0 mmol/L 22.0-24.0 BASE EXCESS (test code=KIZZY) -4.7 mmol/L (+/-)2.0 ABG O2 SATURATION (test code=SATA) 97.0 % 95.0-100.0 ABG TYPE (test code=TYPEA) VENTILATOR ARTERIAL FIO2 (test code=FIO2A) 100 % ABG VENT MODE (test code=MODEA) AC Pressure ABG PATIENT RESP RATE (test code=RRPATA) 25 /MIN 12-20 ABG VENT RESP RATE (test code=RRA) 25 /MIN ABG PEEP (test code=PEEP) 10 cmH2O ABG SITE (test code=SITEA) Art line ABG POSITION (test code=PT POSITION) SF ALLENS TEST (test code=ALLENS) NA TOTAL HGB (test code=THB) 14.2 g/dL 13.0-17.0 METHEMOGLOBIN (test code=METHGB) 1.2 % 0-1.5 PROTEIN ELECTROPHORESIS [id number] 18:08:00* Test Item Value Reference Range Comments TOTAL PROTEIN (test code=PROTE) 7.1 g/dL 6.0-8.5 ALBUMIN (test code=ALBE) 2.7 g/dL 2.9-4.4 [id number] (test code=A1G) 0.4 g/dL 0.0-0.4 OSEDB-5-MJLDRUXN (test code=A2G) 1.4 g/dL 0.4-1.0 BETA GLOBULIN (test code=BG) 1.0 g/dL 0.7-1.3 GAMMA GLOBULIN (test code=GG) 1.7 g/dL 0.4-1.8 M-SPIKE,SERUM (test code=MSPIKES) Not Observed g/dL Not Observed GLOBULIN ELECT (test code=GLOBE) 4.4 g/dL 2.2-3.9 ALBUMIN/GLOBULIN RATIO (test code=AGE) 0.6 0.7-1.7 PROT ELECT INTERP (test code=ELEINT) Comment () The SPE pattern appears to be compatible with a chronicinflammatory response. This pattern has been observed inchronic infectious disease, connective tissue disease,hepatic disease, allergy and malignancy. The increase ingamma globulin appears polyclonal. Evidence of monoclonalprotein is not apparent.Performed At: [facility] [id number] [place], [place] [id number] Kyle L MD Ph:[phone] At: DA [facility] [id number] [facility] [address] [place], [place] [id number] CN MD Ph:[phone] ARTERIAL BLOOD [id number] 17:46:00* Test Item Value Reference Range Comments ARTERIAL BLOOD GAS PH (test code=PHA) 7.28 7.35-7.45 ARTERIAL BLOOD GAS PCO2 (test code=PCO2A) 53.1 mmHg 35.0-45.0 ARTERIAL BLOOD GAS PO2 (test code=PO2A) 190.8 mmHg 80.0-95.0 BICARBONATE TOTAL HCO3 (test code=HCO3) 24.1 mmol/L 22.0-24.0 BASE EXCESS (test code=KIZZY) -3.4 mmol/L (+/-)2.0 ABG O2 SATURATION (test code=SATA) 98.8 % 95.0-100.0 ABG TYPE (test code=TYPEA) VENTILATOR ARTERIAL FIO2 (test code=FIO2A) 100 % ABG VENT MODE (test code=MODEA) AC Pressure ABG PATIENT RESP RATE (test code=RRPATA) 25 /MIN 12-20 ABG VENT RESP RATE (test code=RRA) 25 /MIN ABG PEEP (test code=PEEP) 10 cmH2O ABG SITE (test code=SITEA) Art line ABG POSITION (test code=PT POSITION) SF ALLENS TEST (test code=ALLENS) NA TOTAL HGB (test code=THB) 14.5 g/dL 13.0-17.0 METHEMOGLOBIN (test code=METHGB) 1.4 % 0-1.5 LACTIC [id number] 16:34:00* Test Item Value Reference Range Comments LACTIC ACID (test code=LACT) 30.5 mg/dL 4.5-18.0 Critical Value reported toFirst Name:ANSELMO Last Name:ABEREOGRESULTS READ BACK AND VERIFIEDby P.LAB., on 09/06/19, @ 1323. BASIC METABOLIC [id number] 16:33:00* Test Item Value Reference Range Comments SODIUM (test code=NA) 134 MMOL/L 136-143 POTASSIUM (test code=K) 4.7 MMOL/L 3.5-5.1 CHLORIDE (test code=CL) 100 MMOL/L 98-107 CARBON DIOXIDE (test code=CO2) 23 mmol/L 24-31 GLUCOSE (test code=GLU) 95 mg/dL 70-104 BLOOD UREA NITROGEN (test code=BUN) 32.0 MG/DL 7.0-21.0 GLOMERULAR FILTRATION RATE (test code=GFR) 30 >60 The estimated glomerular filtration rate is computed usingpatient race, age (>18), sex, and serum creatinine. If anyof the needed data elements are missing the Laboratory cannot compute an estimation of the glomerular filtration rate. CREATININE (test code=CREAT) 2.5 mg/dL 0.8-1.5 CALCIUM (test code=CA) 9.5 mg/dL 8.8-10.2 THROMBOPLASTIN TIME [id number] 16:33:00* Test Item Value Reference Range Comments THROMBOPLASTIN TIME PARTIAL (test code=PTT) 52.6 SECONDS 26.0-35.9 INTERPRETATIVE DATA:Therapeutic range: Unfractionated heparin:47 - 71 seconds Argatroban:1.5 to 3 times the baseline PTT CBC W/AUTO [id number] 16:25:00* Test Item Value Reference Range Comments WHITE BLOOD CELL (test code=WBC) 33.4 x10 3/uL 4.8-10.8 DIFF WAS DONE ON 09/06 RED BLOOD CELL (test code=RBC) 4.36 x10 6/uL 4.70-6.10 HEMOGLOBIN (test code=HGB) 13.5 g/dL 14.5-20 HEMATOCRIT (test code=HCT) 42.7 % 42.0-52.0 MEAN CELL VOLUME (test code=MCV) 97.9 fL 80.0-94.0 MEAN CELL HGB (test code=MCH) 31.0 pg 27-31 MEAN CELL HGB CONCENTRATION (test code=MCHC) 31.6 G/DL 33-36.5 RED CELL DISTRIBUTION WIDTH (test code=RDW) 15.0 % 12.9-16.9 PLATELET COUNT (test code=PLT) 139 150-440 MEAN PLATELET VOLUME (test code=MPV) 12.0 fL 8.9-12.4 NEUTROPHIL % (test code=NT%) 78.7 % 42.2-75.2 LYMPHOCYTE % (test code=LY%) 5.5 % 20.5-51.1 MONOCYTE % (test code=MO%) 6.2 % 1.7-9.3 EOSINOPHIL % (test code=EO%) 0.0 % 0.0-7.0 BASOPHIL % (test code=BA%) 0.3 % 0-2.5 NEUTROPHIL # (test code=NT#) 26.30 x10 3/uL 1.80-7.70 LYMPHOCYTE # (test code=LY#) 1.83 x10 3/uL 1.00-4.80 MONOCYTE # (test code=MO#) 2.06 x10 3/uL 0.00-0.80 EOSINOPHIL # (test code=EO#) 0.00 x10 3/uL 0.00-0.45 BASOPHIL # (test code=BA#) 0.10 x10 3/uL 0.0-0.20 CALCIUM [id number] 16:13:00* Test Item Value Reference Range Comments CALCIUM IONIZED (test code=YVON) 1.29 mmol/L 1.1-1.3 ARTERIAL BLOOD [id number] 15:43:00* Test Item Value Reference Range Comments ARTERIAL BLOOD GAS PH (test code=PHA) 7.31 7.35-7.45 ARTERIAL BLOOD GAS PCO2 (test code=PCO2A) 45.3 mmHg 35.0-45.0 ARTERIAL BLOOD GAS PO2 (test code=PO2A) 49.9 mmHg 80.0-95.0 BICARBONATE TOTAL HCO3 (test code=HCO3) 22.6 mmol/L 22.0-24.0 BASE EXCESS (test code=KIZZY) -3.6 mmol/L (+/-)2.0 ABG O2 SATURATION (test code=SATA) 82.5 % 95.0-100.0 ABG TYPE (test code=TYPEA) VENTILATOR ARTERIAL FIO2 (test code=FIO2A) 80 % ABG VENT MODE (test code=MODEA) AC Pressure ABG PATIENT RESP RATE (test code=RRPATA) 28 /MIN 12-20 ABG VENT RESP RATE (test code=RRA) 28 /MIN ABG PEEP (test code=PEEP) 10 cmH2O ABG SITE (test code=SITEA) Art line ABG POSITION (test code=PT POSITION) SF ALLENS TEST (test code=ALLENS) NA TOTAL HGB (test code=THB) 14.3 g/dL 13.0-17.0 METHEMOGLOBIN (test code=METHGB) 1.2 % 0-1.5 [id number] 15:21:00* Test Item Value Reference Range Comments GLUBED (test code=GLUBED) 113 MG/DL 70-105 [id number] 15:21:00* Test Item Value Reference Range Comments GLUBED (test code=GLUBED) 118 MG/DL 70-105 [id number] 15:21:00* Test Item Value Reference Range Comments GLUBED (test code=GLUBED) 122 MG/DL 70-105 [id number] 15:21:00* Test Item Value Reference Range Comments GLUBED (test code=GLUBED) 141 MG/DL 70-105 CALCIUM [id number] 14:33:00* Test Item Value Reference Range Comments CALCIUM IONIZED (test code=YVON) 1.20 mmol/L 1.1-1.3 ARTERIAL BLOOD [id number] 14:32:00* Test Item Value Reference Range Comments ARTERIAL BLOOD GAS PH (test code=PHA) 7.33 7.35-7.45 ARTERIAL BLOOD GAS PCO2 (test code=PCO2A) 41.3 mmHg 35.0-45.0 ARTERIAL BLOOD GAS PO2 (test code=PO2A) 50.6 mmHg 80.0-95.0 BICARBONATE TOTAL HCO3 (test code=HCO3) 21.2 mmol/L 22.0-24.0 BASE EXCESS (test code=KIZZY) -4.4 mmol/L (+/-)2.0 ABG O2 SATURATION (test code=SATA) 83.6 % 95.0-100.0 ABG TYPE (test code=TYPEA) VENTILATOR ARTERIAL FIO2 (test code=FIO2A) 60 % ABG VENT MODE (test code=MODEA) AC Pressure ABG PATIENT RESP RATE (test code=RRPATA) 28 /MIN 12-20 ABG VENT RESP RATE (test code=RRA) 28 /MIN ABG PEEP (test code=PEEP) 10 cmH2O ABG SITE (test code=SITEA) Art line ABG POSITION (test code=PT POSITION) SF ALLENS TEST (test code=ALLENS) NA TOTAL HGB (test code=THB) 14.2 g/dL 13.0-17.0 METHEMOGLOBIN (test code=METHGB) 1.2 % 0-1.5 CBC W/MANUAL [id number] 13:56:00* Test Item Value Reference Range Comments WHITE BLOOD CELL (test code=WBC) 32.8 x10 3/uL 4.8-10.8 RED BLOOD CELL (test code=RBC) 4.28 x10 6/uL 4.70-6.10 HEMOGLOBIN (test code=HGB) 13.3 g/dL 14.5-20 HEMATOCRIT (test code=HCT) 42.0 % 42.0-52.0 MEAN CELL VOLUME (test code=MCV) 98.1 fL 80.0-94.0 MEAN CELL HGB (test code=MCH) 31.1 pg 27-31 MEAN CELL HGB CONCENTRATION (test code=MCHC) 31.7 G/DL 33-36.5 RED CELL DISTRIBUTION WIDTH (test code=RDW) 15.1 % 12.9-16.9 PLATELET COUNT (test code=PLT) 139 150-440 MEAN PLATELET VOLUME (test code=MPV) 12.1 fL 8.9-12.4 TOTAL CELLS COUNTED (test code=TCC) 100 #CELLS SEGMENTED NEUTROPHILS (test code=SEG) 89 % 43-65 BAND NEUTROPHIL (test code=BAND) 1 % 0-1 LYMPHOCYTE (test code=LYMPH) 5 % 20.5-45.5 MONOCYTE (test code=MON) 4 % 5.5-11.7 METAMYELOCYTE (test code=META) 1 % 0-0 HYPOCHROMIA (test code=HYPO) 1+ NONE SEEN CBC W/MANUAL [id number] 13:50:00* Test Item Value Reference Range Comments WHITE BLOOD CELL (test code=WBC) 28.9 x10 3/uL 4.8-10.8 RED BLOOD CELL (test code=RBC) 4.95 x10 6/uL 4.70-6.10 HEMOGLOBIN (test code=HGB) 15.5 g/dL 14.5-20 HEMATOCRIT (test code=HCT) 48.8 % 42.0-52.0 MEAN CELL VOLUME (test code=MCV) 98.6 fL 80.0-94.0 MEAN CELL HGB (test code=MCH) 31.3 pg 27-31 MEAN CELL HGB CONCENTRATION (test code=MCHC) 31.8 G/DL 33-36.5 RED CELL DISTRIBUTION WIDTH (test code=RDW) 15.1 % 12.9-16.9 PLATELET COUNT (test code=PLT) 160 150-440 MEAN PLATELET VOLUME (test code=MPV) 11.7 fL 8.9-12.4 TOTAL CELLS COUNTED (test code=TCC) 100 #CELLS SEGMENTED NEUTROPHILS (test code=SEG) 85 % 43-65 LYMPHOCYTE (test code=LYMPH) 4 % 20.5-45.5 MONOCYTE (test code=MON) 11 % 5.5-11.7 BASIC METABOLIC [id number] 13:36:00* Test Item Value Reference Range Comments SODIUM (test code=NA) 134 MMOL/L 136-143 POTASSIUM (test code=K) 4.7 MMOL/L 3.5-5.1 CHLORIDE (test code=CL) 104 MMOL/L 98-107 CARBON DIOXIDE (test code=CO2) 19 mmol/L 24-31 GLUCOSE (test code=GLU) 137 mg/dL 70-104 BLOOD UREA NITROGEN (test code=BUN) 31.7 MG/DL 7.0-21.0 GLOMERULAR FILTRATION RATE (test code=GFR) 29 >60 The estimated glomerular filtration rate is computed usingpatient race, age (>18), sex, and serum creatinine. If anyof the needed data elements are missing the Laboratory cannot compute an estimation of the glomerular filtration rate. CREATININE (test code=CREAT) 2.6 mg/dL 0.8-1.5 CALCIUM (test code=CA) 12.5 mg/dL 8.8-10.2 Critical Value reported toFirst Name:ELSIE Last Name:TERRIXENIA READ BACK AND VERIFIEDby MICHELET, on 09/06/19, @ 5393. LIVER FUNCTION [id number] 13:36:00* Test Item Value Reference Range Comments TOTAL PROTEIN (test code=PROT) 6.0 g/dL 6.3-8.3 ALBUMIN (test code=ALB) 2.6 G/DL 3.5-5.0 BILIRUBIN TOTAL (test code=BILT) 0.8 mg/dL 0.2-1.0 BILIRUBIN DIRECT (test code=BILD) 0.4 mg/dL 0.0-0.2 SGOT/AST (test code=AST) 91 IU/L 10-34 SGPT/ALT (test code=ALT) 57 U/L 10-44 ALKALINE PHOSPHATASE (test code=ALKP) 120 U/L 45-120 [id number] 13:36:00* Test Item Value Reference Range Comments PHOSPHOROUS (test code=PHOS) 4.5 mg/dL 2.7-4.5 [id number] 13:36:00* Test Item Value Reference Range Comments MAGNESIUM (test code=MAG) 2.5 mg/dL 1.4-2.6 LACTIC [id number] 13:14:00* Test Item Value Reference Range Comments LACTIC ACID (test code=LACT) 28.6 mg/dL 4.5-18.0 Critical Value reported toFirst Name:DANE Last Name:ALFREDA READ BACK AND VERIFIEDby PAimeLABSEAN, on 09/06/19, @ 1860. THROMBOPLASTIN TIME [id number] 12:44:00* Test Item Value Reference Range Comments THROMBOPLASTIN TIME PARTIAL (test code=PTT) 70.5 SECONDS 26.0-35.9 INTERPRETATIVE DATA:Therapeutic range: Unfractionated heparin:47 - 71 seconds Argatroban:1.5 to 3 times the baseline PTT ARTERIAL BLOOD [id number] 12:41:00* Test Item Value Reference Range Comments ARTERIAL BLOOD GAS PH (test code=PHA) 7.27 7.35-7.45 ARTERIAL BLOOD GAS PCO2 (test code=PCO2A) 42.2 mmHg 35.0-45.0 ARTERIAL BLOOD GAS PO2 (test code=PO2A) 513.4 mmHg 80.0-95.0 Critical Value reported toFirst Name:ELLA Last Name:URIAH READ BACK AND VERIFIEDby PANGY, on 09/06/19, @ 0272. BICARBONATE TOTAL HCO3 (test code=HCO3) 19.1 mmol/L 22.0-24.0 BASE EXCESS (test code=KIZZY) -7.4 mmol/L (+/-)2.0 ABG O2 SATURATION (test code=SATA) 99.3 % 95.0-100.0 ARTERIAL FIO2 (test code=FIO2A) 100 % ABG L/M (test code=L/M) 4 L/MIN TOTAL HGB (test code=THB) 13.7 g/dL 13.0-17.0 METHEMOGLOBIN (test code=METHGB) 1.1 % 0-1.5 DRAWN ON ECMOARTERIAL BLOOD [id number] 12:37:00* Test Item Value Reference Range Comments ARTERIAL BLOOD GAS PH (test code=PHA) 7.32 7.35-7.45 ARTERIAL BLOOD GAS PCO2 (test code=PCO2A) 37.0 mmHg 35.0-45.0 ARTERIAL BLOOD GAS PO2 (test code=PO2A) 63.7 mmHg 80.0-95.0 BICARBONATE TOTAL HCO3 (test code=HCO3) 18.8 mmol/L 22.0-24.0 BASE EXCESS (test code=KIZZY) -6.5 mmol/L (+/-)2.0 ABG O2 SATURATION (test code=SATA) 91.4 % 95.0-100.0 ABG TYPE (test code=TYPEA) VENTILATOR ARTERIAL FIO2 (test code=FIO2A) 100 % ABG VENT MODE (test code=MODEA) AC Pressure ABG PATIENT RESP RATE (test code=RRPATA) 27 /MIN 12-20 ABG VENT RESP RATE (test code=RRA) 27 /MIN ABG PEEP (test code=PEEP) 20 cmH2O ABG SITE (test code=SITEA) Art line ALLENS TEST (test code=ALLENS) NA TOTAL HGB (test code=THB) 14.5 g/dL 13.0-17.0 METHEMOGLOBIN (test code=METHGB) 1.1 % 0-1.5 CBC W/MANUAL [id number] 12:37:00* Test Item Value Reference Range Comments WHITE BLOOD CELL (test code=WBC) 32.8 x10 3/uL 4.8-10.8 RED BLOOD CELL (test code=RBC) 4.28 x10 6/uL 4.70-6.10 HEMOGLOBIN (test code=HGB) 13.3 g/dL 14.5-20 HEMATOCRIT (test code=HCT) 42.0 % 42.0-52.0 MEAN CELL VOLUME (test code=MCV) 98.1 fL 80.0-94.0 MEAN CELL HGB (test code=MCH) 31.1 pg 27-31 MEAN CELL HGB CONCENTRATION (test code=MCHC) 31.7 G/DL 33-36.5 RED CELL DISTRIBUTION WIDTH (test code=RDW) 15.1 % 12.9-16.9 PLATELET COUNT (test code=PLT) 139 150-440 MEAN PLATELET VOLUME (test code=MPV) 12.1 fL 8.9-12.4 TOTAL CELLS COUNTED (test code=TCC) #CELLS SEGMENTED NEUTROPHILS (test code=SEG) % 43-65 LYMPHOCYTE (test code=LYMPH) % 20.5-45.5 CBC W/MANUAL [id number] 12:37:00* Test Item Value Reference Range Comments WHITE BLOOD CELL (test code=WBC) 32.8 x10 3/uL 4.8-10.8 RED BLOOD CELL (test code=RBC) 4.28 x10 6/uL 4.70-6.10 HEMOGLOBIN (test code=HGB) 13.3 g/dL 14.5-20 HEMATOCRIT (test code=HCT) 42.0 % 42.0-52.0 MEAN CELL VOLUME (test code=MCV) 98.1 fL 80.0-94.0 MEAN CELL HGB (test code=MCH) 31.1 pg 27-31 MEAN CELL HGB CONCENTRATION (test code=MCHC) 31.7 G/DL 33-36.5 RED CELL DISTRIBUTION WIDTH (test code=RDW) 15.1 % 12.9-16.9 PLATELET COUNT (test code=PLT) 139 150-440 MEAN PLATELET VOLUME (test code=MPV) 12.1 fL 8.9-12.4 TOTAL CELLS COUNTED (test code=TCC) #CELLS SEGMENTED NEUTROPHILS (test code=SEG) % 43-65 LYMPHOCYTE (test code=LYMPH) % 20.5-45.5 - XR ABDOMEN [id number] 12:26:00Patient Name: MILY MOSHER Unit No: [id number] EXAMS: CPT CODE: [id number] XR ABDOMEN 1V [id number] Indication: SURGERY PER MD ORDER Abdomen 1 view: FINDINGS: AP supine view of the abdomen obtained. Location: W1 Comparison: There are no prior studies available for comparison. There is scattered air and a small amount of stool in the colon. There is no bowel dilatation and there are no abnormal air fluid levels. There is no free air or obvious ascites. There is no obvious organomegaly or mass effect. No definite abnormal calcifications are seen. The bony structures are unremarkable. Long vascular stent extends from the IVC to the left common femoral. Short stent extends from the right common femoral to the right common iliac region. No radiopaque foreign body is seen. IMPRESSION: 1. Normal bowel gas pattern. at 1226 Reported and signed by: Marcos Wilkinson MD CC: William Hatfield MD; Yasmany Byrnes MD Technologist: Presley Fulton Time: DAP (Gy m2): Air Kerma (mGy): Trscr Dt/Tm: 09/06/2019 (0118) by:Raj Printed Date/Time: 09/06/2019 (3519) Name: MILY MOSHER [facility] Phys: LUIZMIKY - AlysiaWilliam O [address] : 1975 Age: 44 Sex: [place] [address] Loc: P.0226 1 Exam Date: 09/06/2019 Status: ADM IN PH: FAX: PAGE 1 Signed Report VENOUS BLOOD [id number] 12:13:00* Test Item Value Reference Range Comments VENOUS BLOOD GAS PH (test code=PHV) 7.26 7.35-7.45 VENOUS BLOOD GAS PCO2 (test code=PCO2V) 41.6 mmHg >46 VENOUS BLOOD GAS PO2 (test code=PO2V) 40.6 mmHg >40 VBG HCO3 (test code=HCO3V) 18 meq/L VBG BASE EXCESS (test code=JOANN) -8.3 MMOL/L VENOUS BLOOD GAS O2 SAT (test code=O2SATV) 72 % >75 VENOUS BLOOD GAS FIO2 (test code=FIO2V) 100 % VENOUS BLOOD GAS L/MIN (test code=L/MV) 4 L/min VBG POSITION (test code=POSV) SF A-A GRADIENT (test code=AAGRADE) VENOUS BLOOD [id number] 12:13:00* Test Item Value Reference Range Comments VENOUS BLOOD GAS PH (test code=PHV) 7.26 7.35-7.45 VENOUS BLOOD GAS PCO2 (test code=PCO2V) 41.6 mmHg >46 VENOUS BLOOD GAS PO2 (test code=PO2V) 40.6 mmHg >40 VBG HCO3 (test code=HCO3V) 18 meq/L VBG BASE EXCESS (test code=JOANN) -8.3 MMOL/L VENOUS BLOOD GAS O2 SAT (test code=O2SATV) 72 % >75 VENOUS BLOOD GAS FIO2 (test code=FIO2V) 100 % VENOUS BLOOD GAS L/MIN (test code=L/MV) 4 L/min VBG POSITION (test code=POSV) SF A-A GRADIENT (test code=AAGRADE) - XR CHEST 1 [id number] 12:11:00Patient Name: MILY MOSHER Unit No: [id number] EXAMS: CPT CODE: [id number] XR CHEST 1 V [id number] EXAM: Portable chest one view. Location code:J9 HISTORY: Preoperative COMPARISON: 09/05/2019 Findings: Stable position of ET tube, left IJ catheter, NG tube, and right IJ catheter. The cardiac silhouette is stable in size. Mixed bilateral alveolar and interstitial lung opacities are noted which are improved when compared to the prior exam. No large pleural effusion or pneumothorax. The bones are intact. IMPRESSION: Interval improvement in airspace disease.. at 1211 Reported and signed by: GALINA BAEZ M.D. CC: William Hatfield MD; Yasmany Byrnes MD Technologist: Presley Fulton Time: DAP (Gy m2): Air Kerma (mGy): Trscr Dt/Tm: 09/06/2019 (1211) by:[email or web address] Printed Date/Time: 09/06/2019 (1214) Name: MILY MOSHER [facility] Phys: William Harris [address] : 1975 Age: 44 Sex: [place] [address] Loc: P.0226 1 Exam Date: 09/06/2019 Status: ADM IN PH: FAX: PAGE 1 Signed Report ARTERIAL BLOOD [id number] 09:07:00* Test Item Value Reference Range Comments ARTERIAL BLOOD GAS PH (test code=PHA) 7.14 7.35-7.45 ARTERIAL BLOOD GAS PCO2 (test code=PCO2A) 72.1 mmHg 35.0-45.0 Critical Value reported toFirst Name:ELLA Daniel Name:URIAH READ BACK AND VERIFIEDby CHRISTINE, on 09/06/19, @ 0905. ARTERIAL BLOOD GAS PO2 (test code=PO2A) 75.9 mmHg 80.0-95.0 BICARBONATE TOTAL HCO3 (test code=HCO3) 23.9 mmol/L 22.0-24.0 BASE EXCESS (test code=KIZZY) -6.9 mmol/L (+/-)2.0 ABG O2 SATURATION (test code=SATA) 92.1 % 95.0-100.0 ABG TYPE (test code=TYPEA) VENTILATOR ARTERIAL FIO2 (test code=FIO2A) 100 % ABG VENT MODE (test code=MODEA) AC Pressure ABG PATIENT RESP RATE (test code=RRPATA) 27 /MIN 12-20 ABG VENT RESP RATE (test code=RRA) 27 /MIN ABG PEEP (test code=PEEP) 20 cmH2O ABG SITE (test code=SITEA) Art line ABG POSITION (test code=PT POSITION) SF ALLENS TEST (test code=ALLENS) NA TOTAL HGB (test code=THB) 16.4 g/dL 13.0-17.0 METHEMOGLOBIN (test code=METHGB) 0.8 % 0-1.5 ARTERIAL BLOOD [id number] 09:05:00* Test Item Value Reference Range Comments ARTERIAL BLOOD GAS PH (test code=PHA) 7.14 7.35-7.45 ARTERIAL BLOOD GAS PCO2 (test code=PCO2A) 72.1 mmHg 35.0-45.0 Critical Value reported toFirst Name:ELLA Daniel Name:URIAH READ BACK AND VERIFIEDby CHRISTNIE, on 09/06/19, @ 0905. ARTERIAL BLOOD GAS PO2 (test code=PO2A) mmHg 80.0-95.0 BICARBONATE TOTAL HCO3 (test code=HCO3) mmol/L 22.0-24.0 BASE EXCESS (test code=KIZZY) mmol/L (+/-)2.0 ABG O2 SATURATION (test code=SATA) % 95.0-100.0 METHEMOGLOBIN (test code=METHGB) % 0-1.5 VANCOMYCIN [id number] 07:27:00* Test Item Value Reference Range Comments VANCOMYCIN TROUGH (test code=VANCT) 21.7 mcg/ML 10.0-20.0 THROMBOPLASTIN TIME [id number] 07:19:00* Test Item Value Reference Range Comments THROMBOPLASTIN TIME PARTIAL (test code=PTT) 61.9 SECONDS 26.0-35.9 INTERPRETATIVE DATA:Therapeutic range: Unfractionated heparin:47 - 71 seconds Argatroban:1.5 to 3 times the baseline PTT PROTHROMBIN [id number] 07:18:00* Test Item Value Reference Range Comments PROTHROMBIN TIME PATIENT (test code=PTP) 11.7 SECONDS 10.3-12.9 INTERNATIONAL NORMAL RATIO (test code=INR) 1.01 INR UNIT 0.9-1.11 The INR is useful only for monitoring anticoagulant therapy.It may be unreliable in the initial phase of antigoagulationand in unstable patients. Indication for Anticoagulation Recommended INR 1. Prevention of venous thomboembolism 2.0-3.0in high-risk patients; treatment of venousthrombosis and pulmonary embolism aftera course of heparin; prevention of systemicembolism in a variety of conditions, including atrial fibrillation and prothetic tissue heart valves, 2. Prosthetic mechanical heart valves; 2.5-3.5recurrent systemic embolism. ARTERIAL BLOOD [id number] 06:46:00* Test Item Value Reference Range Comments ARTERIAL BLOOD GAS PH (test code=PHA) 7.15 7.35-7.45 ARTERIAL BLOOD GAS PCO2 (test code=PCO2A) 69.3 mmHg 35.0-45.0 Critical Value reported toFirst Name:KATHERYN Last Name:RESULTS READ BACK AND VERIFIEDby DEMETRIO, on 09/06/19, @ 4952. ARTERIAL BLOOD GAS PO2 (test code=PO2A) 88.6 mmHg 80.0-95.0 BICARBONATE TOTAL HCO3 (test code=HCO3) 23.5 mmol/L 22.0-24.0 BASE EXCESS (test code=KIZZY) -7.0 mmol/L (+/-)2.0 ABG O2 SATURATION (test code=SATA) 94.7 % 95.0-100.0 ARTERIAL FIO2 (test code=FIO2A) 100 % ABG DELIVERY (test code=NICOL) Vent ABG VENT MODE (test code=MODEA) PC 17 ABG PATIENT RESP RATE (test code=RRPATA) 27 /MIN 12-20 ABG VENT RESP RATE (test code=RRA) 27 /MIN ABG PEEP (test code=PEEP) 20 cmH2O ABG SITE (test code=SITEA) Art line ALLENS TEST (test code=ALLENS) NOT APPLICAPLE TOTAL HGB (test code=THB) 16.3 g/dL 13.0-17.0 METHEMOGLOBIN (test code=METHGB) 0.9 % 0-1.5 RENAL FUNCTION [id number] 05:45:00* Test Item Value Reference Range Comments SODIUM (test code=NA) 137 MMOL/L 136-143 POTASSIUM (test code=K) 4.9 MMOL/L 3.5-5.1 CHLORIDE (test code=CL) 97 MMOL/L 98-107 CARBON DIOXIDE (test code=CO2) 20 mmol/L 24-31 GLUCOSE (test code=GLU) 173 mg/dL 70-104 BLOOD UREA NITROGEN (test code=BUN) 34.1 MG/DL 7.0-21.0 GLOMERULAR FILTRATION RATE (test code=GFR) 25 >60 The estimated glomerular filtration rate is computed usingpatient race, age (>18), sex, and serum creatinine. If anyof the needed data elements are missing the Laboratory cannot compute an estimation of the glomerular filtration rate. CREATININE (test code=CREAT) 2.9 mg/dL 0.8-1.5 ALBUMIN (test code=ALB) 3.3 G/DL 3.5-5.0 CALCIUM (test code=CA) 7.5 mg/dL 8.8-10.2 PHOSPHOROUS (test code=PHOS) 6.3 mg/dL 2.7-4.5 [id number] 05:32:00* Test Item Value Reference Range Comments PHOSPHOROUS (test code=PHOS) 6.2 mg/dL 2.7-4.5 [id number] 05:31:00* Test Item Value Reference Range Comments MAGNESIUM (test code=MAG) 3.0 mg/dL 1.4-2.6 CBC W/MANUAL [id number] 05:00:00* Test Item Value Reference Range Comments WHITE BLOOD CELL (test code=WBC) 28.9 x10 3/uL 4.8-10.8 RED BLOOD CELL (test code=RBC) 4.95 x10 6/uL 4.70-6.10 HEMOGLOBIN (test code=HGB) 15.5 g/dL 14.5-20 HEMATOCRIT (test code=HCT) 48.8 % 42.0-52.0 MEAN CELL VOLUME (test code=MCV) 98.6 fL 80.0-94.0 MEAN CELL HGB (test code=MCH) 31.3 pg 27-31 MEAN CELL HGB CONCENTRATION (test code=MCHC) 31.8 G/DL 33-36.5 RED CELL DISTRIBUTION WIDTH (test code=RDW) 15.1 % 12.9-16.9 PLATELET COUNT (test code=PLT) 160 150-440 MEAN PLATELET VOLUME (test code=MPV) 11.7 fL 8.9-12.4 TOTAL CELLS COUNTED (test code=TCC) #CELLS SEGMENTED NEUTROPHILS (test code=SEG) % 43-65 LYMPHOCYTE (test code=LYMPH) % 20.5-45.5 CBC W/MANUAL [id number] 05:00:00* Test Item Value Reference Range Comments WHITE BLOOD CELL (test code=WBC) 28.9 x10 3/uL 4.8-10.8 RED BLOOD CELL (test code=RBC) 4.95 x10 6/uL 4.70-6.10 HEMOGLOBIN (test code=HGB) 15.5 g/dL 14.5-20 HEMATOCRIT (test code=HCT) 48.8 % 42.0-52.0 MEAN CELL VOLUME (test code=MCV) 98.6 fL 80.0-94.0 MEAN CELL HGB (test code=MCH) 31.3 pg 27-31 MEAN CELL HGB CONCENTRATION (test code=MCHC) 31.8 G/DL 33-36.5 RED CELL DISTRIBUTION WIDTH (test code=RDW) 15.1 % 12.9-16.9 PLATELET COUNT (test code=PLT) 160 150-440 MEAN PLATELET VOLUME (test code=MPV) 11.7 fL 8.9-12.4 TOTAL CELLS COUNTED (test code=TCC) #CELLS SEGMENTED NEUTROPHILS (test code=SEG) % 43-65 LYMPHOCYTE (test code=LYMPH) % 20.5-45.5 ARTERIAL BLOOD [id number] 04:28:00* Test Item Value Reference Range Comments ARTERIAL BLOOD GAS PH (test code=PHA) 7.13 7.35-7.45 ARTERIAL BLOOD GAS PCO2 (test code=PCO2A) 75.7 mmHg 35.0-45.0 Critical Value reported toFirst Name:KATHERYN Last Name:RNBRET READ BACK AND VERIFIEDby DEMETRIO, on 09/06/19, @ 0425. ARTERIAL BLOOD GAS PO2 (test code=PO2A) 48.1 mmHg 80.0-95.0 BICARBONATE TOTAL HCO3 (test code=HCO3) 24.7 mmol/L 22.0-24.0 BASE EXCESS (test code=KIZZY) -6.5 mmol/L (+/-)2.0 ABG O2 SATURATION (test code=SATA) 74.5 % 95.0-100.0 ABG TYPE (test code=TYPEA) VENTILATOR ARTERIAL FIO2 (test code=FIO2A) 100 % ABG DELIVERY (test code=NICOL) Vent ABG VENT MODE (test code=MODEA) PC 17 ABG PATIENT RESP RATE (test code=RRPATA) 27 /MIN 12-20 ABG VENT RESP RATE (test code=RRA) 27 /MIN ABG PEEP (test code=PEEP) 15 cmH2O ABG SITE (test code=SITEA) L brach ALLENS TEST (test code=ALLENS) NOT APPLICAPLE TOTAL HGB (test code=THB) 16.5 g/dL 13.0-17.0 METHEMOGLOBIN (test code=METHGB) % 0-1.5 [id number] 04:25:00* Test Item Value Reference Range Comments GLUBED (test code=GLUBED) 136 MG/DL 70-105 [id number] 04:25:00* Test Item Value Reference Range Comments GLUBED (test code=GLUBED) 140 MG/DL 70-105 [id number] 04:25:00* Test Item Value Reference Range Comments GLUBED (test code=GLUBED) 94 MG/DL 70-105 [id number] 04:25:00* Test Item Value Reference Range Comments GLUBED (test code=GLUBED) 42 MG/DL 70-105 [id number] 04:25:00* Test Item Value Reference Range Comments GLUBED (test code=GLUBED) 130 MG/DL 70-105 [id number] 04:25:00* Test Item Value Reference Range Comments GLUBED (test code=GLUBED) 133 MG/DL 70-105 ARTERIAL BLOOD [id number] 01:27:00* Test Item Value Reference Range Comments ARTERIAL BLOOD GAS PH (test code=PHA) 7.20 7.35-7.45 ARTERIAL BLOOD GAS PCO2 (test code=PCO2A) 69.1 mmHg 35.0-45.0 Critical Value reported toFirst Name:LISA Last Name:RNBRET READ BACK AND VERIFIEDby DEMETRIO, on 09/06/19, @ 1024. ARTERIAL BLOOD GAS PO2 (test code=PO2A) 57.6 mmHg 80.0-95.0 BICARBONATE TOTAL HCO3 (test code=HCO3) 26.5 mmol/L 22.0-24.0 BASE EXCESS (test code=KIZZY) -3.4 mmol/L (+/-)2.0 ABG O2 SATURATION (test code=SATA) 83.0 % 95.0-100.0 ABG TYPE (test code=TYPEA) VENTILATOR ARTERIAL FIO2 (test code=FIO2A) 90 % ABG DELIVERY (test code=NICOL) Vent ABG VENT MODE (test code=MODEA) PC 17 ABG PATIENT RESP RATE (test code=RRPATA) 27 /MIN 12-20 ABG VENT RESP RATE (test code=RRA) 27 /MIN ABG PEEP (test code=PEEP) 15 cmH2O ABG SITE (test code=SITEA) Art line TOTAL HGB (test code=THB) 15.9 g/dL 13.0-17.0 METHEMOGLOBIN (test code=METHGB) % 0-1.5 PROTHROMBIN [id number] 01:00:00* Test Item Value Reference Range Comments PROTHROMBIN TIME PATIENT (test code=PTP) 11.9 SECONDS 10.3-12.9 INTERNATIONAL NORMAL RATIO (test code=INR) 1.03 INR UNIT 0.9-1.11 The INR is useful only for monitoring anticoagulant therapy.It may be unreliable in the initial phase of antigoagulationand in unstable patients. Indication for Anticoagulation Recommended INR 1. Prevention of venous thomboembolism 2.0-3.0in high-risk patients; treatment of venousthrombosis and pulmonary embolism aftera course of heparin; prevention of systemicembolism in a variety of conditions, including atrial fibrillation and prothetic tissue heart valves, 2. Prosthetic mechanical heart valves; 2.5-3.5recurrent systemic embolism. THROMBOPLASTIN TIME [id number] 01:00:00* Test Item Value Reference Range Comments THROMBOPLASTIN TIME PARTIAL (test code=PTT) 82.8 SECONDS 26.0-35.9 INTERPRETATIVE DATA:Therapeutic range: Unfractionated heparin:47 - 71 seconds Argatroban:1.5 to 3 times the baseline PTT ARTERIAL BLOOD [id number] 00:13:00* Test Item Value Reference Range Comments ARTERIAL BLOOD GAS PH (test code=PHA) 7.26 7.35-7.45 ARTERIAL BLOOD GAS PCO2 (test code=PCO2A) 57.5 mmHg 35.0-45.0 ARTERIAL BLOOD GAS PO2 (test code=PO2A) 49.6 mmHg 80.0-95.0 BICARBONATE TOTAL HCO3 (test code=HCO3) 25.3 mmol/L 22.0-24.0 BASE EXCESS (test code=KIZZY) -2.8 mmol/L (+/-)2.0 ABG O2 SATURATION (test code=SATA) 79.2 % 95.0-100.0 ABG TYPE (test code=TYPEA) VENTILATOR ARTERIAL FIO2 (test code=FIO2A) 90 % ABG DELIVERY (test code=NICOL) Vent ABG VENT MODE (test code=MODEA) AC Pressure ABG PATIENT RESP RATE (test code=RRPATA) 27 /MIN 12-20 ABG VENT RESP RATE (test code=RRA) 27 /MIN ABG PEEP (test code=PEEP) 12 cmH2O ABG SITE (test code=SITEA) Art line ALLENS TEST (test code=ALLENS) NOT APPLICAPLE TOTAL HGB (test code=THB) 15.8 g/dL 13.0-17.0 METHEMOGLOBIN (test code=METHGB) % 0-1.5 - XR CHEST 1 [id number] 23:36:00Patient Name: MILY MOSHER Unit No: [id number] EXAMS: CPT CODE: [id number] XR CHEST 1 V [id number] AFTER HOURS SERVICE ON: 09/05/2019 11:34 PM AP Portable Chest Location Code M12 HISTORY: Hypoxemia FINDINGS: Study is significantly limited by shallow inspiration. This particularly limits evaluation of the lung bases. There are worsening bilateral alveolar infiltrates compared to the earlier examination 18 hours ago. There is no pneumothorax. Cardiac silhouette is obscured. ETT, NG tube, left IJ catheter and right IJ line are stable. IMPRESSION: Worsening extensive bilateral alveolar infiltrates which are consistent with pneumonia and/or edema. Stable lines and tubes in place. at 2336 Reported and signed by: CORRINE FUENTES M.D. CC: Yasmany Byrnes MD; Rene Cho MD Technologist: Candelaria Fulton Time: DAP (Gy m2): Air Kerma (mGy): Trscr Dt/Tm: 09/05/2019 (4466) by:[email or web address] Printed Date/Time: 09/05/2019 (2265) Name: MILY MOSHER [facility] Phys: Rene Tavera MD [address] : 1975 Age: 44 Sex: [place] [address] Loc: P.0226 1 Exam Date: 09/05/2019 Status: ADM IN PH: FAX: PAGE 1 Signed Report RESPIRATORY VIRUS PANEL [id number] 23:06:00* Test Item Value Reference Range Comments RSV A PCR (test code=RSV A) Negative Negative RSV B PCR (test code=RSV B) Negative Negative INFLUENZA A PCR (test code=FLUAPCR) Positive Negative Positive for Influenza A 2009 H1N1 INFLUENZA B PCR (test code=FLUBPCR) Negative Negative PARAINFLUENZA TYPE 1 PCR (test code=PIF1) Negative Negative PARAINFLUENZA TYPE 2 PCR (test code=PIF2) Negative Negative PARAINFLUENZA TYPE 3 PCR (test code=PIF3) Negative Negative RHINOVIRUS PCR (test code=RHINO) Negative Negative METAPNEUMOVIRUS PCR (test code=METAPNEU) Negative Negative ADENOVIRUS PCR (test code=ADENOPCR) Negative Negative Performed At: [facility] [id number] Beauchamp MD Ph:[phone] ARTERIAL BLOOD [id number] 22:35:00* Test Item Value Reference Range Comments ARTERIAL BLOOD GAS PH (test code=PHA) 7.26 7.35-7.45 ARTERIAL BLOOD GAS PCO2 (test code=PCO2A) 51.5 mmHg 35.0-45.0 ARTERIAL BLOOD GAS PO2 (test code=PO2A) 55.0 mmHg 80.0-95.0 BICARBONATE TOTAL HCO3 (test code=HCO3) 22.4 mmol/L 22.0-24.0 BASE EXCESS (test code=KIZZY) -5.2 mmol/L (+/-)2.0 ABG O2 SATURATION (test code=SATA) 83.5 % 95.0-100.0 ABG TYPE (test code=TYPEA) VENTILATOR ARTERIAL FIO2 (test code=FIO2A) 80 % ABG DELIVERY (test code=NICOL) Vent ABG VENT MODE (test code=MODEA) AC Pressure ABG PATIENT RESP RATE (test code=RRPATA) 27 /MIN 12-20 ABG VENT RESP RATE (test code=RRA) 27 /MIN ABG PEEP (test code=PEEP) 12 cmH2O ABG PRESSURE SUPPORT (test code=PSABG) cmH2O ABG SITE (test code=SITEA) Art line ALLENS TEST (test code=ALLENS) NOT APPLICAPLE TOTAL HGB (test code=THB) 15.2 g/dL 13.0-17.0 METHEMOGLOBIN (test code=METHGB) % 0-1.5 BASIC METABOLIC [id number] 21:00:00* Test Item Value Reference Range Comments SODIUM (test code=NA) 135 MMOL/L 136-143 POTASSIUM (test code=K) 4.6 MMOL/L 3.5-5.1 CHLORIDE (test code=CL) 97 MMOL/L 98-107 CARBON DIOXIDE (test code=CO2) 24 mmol/L 24-31 GLUCOSE (test code=GLU) 151 mg/dL 70-104 BLOOD UREA NITROGEN (test code=BUN) 36.1 MG/DL 7.0-21.0 GLOMERULAR FILTRATION RATE (test code=GFR) 25 >60 The estimated glomerular filtration rate is computed usingpatient race, age (>18), sex, and serum creatinine. If anyof the needed data elements are missing the Laboratory cannot compute an estimation of the glomerular filtration rate. CREATININE (test code=CREAT) 3.0 mg/dL 0.8-1.5 CALCIUM (test code=CA) 8.1 mg/dL 8.8-10.2 [id number] 21:00:00* Test Item Value Reference Range Comments PHOSPHOROUS (test code=PHOS) 3.2 mg/dL 2.7-4.5 [id number] 21:00:00* Test Item Value Reference Range Comments MAGNESIUM (test code=MAG) 2.9 mg/dL 1.4-2.6 CBC W/AUTO [id number] 20:36:00* Test Item Value Reference Range Comments WHITE BLOOD CELL (test code=WBC) 23.7 x10 3/uL 4.8-10.8 RED BLOOD CELL (test code=RBC) 4.69 x10 6/uL 4.70-6.10 HEMOGLOBIN (test code=HGB) 14.6 g/dL 14.5-20 HEMATOCRIT (test code=HCT) 44.9 % 42.0-52.0 MEAN CELL VOLUME (test code=MCV) 95.7 fL 80.0-94.0 MEAN CELL HGB (test code=MCH) 31.1 pg 27-31 MEAN CELL HGB CONCENTRATION (test code=MCHC) 32.5 G/DL 33-36.5 RED CELL DISTRIBUTION WIDTH (test code=RDW) 14.8 % 12.9-16.9 PLATELET COUNT (test code=PLT) 153 150-440 MEAN PLATELET VOLUME (test code=MPV) 11.1 fL 8.9-12.4 NEUTROPHIL % (test code=NT%) 79.5 % 42.2-75.2 LYMPHOCYTE % (test code=LY%) 4.7 % 20.5-51.1 MONOCYTE % (test code=MO%) 9.8 % 1.7-9.3 EOSINOPHIL % (test code=EO%) 0.0 % 0.0-7.0 BASOPHIL % (test code=BA%) 0.6 % 0-2.5 NEUTROPHIL # (test code=NT#) 18.84 x10 3/uL 1.80-7.70 LYMPHOCYTE # (test code=LY#) 1.11 x10 3/uL 1.00-4.80 MONOCYTE # (test code=MO#) 2.32 x10 3/uL 0.00-0.80 EOSINOPHIL # (test code=EO#) 0.00 x10 3/uL 0.00-0.45 BASOPHIL # (test code=BA#) 0.15 x10 3/uL 0.0-0.20 [id number] 20:01:00* Test Item Value Reference Range Comments GLUBED (test code=GLUBED) 139 MG/DL 70-105 [id number] 20:01:00* Test Item Value Reference Range Comments GLUBED (test code=GLUBED) 158 MG/DL 70-105 [id number] 20:01:00* Test Item Value Reference Range Comments GLUBED (test code=GLUBED) 140 MG/DL 70-105 [id number] 20:01:00* Test Item Value Reference Range Comments GLUBED (test code=GLUBED) 123 MG/DL 70-105 [id number] 20:01:00* Test Item Value Reference Range Comments GLUBED (test code=GLUBED) 128 MG/DL 70-105 [id number] 20:01:00* Test Item Value Reference Range Comments GLUBED (test code=GLUBED) 106 MG/DL 70-105 PROCALCITONIN (PCT)2019-09-05 19:35:00* Test Item Value Reference Range Comments PROCALCITONIN (PCT) (test code=PROCAL) 3.26 NG/ML 0.00-0.09 INTERPRETATIVE DATA:HIGH ACUITY INFECTIONS ALGORITHM:(i.e. high risk, severe sepsis, ICU) If PCT concentration <0.25 ng/mL or drops by 90%, stoppingantibiotic therapy is strongly encouraged. If PCT concentration <0.50 ng/mL or drops by 80%, stoppingantibiotic therapy is encouraged. If PCT concentration >0.50 ng/mL, stopping antibiotictherapy is discouraged. If PCT concentration >1.00 ng/mL, stopping antibiotictherapy is strongly discouraged. Consider continuing antibiotics if clinically unstable. MODERATE ACUITY INFECTIONS ALGORITHM:(hospitalized non-ICU patients with respiratory tractinfections or sepsis) If PCT concentration <0.10 ng/mL or drops by 90%, stoppingantibiotic therapy is strongly encouraged. If PCT concentration <0.25 ng/mL or drops by 80%, stoppingantibiotic therapy is encouraged. If PCT concentration >0.25 ng/mL, stopping antibiotictherapy is discouraged. If PCT concentration >0.50 ng/mL, stopping antibiotictherapy is strongly discouraged. Consider continuing antibiotics if clinically unstable. THROMBOPLASTIN TIME [id number] 19:30:00* Test Item Value Reference Range Comments THROMBOPLASTIN TIME PARTIAL (test code=PTT) 44.8 SECONDS 26.0-35.9 INTERPRETATIVE DATA:Therapeutic range: Unfractionated heparin:47 - 71 seconds Argatroban:1.5 to 3 times the baseline PTT ARTERIAL BLOOD [id number] 17:35:00* Test Item Value Reference Range Comments ARTERIAL BLOOD GAS PH (test code=PHA) 7.39 7.35-7.45 ARTERIAL BLOOD GAS PCO2 (test code=PCO2A) 42.5 mmHg 35.0-45.0 ARTERIAL BLOOD GAS PO2 (test code=PO2A) 95.2 mmHg 80.0-95.0 BICARBONATE TOTAL HCO3 (test code=HCO3) 25.4 mmol/L 22.0-24.0 BASE EXCESS (test code=KIZZY) 0.4 mmol/L (+/-)2.0 ABG O2 SATURATION (test code=SATA) 95.4 % 95.0-100.0 ABG TYPE (test code=TYPEA) VENTILATOR ARTERIAL FIO2 (test code=FIO2A) 80 % ABG DELIVERY (test code=NICOL) Vent ABG VENT MODE (test code=MODEA) PCV 17 ABG PATIENT RESP RATE (test code=RRPATA) 27 /MIN 12-20 ABG VENT RESP RATE (test code=RRA) 27 /MIN ABG TIDAL VOLUME (test code=TIDAL VOLUME) 577 ML ABG PEEP (test code=PEEP) 12 cmH2O ABG SITE (test code=SITEA) ART LINE ALLENS TEST (test code=ALLENS) N/A TOTAL HGB (test code=THB) 15.0 g/dL 13.0-17.0 METHEMOGLOBIN (test code=METHGB) 1.1 % 0-1.5 [id number] 16:28:00* Test Item Value Reference Range Comments VANCOMYCIN (test code=VANCO) 10.3 ug/mL 5.0-40.0 ANTINUCLEAR ANTIBODIES [id number] 16:08:00* Test Item Value Reference Range Comments LIYAH SCREEN (test code=ANASCR) Positive () Negative <1:80 Borderline 1:80 Positive >1:80 ANTINUCLEAR ANTIBODIES [id number] 16:08:00* Test Item Value Reference Range Comments LIYAH SCREEN (test code=ANASCR) Positive () Negative <1:80 Borderline 1:80 Positive >1:80 LIYAH HOMOGENEOUS PATTERN (test code=ANAHOM) 1:80 () ARTERIAL BLOOD [id number] 14:16:00* Test Item Value Reference Range Comments ARTERIAL BLOOD GAS PH (test code=PHA) 7.35 7.35-7.45 ARTERIAL BLOOD GAS PCO2 (test code=PCO2A) 42.9 mmHg 35.0-45.0 ARTERIAL BLOOD GAS PO2 (test code=PO2A) 160.0 mmHg 80.0-95.0 BICARBONATE TOTAL HCO3 (test code=HCO3) 23.5 mmol/L 22.0-24.0 BASE EXCESS (test code=KIZZY) -2.1 mmol/L (+/-)2.0 ABG O2 SATURATION (test code=SATA) 97.2 % 95.0-100.0 ABG TYPE (test code=TYPEA) VENTILATOR ARTERIAL FIO2 (test code=FIO2A) 90 % ABG DELIVERY (test code=NICOL) Vent ABG VENT MODE (test code=MODEA) PCV ABG PATIENT RESP RATE (test code=RRPATA) 27 /MIN 12-20 ABG VENT RESP RATE (test code=RRA) 27 /MIN ABG TIDAL VOLUME (test code=TIDAL VOLUME) 480 ML ABG PEEP (test code=PEEP) 15 cmH2O ABG PRESSURE SUPPORT (test code=PSABG) 17 cmH2O ABG SITE (test code=SITEA) ART LINE ALLENS TEST (test code=ALLENS) NA TOTAL HGB (test code=THB) 15.1 g/dL 13.0-17.0 METHEMOGLOBIN (test code=METHGB) 1.0 % 0-1.5 CBC W/MANUAL [id number] 13:42:00* Test Item Value Reference Range Comments WHITE BLOOD CELL (test code=WBC) 19.3 x10 3/uL 4.8-10.8 RED BLOOD CELL (test code=RBC) 4.63 x10 6/uL 4.70-6.10 HEMOGLOBIN (test code=HGB) 14.6 g/dL 14.5-20 HEMATOCRIT (test code=HCT) 44.8 % 42.0-52.0 MEAN CELL VOLUME (test code=MCV) 96.8 fL 80.0-94.0 MEAN CELL HGB (test code=MCH) 31.5 pg 27-31 MEAN CELL HGB CONCENTRATION (test code=MCHC) 32.6 G/DL 33-36.5 RED CELL DISTRIBUTION WIDTH (test code=RDW) 14.7 % 12.9-16.9 PLATELET COUNT (test code=PLT) 207 150-440 MEAN PLATELET VOLUME (test code=MPV) 10.6 fL 8.9-12.4 TOTAL CELLS COUNTED (test code=TCC) 100 #CELLS SEGMENTED NEUTROPHILS (test code=SEG) 85 % 43-65 BAND NEUTROPHIL (test code=BAND) 1 % 0-1 LYMPHOCYTE (test code=LYMPH) 6 % 20.5-45.5 MONOCYTE (test code=MON) 8 % 5.5-11.7 RBC MORPHOLOGY COMMENT (test code=MOC) Normal NORMAL PLATELET MORPHOLOGY (test code=PLTMORPH) NORMAL NORMAL BASIC METABOLIC [id number] 12:01:00* Test Item Value Reference Range Comments SODIUM (test code=NA) 135 MMOL/L 136-143 POTASSIUM (test code=K) 4.8 MMOL/L 3.5-5.1 CHLORIDE (test code=CL) 93 MMOL/L 98-107 CARBON DIOXIDE (test code=CO2) 24 mmol/L 24-31 GLUCOSE (test code=GLU) 170 mg/dL 70-104 BLOOD UREA NITROGEN (test code=BUN) 30.7 MG/DL 7.0-21.0 GLOMERULAR FILTRATION RATE (test code=GFR) 25 >60 The estimated glomerular filtration rate is computed usingpatient race, age (>18), sex, and serum creatinine. If anyof the needed data elements are missing the Laboratory cannot compute an estimation of the glomerular filtration rate. CREATININE (test code=CREAT) 3.0 mg/dL 0.8-1.5 CALCIUM (test code=CA) 7.9 mg/dL 8.8-10.2 [id number] 12:01:00* Test Item Value Reference Range Comments PHOSPHOROUS (test code=PHOS) 4.1 mg/dL 2.7-4.5 [id number] 12:01:00* Test Item Value Reference Range Comments MAGNESIUM (test code=MAG) 2.8 mg/dL 1.4-2.6 THROMBOPLASTIN TIME [id number] 11:59:00* Test Item Value Reference Range Comments THROMBOPLASTIN TIME PARTIAL (test code=PTT) 55.4 SECONDS 26.0-35.9 INTERPRETATIVE DATA:Therapeutic range: Unfractionated heparin:47 - 71 seconds Argatroban:1.5 to 3 times the baseline PTT CBC W/MANUAL [id number] 11:51:00* Test Item Value Reference Range Comments WHITE BLOOD CELL (test code=WBC) 19.3 x10 3/uL 4.8-10.8 RED BLOOD CELL (test code=RBC) 4.63 x10 6/uL 4.70-6.10 HEMOGLOBIN (test code=HGB) 14.6 g/dL 14.5-20 HEMATOCRIT (test code=HCT) 44.8 % 42.0-52.0 MEAN CELL VOLUME (test code=MCV) 96.8 fL 80.0-94.0 MEAN CELL HGB (test code=MCH) 31.5 pg 27-31 MEAN CELL HGB CONCENTRATION (test code=MCHC) 32.6 G/DL 33-36.5 RED CELL DISTRIBUTION WIDTH (test code=RDW) 14.7 % 12.9-16.9 PLATELET COUNT (test code=PLT) 207 150-440 MEAN PLATELET VOLUME (test code=MPV) 10.6 fL 8.9-12.4 TOTAL CELLS COUNTED (test code=TCC) #CELLS SEGMENTED NEUTROPHILS (test code=SEG) % 43-65 LYMPHOCYTE (test code=LYMPH) % 20.5-45.5 CBC W/MANUAL [id number] 11:50:00* Test Item Value Reference Range Comments WHITE BLOOD CELL (test code=WBC) 19.3 x10 3/uL 4.8-10.8 RED BLOOD CELL (test code=RBC) 4.63 x10 6/uL 4.70-6.10 HEMOGLOBIN (test code=HGB) 14.6 g/dL 14.5-20 HEMATOCRIT (test code=HCT) 44.8 % 42.0-52.0 MEAN CELL VOLUME (test code=MCV) 96.8 fL 80.0-94.0 MEAN CELL HGB (test code=MCH) 31.5 pg 27-31 MEAN CELL HGB CONCENTRATION (test code=MCHC) 32.6 G/DL 33-36.5 RED CELL DISTRIBUTION WIDTH (test code=RDW) 14.7 % 12.9-16.9 PLATELET COUNT (test code=PLT) 207 150-440 MEAN PLATELET VOLUME (test code=MPV) 10.6 fL 8.9-12.4 TOTAL CELLS COUNTED (test code=TCC) #CELLS SEGMENTED NEUTROPHILS (test code=SEG) % 43-65 LYMPHOCYTE (test code=LYMPH) % 20.5-45.5 COMPLEMENT [id number] 10:10:00* Test Item Value Reference Range Comments COMPLEMENT C3 (test code=COMC3) 136 mg/dL 82-167 Performed At: [facility] [address] [id number] Bowman MD Ph:[phone] COMPLEMENT [id number] 10:10:00* Test Item Value Reference Range Comments COMPLEMENT C4 (test code=COMC4) 39 mg/dL 14-44 Performed At: [facility] [address] [id number] Bowman MD Ph:[phone] ARTERIAL BLOOD [id number] 09:31:00* Test Item Value Reference Range Comments ARTERIAL BLOOD GAS PH (test code=PHA) 7.31 7.35-7.45 ARTERIAL BLOOD GAS PCO2 (test code=PCO2A) 49.0 mmHg 35.0-45.0 ARTERIAL BLOOD GAS PO2 (test code=PO2A) 93.0 mmHg 80.0-95.0 BICARBONATE TOTAL HCO3 (test code=HCO3) 24.2 mmol/L 22.0-24.0 BASE EXCESS (test code=KIZZY) -2.7 mmol/L (+/-)2.0 ABG O2 SATURATION (test code=SATA) 96.5 % 95.0-100.0 ABG TYPE (test code=TYPEA) VENTILATOR ARTERIAL FIO2 (test code=FIO2A) 70 % ABG VENT MODE (test code=MODEA) AC Pressure ABG PATIENT RESP RATE (test code=RRPATA) 27 /MIN 12-20 ABG VENT RESP RATE (test code=RRA) 27 /MIN ABG PEEP (test code=PEEP) 15 cmH2O ABG SITE (test code=SITEA) Art line ABG POSITION (test code=PT POSITION) SF ALLENS TEST (test code=ALLENS) NA TOTAL HGB (test code=THB) 15.4 g/dL 13.0-17.0 METHEMOGLOBIN (test code=METHGB) <0.8 % 0-1.5 LACTIC [id number] 09:01:00* Test Item Value Reference Range Comments LACTIC ACID (test code=LACT) 21.5 mg/dL 4.5-18.0 Critical Value reported toFirst Name:ANSELMO Last Name:SUNITHA READ BACK AND VERIFIEDby P.LAB.RS, on 09/05/19, @ 0901. - XR CHEST 1 [id number] 07:48:00Patient Name: MILY MOSHER Unit No: [id number] EXAMS: CPT CODE: [id number] XR CHEST 1 V [id number] Chest one view AP 09/05/2019 7:47 AM CLINICAL INDICATION: CHF COMPARISON: 09/04/2019 LOCATION: W1 IMPRESSION: Support hardware is unchanged in position. Cardiomediastinal contours are stable. Pulmonary edema has improved and is now mild in degree. Superimposed pneumonia should be excluded clinically. at 0748 Reported and signed by: ERIK MTZ M.D. CC: Yasmany Byrnes MD; Malachi Perez MD Technologist: Charline Hernandez Fluoro Time: DAP (Gy m2): Air Kerma (mGy): Trscr Dt/Tm: 09/05/2019 (0748) by:[email or web address] Printed Date/Time: 09/05/2019 (0751) Name: MILY MOSHER [facility] Phys: Yasmany Silva [address] : 1975 Age: 44 Sex: [place] [id number] Loc: P.0226 1 Exam Date: 09/05/2019 Status: ADM IN PH: FAX: PAGE 1 Signed Report ARTERIAL BLOOD [id number] 06:43:00* Test Item Value Reference Range Comments ARTERIAL BLOOD GAS PH (test code=PHA) 7.33 7.35-7.45 ARTERIAL BLOOD GAS PCO2 (test code=PCO2A) 42.5 mmHg 35.0-45.0 ARTERIAL BLOOD GAS PO2 (test code=PO2A) 163.9 mmHg 80.0-95.0 BICARBONATE TOTAL HCO3 (test code=HCO3) 22.0 mmol/L 22.0-24.0 BASE EXCESS (test code=KIZZY) -3.8 mmol/L (+/-)2.0 ABG O2 SATURATION (test code=SATA) 98.6 % 95.0-100.0 ABG TYPE (test code=TYPEA) VENTILATOR ARTERIAL FIO2 (test code=FIO2A) 90 % ABG DELIVERY (test code=NICOL) Vent ABG VENT MODE (test code=MODEA) AC Pressure ABG VENT RESP RATE (test code=RRA) 27 /MIN ABG PEEP (test code=PEEP) 15 cmH2O ABG SITE (test code=SITEA) Art line ABG POSITION (test code=PT POSITION) SUPINE ALLENS TEST (test code=ALLENS) NOT APPLICAPLE TOTAL HGB (test code=THB) 15.2 g/dL 13.0-17.0 METHEMOGLOBIN (test code=METHGB) 0.8 % 0-1.5 [id number] 05:08:00* Test Item Value Reference Range Comments VANCOMYCIN (test code=VANCO) 14.0 ug/mL 5.0-40.0 COMPREHENSIVE METABOLIC [id number] 05:08:00* Test Item Value Reference Range Comments SODIUM (test code=NA) 135 MMOL/L 136-143 POTASSIUM (test code=K) 4.6 MMOL/L 3.5-5.1 CHLORIDE (test code=CL) 94 MMOL/L 98-107 CARBON DIOXIDE (test code=CO2) 24 mmol/L 24-31 GLUCOSE (test code=GLU) 153 mg/dL 70-104 BLOOD UREA NITROGEN (test code=BUN) 30.0 MG/DL 7.0-21.0 GLOMERULAR FILTRATION RATE (test code=GFR) 27 >60 The estimated glomerular filtration rate is computed usingpatient race, age (>18), sex, and serum creatinine. If anyof the needed data elements are missing the Laboratory cannot compute an estimation of the glomerular filtration rate. CREATININE (test code=CREAT) 2.8 mg/dL 0.8-1.5 TOTAL PROTEIN (test code=PROT) 7.5 g/dL 6.3-8.3 ALBUMIN (test code=ALB) 3.6 G/DL 3.5-5.0 CALCIUM (test code=CA) 7.9 mg/dL 8.8-10.2 BILIRUBIN TOTAL (test code=BILT) 0.9 mg/dL 0.2-1.0 SGOT/AST (test code=AST) 111 IU/L 10-34 SGPT/ALT (test code=ALT) 55 U/L 10-44 ALKALINE PHOSPHATASE (test code=ALKP) 109 U/L 45-120 ARTERIAL BLOOD [id number] 04:50:00* Test Item Value Reference Range Comments ARTERIAL BLOOD GAS PH (test code=PHA) 7.34 7.35-7.45 ARTERIAL BLOOD GAS PCO2 (test code=PCO2A) 47.8 mmHg 35.0-45.0 ARTERIAL BLOOD GAS PO2 (test code=PO2A) 150.8 mmHg 80.0-95.0 BICARBONATE TOTAL HCO3 (test code=HCO3) 25.3 mmol/L 22.0-24.0 BASE EXCESS (test code=KIZZY) -1.0 mmol/L (+/-)2.0 ABG O2 SATURATION (test code=SATA) 98.8 % 95.0-100.0 ABG TYPE (test code=TYPEA) VENTILATOR ARTERIAL FIO2 (test code=FIO2A) 90 % ABG DELIVERY (test code=NICOL) Vent ABG VENT MODE (test code=MODEA) AC Pressure ABG VENT RESP RATE (test code=RRA) 27 /MIN ABG PEEP (test code=PEEP) 15 cmH2O ABG SITE (test code=SITEA) Art line ABG POSITION (test code=PT POSITION) SUPINE ALLENS TEST (test code=ALLENS) NOT APPLICAPLE METHEMOGLOBIN (test code=METHGB) 1.0 % 0-1.5 PROTHROMBIN [id number] 04:36:00* Test Item Value Reference Range Comments PROTHROMBIN TIME PATIENT (test code=PTP) 11.8 SECONDS 10.3-12.9 INTERNATIONAL NORMAL RATIO (test code=INR) 1.02 INR UNIT 0.9-1.11 The INR is useful only for monitoring anticoagulant therapy.It may be unreliable in the initial phase of antigoagulationand in unstable patients. Indication for Anticoagulation Recommended INR 1. Prevention of venous thomboembolism 2.0-3.0in high-risk patients; treatment of venousthrombosis and pulmonary embolism aftera course of heparin; prevention of systemicembolism in a variety of conditions, including atrial fibrillation and prothetic tissue heart valves, 2. Prosthetic mechanical heart valves; 2.5-3.5recurrent systemic embolism. [id number] 04:35:00* Test Item Value Reference Range Comments PHOSPHOROUS (test code=PHOS) 3.6 mg/dL 2.7-4.5 [id number] 04:30:00* Test Item Value Reference Range Comments MAGNESIUM (test code=MAG) 2.7 mg/dL 1.4-2.6 THROMBOPLASTIN TIME [id number] 04:24:00* Test Item Value Reference Range Comments THROMBOPLASTIN TIME PARTIAL (test code=PTT) 43.5 SECONDS 26.0-35.9 INTERPRETATIVE DATA:Therapeutic range: Unfractionated heparin:47 - 71 seconds Argatroban:1.5 to 3 times the baseline PTT CBC W/AUTO [id number] 04:10:00* Test Item Value Reference Range Comments WHITE BLOOD CELL (test code=WBC) 15.8 x10 3/uL 4.8-10.8 RED BLOOD CELL (test code=RBC) 4.45 x10 6/uL 4.70-6.10 HEMOGLOBIN (test code=HGB) 14.1 g/dL 14.5-20 HEMATOCRIT (test code=HCT) 43.1 % 42.0-52.0 MEAN CELL VOLUME (test code=MCV) 96.9 fL 80.0-94.0 MEAN CELL HGB (test code=MCH) 31.7 pg 27-31 MEAN CELL HGB CONCENTRATION (test code=MCHC) 32.7 G/DL 33-36.5 RED CELL DISTRIBUTION WIDTH (test code=RDW) 14.6 % 12.9-16.9 PLATELET COUNT (test code=PLT) 201 150-440 MEAN PLATELET VOLUME (test code=MPV) 10.4 fL 8.9-12.4 NEUTROPHIL % (test code=NT%) 84.9 % 42.2-75.2 LYMPHOCYTE % (test code=LY%) 3.9 % 20.5-51.1 MONOCYTE % (test code=MO%) 9.2 % 1.7-9.3 EOSINOPHIL % (test code=EO%) 0.0 % 0.0-7.0 BASOPHIL % (test code=BA%) 0.2 % 0-2.5 NEUTROPHIL # (test code=NT#) 13.43 x10 3/uL 1.80-7.70 LYMPHOCYTE # (test code=LY#) 0.61 x10 3/uL 1.00-4.80 MONOCYTE # (test code=MO#) 1.45 x10 3/uL 0.00-0.80 EOSINOPHIL # (test code=EO#) 0.00 x10 3/uL 0.00-0.45 BASOPHIL # (test code=BA#) 0.03 x10 3/uL 0.0-0.20 ARTERIAL BLOOD [id number] 02:11:00* Test Item Value Reference Range Comments ARTERIAL BLOOD GAS PH (test code=PHA) 7.36 7.35-7.45 ARTERIAL BLOOD GAS PCO2 (test code=PCO2A) 43.9 mmHg 35.0-45.0 ARTERIAL BLOOD GAS PO2 (test code=PO2A) 147.0 mmHg 80.0-95.0 BICARBONATE TOTAL HCO3 (test code=HCO3) 24.1 mmol/L 22.0-24.0 BASE EXCESS (test code=KIZZY) -1.5 mmol/L (+/-)2.0 ABG O2 SATURATION (test code=SATA) 98.5 % 95.0-100.0 ABG TYPE (test code=TYPEA) VENTILATOR ARTERIAL FIO2 (test code=FIO2A) 90 % ABG DELIVERY (test code=NICOL) Vent ABG VENT MODE (test code=MODEA) AC Pressure ABG VENT RESP RATE (test code=RRA) 27 /MIN ABG PEEP (test code=PEEP) 15 cmH2O ABG SITE (test code=SITEA) Art line ABG POSITION (test code=PT POSITION) SUPINE ALLENS TEST (test code=ALLENS) NOT APPLICAPLE TOTAL HGB (test code=THB) 14.4 g/dL 13.0-17.0 METHEMOGLOBIN (test code=METHGB) 0.8 % 0-1.5 ARTERIAL BLOOD [id number] 00:24:00* Test Item Value Reference Range Comments ARTERIAL BLOOD GAS PH (test code=PHA) 7.37 7.35-7.45 ARTERIAL BLOOD GAS PCO2 (test code=PCO2A) 40.2 mmHg 35.0-45.0 ARTERIAL BLOOD GAS PO2 (test code=PO2A) 159.8 mmHg 80.0-95.0 BICARBONATE TOTAL HCO3 (test code=HCO3) 22.5 mmol/L 22.0-24.0 BASE EXCESS (test code=KIZZY) -2.7 mmol/L (+/-)2.0 ABG O2 SATURATION (test code=SATA) 98.9 % 95.0-100.0 ABG TYPE (test code=TYPEA) VENTILATOR ARTERIAL FIO2 (test code=FIO2A) 90 % ABG DELIVERY (test code=NICOL) Vent ABG VENT MODE (test code=MODEA) AC Pressure ABG VENT RESP RATE (test code=RRA) 27 /MIN ABG PEEP (test code=PEEP) 15 cmH2O ABG SITE (test code=SITEA) Art line ABG POSITION (test code=PT POSITION) SUPINE ALLENS TEST (test code=ALLENS) NOT APPLICAPLE TOTAL HGB (test code=THB) 14.7 g/dL 13.0-17.0 METHEMOGLOBIN (test code=METHGB) 1.0 % 0-1.5 - RETRO [id number] 22:41:00Patient Name: MILY MOSHER Unit No: [id number] EXAMS: CPT CODE: [id number] RETRO LTD [id number] Exam: Renal sonogram. Location: H 12 History: jamey Technique: A real-time transabdominal renal sonogram was performed. Findings: The kidneys are normal in size, shape and echotexture. No nephrolithiasis, perinephric fluid collections or hydronephrosis is seen. The right kidney measures 11.1 x 6.6 x 4.7 cm. The left kidney measures 12.8 x 6.7 x 5.3 cm. The right renal cortex measures 1.9 cm. The left renal cortex measures 1.6 cm. The bladder is decompressed via a Peng catheter. No free fluid is found in the abdomen. No incidental abdominal findings are noted. Impression: Unremarkable exam. at 2241 Reported and signed by: SAVANNA DICKENS M.D. CC: Malachi Perez MD; Caleb Toussaint MD Technologist: Shira Spencer Probe: Trscr Dt/Tm: 09/04/2019 (2241) by:Onofre Printed Date/Time: 09/04/2019 (1259) Name: MILY MOSHER [facility] Phys: Caleb Bustillos MD [id number] : 1975 Age: 44 Sex: [place] [address] Loc: P.[id number] 1 Exam Date: 09/04/2019 Status: ADM IN PH: FAX: PAGE 1 Signed Report ARTERIAL BLOOD GAS 2019-09-04 22:00:00* Test Item Value Reference Range Comments ARTERIAL BLOOD GAS PH (test code=PHA) 7.36 7.35-7.45 ARTERIAL BLOOD GAS PCO2 (test code=PCO2A) 44.5 mmHg 35.0-45.0 ARTERIAL BLOOD GAS PO2 (test code=PO2A) 127.2 mmHg 80.0-95.0 BICARBONATE TOTAL HCO3 (test code=HCO3) 24.7 mmol/L 22.0-24.0 BASE EXCESS (test code=KIZZY) -0.9 mmol/L (+/-)2.0 ABG O2 SATURATION (test code=SATA) 98.1 % 95.0-100.0 ABG TYPE (test code=TYPEA) VENTILATOR ARTERIAL FIO2 (test code=FIO2A) 90 % ABG DELIVERY (test code=NICOL) Vent ABG VENT MODE (test code=MODEA) AC Pressure ABG PATIENT RESP RATE (test code=RRPATA) 27 /MIN 12-20 ABG PEEP (test code=PEEP) 15 cmH2O ABG SITE (test code=SITEA) Art line ABG POSITION (test code=PT POSITION) SUPINE ALLENS TEST (test code=ALLENS) NOT APPLICAPLE METHEMOGLOBIN (test code=METHGB) % 0-1.5 THROMBOPLASTIN TIME [id number] 21:19:00* Test Item Value Reference Range Comments THROMBOPLASTIN TIME PARTIAL (test code=PTT) 53.1 SECONDS 26.0-35.9 INTERPRETATIVE DATA:Therapeutic range: Unfractionated heparin:47 - 71 seconds Argatroban:1.5 to 3 times the baseline PTT PROTHROMBIN [id number] 21:14:00* Test Item Value Reference Range Comments PROTHROMBIN TIME PATIENT (test code=PTP) 12.0 SECONDS 10.3-12.9 INTERNATIONAL NORMAL RATIO (test code=INR) 1.03 INR UNIT 0.9-1.11 The INR is useful only for monitoring anticoagulant therapy.It may be unreliable in the initial phase of antigoagulationand in unstable patients. Indication for Anticoagulation Recommended INR 1. Prevention of venous thomboembolism 2.0-3.0in high-risk patients; treatment of venousthrombosis and pulmonary embolism aftera course of heparin; prevention of systemicembolism in a variety of conditions, including atrial fibrillation and prothetic tissue heart valves, 2. Prosthetic mechanical heart valves; 2.5-3.5recurrent systemic embolism. [id number] 20:59:00* Test Item Value Reference Range Comments PHOSPHOROUS (test code=PHOS) 3.6 mg/dL 2.7-4.5 BASIC METABOLIC [id number] 20:16:00* Test Item Value Reference Range Comments SODIUM (test code=NA) 137 MMOL/L 136-143 POTASSIUM (test code=K) 4.6 MMOL/L 3.5-5.1 CHLORIDE (test code=CL) 96 MMOL/L 98-107 CARBON DIOXIDE (test code=CO2) 24 mmol/L 24-31 GLUCOSE (test code=GLU) 119 mg/dL 70-104 BLOOD UREA NITROGEN (test code=BUN) 34.2 MG/DL 7.0-21.0 GLOMERULAR FILTRATION RATE (test code=GFR) 21 >60 The estimated glomerular filtration rate is computed usingpatient race, age (>18), sex, and serum creatinine. If anyof the needed data elements are missing the Laboratory cannot compute an estimation of the glomerular filtration rate. CREATININE (test code=CREAT) 3.5 mg/dL 0.8-1.5 CALCIUM (test code=CA) 7.4 mg/dL 8.8-10.2 [id number] 20:16:00* Test Item Value Reference Range Comments MAGNESIUM (test code=MAG) 2.5 mg/dL 1.4-2.6 CBC W/AUTO [id number] 20:01:00* Test Item Value Reference Range Comments WHITE BLOOD CELL (test code=WBC) 13.8 x10 3/uL 4.8-10.8 RED BLOOD CELL (test code=RBC) 4.26 x10 6/uL 4.70-6.10 HEMOGLOBIN (test code=HGB) 13.0 g/dL 14.5-20 HEMATOCRIT (test code=HCT) 40.7 % 42.0-52.0 MEAN CELL VOLUME (test code=MCV) 95.5 fL 80.0-94.0 MEAN CELL HGB (test code=MCH) 30.5 pg 27-31 MEAN CELL HGB CONCENTRATION (test code=MCHC) 31.9 G/DL 33-36.5 RED CELL DISTRIBUTION WIDTH (test code=RDW) 15.0 % 12.9-16.9 PLATELET COUNT (test code=PLT) 233 150-440 MEAN PLATELET VOLUME (test code=MPV) 10.5 fL 8.9-12.4 NEUTROPHIL % (test code=NT%) 83.8 % 42.2-75.2 LYMPHOCYTE % (test code=LY%) 5.3 % 20.5-51.1 MONOCYTE % (test code=MO%) 9.3 % 1.7-9.3 EOSINOPHIL % (test code=EO%) 0.0 % 0.0-7.0 BASOPHIL % (test code=BA%) 0.1 % 0-2.5 NEUTROPHIL # (test code=NT#) 11.53 x10 3/uL 1.80-7.70 LYMPHOCYTE # (test code=LY#) 0.73 x10 3/uL 1.00-4.80 MONOCYTE # (test code=MO#) 1.28 x10 3/uL 0.00-0.80 EOSINOPHIL # (test code=EO#) 0.00 x10 3/uL 0.00-0.45 BASOPHIL # (test code=BA#) 0.02 x10 3/uL 0.0-0.20 [id number] 19:52:00* Test Item Value Reference Range Comments GLUBED (test code=GLUBED) 114 MG/DL 70-105 [id number] 19:52:00* Test Item Value Reference Range Comments GLUBED (test code=GLUBED) 115 MG/DL 70-105 [id number] 19:52:00* Test Item Value Reference Range Comments GLUBED (test code=GLUBED) 146 MG/DL 70-105 [id number] 19:52:00* Test Item Value Reference Range Comments GLUBED (test code=GLUBED) 142 MG/DL 70-105 [id number] 19:52:00* Test Item Value Reference Range Comments GLUBED (test code=GLUBED) 145 MG/DL 70-105 [id number] 19:52:00* Test Item Value Reference Range Comments GLUBED (test code=GLUBED) 156 MG/DL 70-105 [id number] 19:52:00* Test Item Value Reference Range Comments GLUBED (test code=GLUBED) 173 MG/DL 70-105 [id number] 19:52:00* Test Item Value Reference Range Comments GLUBED (test code=GLUBED) 174 MG/DL 70-105 [id number] 19:52:00* Test Item Value Reference Range Comments GLUBED (test code=GLUBED) 175 MG/DL 70-105 [id number] 19:52:00* Test Item Value Reference Range Comments GLUBED (test code=GLUBED) 217 MG/DL 70-105 [id number] 19:52:00* Test Item Value Reference Range Comments GLUBED (test code=GLUBED) 186 MG/DL 70-105 [id number] 19:52:00* Test Item Value Reference Range Comments GLUBED (test code=GLUBED) 218 MG/DL 70-105 [id number] 19:52:00* Test Item Value Reference Range Comments GLUBED (test code=GLUBED) 232 MG/DL 70-105 ARTERIAL BLOOD [id number] 18:26:00* Test Item Value Reference Range Comments ARTERIAL BLOOD GAS PH (test code=PHA) 7.31 7.35-7.45 ARTERIAL BLOOD GAS PCO2 (test code=PCO2A) 44.7 mmHg 35.0-45.0 ARTERIAL BLOOD GAS PO2 (test code=PO2A) 135.0 mmHg 80.0-95.0 BICARBONATE TOTAL HCO3 (test code=HCO3) 23.0 mmol/L 22.0-24.0 BASE EXCESS (test code=KIZZY) -2.9 mmol/L (+/-)2.0 ABG O2 SATURATION (test code=SATA) 97.5 % 95.0-100.0 ABG TYPE (test code=TYPEA) VENTILATOR ARTERIAL FIO2 (test code=FIO2A) 90 % ABG DELIVERY (test code=NICOL) Vent ABG VENT MODE (test code=MODEA) A/C ABG PATIENT RESP RATE (test code=RRPATA) 27 /MIN 12-20 ABG VENT RESP RATE (test code=RRA) 27 /MIN ABG TIDAL VOLUME (test code=TIDAL VOLUME) 458 ML ABG PEEP (test code=PEEP) 15 cmH2O ABG PRESSURE SUPPORT (test code=PSABG) 17 cmH2O ABG SITE (test code=SITEA) ART LINE ALLENS TEST (test code=ALLENS) N/A TOTAL HGB (test code=THB) 13.8 g/dL 13.0-17.0 METHEMOGLOBIN (test code=METHGB) <0.8 % 0-1.5 ARTERIAL BLOOD [id number] 16:28:00* Test Item Value Reference Range Comments ARTERIAL BLOOD GAS PH (test code=PHA) 7.28 7.35-7.45 ARTERIAL BLOOD GAS PCO2 (test code=PCO2A) 54.9 mmHg 35.0-45.0 ARTERIAL BLOOD GAS PO2 (test code=PO2A) 138.1 mmHg 80.0-95.0 BICARBONATE TOTAL HCO3 (test code=HCO3) 25.6 mmol/L 22.0-24.0 BASE EXCESS (test code=KIZZY) -1.9 mmol/L (+/-)2.0 ABG O2 SATURATION (test code=SATA) 96.7 % 95.0-100.0 ABG TYPE (test code=TYPEA) VENTILATOR ARTERIAL FIO2 (test code=FIO2A) 90 % ABG DELIVERY (test code=NICOL) Vent ABG VENT MODE (test code=MODEA) A/C ABG PATIENT RESP RATE (test code=RRPATA) 25 /MIN 12-20 ABG VENT RESP RATE (test code=RRA) 25 /MIN ABG TIDAL VOLUME (test code=TIDAL VOLUME) 468 ML ABG PEEP (test code=PEEP) 15 cmH2O ABG SITE (test code=SITEA) ART LINE ALLENS TEST (test code=ALLENS) N/A TOTAL HGB (test code=THB) 14.1 g/dL 13.0-17.0 METHEMOGLOBIN (test code=METHGB) 1.0 % 0-1.5 PROTHROMBIN [id number] 16:12:00* Test Item Value Reference Range Comments PROTHROMBIN TIME PATIENT (test code=PTP) 12.1 SECONDS 10.3-12.9 INTERNATIONAL NORMAL RATIO (test code=INR) 1.04 INR UNIT 0.9-1.11 The INR is useful only for monitoring anticoagulant therapy.It may be unreliable in the initial phase of antigoagulationand in unstable patients. Indication for Anticoagulation Recommended INR 1. Prevention of venous thomboembolism 2.0-3.0in high-risk patients; treatment of venousthrombosis and pulmonary embolism aftera course of heparin; prevention of systemicembolism in a variety of conditions, including atrial fibrillation and prothetic tissue heart valves, 2. Prosthetic mechanical heart valves; 2.5-3.5recurrent systemic embolism. THROMBOPLASTIN TIME [id number] 16:12:00* Test Item Value Reference Range Comments THROMBOPLASTIN TIME PARTIAL (test code=PTT) 91.4 SECONDS 26.0-35.9 INTERPRETATIVE DATA:Therapeutic range: Unfractionated heparin:47 - 71 seconds Argatroban:1.5 to 3 times the baseline PTT ACUTE HEPATITIS [id number] 15:19:00* Test Item Value Reference Range Comments AB HEPATITIS A IGM (test code=HAVMAB) NONREACTIVE NONREACTIVE AG HEPATITIS B SURFACE (test code=HBSAG) NON REACTIVE NONREACTIVE HBSAG CONFIRMATORY (test code=HBSAGC) Test not performed NONREACTIVE AB HEPATITIS B CORE IGM (test code=HBCMAB) NON-REACTIVE NONREACTIVE AB HEPATITIS C (test code=HCVAB) NONREACTIVE NONREACTIVE ACUTE HEPATITIS [id number] 15:17:00* Test Item Value Reference Range Comments AB HEPATITIS A IGM (test code=HAVMAB) NONREACTIVE NONREACTIVE AG HEPATITIS B SURFACE (test code=HBSAG) NON REACTIVE NONREACTIVE HBSAG CONFIRMATORY (test code=HBSAGC) NONREACTIVE AB HEPATITIS B CORE IGM (test code=HBCMAB) NON-REACTIVE NONREACTIVE AB HEPATITIS C (test code=HCVAB) NONREACTIVE NONREACTIVE ARTERIAL BLOOD [id number] 15:11:00* Test Item Value Reference Range Comments ARTERIAL BLOOD GAS PH (test code=PHA) 7.36 7.35-7.45 ARTERIAL BLOOD GAS PCO2 (test code=PCO2A) 39.9 mm Hg 35-45 ARTERIAL BLOOD GAS PO2 (test code=PO2A) 49.0 mmHg 80-100 Results called to and read back by dr gonzalez 18:50 - 09/01/2019; by juan pablo BICARBONATE TOTAL HCO3 (test code=HCO3) 21.9 mmol/L 23.0-27.0 BASE EXCESS (test code=KIZZY) -3.2 mmol/L -3.0-5.0 Results called to and read back by dr gonzalez 18:50 - 09/01/2019; by juan pablo ABG O2 SATURATION (test code=SATA) 83.8 % 90.0-98.0 ABG TYPE (test code=TYPEA) Arterial FIO2 (test code=FIO2A) 80.0 ABG VENT MODE (test code=MODEA) Assist Control ABG PEEP (test code=PEEPA) 10.0 cmH2O ABG SITE (test code=SITEA) Rt RADIAL ARTERY MODIFIED ALLENS (test code=MODALL) Yes CHECK PERFORMED HEMATOCRIT (test code=HCT/ABG) 45 % 42-52 TOTAL HGB (test code=THB) 15.3 gram/dL 13.0-17.5 HGB O2 SAT (test code=HBOSAT) 82.8 % 94.00-98.00 CARBOXYHEMOGLOBIN (test code=HOHGBT) 0.6 %totalHg 0.5-1.5 METHEMOGLOBIN (test code=METHGB) 0.6 % 0.0-1.50 O2 CONTENT (test code=O2CT) 17.8 % vol 18.0-22.0 [id number] 14:17:00* Test Item Value Reference Range Comments CORTISOL (test code=CORTR) 8.9 mcg/dL 6.0-19.1 BASIC METABOLIC [id number] 14:01:00* Test Item Value Reference Range Comments SODIUM (test code=NA) 142 MMOL/L 136-143 POTASSIUM (test code=K) 4.5 MMOL/L 3.5-5.1 CHLORIDE (test code=CL) 100 MMOL/L 98-107 CARBON DIOXIDE (test code=CO2) 23 mmol/L 24-31 GLUCOSE (test code=GLU) 157 mg/dL 70-104 BLOOD UREA NITROGEN (test code=BUN) 31.3 MG/DL 7.0-21.0 GLOMERULAR FILTRATION RATE (test code=GFR) 30 >60 The estimated glomerular filtration rate is computed usingpatient race, age (>18), sex, and serum creatinine. If anyof the needed data elements are missing the Laboratory cannot compute an estimation of the glomerular filtration rate. CREATININE (test code=CREAT) 2.5 mg/dL 0.8-1.5 CALCIUM (test code=CA) 8.4 mg/dL 8.8-10.2 [id number] 14:01:00* Test Item Value Reference Range Comments PHOSPHOROUS (test code=PHOS) 4.9 mg/dL 2.7-4.5 [id number] 14:01:00* Test Item Value Reference Range Comments MAGNESIUM (test code=MAG) 2.3 mg/dL 1.4-2.6 HIV 1 2 COMBO AG/AB [id number] 13:28:00* Test Item Value Reference Range Comments HIV 1 2 COMBO AG/AB SCREEN (test code=[id number]) NONREACTIVE NONREACTIVE P24 ANTIGEN: NONREACTIVEHIV 1/2 AB: NONREACTIVE ARTERIAL BLOOD [id number] 12:39:00* Test Item Value Reference Range Comments ARTERIAL BLOOD GAS PH (test code=PHA) 7.25 7.35-7.45 ARTERIAL BLOOD GAS PCO2 (test code=PCO2A) 55.9 mmHg 35.0-45.0 ARTERIAL BLOOD GAS PO2 (test code=PO2A) 121.0 mmHg 80.0-95.0 BICARBONATE TOTAL HCO3 (test code=HCO3) 24.4 mmol/L 22.0-24.0 BASE EXCESS (test code=KIZZY) -3.5 mmol/L (+/-)2.0 ABG O2 SATURATION (test code=SATA) 96.4 % 95.0-100.0 ABG TYPE (test code=TYPEA) VENTILATOR ARTERIAL FIO2 (test code=FIO2A) 90 % ABG DELIVERY (test code=NICOL) Vent ABG VENT MODE (test code=MODEA) AC Pressure ABG PATIENT RESP RATE (test code=RRPATA) 25 /MIN 12-20 ABG VENT RESP RATE (test code=RRA) 25 /MIN ABG TIDAL VOLUME (test code=TIDAL VOLUME) 500 ML ABG PEEP (test code=PEEP) 15 cmH2O ABG SITE (test code=SITEA) Art line ALLENS TEST (test code=ALLENS) NOT APPLICAPLE TOTAL HGB (test code=THB) 13.9 g/dL 13.0-17.0 METHEMOGLOBIN (test code=METHGB) 1.1 % 0-1.5 CBC W/AUTO [id number] 12:34:00* Test Item Value Reference Range Comments WHITE BLOOD CELL (test code=WBC) 13.7 x10 3/uL 4.8-10.8 RED BLOOD CELL (test code=RBC) 4.13 x10 6/uL 4.70-6.10 HEMOGLOBIN (test code=HGB) 13.0 g/dL 14.5-20 HEMATOCRIT (test code=HCT) 40.1 % 42.0-52.0 MEAN CELL VOLUME (test code=MCV) 97.1 fL 80.0-94.0 MEAN CELL HGB (test code=MCH) 31.5 pg 27-31 MEAN CELL HGB CONCENTRATION (test code=MCHC) 32.4 G/DL 33-36.5 RED CELL DISTRIBUTION WIDTH (test code=RDW) 14.9 % 12.9-16.9 PLATELET COUNT (test code=PLT) 257 150-440 MEAN PLATELET VOLUME (test code=MPV) 10.6 fL 8.9-12.4 NEUTROPHIL % (test code=NT%) 83.4 % 42.2-75.2 LYMPHOCYTE % (test code=LY%) 6.3 % 20.5-51.1 MONOCYTE % (test code=MO%) 8.7 % 1.7-9.3 EOSINOPHIL % (test code=EO%) 0.0 % 0.0-7.0 BASOPHIL % (test code=BA%) 0.1 % 0-2.5 NEUTROPHIL # (test code=NT#) 11.46 x10 3/uL 1.80-7.70 LYMPHOCYTE # (test code=LY#) 0.86 x10 3/uL 1.00-4.80 MONOCYTE # (test code=MO#) 1.20 x10 3/uL 0.00-0.80 EOSINOPHIL # (test code=EO#) 0.00 x10 3/uL 0.00-0.45 BASOPHIL # (test code=BA#) 0.02 x10 3/uL 0.0-0.20 ARTERIAL BLOOD [id number] 10:45:00* Test Item Value Reference Range Comments ARTERIAL BLOOD GAS PH (test code=PHA) 7.29 7.35-7.45 ARTERIAL BLOOD GAS PCO2 (test code=PCO2A) 48.0 mmHg 35.0-45.0 ARTERIAL BLOOD GAS PO2 (test code=PO2A) 94.8 mmHg 80.0-95.0 BICARBONATE TOTAL HCO3 (test code=HCO3) 22.7 mmol/L 22.0-24.0 BASE EXCESS (test code=KIZZY) -4.1 mmol/L (+/-)2.0 ABG O2 SATURATION (test code=SATA) 95.9 % 95.0-100.0 ABG TYPE (test code=TYPEA) VENTILATOR ARTERIAL FIO2 (test code=FIO2A) 90 % ABG DELIVERY (test code=NICOL) Vent ABG VENT MODE (test code=MODEA) AC Pressure ABG PATIENT RESP RATE (test code=RRPATA) 25 /MIN 12-20 ABG VENT RESP RATE (test code=RRA) 25 /MIN ABG TIDAL VOLUME (test code=TIDAL VOLUME) 510 ML ABG PEEP (test code=PEEP) 15 cmH2O ABG SITE (test code=SITEA) ART LINE ALLENS TEST (test code=ALLENS) NOT APPLICAPLE TOTAL HGB (test code=THB) 13.9 g/dL 13.0-17.0 METHEMOGLOBIN (test code=METHGB) <0.8 % 0-1.5 PROTHROMBIN [id number] 09:11:00* Test Item Value Reference Range Comments PROTHROMBIN TIME PATIENT (test code=PTP) 12.3 SECONDS 10.3-12.9 INTERNATIONAL NORMAL RATIO (test code=INR) 1.06 INR UNIT 0.9-1.11 The INR is useful only for monitoring anticoagulant therapy.It may be unreliable in the initial phase of antigoagulationand in unstable patients. Indication for Anticoagulation Recommended INR 1. Prevention of venous thomboembolism 2.0-3.0in high-risk patients; treatment of venousthrombosis and pulmonary embolism aftera course of heparin; prevention of systemicembolism in a variety of conditions, including atrial fibrillation and prothetic tissue heart valves, 2. Prosthetic mechanical heart valves; 2.5-3.5recurrent systemic embolism. THROMBOPLASTIN TIME [id number] 09:09:00* Test Item Value Reference Range Comments THROMBOPLASTIN TIME PARTIAL (test code=PTT) 125.8 SECONDS 26.0-35.9 Critical Value reported toFirst Name:HERIBERTO Last Name:COLLONRESULTS READ BACK AND VERIFIEDby GYPSY, on 09/04/19, @ 0909.INTERPRETATIVE DATA:Therapeutic range: Unfractionated heparin:47 - 71 seconds Argatroban:1.5 to 3 times the baseline PTT ARTERIAL BLOOD [id number] 08:42:00* Test Item Value Reference Range Comments ARTERIAL BLOOD GAS PH (test code=PHA) 7.27 7.35-7.45 ARTERIAL BLOOD GAS PCO2 (test code=PCO2A) 44.5 mmHg 35.0-45.0 ARTERIAL BLOOD GAS PO2 (test code=PO2A) 116.0 mmHg 80.0-95.0 BICARBONATE TOTAL HCO3 (test code=HCO3) 20.2 mmol/L 22.0-24.0 BASE EXCESS (test code=KIZZY) -6.5 mmol/L (+/-)2.0 ABG O2 SATURATION (test code=SATA) 96.5 % 95.0-100.0 ABG TYPE (test code=TYPEA) VENTILATOR ARTERIAL FIO2 (test code=FIO2A) 100 % ABG DELIVERY (test code=NICOL) Vent ABG VENT MODE (test code=MODEA) AC Pressure ABG PATIENT RESP RATE (test code=RRPATA) 25 /MIN 12-20 ABG VENT RESP RATE (test code=RRA) 25 /MIN ABG TIDAL VOLUME (test code=TIDAL VOLUME) 510 ML ABG PEEP (test code=PEEP) 15 cmH2O ABG SITE (test code=SITEA) ART LINE ALLENS TEST (test code=ALLENS) NA TOTAL HGB (test code=THB) 13.9 g/dL 13.0-17.0 METHEMOGLOBIN (test code=METHGB) 1.1 % 0-1.5 LACTIC [id number] 08:18:00* Test Item Value Reference Range Comments LACTIC ACID (test code=LACT) 27.1 mg/dL 4.5-18.0 Critical Value reported Yusuft Name:Tawanda Last Name:BRITTANY READ BACK AND VERIFIEDby PJOSUE, on 09/04/19, @ 0818. - XR CHEST 1 [id number] 08:03:00Patient Name: MILY MOSHER Unit No: [id number] EXAMS: CPT CODE: [id number] XR CHEST 1 V [id number] Chest one view AP 09/04/2019 8:02 AM CLINICAL INDICATION: Intubation, hypoxia COMPARISON: 09/03/2019 LOCATION: W1 IMPRESSION: Support catheters are in satisfactory radiographic position. Cardiac and mediastinal contours are stable. There is moderately advanced pulmonary edema, slightly improved when compared to the prior examination. There is bibasilar atelectasis. Superimposed pneumonia should be excluded clinically. at 0803 Reported and signed by: ERIK MTZ M.D. CC: Malachi Perez MD; Rene Cho MD Technologist: Charline Hernandez Fluoro Time: DAP (Gy m2): Air Kerma (mGy): Trscr Dt/Tm: 09/04/2019 (0803) by:[email or web address] Printed Date/Time: 09/04/2019 (0806) Name: MILY MOSHER [facility] Phys: Rene Tavera MD [id number] : 1975 Age: 44 Sex: [place] [address] Loc: P.0226 1 Exam Date: 09/04/2019 Status: ADM IN PH: FAX: PAGE 1 Signed Report ARTERIAL BLOOD GAS 2019-09-04 06:26:00* Test Item Value Reference Range Comments ARTERIAL BLOOD GAS PH (test code=PHA) 7.25 7.35-7.45 ARTERIAL BLOOD GAS PCO2 (test code=PCO2A) 52.4 mmHg 35.0-45.0 ARTERIAL BLOOD GAS PO2 (test code=PO2A) 85.4 mmHg 80.0-95.0 BICARBONATE TOTAL HCO3 (test code=HCO3) 22.4 mmol/L 22.0-24.0 BASE EXCESS (test code=KIZZY) -5.4 mmol/L (+/-)2.0 ABG O2 SATURATION (test code=SATA) 95.2 % 95.0-100.0 ABG TYPE (test code=TYPEA) VENTILATOR ARTERIAL FIO2 (test code=FIO2A) 90 % ABG DELIVERY (test code=NICOL) Vent ABG VENT MODE (test code=MODEA) AC Pressure ABG VENT RESP RATE (test code=RRA) 22 /MIN ABG PEEP (test code=PEEP) 15 cmH2O ABG SITE (test code=SITEA) Art line ABG POSITION (test code=PT POSITION) SUPINE ALLENS TEST (test code=ALLENS) NOT APPLICAPLE TOTAL HGB (test code=THB) 14.6 g/dL 13.0-17.0 METHEMOGLOBIN (test code=METHGB) 0.9 % 0-1.5 BASIC METABOLIC [id number] 04:50:00* Test Item Value Reference Range Comments SODIUM (test code=NA) 139 MMOL/L 136-143 POTASSIUM (test code=K) 4.4 MMOL/L 3.5-5.1 CHLORIDE (test code=CL) 98 MMOL/L 98-107 CARBON DIOXIDE (test code=CO2) 20 mmol/L 24-31 GLUCOSE (test code=GLU) 229 mg/dL 70-104 BLOOD UREA NITROGEN (test code=BUN) 57.6 MG/DL 7.0-21.0 GLOMERULAR FILTRATION RATE (test code=GFR) 12 >60 The estimated glomerular filtration rate is computed usingpatient race, age (>18), sex, and serum creatinine. If anyof the needed data elements are missing the Laboratory cannot compute an estimation of the glomerular filtration rate. CREATININE (test code=CREAT) 5.6 mg/dL 0.8-1.5 CALCIUM (test code=CA) 7.4 mg/dL 8.8-10.2 [id number] 04:47:00* Test Item Value Reference Range Comments PHOSPHOROUS (test code=PHOS) 5.3 mg/dL 2.7-4.5 [id number] 04:45:00* Test Item Value Reference Range Comments MAGNESIUM (test code=MAG) 2.5 mg/dL 1.4-2.6 ARTERIAL BLOOD [id number] 04:38:00* Test Item Value Reference Range Comments ARTERIAL BLOOD GAS PH (test code=PHA) 7.25 7.35-7.45 ARTERIAL BLOOD GAS PCO2 (test code=PCO2A) 47.0 mmHg 35.0-45.0 ARTERIAL BLOOD GAS PO2 (test code=PO2A) 96.4 mmHg 80.0-95.0 BICARBONATE TOTAL HCO3 (test code=HCO3) 20.3 mmol/L 22.0-24.0 BASE EXCESS (test code=KIZZY) -6.9 mmol/L (+/-)2.0 ABG O2 SATURATION (test code=SATA) 96.6 % 95.0-100.0 ABG TYPE (test code=TYPEA) VENTILATOR ARTERIAL FIO2 (test code=FIO2A) 90 % ABG DELIVERY (test code=NICOL) Vent ABG VENT MODE (test code=MODEA) AC Pressure ABG VENT RESP RATE (test code=RRA) 22 /MIN ABG PEEP (test code=PEEP) 15 cmH2O ABG SITE (test code=SITEA) Art line ABG POSITION (test code=PT POSITION) SUPINE ALLENS TEST (test code=ALLENS) NOT APPLICAPLE TOTAL HGB (test code=THB) 14.3 g/dL 13.0-17.0 METHEMOGLOBIN (test code=METHGB) 0.8 % 0-1.5 CBC W/AUTO [id number] 04:26:00* Test Item Value Reference Range Comments WHITE BLOOD CELL (test code=WBC) 11.9 x10 3/uL 4.8-10.8 RED BLOOD CELL (test code=RBC) 4.35 x10 6/uL 4.70-6.10 HEMOGLOBIN (test code=HGB) 13.1 g/dL 14.5-20 HEMATOCRIT (test code=HCT) 42.2 % 42.0-52.0 MEAN CELL VOLUME (test code=MCV) 97.0 fL 80.0-94.0 MEAN CELL HGB (test code=MCH) 30.1 pg 27-31 MEAN CELL HGB CONCENTRATION (test code=MCHC) 31.0 G/DL 33-36.5 RED CELL DISTRIBUTION WIDTH (test code=RDW) 14.9 % 12.9-16.9 PLATELET COUNT (test code=PLT) 282 150-440 MEAN PLATELET VOLUME (test code=MPV) 10.6 fL 8.9-12.4 NEUTROPHIL % (test code=NT%) 85.6 % 42.2-75.2 LYMPHOCYTE % (test code=LY%) 6.7 % 20.5-51.1 MONOCYTE % (test code=MO%) 6.5 % 1.7-9.3 EOSINOPHIL % (test code=EO%) 0.0 % 0.0-7.0 BASOPHIL % (test code=BA%) 0.1 % 0-2.5 NEUTROPHIL # (test code=NT#) 10.20 x10 3/uL 1.80-7.70 LYMPHOCYTE # (test code=LY#) 0.80 x10 3/uL 1.00-4.80 MONOCYTE # (test code=MO#) 0.78 x10 3/uL 0.00-0.80 EOSINOPHIL # (test code=EO#) 0.00 x10 3/uL 0.00-0.45 BASOPHIL # (test code=BA#) 0.01 x10 3/uL 0.0-0.20 LIVER FUNCTION [id number] 03:56:00* Test Item Value Reference Range Comments TOTAL PROTEIN (test code=PROT) 7.4 g/dL 6.3-8.3 ALBUMIN (test code=ALB) 3.1 G/DL 3.5-5.0 BILIRUBIN TOTAL (test code=BILT) 0.6 mg/dL 0.2-1.0 BILIRUBIN DIRECT (test code=BILD) 0.4 mg/dL 0.0-0.2 SGOT/AST (test code=AST) 60 IU/L 10-34 SGPT/ALT (test code=ALT) 33 U/L 10-44 ALKALINE PHOSPHATASE (test code=ALKP) 93 U/L 45-120 LACTIC [id number] 03:41:00* Test Item Value Reference Range Comments LACTIC ACID (test code=LACT) 19.1 mg/dL 4.5-18.0 Critical Value reported toFirst Name:RACH Last Name:ANAKORRESULTS READ BACK AND VERIFIEDby P.LABERIC, on 09/04/19, @ 0341. THROMBOPLASTIN TIME [id number] 03:36:00* Test Item Value Reference Range Comments THROMBOPLASTIN TIME PARTIAL (test code=PTT) 123.4 SECONDS 26.0-35.9 Critical Value reported Fauziairst Name:RACH Last Name:TRI READ BACK AND VERIFIEDby GEORGINA, on 09/04/19, @ 0336.INTERPRETATIVE DATA:Therapeutic range: Unfractionated heparin:47 - 71 seconds Argatroban:1.5 to 3 times the baseline PTT PROTHROMBIN [id number] 03:36:00* Test Item Value Reference Range Comments PROTHROMBIN TIME PATIENT (test code=PTP) 12.4 SECONDS 10.3-12.9 INTERNATIONAL NORMAL RATIO (test code=INR) 1.07 INR UNIT 0.9-1.11 The INR is useful only for monitoring anticoagulant therapy.It may be unreliable in the initial phase of antigoagulationand in unstable patients. Indication for Anticoagulation Recommended INR 1. Prevention of venous thomboembolism 2.0-3.0in high-risk patients; treatment of venousthrombosis and pulmonary embolism aftera course of heparin; prevention of systemicembolism in a variety of conditions, including atrial fibrillation and prothetic tissue heart valves, 2. Prosthetic mechanical heart valves; 2.5-3.5recurrent systemic embolism. ARTERIAL BLOOD [id number] 02:35:00* Test Item Value Reference Range Comments ARTERIAL BLOOD GAS PH (test code=PHA) 7.25 7.35-7.45 ARTERIAL BLOOD GAS PCO2 (test code=PCO2A) 50.3 mmHg 35.0-45.0 ARTERIAL BLOOD GAS PO2 (test code=PO2A) 122.8 mmHg 80.0-95.0 BICARBONATE TOTAL HCO3 (test code=HCO3) 21.7 mmol/L 22.0-24.0 BASE EXCESS (test code=KIZZY) -5.8 mmol/L (+/-)2.0 ABG O2 SATURATION (test code=SATA) 97.8 % 95.0-100.0 ABG TYPE (test code=TYPEA) VENTILATOR ARTERIAL FIO2 (test code=FIO2A) 100 % ABG DELIVERY (test code=NICOL) Vent ABG VENT MODE (test code=MODEA) AC Pressure ABG VENT RESP RATE (test code=RRA) 22 /MIN ABG PEEP (test code=PEEP) 15 cmH2O ABG SITE (test code=SITEA) Art line ABG POSITION (test code=PT POSITION) SUPINE ALLENS TEST (test code=ALLENS) NOT APPLICAPLE TOTAL HGB (test code=THB) 14.3 g/dL 13.0-17.0 METHEMOGLOBIN (test code=METHGB) 1.0 % 0-1.5 BASIC METABOLIC [id number] 00:51:00* Test Item Value Reference Range Comments SODIUM (test code=NA) 138 MMOL/L 136-143 POTASSIUM (test code=K) 4.6 MMOL/L 3.5-5.1 CHLORIDE (test code=CL) 97 MMOL/L 98-107 CARBON DIOXIDE (test code=CO2) 21 mmol/L 24-31 GLUCOSE (test code=GLU) 238 mg/dL 70-104 BLOOD UREA NITROGEN (test code=BUN) 66.0 MG/DL 7.0-21.0 GLOMERULAR FILTRATION RATE (test code=GFR) 10 >60 The estimated glomerular filtration rate is computed usingpatient race, age (>18), sex, and serum creatinine. If anyof the needed data elements are missing the Laboratory cannot compute an estimation of the glomerular filtration rate. CREATININE (test code=CREAT) 6.6 mg/dL 0.8-1.5 CALCIUM (test code=CA) 7.2 mg/dL 8.8-10.2 [id number] 00:31:00* Test Item Value Reference Range Comments MAGNESIUM (test code=MAG) 2.5 mg/dL 1.4-2.6 [id number] 00:31:00* Test Item Value Reference Range Comments PHOSPHOROUS (test code=PHOS) 5.9 mg/dL 2.7-4.5 ARTERIAL BLOOD [id number] 00:29:00* Test Item Value Reference Range Comments ARTERIAL BLOOD GAS PH (test code=PHA) 7.26 7.35-7.45 ARTERIAL BLOOD GAS PCO2 (test code=PCO2A) 46.0 mmHg 35.0-45.0 ARTERIAL BLOOD GAS PO2 (test code=PO2A) 105.0 mmHg 80.0-95.0 BICARBONATE TOTAL HCO3 (test code=HCO3) 20.3 mmol/L 22.0-24.0 BASE EXCESS (test code=KIZZY) -6.7 mmol/L (+/-)2.0 ABG O2 SATURATION (test code=SATA) 97.5 % 95.0-100.0 ABG TYPE (test code=TYPEA) VENTILATOR ARTERIAL FIO2 (test code=FIO2A) 100 % ABG VENT MODE (test code=MODEA) AC Pressure ABG PATIENT RESP RATE (test code=RRPATA) 22 /MIN 12-20 ABG PEEP (test code=PEEP) 15 cmH2O ABG SITE (test code=SITEA) Art line ABG POSITION (test code=PT POSITION) SUPINE ALLENS TEST (test code=ALLENS) NOT APPLICAPLE TOTAL HGB (test code=THB) 14.2 g/dL 13.0-17.0 METHEMOGLOBIN (test code=METHGB) 1.1 % 0-1.5 [id number] 22:25:00* Test Item Value Reference Range Comments GLUBED (test code=GLUBED) 249 MG/DL 70-105 ARTERIAL BLOOD [id number] 22:20:00* Test Item Value Reference Range Comments ARTERIAL BLOOD GAS PH (test code=PHA) 7.20 7.35-7.45 ARTERIAL BLOOD GAS PCO2 (test code=PCO2A) 57.3 mmHg 35.0-45.0 ARTERIAL BLOOD GAS PO2 (test code=PO2A) 134.2 mmHg 80.0-95.0 BICARBONATE TOTAL HCO3 (test code=HCO3) 22.1 mmol/L 22.0-24.0 BASE EXCESS (test code=KIZZY) -6.5 mmol/L (+/-)2.0 ABG O2 SATURATION (test code=SATA) 97.9 % 95.0-100.0 ABG TYPE (test code=TYPEA) VENTILATOR ARTERIAL FIO2 (test code=FIO2A) 100 % ABG DELIVERY (test code=NICOL) Vent ABG VENT MODE (test code=MODEA) AC Pressure 15 ABG PATIENT RESP RATE (test code=RRPATA) 22 /MIN 12-20 ABG PEEP (test code=PEEP) 18 cmH2O ABG SITE (test code=SITEA) Art line ABG POSITION (test code=PT POSITION) SUPINE ALLENS TEST (test code=ALLENS) NOT APPLICAPLE TOTAL HGB (test code=THB) 14.0 g/dL 13.0-17.0 METHEMOGLOBIN (test code=METHGB) 0.8 % 0-1.5 ARTERIAL BLOOD [id number] 20:22:00* Test Item Value Reference Range Comments ARTERIAL BLOOD GAS PH (test code=PHA) 7.13 7.35-7.45 ARTERIAL BLOOD GAS PCO2 (test code=PCO2A) 59.5 mmHg 35.0-45.0 ARTERIAL BLOOD GAS PO2 (test code=PO2A) 140.3 mmHg 80.0-95.0 BICARBONATE TOTAL HCO3 (test code=HCO3) 19.4 mmol/L 22.0-24.0 BASE EXCESS (test code=KIZZY) -10.3 mmol/L (+/-)2.0 ABG O2 SATURATION (test code=SATA) 97.8 % 95.0-100.0 ABG TYPE (test code=TYPEA) VENTILATOR ARTERIAL FIO2 (test code=FIO2A) 100 % ABG DELIVERY (test code=NICOL) Vent ABG VENT MODE (test code=MODEA) AC Pressure 14 ABG PATIENT RESP RATE (test code=RRPATA) 22 /MIN 12-20 ABG PEEP (test code=PEEP) 20 cmH2O ABG SITE (test code=SITEA) Art line ABG POSITION (test code=PT POSITION) SUPINE ALLENS TEST (test code=ALLENS) NOT APPLICAPLE TOTAL HGB (test code=THB) 13.7 g/dL 13.0-17.0 METHEMOGLOBIN (test code=METHGB) 0.8 % 0-1.5 - XR CHEST 1 [id number] 19:52:00Patient Name: MILY MOSHER Unit No: [id number] EXAMS: CPT CODE: [id number] XR CHEST 1 V 81971 Exam: Chest portable erect Location: H 12 History: LINE PLACEMENT VERIFICATION Comparison: 09/03/2019 Findings: A left IJ line has been placed, the tip is in the right atrium. No pneumothorax is seen. No change has occurred in the aeration of the lungs. The heart size is unchanged. The mediastinal silhouette is unremarkable. The bony thorax is intact. The endotracheal and nasogastric tubes remain in place. Impression: 1. Satisfactory line placement. 2. Stable chest. at 1952 Reported and signed by: SAVANNA DICKENS M.D. CC: Malachi Perez MD; Rene Cho MD Technologist: Nikolas Fulton Time: DAP (Gy m2): Air Kerma (mGy): Trscr Dt/Tm: 09/03/2019 (1951) by:Jimmy Printed Date/Time: 09/03/2019 (1954) Name: MILY MOSHER [facility] Phys: Rene Tavera MD [address] : 1975 Age: 44 Sex: [place] [address] [id number] Loc: P.0226 1 Exam Date: 09/03/2019 Status: ADM IN PH: FAX: PAGE 1 Signed Report PROTHROMBIN [id number] 18:39:00* Test Item Value Reference Range Comments PROTHROMBIN TIME PATIENT (test code=PTP) 11.9 SECONDS 10.3-12.9 INTERNATIONAL NORMAL RATIO (test code=INR) 1.03 INR UNIT 0.9-1.11 The INR is useful only for monitoring anticoagulant therapy.It may be unreliable in the initial phase of antigoagulationand in unstable patients. Indication for Anticoagulation Recommended INR 1. Prevention of venous thomboembolism 2.0-3.0in high-risk patients; treatment of venousthrombosis and pulmonary embolism aftera course of heparin; prevention of systemicembolism in a variety of conditions, including atrial fibrillation and prothetic tissue heart valves, 2. Prosthetic mechanical heart valves; 2.5-3.5recurrent systemic embolism. THROMBOPLASTIN TIME [id number] 18:39:00* Test Item Value Reference Range Comments THROMBOPLASTIN TIME PARTIAL (test code=PTT) 32.6 SECONDS 26.0-35.9 INTERPRETATIVE DATA:Therapeutic range: Unfractionated heparin:47 - 71 seconds Argatroban:1.5 to 3 times the baseline PTT [id number] 18:35:00* Test Item Value Reference Range Comments CKMB (test code=CKMBT) 1.48 ng/mL 1.35-6.73 INTERPRETATIVE DATA:Negative or inconclusive results do not exclude myocardialinfarction. Serial tests at appropriate intervals may benecessary. [id number] 18:35:00* Test Item Value Reference Range Comments TROPONIN-I (test code=TROPI) < 0.30 ng/mL 0.00-0.30 INTERPRETATIVE DATA:Negative or inconclusive reuslts do not exclude myocardialinfarction. Serial tests at appropriate intervals may benecessary. [id number] 18:23:00* Test Item Value Reference Range Comments CKMB (test code=CKMBT) ng/mL 1.35-6.73 [id number] 18:23:00* Test Item Value Reference Range Comments TROPONIN-I (test code=TROPI) < 0.30 ng/mL 0.00-0.30 INTERPRETATIVE DATA:Negative or inconclusive reuslts do not exclude myocardialinfarction. Serial tests at appropriate intervals may benecessary. COMPREHENSIVE METABOLIC [id number] 18:14:00* Test Item Value Reference Range Comments SODIUM (test code=NA) 138 MMOL/L 136-143 POTASSIUM (test code=K) 4.2 MMOL/L 3.5-5.1 CHLORIDE (test code=CL) 100 MMOL/L 98-107 CARBON DIOXIDE (test code=CO2) 19 mmol/L 24-31 GLUCOSE (test code=GLU) 278 mg/dL 70-104 BLOOD UREA NITROGEN (test code=BUN) 77.7 MG/DL 7.0-21.0 GLOMERULAR FILTRATION RATE (test code=GFR) 9 >60 The estimated glomerular filtration rate is computed usingpatient race, age (>18), sex, and serum creatinine. If anyof the needed data elements are missing the Laboratory cannot compute an estimation of the glomerular filtration rate. CREATININE (test code=CREAT) 7.3 mg/dL 0.8-1.5 TOTAL PROTEIN (test code=PROT) 7.0 g/dL 6.3-8.3 ALBUMIN (test code=ALB) 2.8 G/DL 3.5-5.0 CALCIUM (test code=CA) 7.2 mg/dL 8.8-10.2 BILIRUBIN TOTAL (test code=BILT) 0.5 mg/dL 0.2-1.0 SGOT/AST (test code=AST) 65 IU/L 10-34 SGPT/ALT (test code=ALT) 29 U/L 10-44 ALKALINE PHOSPHATASE (test code=ALKP) 91 U/L 45-120 LIVER FUNCTION [id number] 18:14:00* Test Item Value Reference Range Comments BILIRUBIN DIRECT (test code=BILD) 0.4 mg/dL 0.0-0.2 CREATINE KINASE (CK)2019-09-03 18:14:00* Test Item Value Reference Range Comments CREATINE KINASE (CK) (test code=CK) 914 U/L 24-204 LACTIC [id number] 18:12:00* Test Item Value Reference Range Comments LACTIC ACID (test code=LACT) 14.2 mg/dL 4.5-18.0 - XR CHEST 1 [id number] 18:01:00Patient Name: MILY MOSHER Unit No: [id number] EXAMS: CPT CODE: [id number] XR CHEST 1 V 75281 INDICATIONS: RESPIRATORY FAILURE COMPARISON: There are no prior studies for comparison. Location: W1 A single portable AP view of the chest demonstrates the tip of the endotracheal tube 3 cm above the cristiana. A nasogastric tube extends to the stomach. A right IJ line terminates in the SVC. The heart size is mildly enlarged. Diffuse hazy bilateral lung opacities are visible. No apparent pleural effusion nor pneumothorax. The visualized bony structures are unremarkable. IMPRESSIONS: 1. Various lines and tubes are seen in suitable position. 2. Hazy bilateral lung opacities are present. Suspect pulmonary edema or possibly pneumonia. at 1801 Reported and signed by: Marcos Wilkinson MD CC: Mlaachi Perez MD; Rene Cho MD Technologist: Isaiah Fulton Time: DAP (Gy m2): Air Kerma (mGy): Trscr Dt/Tm: 09/03/2019 (1801) by:[email or web address] Printed Date/Time: 09/03/2019 (1805) Name: MILY MOSHER [facility] Phys: Rene Tavera MD [address] : 1975 Age: 44 Sex: [place] [address] Loc: P.0226 1 Exam Date: 09/03/2019 Status: ADM IN PH: FAX: PAGE 1 Signed Report CBC W/AUTO [id number] 17:55:00* Test Item Value Reference Range Comments WHITE BLOOD CELL (test code=WBC) 10.4 x10 3/uL 4.8-10.8 RED BLOOD CELL (test code=RBC) 3.99 x10 6/uL 4.70-6.10 HEMOGLOBIN (test code=HGB) 12.4 g/dL 14.5-20 HEMATOCRIT (test code=HCT) 39.1 % 42.0-52.0 MEAN CELL VOLUME (test code=MCV) 98.0 fL 80.0-94.0 MEAN CELL HGB (test code=MCH) 31.1 pg 27-31 MEAN CELL HGB CONCENTRATION (test code=MCHC) 31.7 G/DL 33-36.5 RED CELL DISTRIBUTION WIDTH (test code=RDW) 15.1 % 12.9-16.9 PLATELET COUNT (test code=PLT) 260 150-440 MEAN PLATELET VOLUME (test code=MPV) 10.8 fL 8.9-12.4 NEUTROPHIL % (test code=NT%) 85.6 % 42.2-75.2 LYMPHOCYTE % (test code=LY%) 7.2 % 20.5-51.1 MONOCYTE % (test code=MO%) 5.9 % 1.7-9.3 EOSINOPHIL % (test code=EO%) 0.0 % 0.0-7.0 BASOPHIL % (test code=BA%) 0.1 % 0-2.5 NEUTROPHIL # (test code=NT#) 8.88 x10 3/uL 1.80-7.70 LYMPHOCYTE # (test code=LY#) 0.75 x10 3/uL 1.00-4.80 MONOCYTE # (test code=MO#) 0.61 x10 3/uL 0.00-0.80 EOSINOPHIL # (test code=EO#) 0.00 x10 3/uL 0.00-0.45 BASOPHIL # (test code=BA#) 0.01 x10 3/uL 0.0-0.20 CBC W/AUTO [id number] 12:37:00* Test Item Value Reference Range Comments WHITE BLOOD CELL (test code=WBC) 8.8 K/mm3 4.5-12.5 RED BLOOD CELL (test code=RBC) 4.07 mill/mm3 4.0-5.8 HEMOGLOBIN (test code=HGB) 12.7 gram/dL 13.0-17.5 HEMATOCRIT (test code=HCT) 40.5 % 42.0-52.0 MEAN CELL VOLUME (test code=MCV) 99.5 fL 80-98 MEAN CELL HGB (test code=MCH) 31.2 picogram 27.0-33.0 MEAN CELL HGB CONCETRATION (test code=MCHC) 31.4 gram/dL 33.0-36.0 RED CELL DISTRIBUTION WIDTH (test code=RDW) 15.2 % 11.6-16.2 RED CELL DISTRIBUTION WIDTH SD (test code=RDW-SD) 55.7 fL 37.0-51.0 PLATELET COUNT (test code=PLT) 240 K/mm3 150-450 MEAN PLATELET VOLUME (test code=MPV) 10.9 fL 6.7-11.0 NEUTROPHIL % (test code=NT%) 83.6 % 39.0-69.0 IMMATURE GRANULOCYTE % (test code=IG%) 1.1 % 0.0-5.0 LYMPHOCYTE % (test code=LY%) 8.1 % 25.0-55.0 MONOCYTE % (test code=MO%) 7.1 % 0.0-10.0 EOSINOPHIL % (test code=EO%) 0.0 % 0.0-5.0 BASOPHIL % (test code=BA%) 0.1 % 0.0-1.0 NUCLEATED RBC % (test code=NRBC%) 0.0 % 0-0 NEUTROPHIL # (test code=NT#) 7.32 K/mm3 1.8-7.7 IMMATURE GRANULOCYTE # (test code=IG#) 0.10 x10 3/uL 0-0.03 LYMPHOCYTE # (test code=LY#) 0.71 K/mm3 1.0-5.0 MONOCYTE # (test code=MO#) 0.62 K/mm3 0-0.8 EOSINOPHIL # (test code=EO#) 0.00 K/mm3 0.0-0.5 BASOPHIL # (test code=BA#) 0.01 K/mm3 0.0-0.2 NUCLEATED RBC # (test code=NRBC#) 0.00 K/mm3 0.0-0.1 COMPREHENSIVE METABOLIC [id number] 10:32:00* Test Item Value Reference Range Comments SODIUM (test code=NA) 141 mmol/L 136-145 POTASSIUM (test code=K) 4.3 mmol/L 3.5-5.1 CHLORIDE (test code=CL) 104.0 mmol/L 98-107 CARBON DIOXIDE (test code=CO2) 24.0 mmol/L 21-32 ANION GAP (test code=GAP) 17.3 10-20 GLUCOSE (test code=GLU) 268 mg/dL 74-106 BLOOD UREA NITROGEN (test code=BUN) 69 mg/dL 7-18 GLOMERULAR FILTRATION RATE (test code=GFR) 9 mL/min >=60 Estimated GFR by using Modified MDRD formula.Chronic kidney disease is defined as either kidney damageor GFR <60 mL/min/1.73 m2 for >3 months. CREATININE (test code=CREAT) 6.60 mg/dL 0.7-1.3 BUN/CREATININE RATIO (test code=BUN/CREA) 10.5 10-20 TOTAL PROTEIN (test code=PROT) 7.4 gram/dL 6.4-8.2 ALBUMIN (test code=ALB) 2.3 g/dL 3.4-5.0 GLOBULIN (test code=GLOB) 5.1 gram/dL 2.7-4.2 ALBUMIN/GLOBULIN RATIO (test code=A/G) 0.5 0.75-1.50 CALCIUM (test code=CA) 7.3 mg/dL 8.5-10.1 BILIRUBIN TOTAL (test code=BILT) 0.70 mg/dL 0.0-1.0 SGOT/AST (test code=AST) 97 IUnit/L 15-37 SGPT/ALT (test code=ALT) 39 IUnit/L 12-78 ALKALINE PHOSPHATASE TOTAL (test code=ALKP) 102 IUnit/L 45-117 Note change in reference range due to change in reagent. [id number] 10:32:00* Test Item Value Reference Range Comments MAGNESIUM (test code=MAG) 2.5 mg/dL 1.8-2.4 COMPREHENSIVE METABOLIC [id number] 10:24:00* Test Item Value Reference Range Comments SODIUM (test code=NA) 141 mmol/L 136-145 POTASSIUM (test code=K) 4.3 mmol/L 3.5-5.1 CHLORIDE (test code=CL) 104.0 mmol/L 98-107 CARBON DIOXIDE (test code=CO2) mmol/L 21-32 ANION GAP (test code=GAP) 10-20 GLUCOSE (test code=GLU) mg/dL 74-106 BLOOD UREA NITROGEN (test code=BUN) mg/dL 7-18 GLOMERULAR FILTRATION RATE (test code=GFR) mL/min >=60 CREATININE (test code=CREAT) mg/dL 0.7-1.3 BUN/CREATININE RATIO (test code=BUN/CREA) 10-20 TOTAL PROTEIN (test code=PROT) gram/dL 6.4-8.2 ALBUMIN (test code=ALB) g/dL 3.4-5.0 GLOBULIN (test code=GLOB) gram/dL 2.7-4.2 ALBUMIN/GLOBULIN RATIO (test code=A/G) 0.75-1.50 CALCIUM (test code=CA) mg/dL 8.5-10.1 BILIRUBIN TOTAL (test code=BILT) mg/dL 0.0-1.0 SGOT/AST (test code=AST) IUnit/L 15-37 SGPT/ALT (test code=ALT) IUnit/L 12-78 ALKALINE PHOSPHATASE TOTAL (test code=ALKP) IUnit/L 45-117 [id number] 10:24:00* Test Item Value Reference Range Comments MAGNESIUM (test code=MAG) mg/dL 1.8-2.4 CALCIUM [id number] 10:15:00* Test Item Value Reference Range Comments CALCIUM IONIZED (test code=YVON) 0.98 mmol/L 1.12-1.32 [id number] 09:53:00* Test Item Value Reference Range Comments GLUBED (test code=GLUBED) 241 mg/dL 74-106 Performed by certified synthetic gem press operator at [facility] ARTERIAL BLOOD [id number] 06:28:00* Test Item Value Reference Range Comments ARTERIAL BLOOD GAS PH (test code=PHA) 7.24 7.35-7.45 ARTERIAL BLOOD GAS PCO2 (test code=PCO2A) 53.5 mm Hg 35-45 ARTERIAL BLOOD GAS PO2 (test code=PO2A) 71.0 mmHg 80-100 BICARBONATE TOTAL HCO3 (test code=HCO3) 22.3 mmol/L 23.0-27.0 BASE EXCESS (test code=KIZZY) -5.6 mmol/L -3.0-5.0 Results called to and read back by Christine 06:27 - 09/03/2019; by Ruthann ABG O2 SATURATION (test code=SATA) 92.2 % 90.0-98.0 ABG TYPE (test code=TYPEA) Arterial FIO2 (test code=FIO2A) 100.0 ABG VENT MODE (test code=MODEA) Pressure Control ABG VENT RESP RATE (test code=RRA) 22.0 per min ABG PEEP (test code=PEEPA) 20.0 cmH2O ABG SITE (test code=SITEA) ARTERIAL LINE MODIFIED ALLENS (test code=MODALL) Unable CHECK PERFORMED SODIUM (test code=NA/ABG) 138.3 mEq/L 135-148 POTASSIUM (test code=K/ABG) 4.4 mEq/L 3.5-4.5 CHLORIDE (test code=CL/ABG) 103 mEq/L 98-106 GLUCOSE (test code=GLU/ABG) 307 mg/dL 74-99 HEMATOCRIT (test code=HCT/ABG) 41 % 42-52 IONIZED CALCIUM (test code=CAIABG) 0.93 mmol/L 1.1-1.37 TOTAL HGB (test code=THB) 14.1 gram/dL 13.0-17.5 HGB O2 SAT (test code=HBOSAT) 90.8 % 94.00-98.00 CARBOXYHEMOGLOBIN (test code=HOHGBT) 0.6 %totalHg 0.5-1.5 METHEMOGLOBIN (test code=METHGB) 0.9 % 0.0-1.50 O2 CONTENT (test code=O2CT) 18.0 % vol 18.0-22.0 - XR CHEST 1 [id number] 06:27:00 FAX: Kylah Khan MD [phone] [place]: B St: [facility] FAX: Clark Miguel Name: MILY MOSHER [facility] : 1975 Age/S: 44/M [place] Unit #: [id number] Loc: V.S04 [place], [place] [address] Phys: Clark Miguel Acct: [id number] Dis Date: Status: ADM IN PHONE #: [phone] Exam Date: 09/03/2019513 FAX #: [phone] Reason: ARDS EXAMS: CPT CODE: [id number] XR CHEST 1 V 70692 CLINICAL HISTORY: ARDS, hypoxia TECHNIQUE: AP chest x-ray COMPARISON: Previous day. IMPRESSION: Slightly improved bilateral perihilar and basilar airspace consolidation. Small left pleural effusion may be present. Normal heart size. ET tube, NG tube, and right central venous catheter. LOCATION: LP at 0627 Reported and signed by: Erendira Marte D.O. CC: Kylah Hernandes MD; Clark Miguel Technologist: MALACHI RAMIREZ JR Trnscrd Date/Time/By: 09/03/2019 (626) : By: [email or web address] Orig Print D/T: S: 09/03/2019 (0609) PAGE 1 Signed Report ARTERIAL BLOOD [id number] 05:31:00* Test Item Value Reference Range Comments ARTERIAL BLOOD GAS PH (test code=PHA) 7.15 7.35-7.45 Results called to and read back by Christine 05: - 09/03/2019; by Ruthann ARTERIAL BLOOD GAS PCO2 (test code=PCO2A) 63.9 mm Hg 35-45 ARTERIAL BLOOD GAS PO2 (test code=PO2A) 101.3 mmHg 80-100 BICARBONATE TOTAL HCO3 (test code=HCO3) 21.6 mmol/L 23.0-27.0 BASE EXCESS (test code=KIZZY) -8.4 mmol/L -3.0-5.0 Results called to and read back by Christine 05:09/03/2019; by Ruthann ABG O2 SATURATION (test code=SATA) 96.1 % 90.0-98.0 ABG TYPE (test code=TYPEA) Arterial FIO2 (test code=FIO2A) 100.0 ABG VENT MODE (test code=MODEA) Pressure Control ABG VENT RESP RATE (test code=RRA) 22.0 per min ABG PEEP (test code=PEEPA) 24.0 cmH2O ABG SITE (test code=SITEA) ARTERIAL LINE MODIFIED ALLENS (test code=MODALL) Unable CHECK PERFORMED SODIUM (test code=NA/ABG) 139.0 mEq/L 135-148 POTASSIUM (test code=K/ABG) 4.5 mEq/L 3.5-4.5 CHLORIDE (test code=CL/ABG) 102 mEq/L 98-106 GLUCOSE (test code=GLU/ABG) 265 mg/dL 74-99 HEMATOCRIT (test code=HCT/ABG) 43 % 42-52 IONIZED CALCIUM (test code=CAIABG) 0.98 mmol/L 1.1-1.37 TOTAL HGB (test code=THB) 14.6 gram/dL 13.0-17.5 HGB O2 SAT (test code=HBOSAT) 94.9 % 94.00-98.00 CARBOXYHEMOGLOBIN (test code=HOHGBT) 0.5 %totalHg 0.5-1.5 METHEMOGLOBIN (test code=METHGB) 0.8 % 0.0-1.50 O2 CONTENT (test code=O2CT) 19.6 % vol 18.0-22.0 BASIC METABOLIC [id number] 04:00:00* Test Item Value Reference Range Comments SODIUM (test code=NA) 141 mmol/L 136-145 POTASSIUM (test code=K) 4.2 mmol/L 3.5-5.1 CHLORIDE (test code=CL) 107.0 mmol/L 98-107 CARBON DIOXIDE (test code=CO2) 21.0 mmol/L 21-32 ANION GAP (test code=GAP) 17.2 10-20 GLUCOSE (test code=GLU) 259 mg/dL 74-106 BLOOD UREA NITROGEN (test code=BUN) 62 mg/dL 7-18 RESULT VERIFIED BY REPEAT ANALYSIS GLOMERULAR FILTRATION RATE (test code=GFR) 10 mL/min >=60 Estimated GFR by using Modified MDRD formula.Chronic kidney disease is defined as either kidney damageor GFR <60 mL/min/1.73 m2 for >3 months. CREATININE (test code=CREAT) 6.00 mg/dL 0.7-1.3 BUN/CREATININE RATIO (test code=BUN/CREA) 10.3 10-20 CALCIUM (test code=CA) 7.0 mg/dL 8.5-10.1 [id number] 04:00:00* Test Item Value Reference Range Comments PHOSPHORUS (test code=PHOS) 4.2 mg/dL 2.5-4.9 [id number] 04:00:00* Test Item Value Reference Range Comments MAGNESIUM (test code=MAG) 2.3 mg/dL 1.8-2.4 CALCIUM [id number] 04:00:00* Test Item Value Reference Range Comments CALCIUM IONIZED (test code=YVON) 0.96 mmol/L 1.12-1.32 [id number] 03:44:00* Test Item Value Reference Range Comments GLYCOSYLATED HEMOGLOBIN (HA1C) (test code=GLYHGB) 6.3 % HbA1 4.8-6.0 ESTIMATED AVERAGE GLUCOSE (test code=EAG) 134 MG/DL BASIC METABOLIC [id number] 03:40:00* Test Item Value Reference Range Comments SODIUM (test code=NA) 141 mmol/L 136-145 POTASSIUM (test code=K) 4.2 mmol/L 3.5-5.1 CHLORIDE (test code=CL) 107.0 mmol/L 98-107 CARBON DIOXIDE (test code=CO2) mmol/L 21-32 ANION GAP (test code=GAP) 10-20 GLUCOSE (test code=GLU) mg/dL 74-106 BLOOD UREA NITROGEN (test code=BUN) mg/dL 7-18 GLOMERULAR FILTRATION RATE (test code=GFR) mL/min >=60 CREATININE (test code=CREAT) mg/dL 0.7-1.3 BUN/CREATININE RATIO (test code=BUN/CREA) 10-20 CALCIUM (test code=CA) mg/dL 8.5-10.1 [id number] 03:40:00* Test Item Value Reference Range Comments PHOSPHORUS (test code=PHOS) mg/dL 2.5-4.9 [id number] 03:40:00* Test Item Value Reference Range Comments MAGNESIUM (test code=MAG) mg/dL 1.8-2.4 CALCIUM [id number] 03:40:00* Test Item Value Reference Range Comments CALCIUM IONIZED (test code=YVON) 0.96 mmol/L 1.12-1.32 ARTERIAL BLOOD [id number] 03:36:00* Test Item Value Reference Range Comments ARTERIAL BLOOD GAS PH (test code=PHA) 7.24 7.35-7.45 ARTERIAL BLOOD GAS PCO2 (test code=PCO2A) 44.2 mm Hg 35-45 ARTERIAL BLOOD GAS PO2 (test code=PO2A) 70.0 mmHg 80-100 BICARBONATE TOTAL HCO3 (test code=HCO3) 18.6 mmol/L 23.0-27.0 BASE EXCESS (test code=KIZZY) -8.5 mmol/L -3.0-5.0 Results called to and read back by Christine 03:32 - 09/03/2019; by Ruthann ABG O2 SATURATION (test code=SATA) 91.4 % 90.0-98.0 ABG TYPE (test code=TYPEA) Arterial FIO2 (test code=FIO2A) 100.0 ABG VENT MODE (test code=MODEA) Pressure Control ABG VENT RESP RATE (test code=RRA) 22.0 per min ABG PEEP (test code=PEEPA) 24.0 cmH2O ABG SITE (test code=SITEA) ARTERIAL LINE NO @ 20 PPM MODIFIED ALLENS (test code=MODALL) Unable CHECK PERFORMED SODIUM (test code=NA/ABG) 137.5 mEq/L 135-148 POTASSIUM (test code=K/ABG) 4.1 mEq/L 3.5-4.5 CHLORIDE (test code=CL/ABG) 104 mEq/L 98-106 GLUCOSE (test code=GLU/ABG) 264 mg/dL 74-99 HEMATOCRIT (test code=HCT/ABG) 43 % 42-52 IONIZED CALCIUM (test code=CAIABG) 0.99 mmol/L 1.1-1.37 TOTAL HGB (test code=THB) 14.6 gram/dL 13.0-17.5 HGB O2 SAT (test code=HBOSAT) 90.4 % 94.00-98.00 CARBOXYHEMOGLOBIN (test code=HOHGBT) 0.3 %totalHg 0.5-1.5 Results called to and read back by Christine 03:32 - 09/03/2019; by Ruthann METHEMOGLOBIN (test code=METHGB) 0.8 % 0.0-1.50 O2 CONTENT (test code=O2CT) 18.6 % vol 18.0-22.0 BASIC METABOLIC [id number] 03:33:00* Test Item Value Reference Range Comments SODIUM (test code=NA) 141 mmol/L 136-145 POTASSIUM (test code=K) 4.2 mmol/L 3.5-5.1 CHLORIDE (test code=CL) 107.0 mmol/L 98-107 CARBON DIOXIDE (test code=CO2) mmol/L 21-32 ANION GAP (test code=GAP) 10-20 GLUCOSE (test code=GLU) mg/dL 74-106 BLOOD UREA NITROGEN (test code=BUN) mg/dL 7-18 GLOMERULAR FILTRATION RATE (test code=GFR) mL/min >=60 CREATININE (test code=CREAT) mg/dL 0.7-1.3 BUN/CREATININE RATIO (test code=BUN/CREA) 10-20 CALCIUM (test code=CA) mg/dL 8.5-10.1 [id number] 03:33:00* Test Item Value Reference Range Comments PHOSPHORUS (test code=PHOS) mg/dL 2.5-4.9 [id number] 03:33:00* Test Item Value Reference Range Comments MAGNESIUM (test code=MAG) mg/dL 1.8-2.4 CALCIUM [id number] 03:33:00* Test Item Value Reference Range Comments CALCIUM IONIZED (test code=YVON) mmol/L 1.12-1.32 ARTERIAL BLOOD [id number] 01:52:00* Test Item Value Reference Range Comments ARTERIAL BLOOD GAS PH (test code=PHA) 7.29 7.35-7.45 ARTERIAL BLOOD GAS PCO2 (test code=PCO2A) 38.5 mm Hg 35-45 ARTERIAL BLOOD GAS PO2 (test code=PO2A) 58.5 mmHg 80-100 BICARBONATE TOTAL HCO3 (test code=HCO3) 18.2 mmol/L 23.0-27.0 BASE EXCESS (test code=KIZZY) -7.7 mmol/L -3.0-5.0 Results called to and read back by Christine 09/03/2019; by Ruthann ABG O2 SATURATION (test code=SATA) 88.5 % 90.0-98.0 ABG TYPE (test code=TYPEA) Arterial FIO2 (test code=FIO2A) 100.0 ABG VENT MODE (test code=MODEA) Pressure Control ABG VENT RESP RATE (test code=RRA) 22.0 per min ABG PEEP (test code=PEEPA) 24.0 cmH2O ABG SITE (test code=SITEA) ARTERIAL LINE MODIFIED ALLENS (test code=MODALL) Unable CHECK PERFORMED SODIUM (test code=NA/ABG) 136.2 mEq/L 135-148 POTASSIUM (test code=K/ABG) 4.2 mEq/L 3.5-4.5 CHLORIDE (test code=CL/ABG) 103 mEq/L 98-106 GLUCOSE (test code=GLU/ABG) 270 mg/dL 74-99 HEMATOCRIT (test code=HCT/ABG) 44 % 42-52 IONIZED CALCIUM (test code=CAIABG) 0.99 mmol/L 1.1-1.37 TOTAL HGB (test code=THB) 14.9 gram/dL 13.0-17.5 HGB O2 SAT (test code=HBOSAT) 87.6 % 94.00-98.00 CARBOXYHEMOGLOBIN (test code=HOHGBT) 0.4 %totalHg 0.5-1.5 Results called to and read back by Christine 09/03/2019; by Ruthann METHEMOGLOBIN (test code=METHGB) 0.6 % 0.0-1.50 O2 CONTENT (test code=O2CT) 18.3 % vol 18.0-22.0 ARTERIAL BLOOD [id number] 00:46:00* Test Item Value Reference Range Comments ARTERIAL BLOOD GAS PH (test code=PHA) 7.29 7.35-7.45 ARTERIAL BLOOD GAS PCO2 (test code=PCO2A) 38.7 mm Hg 35-45 ARTERIAL BLOOD GAS PO2 (test code=PO2A) 59.3 mmHg 80-100 BICARBONATE TOTAL HCO3 (test code=HCO3) 18.2 mmol/L 23.0-27.0 BASE EXCESS (test code=KIZZY) -7.7 mmol/L -3.0-5.0 Results called to and read back by Christine 00:46 - 09/03/2019; by Marco TRIPP O2 SATURATION (test code=SATA) 88.9 % 90.0-98.0 ABG TYPE (test code=TYPEA) Arterial FIO2 (test code=FIO2A) 100.0 ABG VENT MODE (test code=MODEA) Pressure Control ABG VENT RESP RATE (test code=RRA) 22.0 per min ABG PEEP (test code=PEEPA) 22.0 cmH2O ABG SITE (test code=SITEA) Lt RADIAL ARTERY MODIFIED ALLENS (test code=MODALL) Yes CHECK PERFORMED SODIUM (test code=NA/ABG) 135.9 mEq/L 135-148 POTASSIUM (test code=K/ABG) 4.0 mEq/L 3.5-4.5 CHLORIDE (test code=CL/ABG) 102 mEq/L 98-106 GLUCOSE (test code=GLU/ABG) 261 mg/dL 74-99 HEMATOCRIT (test code=HCT/ABG) 42 % 42-52 IONIZED CALCIUM (test code=CAIABG) 0.99 mmol/L 1.1-1.37 TOTAL HGB (test code=THB) 14.4 gram/dL 13.0-17.5 HGB O2 SAT (test code=HBOSAT) 88.4 % 94.00-98.00 CARBOXYHEMOGLOBIN (test code=HOHGBT) 0.2 %totalHg 0.5-1.5 Results called to and read back by Christine 00:46 - 09/03/2019; by Marco METHEMOGLOBIN (test code=METHGB) 0.4 % 0.0-1.50 O2 CONTENT (test code=O2CT) 17.9 % vol 18.0-22.0 ARTERIAL BLOOD [id number] 23:27:00* Test Item Value Reference Range Comments ARTERIAL BLOOD GAS PH (test code=PHA) 7.32 7.35-7.45 ARTERIAL BLOOD GAS PCO2 (test code=PCO2A) 40.2 mm Hg 35-45 ARTERIAL BLOOD GAS PO2 (test code=PO2A) 48.1 mmHg 80-100 Results called to and read back by Christine 23: - 09/02/2019; by Ruthann BICARBONATE TOTAL HCO3 (test code=HCO3) 20.4 mmol/L 23.0-27.0 BASE EXCESS (test code=KIZZY) -5.2 mmol/L -3.0-5.0 Results called to and read back by Christine :09/02/2019; by Ruthann ABG O2 SATURATION (test code=SATA) 82.6 % 90.0-98.0 ABG TYPE (test code=TYPEA) Arterial FIO2 (test code=FIO2A) 80.0 ABG VENT MODE (test code=MODEA) Pressure Control ABG VENT RESP RATE (test code=RRA) 22.0 per min ABG PEEP (test code=PEEPA) 20.0 cmH2O ABG SITE (test code=SITEA) Rt RADIAL ARTERY MODIFIED ALLENS (test code=MODALL) Yes CHECK PERFORMED SODIUM (test code=NA/ABG) 138.0 mEq/L 135-148 POTASSIUM (test code=K/ABG) 4.1 mEq/L 3.5-4.5 CHLORIDE (test code=CL/ABG) 105 mEq/L 98-106 GLUCOSE (test code=GLU/ABG) 272 mg/dL 74-99 HEMATOCRIT (test code=HCT/ABG) 43 % 42-52 IONIZED CALCIUM (test code=CAIABG) 0.97 mmol/L 1.1-1.37 TOTAL HGB (test code=THB) 14.7 gram/dL 13.0-17.5 HGB O2 SAT (test code=HBOSAT) 81.9 % 94.00-98.00 CARBOXYHEMOGLOBIN (test code=HOHGBT) 0.4 %totalHg 0.5-1.5 Results called to and read back by Christine :09/02/2019; by Ruthann METHEMOGLOBIN (test code=METHGB) 0.5 % 0.0-1.50 O2 CONTENT (test code=O2CT) 16.9 % vol 18.0-22.0 [id number] 21:38:00* Test Item Value Reference Range Comments GLUBED (test code=GLUBED) 226 mg/dL 74-106 Performed by certified synthetic gem press operator at [facility] [id number] 16:16:00* Test Item Value Reference Range Comments GLUBED (test code=GLUBED) 171 mg/dL 74-106 Performed by certified synthetic gem press operator at [facility] BASIC METABOLIC [id number] 16:12:00* Test Item Value Reference Range Comments SODIUM (test code=NA) 143 mmol/L 136-145 POTASSIUM (test code=K) 4.3 mmol/L 3.5-5.1 CHLORIDE (test code=CL) 109.0 mmol/L 98-107 CARBON DIOXIDE (test code=CO2) 22.0 mmol/L 21-32 ANION GAP (test code=GAP) 16.3 10-20 GLUCOSE (test code=GLU) 156 mg/dL 74-106 BLOOD UREA NITROGEN (test code=BUN) 49 mg/dL 7-18 GLOMERULAR FILTRATION RATE (test code=GFR) 16 mL/min >=60 Estimated GFR by using Modified MDRD formula.Chronic kidney disease is defined as either kidney damageor GFR <60 mL/min/1.73 m2 for >3 months. CREATININE (test code=CREAT) 4.20 mg/dL 0.7-1.3 BUN/CREATININE RATIO (test code=BUN/CREA) 11.5 10-20 CALCIUM (test code=CA) 7.1 mg/dL 8.5-10.1 BASIC METABOLIC [id number] 16:09:00* Test Item Value Reference Range Comments SODIUM (test code=NA) 143 mmol/L 136-145 POTASSIUM (test code=K) 4.3 mmol/L 3.5-5.1 CHLORIDE (test code=CL) 109.0 mmol/L 98-107 CARBON DIOXIDE (test code=CO2) 22.0 mmol/L 21-32 ANION GAP (test code=GAP) 16.3 10-20 GLUCOSE (test code=GLU) mg/dL 74-106 BLOOD UREA NITROGEN (test code=BUN) 49 mg/dL 7-18 GLOMERULAR FILTRATION RATE (test code=GFR) mL/min >=60 CREATININE (test code=CREAT) mg/dL 0.7-1.3 BUN/CREATININE RATIO (test code=BUN/CREA) 10-20 CALCIUM (test code=CA) 7.1 mg/dL 8.5-10.1 [id number] 11:17:00* Test Item Value Reference Range Comments GLUBED (test code=GLUBED) 122 mg/dL 74-106 [facility] ARTERIAL BLOOD [id number] 09:06:00* Test Item Value Reference Range Comments ARTERIAL BLOOD GAS PH (test code=PHA) 7.33 7.35-7.45 ARTERIAL BLOOD GAS PCO2 (test code=PCO2A) 43.5 mm Hg 35-45 ARTERIAL BLOOD GAS PO2 (test code=PO2A) 46.7 mmHg 80-100 Results called to and read back by Dr Gonzalez 09/02/2019; by [id number] BICARBONATE TOTAL HCO3 (test code=HCO3) 22.2 mmol/L 23.0-27.0 BASE EXCESS (test code=KIZZY) -3.7 mmol/L -3.0-5.0 Results called to and read back by Dr Gonzalez 09/02/2019; by [id number] ABG O2 SATURATION (test code=SATA) 81.0 % 90.0-98.0 ABG TYPE (test code=TYPEA) Arterial FIO2 (test code=FIO2A) 90.0 ABG VENT MODE (test code=MODEA) Assist Control ABG VENT RESP RATE (test code=RRA) 22.0 per min ABG TIDAL VOLUME (test code=TVA) 450.0 mL ABG PEEP (test code=PEEPA) 15.0 cmH2O ABG SITE (test code=SITEA) Rt RADIAL ARTERY MODIFIED ALLENS (test code=MODALL) Yes CHECK PERFORMED HEMATOCRIT (test code=HCT/ABG) 44 % 42-52 TOTAL HGB (test code=THB) 15.0 gram/dL 13.0-17.5 HGB O2 SAT (test code=HBOSAT) 80.2 % 94.00-98.00 CARBOXYHEMOGLOBIN (test code=HOHGBT) 1.0 %totalHg 0.5-1.5 METHEMOGLOBIN (test code=METHGB) 0.0 % 0.0-1.50 O2 CONTENT (test code=O2CT) 16.9 % vol 18.0-22.0 BASIC METABOLIC [id number] 07:18:00* Test Item Value Reference Range Comments SODIUM (test code=NA) 142 mmol/L 136-145 POTASSIUM (test code=K) 4.2 mmol/L 3.5-5.1 CHLORIDE (test code=CL) 108.0 mmol/L 98-107 CARBON DIOXIDE (test code=CO2) 24.0 mmol/L 21-32 ANION GAP (test code=GAP) 14.2 10-20 GLUCOSE (test code=GLU) 144 mg/dL 74-106 BLOOD UREA NITROGEN (test code=BUN) 42 mg/dL 7-18 GLOMERULAR FILTRATION RATE (test code=GFR) 21 mL/min >=60 Estimated GFR by using Modified MDRD formula.Chronic kidney disease is defined as either kidney damageor GFR <60 mL/min/1.73 m2 for >3 months. CREATININE (test code=CREAT) 3.30 mg/dL 0.7-1.3 BUN/CREATININE RATIO (test code=BUN/CREA) 12.6 10-20 CALCIUM (test code=CA) 7.0 mg/dL 8.5-10.1 [id number] 07:18:00* Test Item Value Reference Range Comments PHOSPHORUS (test code=PHOS) 4.3 mg/dL 2.5-4.9 [id number] 07:18:00* Test Item Value Reference Range Comments MAGNESIUM (test code=MAG) 1.9 mg/dL 1.8-2.4 BASIC METABOLIC [id number] 07:14:00* Test Item Value Reference Range Comments SODIUM (test code=NA) 142 mmol/L 136-145 POTASSIUM (test code=K) 4.2 mmol/L 3.5-5.1 CHLORIDE (test code=CL) 108.0 mmol/L 98-107 CARBON DIOXIDE (test code=CO2) mmol/L 21-32 ANION GAP (test code=GAP) 10-20 GLUCOSE (test code=GLU) mg/dL 74-106 BLOOD UREA NITROGEN (test code=BUN) 42 mg/dL 7-18 GLOMERULAR FILTRATION RATE (test code=GFR) mL/min >=60 CREATININE (test code=CREAT) mg/dL 0.7-1.3 BUN/CREATININE RATIO (test code=BUN/CREA) 10-20 CALCIUM (test code=CA) 7.0 mg/dL 8.5-10.1 [id number] 07:14:00* Test Item Value Reference Range Comments PHOSPHORUS (test code=PHOS) mg/dL 2.5-4.9 [id number] 07:14:00* Test Item Value Reference Range Comments MAGNESIUM (test code=MAG) mg/dL 1.8-2.4 CBC W/MANUAL [id number] 06:41:00* Test Item Value Reference Range Comments WHITE BLOOD CELL (test code=WBC) 7.7 K/mm3 4.5-12.5 RED BLOOD CELL (test code=RBC) 4.73 mill/mm3 4.0-5.8 HEMOGLOBIN (test code=HGB) 14.7 gram/dL 13.0-17.5 HEMATOCRIT (test code=HCT) 45.3 % 42.0-52.0 MEAN CELL VOLUME (test code=MCV) 95.8 fL 80-98 MEAN CELL HGB (test code=MCH) 31.1 picogram 27.0-33.0 MEAN CELL HGB CONCETRATION (test code=MCHC) 32.5 gram/dL 33.0-36.0 RED CELL DISTRIBUTION WIDTH (test code=RDW) 14.8 % 11.6-16.2 RED CELL DISTRIBUTION WIDTH SD (test code=RDW-SD) 53.0 fL 37.0-51.0 PLATELET COUNT (test code=PLT) 163 K/mm3 150-450 MEAN PLATELET VOLUME (test code=MPV) 11.1 fL 6.7-11.0 IMMATURE GRANULOCYTE % (test code=IG%) 0.5 % 0.0-5.0 NUCLEATED RBC % (test code=NRBC%) 0.0 % 0-0 NEUTROPHIL # (test code=NT#) 4.91 K/mm3 1.8-7.7 IMMATURE GRANULOCYTE # (test code=IG#) 0.04 x10 3/uL 0-0.03 LYMPHOCYTE # (test code=LY#) 2.48 K/mm3 1.0-5.0 MONOCYTE # (test code=MO#) 0.25 K/mm3 0-0.8 EOSINOPHIL # (test code=EO#) 0.01 K/mm3 0.0-0.5 BASOPHIL # (test code=BA#) 0.01 K/mm3 0.0-0.2 NUCLEATED RBC # (test code=NRBC#) 0.00 K/mm3 0.0-0.1 MANUAL DIFF REQUIRED (test code=MDIFF) YES STAIN ACCEPTABILITY (test code=STN ACCEPTABLE) STAIN ACCEPTABLE TOTAL CELLS COUNTED (test code=TCC) 116 #CELLS SEGMENTED NEUTROPHILS (test code=SEG) 80.0 % 39-69 BAND NEUTROPHIL (test code=BAND) 0 % 0-10 LYMPHOCYTE (test code=LYMPH) 18.3 % 25-55 REACTIVE LYMPH (test code=RELYMPH) 0 % MONOCYTE (test code=MON) 1.7 % 0-10 EOSINOPHIL (test code=EOS) 0 % 0.0-5.0 BASOPHIL (test code=BASO) 0 % 0-1.0 METAMYELOCYTE (test code=META) 0 % 0-0 MYELOCYTE (test code=MYELO) 0 % 0.0-0.0 PROMYELOCYTE (test code=PROM) 0 % 0-0 POIKILOCYTOSIS (test code=POIK) 1+ CRENATED CELLS (test code=CREN) 1+ PLATELET ESTIMATE (test code=PLTEST) ADEQUATE PLATELET MORPHOLOGY (test code=PLTMORPH) NORMAL IMMATURE FORMS (test code=IMMAT) 0 % 0-0 - XR CHEST 1 [id number] 06:27:00 FAX: Francis Varner [phone] [place]: B St: [facility] FAX: Kylah Khan MD [phone] Name: MILY MOSHER [facility] : 1975 Age/S: 44/M [address] [facility] Unit #: [id number] Loc: [place] [address] Phys: Francis Varner Acct: [id number] Dis Date: Status: ADM IN PHONE #: [phone] Exam Date: 09/02/2019 05 FAX #: [phone] Reason: PATIENT ON VENT EXAMS: CPT CODE: [id number] XR CHEST 1 V 04318 CLINICAL HISTORY: Hypoxia, hypotension TECHNIQUE: AP chest x-ray COMPARISON: Previous day. IMPRESSION: Increased bilateral perihilar and basilar airspace consolidation. Small pleural effusions may be present. Normal heart size. ET tube, NG tube, and right central venous catheter. LOCATION: LP at 0627 Reported and signed by: Erendira Marte D.O. CC: Francis Varner; Kylah Hernandes MD Technologist: MALACHI RAMIREZ JR Trnscrd Date/Time/By: 09/02/2019 (06) : By: [email or web address] Orig Print D/T: S: 09/02/2019 (1732) PAGE 1 Signed Report CBC W/MANUAL [id number] 05:14:00 * Test Item Value Reference Range Comments WHITE BLOOD CELL (test code=WBC) 7.7 K/mm3 4.5-12.5 RED BLOOD CELL (test code=RBC) 4.73 mill/mm3 4.0-5.8 HEMOGLOBIN (test code=HGB) 14.7 gram/dL 13.0-17.5 HEMATOCRIT (test code=HCT) 45.3 % 42.0-52.0 MEAN CELL VOLUME (test code=MCV) 95.8 fL 80-98 MEAN CELL HGB (test code=MCH) 31.1 picogram 27.0-33.0 MEAN CELL HGB CONCETRATION (test code=MCHC) 32.5 gram/dL 33.0-36.0 RED CELL DISTRIBUTION WIDTH (test code=RDW) 14.8 % 11.6-16.2 RED CELL DISTRIBUTION WIDTH SD (test code=RDW-SD) 53.0 fL 37.0-51.0 PLATELET COUNT (test code=PLT) 163 K/mm3 150-450 MEAN PLATELET VOLUME (test code=MPV) 11.1 fL 6.7-11.0 IMMATURE GRANULOCYTE % (test code=IG%) 0.5 % 0.0-5.0 NUCLEATED RBC % (test code=NRBC%) 0.0 % 0-0 NEUTROPHIL # (test code=NT#) 4.91 K/mm3 1.8-7.7 IMMATURE GRANULOCYTE # (test code=IG#) 0.04 x10 3/uL 0-0.03 LYMPHOCYTE # (test code=LY#) 2.48 K/mm3 1.0-5.0 MONOCYTE # (test code=MO#) 0.25 K/mm3 0-0.8 EOSINOPHIL # (test code=EO#) 0.01 K/mm3 0.0-0.5 BASOPHIL # (test code=BA#) 0.01 K/mm3 0.0-0.2 NUCLEATED RBC # (test code=NRBC#) 0.00 K/mm3 0.0-0.1 MANUAL DIFF REQUIRED (test code=MDIFF) YES STAIN ACCEPTABILITY (test code=STN ACCEPTABLE) TOTAL CELLS COUNTED (test code=TCC) #CELLS SEGMENTED NEUTROPHILS (test code=SEG) % 39-69 LYMPHOCYTE (test code=LYMPH) % 25-55 MONOCYTE (test code=MON) % 0-10 EOSINOPHIL (test code=EOS) % 0.0-5.0 CABOT RINGS (test code=CAB) MORPHOLOGY COMMENT (test code=MOC) PLATELET ESTIMATE (test code=PLTEST) PLATELET MORPHOLOGY (test code=PLTMORPH) CBC W/MANUAL [id number] 05:14:00* Test Item Value Reference Range Comments WHITE BLOOD CELL (test code=WBC) 7.7 K/mm3 4.5-12.5 RED BLOOD CELL (test code=RBC) 4.73 mill/mm3 4.0-5.8 HEMOGLOBIN (test code=HGB) 14.7 gram/dL 13.0-17.5 HEMATOCRIT (test code=HCT) 45.3 % 42.0-52.0 MEAN CELL VOLUME (test code=MCV) 95.8 fL 80-98 MEAN CELL HGB (test code=MCH) 31.1 picogram 27.0-33.0 MEAN CELL HGB CONCETRATION (test code=MCHC) 32.5 gram/dL 33.0-36.0 RED CELL DISTRIBUTION WIDTH (test code=RDW) 14.8 % 11.6-16.2 RED CELL DISTRIBUTION WIDTH SD (test code=RDW-SD) 53.0 fL 37.0-51.0 PLATELET COUNT (test code=PLT) 163 K/mm3 150-450 MEAN PLATELET VOLUME (test code=MPV) 11.1 fL 6.7-11.0 IMMATURE GRANULOCYTE % (test code=IG%) 0.5 % 0.0-5.0 NUCLEATED RBC % (test code=NRBC%) 0.0 % 0-0 NEUTROPHIL # (test code=NT#) 4.91 K/mm3 1.8-7.7 IMMATURE GRANULOCYTE # (test code=IG#) 0.04 x10 3/uL 0-0.03 LYMPHOCYTE # (test code=LY#) 2.48 K/mm3 1.0-5.0 MONOCYTE # (test code=MO#) 0.25 K/mm3 0-0.8 EOSINOPHIL # (test code=EO#) 0.01 K/mm3 0.0-0.5 BASOPHIL # (test code=BA#) 0.01 K/mm3 0.0-0.2 NUCLEATED RBC # (test code=NRBC#) 0.00 K/mm3 0.0-0.1 MANUAL DIFF REQUIRED (test code=MDIFF) YES STAIN ACCEPTABILITY (test code=STN ACCEPTABLE) TOTAL CELLS COUNTED (test code=TCC) #CELLS SEGMENTED NEUTROPHILS (test code=SEG) % 39-69 LYMPHOCYTE (test code=LYMPH) % 25-55 MONOCYTE (test code=MON) % 0-10 EOSINOPHIL (test code=EOS) % 0.0-5.0 CABOT RINGS (test code=CAB) MORPHOLOGY COMMENT (test code=MOC) PLATELET ESTIMATE (test code=PLTEST) PLATELET MORPHOLOGY (test code=PLTMORPH) CBC W/MANUAL [id number] 05:14:00* Test Item Value Reference Range Comments WHITE BLOOD CELL (test code=WBC) 7.7 K/mm3 4.5-12.5 RED BLOOD CELL (test code=RBC) 4.73 mill/mm3 4.0-5.8 HEMOGLOBIN (test code=HGB) 14.7 gram/dL 13.0-17.5 HEMATOCRIT (test code=HCT) 45.3 % 42.0-52.0 MEAN CELL VOLUME (test code=MCV) 95.8 fL 80-98 MEAN CELL HGB (test code=MCH) 31.1 picogram 27.0-33.0 MEAN CELL HGB CONCETRATION (test code=MCHC) 32.5 gram/dL 33.0-36.0 RED CELL DISTRIBUTION WIDTH (test code=RDW) 14.8 % 11.6-16.2 RED CELL DISTRIBUTION WIDTH SD (test code=RDW-SD) 53.0 fL 37.0-51.0 PLATELET COUNT (test code=PLT) 163 K/mm3 150-450 MEAN PLATELET VOLUME (test code=MPV) 11.1 fL 6.7-11.0 IMMATURE GRANULOCYTE % (test code=IG%) 0.5 % 0.0-5.0 NUCLEATED RBC % (test code=NRBC%) 0.0 % 0-0 NEUTROPHIL # (test code=NT#) 4.91 K/mm3 1.8-7.7 IMMATURE GRANULOCYTE # (test code=IG#) 0.04 x10 3/uL 0-0.03 LYMPHOCYTE # (test code=LY#) 2.48 K/mm3 1.0-5.0 MONOCYTE # (test code=MO#) 0.25 K/mm3 0-0.8 EOSINOPHIL # (test code=EO#) 0.01 K/mm3 0.0-0.5 BASOPHIL # (test code=BA#) 0.01 K/mm3 0.0-0.2 NUCLEATED RBC # (test code=NRBC#) 0.00 K/mm3 0.0-0.1 MANUAL DIFF REQUIRED (test code=MDIFF) YES STAIN ACCEPTABILITY (test code=STN ACCEPTABLE) TOTAL CELLS COUNTED (test code=TCC) #CELLS SEGMENTED NEUTROPHILS (test code=SEG) % 39-69 LYMPHOCYTE (test code=LYMPH) % 25-55 MONOCYTE (test code=MON) % 0-10 EOSINOPHIL (test code=EOS) % 0.0-5.0 MORPHOLOGY COMMENT (test code=MOC) PLATELET ESTIMATE (test code=PLTEST) PLATELET MORPHOLOGY (test code=PLTMORPH) CBC W/MANUAL [id number] 05:14:00* Test Item Value Reference Range Comments WHITE BLOOD CELL (test code=WBC) 7.7 K/mm3 4.5-12.5 RED BLOOD CELL (test code=RBC) 4.73 mill/mm3 4.0-5.8 HEMOGLOBIN (test code=HGB) 14.7 gram/dL 13.0-17.5 HEMATOCRIT (test code=HCT) 45.3 % 42.0-52.0 MEAN CELL VOLUME (test code=MCV) 95.8 fL 80-98 MEAN CELL HGB (test code=MCH) 31.1 picogram 27.0-33.0 MEAN CELL HGB CONCETRATION (test code=MCHC) 32.5 gram/dL 33.0-36.0 RED CELL DISTRIBUTION WIDTH (test code=RDW) 14.8 % 11.6-16.2 RED CELL DISTRIBUTION WIDTH SD (test code=RDW-SD) 53.0 fL 37.0-51.0 PLATELET COUNT (test code=PLT) 163 K/mm3 150-450 MEAN PLATELET VOLUME (test code=MPV) 11.1 fL 6.7-11.0 IMMATURE GRANULOCYTE % (test code=IG%) 0.5 % 0.0-5.0 NUCLEATED RBC % (test code=NRBC%) 0.0 % 0-0 NEUTROPHIL # (test code=NT#) 4.91 K/mm3 1.8-7.7 IMMATURE GRANULOCYTE # (test code=IG#) 0.04 x10 3/uL 0-0.03 LYMPHOCYTE # (test code=LY#) 2.48 K/mm3 1.0-5.0 MONOCYTE # (test code=MO#) 0.25 K/mm3 0-0.8 EOSINOPHIL # (test code=EO#) 0.01 K/mm3 0.0-0.5 BASOPHIL # (test code=BA#) 0.01 K/mm3 0.0-0.2 NUCLEATED RBC # (test code=NRBC#) 0.00 K/mm3 0.0-0.1 MANUAL DIFF REQUIRED (test code=MDIFF) YES STAIN ACCEPTABILITY (test code=STN ACCEPTABLE) TOTAL CELLS COUNTED (test code=TCC) #CELLS SEGMENTED NEUTROPHILS (test code=SEG) % 39-69 LYMPHOCYTE (test code=LYMPH) % 25-55 MONOCYTE (test code=MON) % 0-10 MORPHOLOGY COMMENT (test code=MOC) PLATELET ESTIMATE (test code=PLTEST) PLATELET MORPHOLOGY (test code=PLTMORPH) CBC W/MANUAL [id number] 05:14:00* Test Item Value Reference Range Comments WHITE BLOOD CELL (test code=WBC) 7.7 K/mm3 4.5-12.5 RED BLOOD CELL (test code=RBC) 4.73 mill/mm3 4.0-5.8 HEMOGLOBIN (test code=HGB) 14.7 gram/dL 13.0-17.5 HEMATOCRIT (test code=HCT) 45.3 % 42.0-52.0 MEAN CELL VOLUME (test code=MCV) 95.8 fL 80-98 MEAN CELL HGB (test code=MCH) 31.1 picogram 27.0-33.0 MEAN CELL HGB CONCETRATION (test code=MCHC) 32.5 gram/dL 33.0-36.0 RED CELL DISTRIBUTION WIDTH (test code=RDW) 14.8 % 11.6-16.2 RED CELL DISTRIBUTION WIDTH SD (test code=RDW-SD) 53.0 fL 37.0-51.0 PLATELET COUNT (test code=PLT) 163 K/mm3 150-450 MEAN PLATELET VOLUME (test code=MPV) 11.1 fL 6.7-11.0 IMMATURE GRANULOCYTE % (test code=IG%) 0.5 % 0.0-5.0 NUCLEATED RBC % (test code=NRBC%) 0.0 % 0-0 NEUTROPHIL # (test code=NT#) 4.91 K/mm3 1.8-7.7 IMMATURE GRANULOCYTE # (test code=IG#) 0.04 x10 3/uL 0-0.03 LYMPHOCYTE # (test code=LY#) 2.48 K/mm3 1.0-5.0 MONOCYTE # (test code=MO#) 0.25 K/mm3 0-0.8 EOSINOPHIL # (test code=EO#) 0.01 K/mm3 0.0-0.5 BASOPHIL # (test code=BA#) 0.01 K/mm3 0.0-0.2 NUCLEATED RBC # (test code=NRBC#) 0.00 K/mm3 0.0-0.1 MANUAL DIFF REQUIRED (test code=MDIFF) YES STAIN ACCEPTABILITY (test code=STN ACCEPTABLE) TOTAL CELLS COUNTED (test code=TCC) #CELLS SEGMENTED NEUTROPHILS (test code=SEG) % 39-69 LYMPHOCYTE (test code=LYMPH) % 25-55 MONOCYTE (test code=MON) % 0-10 EOSINOPHIL (test code=EOS) % 0.0-5.0 CABOT RINGS (test code=CAB) MORPHOLOGY COMMENT (test code=MOC) PLATELET ESTIMATE (test code=PLTEST) PLATELET MORPHOLOGY (test code=PLTMORPH) CBC W/AUTO [id number] 05:10:00* Test Item Value Reference Range Comments WHITE BLOOD CELL (test code=WBC) K/mm3 4.5-12.5 RED BLOOD CELL (test code=RBC) mill/mm3 4.0-5.8 HEMOGLOBIN (test code=HGB) 14.7 gram/dL 13.0-17.5 HEMATOCRIT (test code=HCT) 45.3 % 42.0-52.0 MEAN CELL VOLUME (test code=MCV) fL 80-98 MEAN CELL HGB (test code=MCH) picogram 27.0-33.0 MEAN CELL HGB CONCETRATION (test code=MCHC) gram/dL 33.0-36.0 RED CELL DISTRIBUTION WIDTH (test code=RDW) % 11.6-16.2 RED CELL DISTRIBUTION WIDTH SD (test code=RDW-SD) fL 37.0-51.0 PLATELET COUNT (test code=PLT) K/mm3 150-450 MEAN PLATELET VOLUME (test code=MPV) fL 6.7-11.0 NEUTROPHIL % (test code=NT%) % 39.0-69.0 IMMATURE GRANULOCYTE % (test code=IG%) % 0.0-5.0 LYMPHOCYTE % (test code=LY%) % 25.0-55.0 MONOCYTE % (test code=MO%) % 0.0-10.0 EOSINOPHIL % (test code=EO%) % 0.0-5.0 BASOPHIL % (test code=BA%) % 0.0-1.0 NEUTROPHIL # (test code=NT#) K/mm3 1.8-7.7 LYMPHOCYTE # (test code=LY#) K/mm3 1.0-5.0 MONOCYTE # (test code=MO#) K/mm3 0-0.8 EOSINOPHIL # (test code=EO#) K/mm3 0.0-0.5 BASOPHIL # (test code=BA#) K/mm3 0.0-0.2 [id number] 20:20:00* Test Item Value Reference Range Comments GLUBED (test code=GLUBED) 121 mg/dL 74-106 Performed by certified synthetic gem press operator at [facility] [id number] 16:10:00* Test Item Value Reference Range Comments GLUBED (test code=GLUBED) 116 mg/dL 74-106 Performed by certified synthetic gem press operator at [facility] LACTIC [id number] 15:10:00* Test Item Value Reference Range Comments LACTIC ACID (test code=LACT) 1.4 mmol/L 0.4-1.9 ARTERIAL BLOOD [id number] 13:01:00* Test Item Value Reference Range Comments ARTERIAL BLOOD GAS PH (test code=PHA) 7.38 7.35-7.45 ARTERIAL BLOOD GAS PCO2 (test code=PCO2A) 37.2 mm Hg 35-45 ARTERIAL BLOOD GAS PO2 (test code=PO2A) 49.7 mmHg 80-100 Results called to and read back by dr gonzalez 12:50 09/01/2019; by juan pablo BICARBONATE TOTAL HCO3 (test code=HCO3) 21.3 mmol/L 23.0-27.0 BASE EXCESS (test code=KIZZY) -3.3 mmol/L -3.0-5.0 Results called to and read back by dr gonzalez 12:50 09/01/2019; by juan pablo ABG O2 SATURATION (test code=SATA) 85.3 % 90.0-98.0 ABG TYPE (test code=TYPEA) Arterial FIO2 (test code=FIO2A) 80.0 ABG VENT MODE (test code=MODEA) Assist Control ABG VENT RESP RATE (test code=RRA) 22.0 per min ABG TIDAL VOLUME (test code=TVA) 500.0 mL ABG PEEP (test code=PEEPA) 10.0 cmH2O ABG SITE (test code=SITEA) Rt RADIAL ARTERY MODIFIED ALLENS (test code=MODALL) Yes CHECK PERFORMED HEMATOCRIT (test code=HCT/ABG) 46 % 42-52 TOTAL HGB (test code=THB) 15.5 gram/dL 13.0-17.5 HGB O2 SAT (test code=HBOSAT) 84.5 % 94.00-98.00 CARBOXYHEMOGLOBIN (test code=HOHGBT) 0.4 %totalHg 0.5-1.5 Results called to and read back by dr gonzalez 12:50 09/01/2019; by juan pablo METHEMOGLOBIN (test code=METHGB) 0.5 % 0.0-1.50 O2 CONTENT (test code=O2CT) 18.4 % vol 18.0-22.0 [id number] 11:56:00* Test Item Value Reference Range Comments GLUBED (test code=GLUBED) 106 mg/dL 74-106 Performed by certified synthetic gem press operator at [facility] - XR CHEST 1 [id number] 07:28:00 FAX: Francis Varner [phone] [place]: B St: ADM FAX: Y Kylah Hernandes MD [phone] Name: MILY MOSHER [facility] : 1975 Age/S: 44/M [address] [facility] Unit #: [id number] Loc: V.S04 [place] [address] Phys: Francis Varner Acct: [id number] Dis Date: Status: ADM IN PHONE #: [phone] Exam Date: 09/01/2019 0419 FAX #: [phone] Reason: ON VENT EXAMS: CPT CODE: [id number] XR CHEST 1 V 43348 CLINICAL HISTORY: Hypoxia, hypotension, ventilator TECHNIQUE: AP chest x- ray COMPARISON: Previous day. IMPRESSION: Increased bilateral perihilar and basilar airspace consolidation. Small pleural effusions may be present. Normal heart size. ET tube reposition 4 cm above the [place]. Enteric tube placed into the stomach. Right central venous catheter in stable position. LOCATION: LP at 0728 Reported and signed by: Erendira Marte D.O. CC: Francis Varner; Kylah Hernandes MD Technologist: MALACHI RAMIREZ JR Trnscrd Date/Time/By: 09/01/2019 (07) : By: [email or web address] Orig Print D/T: S: 09/01/2019 (0732) PAGE 1 Signed Report BASIC METABOLIC [id number] 06:52:00* Test Item Value Reference Range Comments SODIUM (test code=NA) 143 mmol/L 136-145 RESULT VERIFIED BY REPEAT ANALYSIS POTASSIUM (test code=K) 4.0 mmol/L 3.5-5.1 CHLORIDE (test code=CL) 111.0 mmol/L 98-107 CARBON DIOXIDE (test code=CO2) 22.0 mmol/L 21-32 ANION GAP (test code=GAP) 14.0 10-20 GLUCOSE (test code=GLU) 125 mg/dL 74-106 BLOOD UREA NITROGEN (test code=BUN) 43 mg/dL 7-18 RESULT VERIFIED BY REPEAT ANALYSIS GLOMERULAR FILTRATION RATE (test code=GFR) 30 mL/min >=60 Estimated GFR by using Modified MDRD formula.Chronic kidney disease is defined as either kidney damageor GFR <60 mL/min/1.73 m2 for >3 months. CREATININE (test code=CREAT) 2.40 mg/dL 0.7-1.3 BUN/CREATININE RATIO (test code=BUN/CREA) 17.9 10-20 CALCIUM (test code=CA) 7.2 mg/dL 8.5-10.1 CBC W/MANUAL [id number] 06:50:00* Test Item Value Reference Range Comments WHITE BLOOD CELL (test code=WBC) 6.0 K/mm3 4.5-12.5 RED BLOOD CELL (test code=RBC) 4.63 mill/mm3 4.0-5.8 HEMOGLOBIN (test code=HGB) 14.4 gram/dL 13.0-17.5 HEMATOCRIT (test code=HCT) 43.8 % 42.0-52.0 MEAN CELL VOLUME (test code=MCV) 94.6 fL 80-98 MEAN CELL HGB (test code=MCH) 31.1 picogram 27.0-33.0 MEAN CELL HGB CONCETRATION (test code=MCHC) 32.9 gram/dL 33.0-36.0 RED CELL DISTRIBUTION WIDTH (test code=RDW) 14.7 % 11.6-16.2 RED CELL DISTRIBUTION WIDTH SD (test code=RDW-SD) 51.4 fL 37.0-51.0 PLATELET COUNT (test code=PLT) 162 K/mm3 150-450 MEAN PLATELET VOLUME (test code=MPV) 11.3 fL 6.7-11.0 IMMATURE GRANULOCYTE % (test code=IG%) 0.3 % 0.0-5.0 NUCLEATED RBC % (test code=NRBC%) 0.0 % 0-0 NEUTROPHIL # (test code=NT#) 4.62 K/mm3 1.8-7.7 IMMATURE GRANULOCYTE # (test code=IG#) 0.02 x10 3/uL 0-0.03 LYMPHOCYTE # (test code=LY#) 1.18 K/mm3 1.0-5.0 MONOCYTE # (test code=MO#) 0.14 K/mm3 0-0.8 EOSINOPHIL # (test code=EO#) 0.00 K/mm3 0.0-0.5 BASOPHIL # (test code=BA#) 0.01 K/mm3 0.0-0.2 NUCLEATED RBC # (test code=NRBC#) 0.00 K/mm3 0.0-0.1 MANUAL DIFF REQUIRED (test code=MDIFF) YES STAIN ACCEPTABILITY (test code=STN ACCEPTABLE) STAIN ACCEPTABLE TOTAL CELLS COUNTED (test code=TCC) 111 #CELLS SEGMENTED NEUTROPHILS (test code=SEG) 88.3 % 39-69 BAND NEUTROPHIL (test code=BAND) 0 % 0-10 LYMPHOCYTE (test code=LYMPH) 9.9 % 25-55 REACTIVE LYMPH (test code=RELYMPH) 0 % MONOCYTE (test code=MON) 1.8 % 0-10 EOSINOPHIL (test code=EOS) 0 % 0.0-5.0 BASOPHIL (test code=BASO) 0 % 0-1.0 METAMYELOCYTE (test code=META) 0 % 0-0 MYELOCYTE (test code=MYELO) 0 % 0.0-0.0 PROMYELOCYTE (test code=PROM) 0 % 0-0 POIKILOCYTOSIS (test code=POIK) 1+ ANISOCYTOSIS (test code=ANISO) 1+ MACROCYTOSIS (test code=MACR) 1+ PLATELET ESTIMATE (test code=PLTEST) ADEQUATE PLATELET MORPHOLOGY (test code=PLTMORPH) SIZE VARIABLE IMMATURE FORMS (test code=IMMAT) 0 % 0-0 CBC W/MANUAL [id number] 05:54:00* Test Item Value Reference Range Comments WHITE BLOOD CELL (test code=WBC) 6.0 K/mm3 4.5-12.5 RED BLOOD CELL (test code=RBC) 4.63 mill/mm3 4.0-5.8 HEMOGLOBIN (test code=HGB) 14.4 gram/dL 13.0-17.5 HEMATOCRIT (test code=HCT) 43.8 % 42.0-52.0 MEAN CELL VOLUME (test code=MCV) 94.6 fL 80-98 MEAN CELL HGB (test code=MCH) 31.1 picogram 27.0-33.0 MEAN CELL HGB CONCETRATION (test code=MCHC) 32.9 gram/dL 33.0-36.0 RED CELL DISTRIBUTION WIDTH (test code=RDW) 14.7 % 11.6-16.2 RED CELL DISTRIBUTION WIDTH SD (test code=RDW-SD) 51.4 fL 37.0-51.0 PLATELET COUNT (test code=PLT) 162 K/mm3 150-450 MEAN PLATELET VOLUME (test code=MPV) 11.3 fL 6.7-11.0 IMMATURE GRANULOCYTE % (test code=IG%) 0.3 % 0.0-5.0 NUCLEATED RBC % (test code=NRBC%) 0.0 % 0-0 NEUTROPHIL # (test code=NT#) 4.62 K/mm3 1.8-7.7 IMMATURE GRANULOCYTE # (test code=IG#) 0.02 x10 3/uL 0-0.03 LYMPHOCYTE # (test code=LY#) 1.18 K/mm3 1.0-5.0 MONOCYTE # (test code=MO#) 0.14 K/mm3 0-0.8 EOSINOPHIL # (test code=EO#) 0.00 K/mm3 0.0-0.5 BASOPHIL # (test code=BA#) 0.01 K/mm3 0.0-0.2 NUCLEATED RBC # (test code=NRBC#) 0.00 K/mm3 0.0-0.1 MANUAL DIFF REQUIRED (test code=MDIFF) YES STAIN ACCEPTABILITY (test code=STN ACCEPTABLE) TOTAL CELLS COUNTED (test code=TCC) #CELLS SEGMENTED NEUTROPHILS (test code=SEG) % 39-69 LYMPHOCYTE (test code=LYMPH) % 25-55 MONOCYTE (test code=MON) % 0-10 EOSINOPHIL (test code=EOS) % 0.0-5.0 CABOT RINGS (test code=CAB) MORPHOLOGY COMMENT (test code=MOC) PLATELET ESTIMATE (test code=PLTEST) PLATELET MORPHOLOGY (test code=PLTMORPH) CBC W/MANUAL [id number] 05:54:00* Test Item Value Reference Range Comments WHITE BLOOD CELL (test code=WBC) 6.0 K/mm3 4.5-12.5 RED BLOOD CELL (test code=RBC) 4.63 mill/mm3 4.0-5.8 HEMOGLOBIN (test code=HGB) 14.4 gram/dL 13.0-17.5 HEMATOCRIT (test code=HCT) 43.8 % 42.0-52.0 MEAN CELL VOLUME (test code=MCV) 94.6 fL 80-98 MEAN CELL HGB (test code=MCH) 31.1 picogram 27.0-33.0 MEAN CELL HGB CONCETRATION (test code=MCHC) 32.9 gram/dL 33.0-36.0 RED CELL DISTRIBUTION WIDTH (test code=RDW) 14.7 % 11.6-16.2 RED CELL DISTRIBUTION WIDTH SD (test code=RDW-SD) 51.4 fL 37.0-51.0 PLATELET COUNT (test code=PLT) 162 K/mm3 150-450 MEAN PLATELET VOLUME (test code=MPV) 11.3 fL 6.7-11.0 IMMATURE GRANULOCYTE % (test code=IG%) 0.3 % 0.0-5.0 NUCLEATED RBC % (test code=NRBC%) 0.0 % 0-0 NEUTROPHIL # (test code=NT#) 4.62 K/mm3 1.8-7.7 IMMATURE GRANULOCYTE # (test code=IG#) 0.02 x10 3/uL 0-0.03 LYMPHOCYTE # (test code=LY#) 1.18 K/mm3 1.0-5.0 MONOCYTE # (test code=MO#) 0.14 K/mm3 0-0.8 EOSINOPHIL # (test code=EO#) 0.00 K/mm3 0.0-0.5 BASOPHIL # (test code=BA#) 0.01 K/mm3 0.0-0.2 NUCLEATED RBC # (test code=NRBC#) 0.00 K/mm3 0.0-0.1 MANUAL DIFF REQUIRED (test code=MDIFF) YES STAIN ACCEPTABILITY (test code=STN ACCEPTABLE) TOTAL CELLS COUNTED (test code=TCC) #CELLS SEGMENTED NEUTROPHILS (test code=SEG) % 39-69 LYMPHOCYTE (test code=LYMPH) % 25-55 MONOCYTE (test code=MON) % 0-10 EOSINOPHIL (test code=EOS) % 0.0-5.0 CABOT RINGS (test code=CAB) MORPHOLOGY COMMENT (test code=MOC) PLATELET ESTIMATE (test code=PLTEST) PLATELET MORPHOLOGY (test code=PLTMORPH) CBC W/MANUAL [id number] 05:54:00* Test Item Value Reference Range Comments WHITE BLOOD CELL (test code=WBC) 6.0 K/mm3 4.5-12.5 RED BLOOD CELL (test code=RBC) 4.63 mill/mm3 4.0-5.8 HEMOGLOBIN (test code=HGB) 14.4 gram/dL 13.0-17.5 HEMATOCRIT (test code=HCT) 43.8 % 42.0-52.0 MEAN CELL VOLUME (test code=MCV) 94.6 fL 80-98 MEAN CELL HGB (test code=MCH) 31.1 picogram 27.0-33.0 MEAN CELL HGB CONCETRATION (test code=MCHC) 32.9 gram/dL 33.0-36.0 RED CELL DISTRIBUTION WIDTH (test code=RDW) 14.7 % 11.6-16.2 RED CELL DISTRIBUTION WIDTH SD (test code=RDW-SD) 51.4 fL 37.0-51.0 PLATELET COUNT (test code=PLT) 162 K/mm3 150-450 MEAN PLATELET VOLUME (test code=MPV) 11.3 fL 6.7-11.0 IMMATURE GRANULOCYTE % (test code=IG%) 0.3 % 0.0-5.0 NUCLEATED RBC % (test code=NRBC%) 0.0 % 0-0 NEUTROPHIL # (test code=NT#) 4.62 K/mm3 1.8-7.7 IMMATURE GRANULOCYTE # (test code=IG#) 0.02 x10 3/uL 0-0.03 LYMPHOCYTE # (test code=LY#) 1.18 K/mm3 1.0-5.0 MONOCYTE # (test code=MO#) 0.14 K/mm3 0-0.8 EOSINOPHIL # (test code=EO#) 0.00 K/mm3 0.0-0.5 BASOPHIL # (test code=BA#) 0.01 K/mm3 0.0-0.2 NUCLEATED RBC # (test code=NRBC#) 0.00 K/mm3 0.0-0.1 MANUAL DIFF REQUIRED (test code=MDIFF) YES STAIN ACCEPTABILITY (test code=STN ACCEPTABLE) TOTAL CELLS COUNTED (test code=TCC) #CELLS SEGMENTED NEUTROPHILS (test code=SEG) % 39-69 LYMPHOCYTE (test code=LYMPH) % 25-55 MONOCYTE (test code=MON) % 0-10 EOSINOPHIL (test code=EOS) % 0.0-5.0 MORPHOLOGY COMMENT (test code=MOC) PLATELET ESTIMATE (test code=PLTEST) PLATELET MORPHOLOGY (test code=PLTMORPH) CBC W/MANUAL [id number] 05:54:00* Test Item Value Reference Range Comments WHITE BLOOD CELL (test code=WBC) 6.0 K/mm3 4.5-12.5 RED BLOOD CELL (test code=RBC) 4.63 mill/mm3 4.0-5.8 HEMOGLOBIN (test code=HGB) 14.4 gram/dL 13.0-17.5 HEMATOCRIT (test code=HCT) 43.8 % 42.0-52.0 MEAN CELL VOLUME (test code=MCV) 94.6 fL 80-98 MEAN CELL HGB (test code=MCH) 31.1 picogram 27.0-33.0 MEAN CELL HGB CONCETRATION (test code=MCHC) 32.9 gram/dL 33.0-36.0 RED CELL DISTRIBUTION WIDTH (test code=RDW) 14.7 % 11.6-16.2 RED CELL DISTRIBUTION WIDTH SD (test code=RDW-SD) 51.4 fL 37.0-51.0 PLATELET COUNT (test code=PLT) 162 K/mm3 150-450 MEAN PLATELET VOLUME (test code=MPV) 11.3 fL 6.7-11.0 IMMATURE GRANULOCYTE % (test code=IG%) 0.3 % 0.0-5.0 NUCLEATED RBC % (test code=NRBC%) 0.0 % 0-0 NEUTROPHIL # (test code=NT#) 4.62 K/mm3 1.8-7.7 IMMATURE GRANULOCYTE # (test code=IG#) 0.02 x10 3/uL 0-0.03 LYMPHOCYTE # (test code=LY#) 1.18 K/mm3 1.0-5.0 MONOCYTE # (test code=MO#) 0.14 K/mm3 0-0.8 EOSINOPHIL # (test code=EO#) 0.00 K/mm3 0.0-0.5 BASOPHIL # (test code=BA#) 0.01 K/mm3 0.0-0.2 NUCLEATED RBC # (test code=NRBC#) 0.00 K/mm3 0.0-0.1 MANUAL DIFF REQUIRED (test code=MDIFF) YES STAIN ACCEPTABILITY (test code=STN ACCEPTABLE) TOTAL CELLS COUNTED (test code=TCC) #CELLS SEGMENTED NEUTROPHILS (test code=SEG) % 39-69 LYMPHOCYTE (test code=LYMPH) % 25-55 MONOCYTE (test code=MON) % 0-10 MORPHOLOGY COMMENT (test code=MOC) PLATELET ESTIMATE (test code=PLTEST) PLATELET MORPHOLOGY (test code=PLTMORPH) CBC W/MANUAL [id number] 05:54:00* Test Item Value Reference Range Comments WHITE BLOOD CELL (test code=WBC) 6.0 K/mm3 4.5-12.5 RED BLOOD CELL (test code=RBC) 4.63 mill/mm3 4.0-5.8 HEMOGLOBIN (test code=HGB) 14.4 gram/dL 13.0-17.5 HEMATOCRIT (test code=HCT) 43.8 % 42.0-52.0 MEAN CELL VOLUME (test code=MCV) 94.6 fL 80-98 MEAN CELL HGB (test code=MCH) 31.1 picogram 27.0-33.0 MEAN CELL HGB CONCETRATION (test code=MCHC) 32.9 gram/dL 33.0-36.0 RED CELL DISTRIBUTION WIDTH (test code=RDW) 14.7 % 11.6-16.2 RED CELL DISTRIBUTION WIDTH SD (test code=RDW-SD) 51.4 fL 37.0-51.0 PLATELET COUNT (test code=PLT) 162 K/mm3 150-450 MEAN PLATELET VOLUME (test code=MPV) 11.3 fL 6.7-11.0 IMMATURE GRANULOCYTE % (test code=IG%) 0.3 % 0.0-5.0 NUCLEATED RBC % (test code=NRBC%) 0.0 % 0-0 NEUTROPHIL # (test code=NT#) 4.62 K/mm3 1.8-7.7 IMMATURE GRANULOCYTE # (test code=IG#) 0.02 x10 3/uL 0-0.03 LYMPHOCYTE # (test code=LY#) 1.18 K/mm3 1.0-5.0 MONOCYTE # (test code=MO#) 0.14 K/mm3 0-0.8 EOSINOPHIL # (test code=EO#) 0.00 K/mm3 0.0-0.5 BASOPHIL # (test code=BA#) 0.01 K/mm3 0.0-0.2 NUCLEATED RBC # (test code=NRBC#) 0.00 K/mm3 0.0-0.1 MANUAL DIFF REQUIRED (test code=MDIFF) YES STAIN ACCEPTABILITY (test code=STN ACCEPTABLE) TOTAL CELLS COUNTED (test code=TCC) #CELLS SEGMENTED NEUTROPHILS (test code=SEG) % 39-69 LYMPHOCYTE (test code=LYMPH) % 25-55 MONOCYTE (test code=MON) % 0-10 EOSINOPHIL (test code=EOS) % 0.0-5.0 CABOT RINGS (test code=CAB) MORPHOLOGY COMMENT (test code=MOC) PLATELET ESTIMATE (test code=PLTEST) PLATELET MORPHOLOGY (test code=PLTMORPH) CBC W/AUTO [id number] 05:46:00* Test Item Value Reference Range Comments WHITE BLOOD CELL (test code=WBC) K/mm3 4.5-12.5 RED BLOOD CELL (test code=RBC) mill/mm3 4.0-5.8 HEMOGLOBIN (test code=HGB) 14.4 gram/dL 13.0-17.5 HEMATOCRIT (test code=HCT) 43.8 % 42.0-52.0 MEAN CELL VOLUME (test code=MCV) fL 80-98 MEAN CELL HGB (test code=MCH) picogram 27.0-33.0 MEAN CELL HGB CONCETRATION (test code=MCHC) gram/dL 33.0-36.0 RED CELL DISTRIBUTION WIDTH (test code=RDW) % 11.6-16.2 RED CELL DISTRIBUTION WIDTH SD (test code=RDW-SD) fL 37.0-51.0 PLATELET COUNT (test code=PLT) K/mm3 150-450 MEAN PLATELET VOLUME (test code=MPV) fL 6.7-11.0 NEUTROPHIL % (test code=NT%) % 39.0-69.0 IMMATURE GRANULOCYTE % (test code=IG%) % 0.0-5.0 LYMPHOCYTE % (test code=LY%) % 25.0-55.0 MONOCYTE % (test code=MO%) % 0.0-10.0 EOSINOPHIL % (test code=EO%) % 0.0-5.0 BASOPHIL % (test code=BA%) % 0.0-1.0 NEUTROPHIL # (test code=NT#) K/mm3 1.8-7.7 LYMPHOCYTE # (test code=LY#) K/mm3 1.0-5.0 MONOCYTE # (test code=MO#) K/mm3 0-0.8 EOSINOPHIL # (test code=EO#) K/mm3 0.0-0.5 BASOPHIL # (test code=BA#) K/mm3 0.0-0.2 AG STREPTOCOCCUS [id number] 03:51:00* Test Item Value Reference Range Comments AG STREPTOCOCCUS PNEUMO (test code=STREPPNAG) NEGATIVE NEGATIVE LEGIONELLA ANTIGEN,URINE,[id number] 03:51:00* Test Item Value Reference Range Comments LEGIONELLA ANTIGEN,URINE,AISHWARYA (test code=LEGAGUR) NEGATIVE NEGATIVE [id number] 02:57:00* Test Item Value Reference Range Comments GLUBED (test code=GLUBED) 105 mg/dL 74-106 Performed by certified synthetic gem press operator at [facility] [id number] 21:29:00* Test Item Value Reference Range Comments GLUBED (test code=GLUBED) 134 mg/dL 74-106 Performed by certified synthetic gem press operator at [facility] CBC W/MANUAL [id number] 17:27:00* Test Item Value Reference Range Comments WHITE BLOOD CELL (test code=WBC) 5.4 K/mm3 4.5-12.5 RED BLOOD CELL (test code=RBC) 4.30 mill/mm3 4.0-5.8 HEMOGLOBIN (test code=HGB) 13.4 gram/dL 13.0-17.5 HEMATOCRIT (test code=HCT) 41.9 % 42.0-52.0 MEAN CELL VOLUME (test code=MCV) 97.4 fL 80-98 MEAN CELL HGB (test code=MCH) 31.2 picogram 27.0-33.0 MEAN CELL HGB CONCETRATION (test code=MCHC) 32.0 gram/dL 33.0-36.0 RED CELL DISTRIBUTION WIDTH (test code=RDW) 14.8 % 11.6-16.2 RED CELL DISTRIBUTION WIDTH SD (test code=RDW-SD) 53.2 fL 37.0-51.0 PLATELET COUNT (test code=PLT) 169 K/mm3 150-450 MEAN PLATELET VOLUME (test code=MPV) 11.1 fL 6.7-11.0 IMMATURE GRANULOCYTE % (test code=IG%) 0.6 % 0.0-5.0 NUCLEATED RBC % (test code=NRBC%) 0.0 % 0-0 NEUTROPHIL # (test code=NT#) 3.79 K/mm3 1.8-7.7 IMMATURE GRANULOCYTE # (test code=IG#) 0.03 x10 3/uL 0-0.03 LYMPHOCYTE # (test code=LY#) 1.40 K/mm3 1.0-5.0 MONOCYTE # (test code=MO#) 0.15 K/mm3 0-0.8 EOSINOPHIL # (test code=EO#) 0.00 K/mm3 0.0-0.5 BASOPHIL # (test code=BA#) 0.01 K/mm3 0.0-0.2 NUCLEATED RBC # (test code=NRBC#) 0.00 K/mm3 0.0-0.1 MANUAL DIFF REQUIRED (test code=MDIFF) YES STAIN ACCEPTABILITY (test code=STN ACCEPTABLE) STAIN ACCEPTABLE TOTAL CELLS COUNTED (test code=TCC) 114 #CELLS SEGMENTED NEUTROPHILS (test code=SEG) 78.1 % 39-69 BAND NEUTROPHIL (test code=BAND) 3.5 % 0-10 LYMPHOCYTE (test code=LYMPH) 14.9 % 25-55 REACTIVE LYMPH (test code=RELYMPH) 1.8 % MONOCYTE (test code=MON) 1.7 % 0-10 EOSINOPHIL (test code=EOS) 0 % 0.0-5.0 BASOPHIL (test code=BASO) 0 % 0-1.0 METAMYELOCYTE (test code=META) 0 % 0-0 MYELOCYTE (test code=MYELO) 0 % 0.0-0.0 PROMYELOCYTE (test code=PROM) 0 % 0-0 POIKILOCYTOSIS (test code=POIK) 1+ TYLER CELLS (test code=TYLER) 1+ NONE PLATELET ESTIMATE (test code=PLTEST) ADEQUATE PLATELET MORPHOLOGY (test code=PLTMORPH) NORMAL IMMATURE FORMS (test code=IMMAT) 0 % 0-0 BASIC METABOLIC [id number] 17:22:00* Test Item Value Reference Range Comments SODIUM (test code=NA) 148 mmol/L 136-145 RESULT VERIFIED BY REPEAT ANALYSIS POTASSIUM (test code=K) 3.9 mmol/L 3.5-5.1 CHLORIDE (test code=CL) 112.0 mmol/L 98-107 CARBON DIOXIDE (test code=CO2) 22.0 mmol/L 21-32 ANION GAP (test code=GAP) 17.9 10-20 GLUCOSE (test code=GLU) 150 mg/dL 74-106 BLOOD UREA NITROGEN (test code=BUN) 59 mg/dL 7-18 GLOMERULAR FILTRATION RATE (test code=GFR) 19 mL/min >=60 Estimated GFR by using Modified MDRD formula.Chronic kidney disease is defined as either kidney damageor GFR <60 mL/min/1.73 m2 for >3 months. CREATININE (test code=CREAT) 3.50 mg/dL 0.7-1.3 BUN/CREATININE RATIO (test code=BUN/CREA) 17.1 10-20 CALCIUM (test code=CA) 7.0 mg/dL 8.5-10.1 [id number] 17:22:00* Test Item Value Reference Range Comments PHOSPHORUS (test code=PHOS) 4.2 mg/dL 2.5-4.9 [id number] 17:22:00* Test Item Value Reference Range Comments MAGNESIUM (test code=MAG) 2.2 mg/dL 1.8-2.4 CALCIUM [id number] 17:22:00* Test Item Value Reference Range Comments CALCIUM IONIZED (test code=YVON) 1.03 mmol/L 1.12-1.32 BASIC METABOLIC [id number] 17:10:00* Test Item Value Reference Range Comments SODIUM (test code=NA) mmol/L 136-145 POTASSIUM (test code=K) mmol/L 3.5-5.1 CHLORIDE (test code=CL) mmol/L 98-107 CARBON DIOXIDE (test code=CO2) mmol/L 21-32 ANION GAP (test code=GAP) 10-20 GLUCOSE (test code=GLU) mg/dL 74-106 BLOOD UREA NITROGEN (test code=BUN) mg/dL 7-18 GLOMERULAR FILTRATION RATE (test code=GFR) mL/min >=60 CREATININE (test code=CREAT) mg/dL 0.7-1.3 BUN/CREATININE RATIO (test code=BUN/CREA) 10-20 CALCIUM (test code=CA) mg/dL 8.5-10.1 [id number] 17:10:00* Test Item Value Reference Range Comments PHOSPHORUS (test code=PHOS) mg/dL 2.5-4.9 [id number] 17:10:00* Test Item Value Reference Range Comments MAGNESIUM (test code=MAG) mg/dL 1.8-2.4 CALCIUM [id number] 17:10:00* Test Item Value Reference Range Comments CALCIUM IONIZED (test code=YVON) 1.03 mmol/L 1.12-1.32 CBC W/MANUAL [id number] 17:09:00* Test Item Value Reference Range Comments WHITE BLOOD CELL (test code=WBC) 5.4 K/mm3 4.5-12.5 RED BLOOD CELL (test code=RBC) 4.30 mill/mm3 4.0-5.8 HEMOGLOBIN (test code=HGB) 13.4 gram/dL 13.0-17.5 HEMATOCRIT (test code=HCT) 41.9 % 42.0-52.0 MEAN CELL VOLUME (test code=MCV) 97.4 fL 80-98 MEAN CELL HGB (test code=MCH) 31.2 picogram 27.0-33.0 MEAN CELL HGB CONCETRATION (test code=MCHC) 32.0 gram/dL 33.0-36.0 RED CELL DISTRIBUTION WIDTH (test code=RDW) 14.8 % 11.6-16.2 RED CELL DISTRIBUTION WIDTH SD (test code=RDW-SD) 53.2 fL 37.0-51.0 PLATELET COUNT (test code=PLT) 169 K/mm3 150-450 MEAN PLATELET VOLUME (test code=MPV) 11.1 fL 6.7-11.0 IMMATURE GRANULOCYTE % (test code=IG%) 0.6 % 0.0-5.0 NUCLEATED RBC % (test code=NRBC%) 0.0 % 0-0 NEUTROPHIL # (test code=NT#) 3.79 K/mm3 1.8-7.7 IMMATURE GRANULOCYTE # (test code=IG#) 0.03 x10 3/uL 0-0.03 LYMPHOCYTE # (test code=LY#) 1.40 K/mm3 1.0-5.0 MONOCYTE # (test code=MO#) 0.15 K/mm3 0-0.8 EOSINOPHIL # (test code=EO#) 0.00 K/mm3 0.0-0.5 BASOPHIL # (test code=BA#) 0.01 K/mm3 0.0-0.2 NUCLEATED RBC # (test code=NRBC#) 0.00 K/mm3 0.0-0.1 MANUAL DIFF REQUIRED (test code=MDIFF) YES STAIN ACCEPTABILITY (test code=STN ACCEPTABLE) TOTAL CELLS COUNTED (test code=TCC) #CELLS SEGMENTED NEUTROPHILS (test code=SEG) % 39-69 LYMPHOCYTE (test code=LYMPH) % 25-55 MONOCYTE (test code=MON) % 0-10 EOSINOPHIL (test code=EOS) % 0.0-5.0 CABOT RINGS (test code=CAB) MORPHOLOGY COMMENT (test code=MOC) PLATELET ESTIMATE (test code=PLTEST) PLATELET MORPHOLOGY (test code=PLTMORPH) CBC W/MANUAL [id number] 17:09:00* Test Item Value Reference Range Comments WHITE BLOOD CELL (test code=WBC) 5.4 K/mm3 4.5-12.5 RED BLOOD CELL (test code=RBC) 4.30 mill/mm3 4.0-5.8 HEMOGLOBIN (test code=HGB) 13.4 gram/dL 13.0-17.5 HEMATOCRIT (test code=HCT) 41.9 % 42.0-52.0 MEAN CELL VOLUME (test code=MCV) 97.4 fL 80-98 MEAN CELL HGB (test code=MCH) 31.2 picogram 27.0-33.0 MEAN CELL HGB CONCETRATION (test code=MCHC) 32.0 gram/dL 33.0-36.0 RED CELL DISTRIBUTION WIDTH (test code=RDW) 14.8 % 11.6-16.2 RED CELL DISTRIBUTION WIDTH SD (test code=RDW-SD) 53.2 fL 37.0-51.0 PLATELET COUNT (test code=PLT) 169 K/mm3 150-450 MEAN PLATELET VOLUME (test code=MPV) 11.1 fL 6.7-11.0 IMMATURE GRANULOCYTE % (test code=IG%) 0.6 % 0.0-5.0 NUCLEATED RBC % (test code=NRBC%) 0.0 % 0-0 NEUTROPHIL # (test code=NT#) 3.79 K/mm3 1.8-7.7 IMMATURE GRANULOCYTE # (test code=IG#) 0.03 x10 3/uL 0-0.03 LYMPHOCYTE # (test code=LY#) 1.40 K/mm3 1.0-5.0 MONOCYTE # (test code=MO#) 0.15 K/mm3 0-0.8 EOSINOPHIL # (test code=EO#) 0.00 K/mm3 0.0-0.5 BASOPHIL # (test code=BA#) 0.01 K/mm3 0.0-0.2 NUCLEATED RBC # (test code=NRBC#) 0.00 K/mm3 0.0-0.1 MANUAL DIFF REQUIRED (test code=MDIFF) YES STAIN ACCEPTABILITY (test code=STN ACCEPTABLE) TOTAL CELLS COUNTED (test code=TCC) #CELLS SEGMENTED NEUTROPHILS (test code=SEG) % 39-69 LYMPHOCYTE (test code=LYMPH) % 25-55 MONOCYTE (test code=MON) % 0-10 EOSINOPHIL (test code=EOS) % 0.0-5.0 CABOT RINGS (test code=CAB) MORPHOLOGY COMMENT (test code=MOC) PLATELET ESTIMATE (test code=PLTEST) PLATELET MORPHOLOGY (test code=PLTMORPH) CBC W/MANUAL [id number] 17:09:00* Test Item Value Reference Range Comments WHITE BLOOD CELL (test code=WBC) 5.4 K/mm3 4.5-12.5 RED BLOOD CELL (test code=RBC) 4.30 mill/mm3 4.0-5.8 HEMOGLOBIN (test code=HGB) 13.4 gram/dL 13.0-17.5 HEMATOCRIT (test code=HCT) 41.9 % 42.0-52.0 MEAN CELL VOLUME (test code=MCV) 97.4 fL 80-98 MEAN CELL HGB (test code=MCH) 31.2 picogram 27.0-33.0 MEAN CELL HGB CONCETRATION (test code=MCHC) 32.0 gram/dL 33.0-36.0 RED CELL DISTRIBUTION WIDTH (test code=RDW) 14.8 % 11.6-16.2 RED CELL DISTRIBUTION WIDTH SD (test code=RDW-SD) 53.2 fL 37.0-51.0 PLATELET COUNT (test code=PLT) 169 K/mm3 150-450 MEAN PLATELET VOLUME (test code=MPV) 11.1 fL 6.7-11.0 IMMATURE GRANULOCYTE % (test code=IG%) 0.6 % 0.0-5.0 NUCLEATED RBC % (test code=NRBC%) 0.0 % 0-0 NEUTROPHIL # (test code=NT#) 3.79 K/mm3 1.8-7.7 IMMATURE GRANULOCYTE # (test code=IG#) 0.03 x10 3/uL 0-0.03 LYMPHOCYTE # (test code=LY#) 1.40 K/mm3 1.0-5.0 MONOCYTE # (test code=MO#) 0.15 K/mm3 0-0.8 EOSINOPHIL # (test code=EO#) 0.00 K/mm3 0.0-0.5 BASOPHIL # (test code=BA#) 0.01 K/mm3 0.0-0.2 NUCLEATED RBC # (test code=NRBC#) 0.00 K/mm3 0.0-0.1 MANUAL DIFF REQUIRED (test code=MDIFF) YES STAIN ACCEPTABILITY (test code=STN ACCEPTABLE) TOTAL CELLS COUNTED (test code=TCC) #CELLS SEGMENTED NEUTROPHILS (test code=SEG) % 39-69 LYMPHOCYTE (test code=LYMPH) % 25-55 MONOCYTE (test code=MON) % 0-10 EOSINOPHIL (test code=EOS) % 0.0-5.0 MORPHOLOGY COMMENT (test code=MOC) PLATELET ESTIMATE (test code=PLTEST) PLATELET MORPHOLOGY (test code=PLTMORPH) CBC W/MANUAL [id number] 17:09:00* Test Item Value Reference Range Comments WHITE BLOOD CELL (test code=WBC) 5.4 K/mm3 4.5-12.5 RED BLOOD CELL (test code=RBC) 4.30 mill/mm3 4.0-5.8 HEMOGLOBIN (test code=HGB) 13.4 gram/dL 13.0-17.5 HEMATOCRIT (test code=HCT) 41.9 % 42.0-52.0 MEAN CELL VOLUME (test code=MCV) 97.4 fL 80-98 MEAN CELL HGB (test code=MCH) 31.2 picogram 27.0-33.0 MEAN CELL HGB CONCETRATION (test code=MCHC) 32.0 gram/dL 33.0-36.0 RED CELL DISTRIBUTION WIDTH (test code=RDW) 14.8 % 11.6-16.2 RED CELL DISTRIBUTION WIDTH SD (test code=RDW-SD) 53.2 fL 37.0-51.0 PLATELET COUNT (test code=PLT) 169 K/mm3 150-450 MEAN PLATELET VOLUME (test code=MPV) 11.1 fL 6.7-11.0 IMMATURE GRANULOCYTE % (test code=IG%) 0.6 % 0.0-5.0 NUCLEATED RBC % (test code=NRBC%) 0.0 % 0-0 NEUTROPHIL # (test code=NT#) 3.79 K/mm3 1.8-7.7 IMMATURE GRANULOCYTE # (test code=IG#) 0.03 x10 3/uL 0-0.03 LYMPHOCYTE # (test code=LY#) 1.40 K/mm3 1.0-5.0 MONOCYTE # (test code=MO#) 0.15 K/mm3 0-0.8 EOSINOPHIL # (test code=EO#) 0.00 K/mm3 0.0-0.5 BASOPHIL # (test code=BA#) 0.01 K/mm3 0.0-0.2 NUCLEATED RBC # (test code=NRBC#) 0.00 K/mm3 0.0-0.1 MANUAL DIFF REQUIRED (test code=MDIFF) YES STAIN ACCEPTABILITY (test code=STN ACCEPTABLE) TOTAL CELLS COUNTED (test code=TCC) #CELLS SEGMENTED NEUTROPHILS (test code=SEG) % 39-69 LYMPHOCYTE (test code=LYMPH) % 25-55 MONOCYTE (test code=MON) % 0-10 MORPHOLOGY COMMENT (test code=MOC) PLATELET ESTIMATE (test code=PLTEST) PLATELET MORPHOLOGY (test code=PLTMORPH) CBC W/MANUAL [id number] 17:09:00* Test Item Value Reference Range Comments WHITE BLOOD CELL (test code=WBC) 5.4 K/mm3 4.5-12.5 RED BLOOD CELL (test code=RBC) 4.30 mill/mm3 4.0-5.8 HEMOGLOBIN (test code=HGB) 13.4 gram/dL 13.0-17.5 HEMATOCRIT (test code=HCT) 41.9 % 42.0-52.0 MEAN CELL VOLUME (test code=MCV) 97.4 fL 80-98 MEAN CELL HGB (test code=MCH) 31.2 picogram 27.0-33.0 MEAN CELL HGB CONCETRATION (test code=MCHC) 32.0 gram/dL 33.0-36.0 RED CELL DISTRIBUTION WIDTH (test code=RDW) 14.8 % 11.6-16.2 RED CELL DISTRIBUTION WIDTH SD (test code=RDW-SD) 53.2 fL 37.0-51.0 PLATELET COUNT (test code=PLT) 169 K/mm3 150-450 MEAN PLATELET VOLUME (test code=MPV) 11.1 fL 6.7-11.0 IMMATURE GRANULOCYTE % (test code=IG%) 0.6 % 0.0-5.0 NUCLEATED RBC % (test code=NRBC%) 0.0 % 0-0 NEUTROPHIL # (test code=NT#) 3.79 K/mm3 1.8-7.7 IMMATURE GRANULOCYTE # (test code=IG#) 0.03 x10 3/uL 0-0.03 LYMPHOCYTE # (test code=LY#) 1.40 K/mm3 1.0-5.0 MONOCYTE # (test code=MO#) 0.15 K/mm3 0-0.8 EOSINOPHIL # (test code=EO#) 0.00 K/mm3 0.0-0.5 BASOPHIL # (test code=BA#) 0.01 K/mm3 0.0-0.2 NUCLEATED RBC # (test code=NRBC#) 0.00 K/mm3 0.0-0.1 MANUAL DIFF REQUIRED (test code=MDIFF) YES STAIN ACCEPTABILITY (test code=STN ACCEPTABLE) TOTAL CELLS COUNTED (test code=TCC) #CELLS SEGMENTED NEUTROPHILS (test code=SEG) % 39-69 LYMPHOCYTE (test code=LYMPH) % 25-55 MONOCYTE (test code=MON) % 0-10 EOSINOPHIL (test code=EOS) % 0.0-5.0 CABOT RINGS (test code=CAB) MORPHOLOGY COMMENT (test code=MOC) PLATELET ESTIMATE (test code=PLTEST) PLATELET MORPHOLOGY (test code=PLTMORPH) CBC W/AUTO [id number] 17:08:00* Test Item Value Reference Range Comments WHITE BLOOD CELL (test code=WBC) K/mm3 4.5-12.5 RED BLOOD CELL (test code=RBC) mill/mm3 4.0-5.8 HEMOGLOBIN (test code=HGB) 13.4 gram/dL 13.0-17.5 HEMATOCRIT (test code=HCT) % 42.0-52.0 MEAN CELL VOLUME (test code=MCV) fL 80-98 MEAN CELL HGB (test code=MCH) picogram 27.0-33.0 MEAN CELL HGB CONCETRATION (test code=MCHC) gram/dL 33.0-36.0 RED CELL DISTRIBUTION WIDTH (test code=RDW) % 11.6-16.2 RED CELL DISTRIBUTION WIDTH SD (test code=RDW-SD) fL 37.0-51.0 PLATELET COUNT (test code=PLT) K/mm3 150-450 MEAN PLATELET VOLUME (test code=MPV) fL 6.7-11.0 NEUTROPHIL % (test code=NT%) % 39.0-69.0 IMMATURE GRANULOCYTE % (test code=IG%) % 0.0-5.0 LYMPHOCYTE % (test code=LY%) % 25.0-55.0 MONOCYTE % (test code=MO%) % 0.0-10.0 EOSINOPHIL % (test code=EO%) % 0.0-5.0 BASOPHIL % (test code=BA%) % 0.0-1.0 NEUTROPHIL # (test code=NT#) K/mm3 1.8-7.7 LYMPHOCYTE # (test code=LY#) K/mm3 1.0-5.0 MONOCYTE # (test code=MO#) K/mm3 0-0.8 EOSINOPHIL # (test code=EO#) K/mm3 0.0-0.5 BASOPHIL # (test code=BA#) K/mm3 0.0-0.2 ARTERIAL BLOOD [id number] 15:51:00* Test Item Value Reference Range Comments ARTERIAL BLOOD GAS PH (test code=PHA) 7.33 7.35-7.45 ARTERIAL BLOOD GAS PCO2 (test code=PCO2A) 36.5 mm Hg 35-45 ARTERIAL BLOOD GAS PO2 (test code=PO2A) 79.2 mmHg 80-100 BICARBONATE TOTAL HCO3 (test code=HCO3) 18.9 mmol/L 23.0-27.0 BASE EXCESS (test code=KIZZY) -6.2 mmol/L -3.0-5.0 Results called to and read back by dr gonzalez 15:40 - 08/31/2019; by juan pablo ABRoya O2 SATURATION (test code=SATA) 95.6 % 90.0-98.0 ABG TYPE (test code=TYPEA) Arterial FIO2 (test code=FIO2A) 100.0 ABG VENT MODE (test code=MODEA) Assist Control ABG VENT RESP RATE (test code=RRA) 22.0 per min ABG TIDAL VOLUME (test code=TVA) 500.0 mL ABG PEEP (test code=PEEPA) 12.0 cmH2O ABG SITE (test code=SITEA) Rt RADIAL ARTERY MODIFIED ALLENS (test code=MODALL) Yes CHECK PERFORMED HEMATOCRIT (test code=HCT/ABG) 43 % 42-52 TOTAL HGB (test code=THB) 14.7 gram/dL 13.0-17.5 HGB O2 SAT (test code=HBOSAT) 94.8 % 94.00-98.00 CARBOXYHEMOGLOBIN (test code=HOHGBT) 0.4 %totalHg 0.5-1.5 Results called to and read back by dr gonzalez 15:40 08/31/2019; by juan pablo METHEMOGLOBIN (test code=METHGB) 0.4 % 0.0-1.50 O2 CONTENT (test code=O2CT) 19.6 % vol 18.0-22.0 [id number] 15:01:00* Test Item Value Reference Range Comments GLUBED (test code=GLUBED) 158 mg/dL 74-106 Performed by certified synthetic gem press operator at [facility] ARTERIAL BLOOD [id number] 11:55:00* Test Item Value Reference Range Comments ARTERIAL BLOOD GAS PH (test code=PHA) 7.27 7.35-7.45 ARTERIAL BLOOD GAS PCO2 (test code=PCO2A) 35.8 mm Hg 35-45 ARTERIAL BLOOD GAS PO2 (test code=PO2A) 71.4 mmHg 80-100 BICARBONATE TOTAL HCO3 (test code=HCO3) 15.9 mmol/L 23.0-27.0 BASE EXCESS (test code=KIZZY) -10.2 mmol/L -3.0-5.0 Results called to and read back by dr gonzalez 08:33 08/31/2019; by juan pablo TRIPP O2 SATURATION (test code=SATA) 93.4 % 90.0-98.0 ABG TYPE (test code=TYPEA) Arterial FIO2 (test code=FIO2A) 100.0 ABG VENT MODE (test code=MODEA) Assist Control ABG VENT RESP RATE (test code=RRA) 22.0 per min ABG TIDAL VOLUME (test code=TVA) 500.0 mL ABG PEEP (test code=PEEPA) 12.0 cmH2O ABG SITE (test code=SITEA) Rt RADIAL ARTERY MODIFIED ALLENS (test code=MODALL) Yes CHECK PERFORMED SODIUM (test code=NA/ABG) 137.1 mEq/L 135-148 POTASSIUM (test code=K/ABG) 4.5 mEq/L 3.5-4.5 CHLORIDE (test code=CL/ABG) 110 mEq/L 98-106 GLUCOSE (test code=GLU/ABG) 120 mg/dL 74-99 HEMATOCRIT (test code=HCT/ABG) 41 % 42-52 IONIZED CALCIUM (test code=CAIABG) 0.99 mmol/L 1.1-1.37 TOTAL HGB (test code=THB) 13.8 gram/dL 13.0-17.5 HGB O2 SAT (test code=HBOSAT) 92.7 % 94.00-98.00 CARBOXYHEMOGLOBIN (test code=HOHGBT) 0.3 %totalHg 0.5-1.5 Results called to and read back by dr gonzalez 08:33 - 08/31/2019; by juan pablo METHEMOGLOBIN (test code=METHGB) 0.5 % 0.0-1.50 O2 CONTENT (test code=O2CT) 18.0 % vol 18.0-22.0 B-TYPE NATRIURETIC [id number] 11:27:00* Test Item Value Reference Range Comments B-TYPE NATRIURETIC PEPTIDE (test code=BNP) 9.09 pgram/mL 0-100 BASIC METABOLIC [id number] 11:10:00* Test Item Value Reference Range Comments SODIUM (test code=NA) 142 mmol/L 136-145 POTASSIUM (test code=K) 4.4 mmol/L 3.5-5.1 CHLORIDE (test code=CL) 113.0 mmol/L 98-107 CARBON DIOXIDE (test code=CO2) 18.0 mmol/L 21-32 ANION GAP (test code=GAP) 15.4 10-20 GLUCOSE (test code=GLU) 148 mg/dL 74-106 BLOOD UREA NITROGEN (test code=BUN) 66 mg/dL 7-18 GLOMERULAR FILTRATION RATE (test code=GFR) 16 mL/min >=60 Estimated GFR by using Modified MDRD formula.Chronic kidney disease is defined as either kidney damageor GFR <60 mL/min/1.73 m2 for >3 months. CREATININE (test code=CREAT) 4.20 mg/dL 0.7-1.3 BUN/CREATININE RATIO (test code=BUN/CREA) 15.7 10-20 CALCIUM (test code=CA) 6.4 mg/dL 8.5-10.1 Results called to [id number] by RALPH 08/31/19 1109Critical results verified and read back by Nurse? Y [id number] 11:10:00* Test Item Value Reference Range Comments PHOSPHORUS (test code=PHOS) 3.6 mg/dL 2.5-4.9 [id number] 11:10:00* Test Item Value Reference Range Comments MAGNESIUM (test code=MAG) 2.1 mg/dL 1.8-2.4 CALCIUM [id number] 11:10:00* Test Item Value Reference Range Comments CALCIUM IONIZED (test code=YVON) 0.95 mmol/L 1.12-1.32 BASIC METABOLIC [id number] 11:09:00* Test Item Value Reference Range Comments SODIUM (test code=NA) 142 mmol/L 136-145 POTASSIUM (test code=K) 4.4 mmol/L 3.5-5.1 CHLORIDE (test code=CL) 113.0 mmol/L 98-107 CARBON DIOXIDE (test code=CO2) 18.0 mmol/L 21-32 ANION GAP (test code=GAP) 15.4 10-20 GLUCOSE (test code=GLU) 148 mg/dL 74-106 BLOOD UREA NITROGEN (test code=BUN) 66 mg/dL 7-18 GLOMERULAR FILTRATION RATE (test code=GFR) 16 mL/min >=60 Estimated GFR by using Modified MDRD formula.Chronic kidney disease is defined as either kidney damageor GFR <60 mL/min/1.73 m2 for >3 months. CREATININE (test code=CREAT) 4.20 mg/dL 0.7-1.3 BUN/CREATININE RATIO (test code=BUN/CREA) 15.7 10-20 CALCIUM (test code=CA) 6.4 mg/dL 8.5-10.1 Results called to [id number] by RALPH 08/31/19 1109Critical results verified and read back by Nurse? Y [id number] 11:09:00* Test Item Value Reference Range Comments PHOSPHORUS (test code=PHOS) 3.6 mg/dL 2.5-4.9 [id number] 11:09:00* Test Item Value Reference Range Comments MAGNESIUM (test code=MAG) 2.1 mg/dL 1.8-2.4 CALCIUM [id number] 11:09:00* Test Item Value Reference Range Comments CALCIUM IONIZED (test code=YVON) mmol/L 1.12-1.32 PROTHROMBIN [id number] 11:00:00* Test Item Value Reference Range Comments PROTHROMBIN TIME PATIENT (test code=PTP) 12.4 seconds 9.0-14.0 INTERNATIONAL NORMAL RATIO (test code=INR) 1.1 0.8-1.2 The therapeutic range for oral anticoagulant therapy formost indications is an international normalized ratio (INR)of between 2.0 and 3.0. The recommended therapeutic INRrange for various clinical situations is listed below: Clinical Situation INR range Pulmonary e mbolism treatment (2.0-3.0)Venous thrombosis treatmentVenous thrombosis prophylaxis (high risk surgery)Prevention of systemic embolism from: Acute myocardial infarction Valvular heart disease Atrial fibrillation Mechanical prosthetic heart valves (2.5-3.5) IS PATIENT ON ANTICOAGULANTS? LANNY [id number] 08:28:00* Test Item Value Reference Range Comments UR NA,RANDOM (test code=CATRACHITO) 110 mmol/L 20-110 UR CREATININE [id number] 08:28:00* Test Item Value Reference Range Comments UR CREATININE RANDOM (test code=CREATU) 34.0 mg/dL 30-125 DRUGS OF ABUSE SCREEN [id number] 08:28:00* Test Item Value Reference Range Comments UA PH DIPSTICK (test code=JOHN) 5.5 5.0-8.0 URN COCAINE (test code=COCAURN) NEGATIVE <300 ng/mL URN CANNABINOIDS (test code=CANNABURN) NEGATIVE <50 ng/mL URN AMPHETAMINE (test code=AMPHETURN) NEGATIVE <1000 ng/mL URN BARBITURATE (test code=BARBITURN) NEGATIVE <200 ng/mL URN BENZODIAZEPINE (test code=BENZOURN) POSITIVE <200 ng/mL This test provides only a preliminary test result. A morespecific alternate chemical method must be used in order toobtain a confirmed analytical result. Gas chromatography/mass spectrometry (GC/MS) is thepreferred confirmatory method. Other chemical confirmationmethods are available. Clinical consideration and professional judgment should be applied to any drug of abusetest result, particularly when preliminary positive resultsare used.Unconfirmed screening results must not be used fornon-medical purposes (e.g., employment testing, legaltesting). URN OPIATES (test code=OPIATURN) NEGATIVE <300 ng/mL URN PHENCYCLIDINE (PCP) (test code=PHENCURN) NEGATIVE <25 ng/mL URN METHADONE (test code=METHAURN) NEGATIVE <300 ng/mL LACTIC [id number] 08:26:00* Test Item Value Reference Range Comments LACTIC ACID (test code=LACT) 2.1 mmol/L 0.4-1.9 Results called to [id number] by [email or web address] 08/31/19 0825Critical results verified and read back by Nurse? Y DRUGS OF ABUSE SCREEN [id number] 08:21:00* Test Item Value Reference Range Comments UA PH DIPSTICK (test code=JOHN) 5.5 5.0-8.0 URN COCAINE (test code=COCAURN) <300 ng/mL URN CANNABINOIDS (test code=CANNABURN) <50 ng/mL URN AMPHETAMINE (test code=AMPHETURN) <1000 ng/mL URN BARBITURATE (test code=BARBITURN) <200 ng/mL URN BENZODIAZEPINE (test code=BENZOURN) <200 ng/mL URN OPIATES (test code=OPIATURN) <300 ng/mL URN PHENCYCLIDINE (PCP) (test code=PHENCURN) <25 ng/mL URN METHADONE (test code=METHAURN) <300 ng/mL UR NA,[id number] 08:15:00* Test Item Value Reference Range Comments UR NA,RANDOM (test code=CATRACHITO) 110 mmol/L 20-110 UR CREATININE [id number] 08:15:00* Test Item Value Reference Range Comments UR CREATININE RANDOM (test code=CREATU) mg/dL 30-125 URINALYSIS [id number] 07:59:00* Test Item Value Reference Range Comments UA COLOR (test code=COLU) COLORLESS YELLOW UA APPEARANCE (test code=APPU) CLEAR CLEAR UA GLUCOSE DIPSTICK (test code=DGLUU) NEGATIVE mg/dL NEGATIVE UA BILIRUBIN DIPSTICK (test code=BILU) NEGATIVE mg/dL NEGATIVE UA KETONE DIPSTICK (test code=KETU) NEGATIVE mg/dL NEGATIVE UA SPECIFIC GRAVITY (test code=SGU) 1.008 1.001-1.035 UA BLOOD DIPSTICK (test code=BRINDA) 0.06 mg/dL (1+) mg/dL NEGATIVE UA PH DIPSTICK (test code=JOHN) 5.5 5.0-8.0 UA PROTEIN DIPSTICK (test code=PROU) 20 (Trace) mg/dL NEGATIVE UA UROBILINIOGEN DIPSTICK (test code=URO) Normal mg/dL NEGATIVE UA NITRITE DIPSTICK (test code=YONI) NEGATIVE NEGATIVE UA LEUKOCYTE ESTERASE W REFLEX (test code=LEUUR) NEGATIVE Ter/uL NEGATIVE UA WBC (test code=WBCU) per HPF 0-5 UA RBC (test code=RBCU) per HPF 0-5 UA EPITHELIAL CELLS (test code=EPIU) per HPF Few UA BACTERIA (test code=BACU) per HPF NONE Urine Source? CatheterURINALYSIS [id number] 07:59:00* Test Item Value Reference Range Comments UA COLOR (test code=COLU) COLORLESS YELLOW UA APPEARANCE (test code=APPU) CLEAR CLEAR UA GLUCOSE DIPSTICK (test code=DGLUU) NEGATIVE mg/dL NEGATIVE UA BILIRUBIN DIPSTICK (test code=BILU) NEGATIVE mg/dL NEGATIVE UA KETONE DIPSTICK (test code=KETU) NEGATIVE mg/dL NEGATIVE UA SPECIFIC GRAVITY (test code=SGU) 1.008 1.001-1.035 UA BLOOD DIPSTICK (test code=BRINDA) 0.06 mg/dL (1+) mg/dL NEGATIVE UA PH DIPSTICK (test code=JOHN) 5.5 5.0-8.0 UA PROTEIN DIPSTICK (test code=PROU) 20 (Trace) mg/dL NEGATIVE UA UROBILINIOGEN DIPSTICK (test code=URO) Normal mg/dL NEGATIVE UA NITRITE DIPSTICK (test code=YONI) NEGATIVE NEGATIVE UA LEUKOCYTE ESTERASE W REFLEX (test code=LEUUR) NEGATIVE Tre/uL NEGATIVE UA WBC (test code=WBCU) 0-5 per HPF 0-5 UA RBC (test code=RBCU) 0-2 #/HPF 0-5 UA EPITHELIAL CELLS (test code=EPIU) Few (2-5/hpf) per HPF FEW UA BACTERIA (test code=BACU) FEW #/HPF NONE Urine Source? CatheterARTERIAL BLOOD [id number] 06:50:00* Test Item Value Reference Range Comments ARTERIAL BLOOD GAS PH (test code=PHA) 7.20 7.35-7.45 Results called to and read back by kane sauer 04: - 08/31/2019; by [id number] ARTERIAL BLOOD GAS PCO2 (test code=PCO2A) 44.5 mm Hg 35-45 ARTERIAL BLOOD GAS PO2 (test code=PO2A) 91.4 mmHg 80-100 BICARBONATE TOTAL HCO3 (test code=HCO3) 16.8 mmol/L 23.0-27.0 BASE EXCESS (test code=KIZZY) -11.0 mmol/L -3.0-5.0 Results called to and read back by kane sauer 04: - 08/31/2019; by [id number] ABG O2 SATURATION (test code=SATA) 95.4 % 90.0-98.0 ABG TYPE (test code=TYPEA) Arterial FIO2 (test code=FIO2A) 100.0 ABG VENT MODE (test code=MODEA) Assist Control ABG VENT RESP RATE (test code=RRA) 16.0 per min ABG TIDAL VOLUME (test code=TVA) 500.0 mL ABG PEEP (test code=PEEPA) 6.0 cmH2O ABG SITE (test code=SITEA) Rt RADIAL ARTERY MODIFIED ALLENS (test code=MODALL) Yes CHECK PERFORMED HEMATOCRIT (test code=HCT/ABG) 44 % 42-52 TOTAL HGB (test code=THB) 15.0 gram/dL 13.0-17.5 HGB O2 SAT (test code=HBOSAT) 94.4 % 94.00-98.00 CARBOXYHEMOGLOBIN (test code=HOHGBT) 0.8 %totalHg 0.5-1.5 METHEMOGLOBIN (test code=METHGB) 0.3 % 0.0-1.50 O2 CONTENT (test code=O2CT) 20.0 % vol 18.0-22.0 ARTERIAL BLOOD [id number] 06:48:00* Test Item Value Reference Range Comments ARTERIAL BLOOD GAS PH (test code=PHA) 7.18 7.35-7.45 Results called to and read back by kane sauer 06:48 - 08/31/2019; by [id number] ARTERIAL BLOOD GAS PCO2 (test code=PCO2A) 46.5 mm Hg 35-45 ARTERIAL BLOOD GAS PO2 (test code=PO2A) 81.2 mmHg 80-100 BICARBONATE TOTAL HCO3 (test code=HCO3) 16.8 mmol/L 23.0-27.0 BASE EXCESS (test code=KIZZY) -11.4 mmol/L -3.0-5.0 Results called to and read back by kane sauer 06:48 - 08/31/2019; by [id number] ABG O2 SATURATION (test code=SATA) 93.6 % 90.0-98.0 ABG TYPE (test code=TYPEA) Arterial FIO2 (test code=FIO2A) 100.0 ABG VENT MODE (test code=MODEA) Assist Control ABG VENT RESP RATE (test code=RRA) 20.0 per min ABG TIDAL VOLUME (test code=TVA) 500.0 mL ABG PEEP (test code=PEEPA) 8.0 cmH2O ABG SITE (test code=SITEA) Lt RADIAL ARTERY MODIFIED ALLENS (test code=MODALL) Yes CHECK PERFORMED HEMATOCRIT (test code=HCT/ABG) 42 % 42-52 TOTAL HGB (test code=THB) 14.2 gram/dL 13.0-17.5 HGB O2 SAT (test code=HBOSAT) 93.2 % 94.00-98.00 CARBOXYHEMOGLOBIN (test code=HOHGBT) 0.2 %totalHg 0.5-1.5 Results called to and read back by kane sauer 06:48 - 08/31/2019; by [email or web address] METHEMOGLOBIN (test code=METHGB) 0.2 % 0.0-1.50 O2 CONTENT (test code=O2CT) 18.7 % vol 18.0-22.0 PROCALCITONIN (PCT)[id number] 05:46:00* Test Item Value Reference Range Comments PROCALCITONIN (PCT) (test code=PROCAL) 6.50 ng/ml Concentration Interpretation (ng/mL) <0.51 Sepsis is not likely. Local bacterial infection is possible. (LOW RISK for progression to Sepsis) 0.51 - 2.00 Sepsis is possible, but other conditions are known to elevate PCT as well. (MODERATE RISK for progression to Sepsis) > 2.00 Sepsis is likely, unless other causes are known. (HIGH RISK for progression to Severe Sepsis or Septic Shock) 10.00 High likelihood of Severe Sepsis or Septic or higher Shock. *Increased PCT levels may not always be related to systemic bacterial infection.*Low PCT levels do not automatically exclude the presence of bacterial infection.*All results should be interpreted taking into account the patients history. CBC W/MANUAL [id number] 05:31:00* Test Item Value Reference Range Comments WHITE BLOOD CELL (test code=WBC) 3.9 K/mm3 4.5-12.5 RED BLOOD CELL (test code=RBC) 4.20 mill/mm3 4.0-5.8 HEMOGLOBIN (test code=HGB) 13.1 gram/dL 13.0-17.5 HEMATOCRIT (test code=HCT) 42.1 % 42.0-52.0 MEAN CELL VOLUME (test code=MCV) 100.2 fL 80-98 MEAN CELL HGB (test code=MCH) 31.2 picogram 27.0-33.0 MEAN CELL HGB CONCETRATION (test code=MCHC) 31.1 gram/dL 33.0-36.0 RED CELL DISTRIBUTION WIDTH (test code=RDW) 14.6 % 11.6-16.2 RED CELL DISTRIBUTION WIDTH SD (test code=RDW-SD) 54.6 fL 37.0-51.0 PLATELET COUNT (test code=PLT) 156 K/mm3 150-450 MEAN PLATELET VOLUME (test code=MPV) 11.3 fL 6.7-11.0 IMMATURE GRANULOCYTE % (test code=IG%) 0.8 % 0.0-5.0 NUCLEATED RBC % (test code=NRBC%) 0.0 % 0-0 NEUTROPHIL # (test code=NT#) 2.33 K/mm3 1.8-7.7 IMMATURE GRANULOCYTE # (test code=IG#) 0.03 x10 3/uL 0-0.03 LYMPHOCYTE # (test code=LY#) 1.19 K/mm3 1.0-5.0 MONOCYTE # (test code=MO#) 0.31 K/mm3 0-0.8 EOSINOPHIL # (test code=EO#) 0.00 K/mm3 0.0-0.5 BASOPHIL # (test code=BA#) 0.01 K/mm3 0.0-0.2 NUCLEATED RBC # (test code=NRBC#) 0.00 K/mm3 0.0-0.1 MANUAL DIFF REQUIRED (test code=MDIFF) YES STAIN ACCEPTABILITY (test code=STN ACCEPTABLE) STAIN ACCEPTABLE TOTAL CELLS COUNTED (test code=TCC) 115 #CELLS SEGMENTED NEUTROPHILS (test code=SEG) 71.3 % 39-69 BAND NEUTROPHIL (test code=BAND) 9.6 % 0-10 LYMPHOCYTE (test code=LYMPH) 14.8 % 25-55 REACTIVE LYMPH (test code=RELYMPH) 1.7 % MONOCYTE (test code=MON) 2.6 % 0-10 EOSINOPHIL (test code=EOS) 0 % 0.0-5.0 BASOPHIL (test code=BASO) 0 % 0-1.0 METAMYELOCYTE (test code=META) 0 % 0-0 MYELOCYTE (test code=MYELO) 0 % 0.0-0.0 PROMYELOCYTE (test code=PROM) 0 % 0-0 POIKILOCYTOSIS (test code=POIK) 1+ MORPHOLOGY COMMENT (test code=MOC) NORMAL PLATELET ESTIMATE (test code=PLTEST) ADEQUATE PLATELET MORPHOLOGY (test code=PLTMORPH) NORMAL IMMATURE FORMS (test code=IMMAT) 0 % 0-0 BASIC METABOLIC [id number] 04:38:00* Test Item Value Reference Range Comments SODIUM (test code=NA) 139 mmol/L 136-145 POTASSIUM (test code=K) 4.1 mmol/L 3.5-5.1 CHLORIDE (test code=CL) 107.0 mmol/L 98-107 CARBON DIOXIDE (test code=CO2) 18.0 mmol/L 21-32 ANION GAP (test code=GAP) 18.1 10-20 GLUCOSE (test code=GLU) 118 mg/dL 74-106 BLOOD UREA NITROGEN (test code=BUN) 87 mg/dL 7-18 GLOMERULAR FILTRATION RATE (test code=GFR) 9 mL/min >=60 Estimated GFR by using Modified MDRD formula.Chronic kidney disease is defined as either kidney damageor GFR <60 mL/min/1.73 m2 for >3 months. CREATININE (test code=CREAT) 7.00 mg/dL 0.7-1.3 BUN/CREATININE RATIO (test code=BUN/CREA) 12.5 10-20 CALCIUM (test code=CA) 6.5 mg/dL 8.5-10.1 [id number] 04:23:00* Test Item Value Reference Range Comments TROPONIN-I (test code=TROPI) <0.015 ng/mL 0-0.045 - XR CHEST 1 [id number] 04:23:00 FAX: Kylah Khan MD [phone] [place]: [address] St: ADM Name: MILY AGUILAR [facility] : [birth year] Age/S: 44/M [address] Unit #: [id number] Loc: [place] [address] Phys: Kylah Hernandes MD Acct: [id number] Dis Date: Status: ADM IN PHONE #: [phone] Exam Date: 08/31/2019 0350 FAX #: [phone] Reason: intubation EXAMS: CPT CODE: [id number] XR CHEST 1 V 64059 DICTATION LOCATION: H48 HISTORY: Male, 44 years of age with hypotension, hypoxia intubation EXAM: CHEST X-RAY, ONE VIEW COMPARISON: 08/30/2019 COMMENT: Frontal view of the chest is provided. ET tube has been placed with tip 1 cm above [place]. Right IJ central line has been placed with tip projected over this. Low lung volumes and perihilar interstitial opacities unchanged. No lobar consolidation or effusion. Cardiac silhouet te is within normal limits. No acute bony abnormalities. I MPRESSION: 1. ET tube and enteric tube have been placed in satisfac tory position. 2. Low lung volumes and bilateral perihilar interstitial opacities unchanged. Edema versus pneumonia. at 0423 Reporte d and signed by: Bob Urbano MD CC: Kylah Hernandes MD Technologist: Best Stafford RT(R); JACKI COOK, RT(R) Trnscrd Date/Time/By: 08/31/2019 (0423) : By: Kassie Orig Print D/T: S: 08/31/2019 (0421) PAGE 1 Signed Report HIV 1 2 COMBO AG/AB [id number] 04:09:00* Test Item Value Reference Range Comments HIV 1 2 COMBO AG/AB SCREEN (test code=[id number]) AB/AG NON REACTIVE NONREACTIVE NONREACTIVE HIV P24 ANTIGEN NONREACTIVE NONREACTIVE HIV 1&2 ANTIBODY NONREACTIVE THE HIV-1 P24 TEST HELPS DISTINGUISH ACUTE HIV- 1INFECTIONFROM ESTABLISHED HIV-1 INFECTION WHEN THE SPECIMEN ISPOSITIVE FOR HIV- 1 P24 ANTIGEN. HIV-1 P24 ANTIGEN IS HIGHEST IN THE FIRST FEW WEEKS AFTERINFECTION BASIC METABOLIC [id number] 04:07:00* Test Item Value Reference Range Comments SODIUM (test code=NA) 139 mmol/L 136-145 POTASSIUM (test code=K) 4.1 mmol/L 3.5-5.1 CHLORIDE (test code=CL) 107.0 mmol/L 98-107 CARBON DIOXIDE (test code=CO2) mmol/L 21-32 ANION GAP (test code=GAP) 10-20 GLUCOSE (test code=GLU) mg/dL 74-106 BLOOD UREA NITROGEN (test code=BUN) mg/dL 7-18 GLOMERULAR FILTRATION RATE (test code=GFR) mL/min >=60 CREATININE (test code=CREAT) mg/dL 0.7-1.3 BUN/CREATININE RATIO (test code=BUN/CREA) 10-20 CALCIUM (test code=CA) mg/dL 8.5-10.1 CBC W/MANUAL [id number] 03:42:00* Test Item Value Reference Range Comments WHITE BLOOD CELL (test code=WBC) 3.9 K/mm3 4.5-12.5 RED BLOOD CELL (test code=RBC) 4.20 mill/mm3 4.0-5.8 HEMOGLOBIN (test code=HGB) 13.1 gram/dL 13.0-17.5 HEMATOCRIT (test code=HCT) 42.1 % 42.0-52.0 MEAN CELL VOLUME (test code=MCV) 100.2 fL 80-98 MEAN CELL HGB (test code=MCH) 31.2 picogram 27.0-33.0 MEAN CELL HGB CONCETRATION (test code=MCHC) 31.1 gram/dL 33.0-36.0 RED CELL DISTRIBUTION WIDTH (test code=RDW) 14.6 % 11.6-16.2 RED CELL DISTRIBUTION WIDTH SD (test code=RDW-SD) 54.6 fL 37.0-51.0 PLATELET COUNT (test code=PLT) 156 K/mm3 150-450 MEAN PLATELET VOLUME (test code=MPV) 11.3 fL 6.7-11.0 IMMATURE GRANULOCYTE % (test code=IG%) 0.8 % 0.0-5.0 NUCLEATED RBC % (test code=NRBC%) 0.0 % 0-0 NEUTROPHIL # (test code=NT#) 2.33 K/mm3 1.8-7.7 IMMATURE GRANULOCYTE # (test code=IG#) 0.03 x10 3/uL 0-0.03 LYMPHOCYTE # (test code=LY#) 1.19 K/mm3 1.0-5.0 MONOCYTE # (test code=MO#) 0.31 K/mm3 0-0.8 EOSINOPHIL # (test code=EO#) 0.00 K/mm3 0.0-0.5 BASOPHIL # (test code=BA#) 0.01 K/mm3 0.0-0.2 NUCLEATED RBC # (test code=NRBC#) 0.00 K/mm3 0.0-0.1 MANUAL DIFF REQUIRED (test code=MDIFF) YES STAIN ACCEPTABILITY (test code=STN ACCEPTABLE) TOTAL CELLS COUNTED (test code=TCC) #CELLS SEGMENTED NEUTROPHILS (test code=SEG) % 39-69 LYMPHOCYTE (test code=LYMPH) % 25-55 MONOCYTE (test code=MON) % 0-10 EOSINOPHIL (test code=EOS) % 0.0-5.0 CABOT RINGS (test code=CAB) MORPHOLOGY COMMENT (test code=MOC) PLATELET ESTIMATE (test code=PLTEST) PLATELET MORPHOLOGY (test code=PLTMORPH) CBC W/MANUAL [id number] 03:42:00* Test Item Value Reference Range Comments WHITE BLOOD CELL (test code=WBC) 3.9 K/mm3 4.5-12.5 RED BLOOD CELL (test code=RBC) 4.20 mill/mm3 4.0-5.8 HEMOGLOBIN (test code=HGB) 13.1 gram/dL 13.0-17.5 HEMATOCRIT (test code=HCT) 42.1 % 42.0-52.0 MEAN CELL VOLUME (test code=MCV) 100.2 fL 80-98 MEAN CELL HGB (test code=MCH) 31.2 picogram 27.0-33.0 MEAN CELL HGB CONCETRATION (test code=MCHC) 31.1 gram/dL 33.0-36.0 RED CELL DISTRIBUTION WIDTH (test code=RDW) 14.6 % 11.6-16.2 RED CELL DISTRIBUTION WIDTH SD (test code=RDW-SD) 54.6 fL 37.0-51.0 PLATELET COUNT (test code=PLT) 156 K/mm3 150-450 MEAN PLATELET VOLUME (test code=MPV) 11.3 fL 6.7-11.0 IMMATURE GRANULOCYTE % (test code=IG%) 0.8 % 0.0-5.0 NUCLEATED RBC % (test code=NRBC%) 0.0 % 0-0 NEUTROPHIL # (test code=NT#) 2.33 K/mm3 1.8-7.7 IMMATURE GRANULOCYTE # (test code=IG#) 0.03 x10 3/uL 0-0.03 LYMPHOCYTE # (test code=LY#) 1.19 K/mm3 1.0-5.0 MONOCYTE # (test code=MO#) 0.31 K/mm3 0-0.8 EOSINOPHIL # (test code=EO#) 0.00 K/mm3 0.0-0.5 BASOPHIL # (test code=BA#) 0.01 K/mm3 0.0-0.2 NUCLEATED RBC # (test code=NRBC#) 0.00 K/mm3 0.0-0.1 MANUAL DIFF REQUIRED (test code=MDIFF) YES STAIN ACCEPTABILITY (test code=STN ACCEPTABLE) TOTAL CELLS COUNTED (test code=TCC) #CELLS SEGMENTED NEUTROPHILS (test code=SEG) % 39-69 LYMPHOCYTE (test code=LYMPH) % 25-55 MONOCYTE (test code=MON) % 0-10 EOSINOPHIL (test code=EOS) % 0.0-5.0 CABOT RINGS (test code=CAB) MORPHOLOGY COMMENT (test code=MOC) PLATELET ESTIMATE (test code=PLTEST) PLATELET MORPHOLOGY (test code=PLTMORPH) CBC W/MANUAL [id number] 03:42:00* Test Item Value Reference Range Comments WHITE BLOOD CELL (test code=WBC) 3.9 K/mm3 4.5-12.5 RED BLOOD CELL (test code=RBC) 4.20 mill/mm3 4.0-5.8 HEMOGLOBIN (test code=HGB) 13.1 gram/dL 13.0-17.5 HEMATOCRIT (test code=HCT) 42.1 % 42.0-52.0 MEAN CELL VOLUME (test code=MCV) 100.2 fL 80-98 MEAN CELL HGB (test code=MCH) 31.2 picogram 27.0-33.0 MEAN CELL HGB CONCETRATION (test code=MCHC) 31.1 gram/dL 33.0-36.0 RED CELL DISTRIBUTION WIDTH (test code=RDW) 14.6 % 11.6-16.2 RED CELL DISTRIBUTION WIDTH SD (test code=RDW-SD) 54.6 fL 37.0-51.0 PLATELET COUNT (test code=PLT) 156 K/mm3 150-450 MEAN PLATELET VOLUME (test code=MPV) 11.3 fL 6.7-11.0 IMMATURE GRANULOCYTE % (test code=IG%) 0.8 % 0.0-5.0 NUCLEATED RBC % (test code=NRBC%) 0.0 % 0-0 NEUTROPHIL # (test code=NT#) 2.33 K/mm3 1.8-7.7 IMMATURE GRANULOCYTE # (test code=IG#) 0.03 x10 3/uL 0-0.03 LYMPHOCYTE # (test code=LY#) 1.19 K/mm3 1.0-5.0 MONOCYTE # (test code=MO#) 0.31 K/mm3 0-0.8 EOSINOPHIL # (test code=EO#) 0.00 K/mm3 0.0-0.5 BASOPHIL # (test code=BA#) 0.01 K/mm3 0.0-0.2 NUCLEATED RBC # (test code=NRBC#) 0.00 K/mm3 0.0-0.1 MANUAL DIFF REQUIRED (test code=MDIFF) YES STAIN ACCEPTABILITY (test code=STN ACCEPTABLE) TOTAL CELLS COUNTED (test code=TCC) #CELLS SEGMENTED NEUTROPHILS (test code=SEG) % 39-69 LYMPHOCYTE (test code=LYMPH) % 25-55 MONOCYTE (test code=MON) % 0-10 EOSINOPHIL (test code=EOS) % 0.0-5.0 MORPHOLOGY COMMENT (test code=MOC) PLATELET ESTIMATE (test code=PLTEST) PLATELET MORPHOLOGY (test code=PLTMORPH) CBC W/MANUAL [id number] 03:42:00* Test Item Value Reference Range Comments WHITE BLOOD CELL (test code=WBC) 3.9 K/mm3 4.5-12.5 RED BLOOD CELL (test code=RBC) 4.20 mill/mm3 4.0-5.8 HEMOGLOBIN (test code=HGB) 13.1 gram/dL 13.0-17.5 HEMATOCRIT (test code=HCT) 42.1 % 42.0-52.0 MEAN CELL VOLUME (test code=MCV) 100.2 fL 80-98 MEAN CELL HGB (test code=MCH) 31.2 picogram 27.0-33.0 MEAN CELL HGB CONCETRATION (test code=MCHC) 31.1 gram/dL 33.0-36.0 RED CELL DISTRIBUTION WIDTH (test code=RDW) 14.6 % 11.6-16.2 RED CELL DISTRIBUTION WIDTH SD (test code=RDW-SD) 54.6 fL 37.0-51.0 PLATELET COUNT (test code=PLT) 156 K/mm3 150-450 MEAN PLATELET VOLUME (test code=MPV) 11.3 fL 6.7-11.0 IMMATURE GRANULOCYTE % (test code=IG%) 0.8 % 0.0-5.0 NUCLEATED RBC % (test code=NRBC%) 0.0 % 0-0 NEUTROPHIL # (test code=NT#) 2.33 K/mm3 1.8-7.7 IMMATURE GRANULOCYTE # (test code=IG#) 0.03 x10 3/uL 0-0.03 LYMPHOCYTE # (test code=LY#) 1.19 K/mm3 1.0-5.0 MONOCYTE # (test code=MO#) 0.31 K/mm3 0-0.8 EOSINOPHIL # (test code=EO#) 0.00 K/mm3 0.0-0.5 BASOPHIL # (test code=BA#) 0.01 K/mm3 0.0-0.2 NUCLEATED RBC # (test code=NRBC#) 0.00 K/mm3 0.0-0.1 MANUAL DIFF REQUIRED (test code=MDIFF) YES STAIN ACCEPTABILITY (test code=STN ACCEPTABLE) TOTAL CELLS COUNTED (test code=TCC) #CELLS SEGMENTED NEUTROPHILS (test code=SEG) % 39-69 LYMPHOCYTE (test code=LYMPH) % 25-55 MONOCYTE (test code=MON) % 0-10 MORPHOLOGY COMMENT (test code=MOC) PLATELET ESTIMATE (test code=PLTEST) PLATELET MORPHOLOGY (test code=PLTMORPH) CBC W/MANUAL [id number] 03:42:00* Test Item Value Reference Range Comments WHITE BLOOD CELL (test code=WBC) 3.9 K/mm3 4.5-12.5 RED BLOOD CELL (test code=RBC) 4.20 mill/mm3 4.0-5.8 HEMOGLOBIN (test code=HGB) 13.1 gram/dL 13.0-17.5 HEMATOCRIT (test code=HCT) 42.1 % 42.0-52.0 MEAN CELL VOLUME (test code=MCV) 100.2 fL 80-98 MEAN CELL HGB (test code=MCH) 31.2 picogram 27.0-33.0 MEAN CELL HGB CONCETRATION (test code=MCHC) 31.1 gram/dL 33.0-36.0 RED CELL DISTRIBUTION WIDTH (test code=RDW) 14.6 % 11.6-16.2 RED CELL DISTRIBUTION WIDTH SD (test code=RDW-SD) 54.6 fL 37.0-51.0 PLATELET COUNT (test code=PLT) 156 K/mm3 150-450 MEAN PLATELET VOLUME (test code=MPV) 11.3 fL 6.7-11.0 IMMATURE GRANULOCYTE % (test code=IG%) 0.8 % 0.0-5.0 NUCLEATED RBC % (test code=NRBC%) 0.0 % 0-0 NEUTROPHIL # (test code=NT#) 2.33 K/mm3 1.8-7.7 IMMATURE GRANULOCYTE # (test code=IG#) 0.03 x10 3/uL 0-0.03 LYMPHOCYTE # (test code=LY#) 1.19 K/mm3 1.0-5.0 MONOCYTE # (test code=MO#) 0.31 K/mm3 0-0.8 EOSINOPHIL # (test code=EO#) 0.00 K/mm3 0.0-0.5 BASOPHIL # (test code=BA#) 0.01 K/mm3 0.0-0.2 NUCLEATED RBC # (test code=NRBC#) 0.00 K/mm3 0.0-0.1 MANUAL DIFF REQUIRED (test code=MDIFF) YES STAIN ACCEPTABILITY (test code=STN ACCEPTABLE) TOTAL CELLS COUNTED (test code=TCC) #CELLS SEGMENTED NEUTROPHILS (test code=SEG) % 39-69 LYMPHOCYTE (test code=LYMPH) % 25-55 MONOCYTE (test code=MON) % 0-10 EOSINOPHIL (test code=EOS) % 0.0-5.0 CABOT RINGS (test code=CAB) MORPHOLOGY COMMENT (test code=MOC) PLATELET ESTIMATE (test code=PLTEST) PLATELET MORPHOLOGY (test code=PLTMORPH) CBC W/AUTO [id number] 03:40:00* Test Item Value Reference Range Comments WHITE BLOOD CELL (test code=WBC) K/mm3 4.5-12.5 RED BLOOD CELL (test code=RBC) mill/mm3 4.0-5.8 HEMOGLOBIN (test code=HGB) 13.1 gram/dL 13.0-17.5 HEMATOCRIT (test code=HCT) 42.1 % 42.0-52.0 MEAN CELL VOLUME (test code=MCV) fL 80-98 MEAN CELL HGB (test code=MCH) picogram 27.0-33.0 MEAN CELL HGB CONCETRATION (test code=MCHC) gram/dL 33.0-36.0 RED CELL DISTRIBUTION WIDTH (test code=RDW) % 11.6-16.2 RED CELL DISTRIBUTION WIDTH SD (test code=RDW-SD) fL 37.0-51.0 PLATELET COUNT (test code=PLT) K/mm3 150-450 MEAN PLATELET VOLUME (test code=MPV) fL 6.7-11.0 NEUTROPHIL % (test code=NT%) % 39.0-69.0 IMMATURE GRANULOCYTE % (test code=IG%) % 0.0-5.0 LYMPHOCYTE % (test code=LY%) % 25.0-55.0 MONOCYTE % (test code=MO%) % 0.0-10.0 EOSINOPHIL % (test code=EO%) % 0.0-5.0 BASOPHIL % (test code=BA%) % 0.0-1.0 NEUTROPHIL # (test code=NT#) K/mm3 1.8-7.7 LYMPHOCYTE # (test code=LY#) K/mm3 1.0-5.0 MONOCYTE # (test code=MO#) K/mm3 0-0.8 EOSINOPHIL # (test code=EO#) K/mm3 0.0-0.5 BASOPHIL # (test code=BA#) K/mm3 0.0-0.2 ARTERIAL BLOOD [id number] 02:44:00* Test Item Value Reference Range Comments ARTERIAL BLOOD GAS PH (test code=PHA) 7.27 7.35-7.45 ARTERIAL BLOOD GAS PCO2 (test code=PCO2A) 31.3 mm Hg 35-45 ARTERIAL BLOOD GAS PO2 (test code=PO2A) 69.2 mmHg 80-100 BICARBONATE TOTAL HCO3 (test code=HCO3) 13.9 mmol/L 23.0-27.0 BASE EXCESS (test code=KIZZY) -11.7 mmol/L -3.0-5.0 Results called to and read back by kylah poole 02:44 - 08/31/2019; by [email or web address] ABG O2 SATURATION (test code=SATA) 92.1 % 90.0-98.0 ABG TYPE (test code=TYPEA) Arterial FIO2 (test code=FIO2A) 75.0 ABG SITE (test code=SITEA) Rt RADIAL ARTERY MODIFIED ALLENS (test code=MODALL) Yes CHECK PERFORMED HEMATOCRIT (test code=HCT/ABG) 43 % 42-52 TOTAL HGB (test code=THB) 14.7 gram/dL 13.0-17.5 HGB O2 SAT (test code=HBOSAT) 91.2 % 94.00-98.00 CARBOXYHEMOGLOBIN (test code=HOHGBT) 0.8 %totalHg 0.5-1.5 METHEMOGLOBIN (test code=METHGB) 0.2 % 0.0-1.50 O2 CONTENT (test code=O2CT) 18.9 % vol 18.0-22.0 - PULM VENT PERF [id number] 01:56:00 FAX: Kylah Khan MD [phone] [place]: B St: ADM Name: MILY AGUILAR [facility] : [birth year] Age/S: 44/M [address] Unit #: [id number] Loc: [place] [address] Phys: Kylah Hernandes MD Acct: [id number] Dis Date: Status: ADM IN PHONE #: [phone] Exam Date: 08/31/2019 0114 FAX #: [phone] Reason: eval for PE EXAMS: CPT CODE: [id number] PULM VENT PERF IMAG 88327 DICTATION LOCATION: H48 HISTORY: Male, 44 years of age with hypotension, hypoxia EXAM: NUCLEAR PULMONARY V/Q SCAN. COMPARISON: Chest x-ray and chest CT performed 08/30/2019 TECHNIQUE: For ventilation scan the pa tient was given 10 mCi Xenon 133 gas to inhale, posterior images were obta ined of the lungs in immediate and washout phases. For perfusion scan 5 mC i TC 99m MAA was administered IV, then immediate static images were obtain ed over the lungs in multiple projections. FINDINGS: Ventilation Scan: Right diaphragm is elevated. Tracer distribution is homo geneous with symmetric air-trapping on washout phases. Perfusion S can: Tracer distribution is homogeneous bilaterally. No focal wedge-shap ed segmental or subsegmental perfusion defects. Ventilation and perfusion images are matched. IMPRESSION: Low probability for pulmonary em bolism. at 0 156 Reported and signed by: Bob Urbano MD CC: Kylah Hernandes MD Technologist: MISAEL ADAMSON Trnsilvinord Date/Time/By: (0156) : By: Kassie Orig Print D/T: S: 08/31/2019 (0200) PAGE 1 Signed Report ARTERIAL BLOOD [id number] 23:06:00* Test Item Value Reference Range Comments ARTERIAL BLOOD GAS PH (test code=PHA) 7.28 7.35-7.45 ARTERIAL BLOOD GAS PCO2 (test code=PCO2A) 36.8 mm Hg 35-45 ARTERIAL BLOOD GAS PO2 (test code=PO2A) 65.9 mmHg 80-100 BICARBONATE TOTAL HCO3 (test code=HCO3) 16.8 mmol/L 23.0-27.0 BASE EXCESS (test code=KIZZY) -9.2 mmol/L -3.0-5.0 Results called to and read back by kane frances at 23:06 - 08/30/2019; by [email or web address] ABG O2 SATURATION (test code=SATA) 91.2 % 90.0-98.0 ABG TYPE (test code=TYPEA) Arterial FIO2 (test code=FIO2A) 36.0 ABG SITE (test code=SITEA) Lt RADIAL ARTERY MODIFIED ALLENS (test code=MODALL) Yes CHECK PERFORMED SODIUM (test code=NA/ABG) 133.8 mEq/L 135-148 POTASSIUM (test code=K/ABG) 4.0 mEq/L 3.5-4.5 CHLORIDE (test code=CL/ABG) 105 mEq/L 98-106 GLUCOSE (test code=GLU/ABG) 105 mg/dL 74-99 HEMATOCRIT (test code=HCT/ABG) 41 % 42-52 IONIZED CALCIUM (test code=CAIABG) 0.93 mmol/L 1.1-1.37 TOTAL HGB (test code=THB) 14.1 gram/dL 13.0-17.5 HGB O2 SAT (test code=HBOSAT) 90.2 % 94.00-98.00 CARBOXYHEMOGLOBIN (test code=HOHGBT) 0.6 %totalHg 0.5-1.5 METHEMOGLOBIN (test code=METHGB) 0.5 % 0.0-1.50 O2 CONTENT (test code=O2CT) 17.9 % vol 18.0-22.0 - CT CHEST W/O [id number] 23:02:00 Name: MILY MOSHER [facility] : 1975 Age/S: 44 / M [address] [facility] Unit #: [id number] Loc: [place] [address] Phys: Meron Baumann MD Acct: [id number] Dis Date: Status: ADM IN PHONE #: [phone] Exam Date: 08/30/2019 2242 FAX #: [phone] Reason: cough and hypoxia EXAMS: CPT CODE: [id number] CT CHEST W/O CONTRAST 94751 REASON FOR EXAM: cough and hypoxia EXAM ORDER DATE: 08/30/2019 8:46 PM Ordering MTasha: Meron Baumann MD PROCEDURE: - CT CHEST W/O CONTRAST Comparison:Frontal chest x-ray earlier today Axial CT images of the chest were obtained noncontrast. Reconstructed sagittal and coronal images of the chest were provided for interpretation. Dose reduction techniques were applied. FINDINGS: The absence of IV contrast limits the sensitivity of this exam for detecting soft tissue pathology and differentiating atelectasis from consolidations. Visualized neck: Grossly normal Airways, Lungs and Pleura: There are groundglass and consolidative opacities which are scatte red throughout both lungs. These opacities are most pronounced in the righ t lower lobe where there is also associated volume loss. No pleural effusi on is seen. Central airways are patent. There is a calcified granuloma in the right lung base. Heart, great vessels, pulmonary vessels, medi astinum: Mild atherosclerotic disease is present in the left anterior desc ending coronary artery as well as a diagonal branch Lymph no damon: No axillary, internal mammary, or mediastinal adenopathy. Calcified r ight hilar lymph nodes are present. Further evaluation of the hilar lymph nodes is limited by the absence of IV contrast. Musculoskeletal/ch est wall: Degenerative changes are scattered throughout the spine Visualized upper abdomen: Decreased hepatic parenchymal attenuation relative to the spleen is consistent with steatosis IMPR ESSION: PAGE 1 Signed Report (CONT INUED) Name: MILY MOSHER [facility] : 1975 Age/S: 44 / M [address] [facility] Unit #: [id number] Loc: [place] [address] Phys: Meron Warren MD Acct: [id number] Dis Date: Status: ADM IN [facility] NE #: [phone] Exam Date: 08/30/2019 2245 FAX #: Reason: cough and hypoxia EXAM S: CPT CODE: [id number] CT [facility] W/O CONTRAST 28146 <Continued> Findings consistent with a multifocal pneumonia that is most pronounced in the right lower lobe. There is also atelectasis of the right lower lobe. Mild coronary atherosclerosis. Hepatic s teatosis. Location: [facility] at 2302 Reported and signed by: Michele Bess MD CC: Meron Baumann MD Technologist:Deny De Leon RT(R)(CT) CTDI: DLP: Trnscb Date/Time: 08/30/2019 (2302) [email or web address] Orig Print D/T: S: 08/30/2019 (2305) PAGE 2 S igned Report - US ABDOMEN [id number] 22:34:00 Name: MILY MOSHER [facility] : 1975 Age/S: 44 / M [address] Unit #: [id number] Loc: [place] [address] Phys: Anibal Baumann MD Acct: [id number] Di s Date: Status: REG ER PHONE #: Exam Date: 08/30/20192226 FAX #: Reason: RUQ pain EXAMS: CPT CODE: [id number] US ABDOMEN LTD 19978 REASON FOR EXAM: RUQ pain EXAM ORDER DATE: 08/30/2019 8:46 PM Attendi merle Damon: Meron Baumann MD PROCEDURE: - US ABDOMEN LTD Technique: Grayscale and color Doppler images of the right-upper ryann drant of the abdomen. Comparison: None FINDINGS: Aorta and IVC: Patent and grossly normal in caliber. L iver: Size: 15.1 cm craniocaudally Parenchyma and contour: Diffusel y increased echogenicity compatible with steatosis. However the contour is smooth Cysts and/or masses: Subcentimeter cyst is present in the left lob e. This is likely benign and does not warrant further evaluation. Intrahepatic bile ducts: No intrahepatic biliary ductal dilation Common bile duct: 4.6 mm in diameter. No echogenic filling defects in visualized duct. Gallbladder: Stones/sludge: No intralumi nal stones or sludge. Wall: 1.8 mm in thickness. No discontinuity. No po lyps. No pericholecystic fluid. No hyperemia. Sonographic Baez's sign: Negative Portal vein: Portal vein caliber is within normal limits. Portal vein is patent with hepatopetal flow. Pancre as: Incompletely visualized. However the visualized portions are grossly w ithin normal limits. Right kidney: parenchyma echogenicity: Normal echogenicity size: 11.7 x 6.7 x 4.8 cm PAGE 1 Signed Report (CONTINUED) Name: MILY MOSHER [facility] : 1975 Age/S: 44 / M [address] Unit #: [id number] Loc: [place] [address] Phys: Meron Baumann MD Acct: [id number] Dis Date: Status: REG ER PHONE #: [phone] Exam Date: 2226 FAX #: [phone] Reason: RUQ pain EXAMS: CPT CODE: [id number] US ABDOMEN LTD 74052 <Continued> stones: none cysts/masses: none hydronephrosis: none Ascites/pleural effusions: None IMPRESSION: Hepatic steatosis. Location: [facility] at 2234 Reported and signed by: Michele Bess MD CC: Meron Baumann MD Technologist: Rajni Baptiste RDMS Trnscb Date/Time: 08/30/2019 (2233) [email or web address] Orig Print D/T: S: 08/30/2019 (2236) Probe: PAGE 2 Signed Report HEPATIC FUNCTION [id number] 22:26:00* Test Item Value Reference Range Comments TOTAL PROTEIN (test code=PROT) 7.8 gram/dL 6.4-8.2 ALBUMIN (test code=ALB) 3.1 g/dL 3.4-5.0 GLOBULIN (test code=GLOB) 4.7 gram/dL 2.7-4.2 ALBUMIN/GLOBULIN RATIO (test code=A/G) 0.7 0.75-1.50 BILIRUBIN TOTAL (test code=BILT) 0.20 mg/dL 0.0-1.0 BILIRUBIN DIRECT (test code=BILD) 0.12 mg/dL 0.0-0.20 SGOT/AST (test code=AST) 81 IUnit/L 15-37 SGPT/ALT (test code=ALT) 60 IUnit/L 12-78 ALKALINE PHOSPHATASE TOTAL (test code=ALKP) 88 IUnit/L 45-117 Note change in reference range due to change in reagent. [id number] 22:16:00* Test Item Value Reference Range Comments D-DIMER (test code=DDIMER) 808.00 ng/mLFEU 0-500 Results called to [id number] by [email or web address] 08/30/19 2215Critical results verified and read back by Nurse? YClinical Cut-off value for D-Dimer is 500 ng/mL FEU. Comment: The [employer] D- Dimer assay is intended for use asan aid in the diagnosis of venous thromboembolism (VTE)[deep vein thrombosis (DVT) or pulmonary embolism (PE)].The measurement of D-Dimer should not be used as an aid inthe diagnosis of VTE, in patient with: -Therapeutic dose anticoagulant therapy for >24 hours - Fibrinolytic therapy within previous 7 days -Trauma or surgery within previous 4 weeks -Disseminated malignancies -Aortic aneurysm -Sepsis, severe infections, pneumonia, severe skin infections -Liver cirrhosis - - XR CHEST 1 [id number] 21:23:00 FAX: Meron Baumann MD [place]: St: REG Name: Francine MILY MENDENHALL [facility] : [birth year] Age/S: 44/M [address] [facility] Unit #: [id number] Loc: [place] [address] Phys: Meron Baumann MD Acct: [id number] Dis Date: Status: REG ER PHONE #: [phone] Exam Date: 08/30/20192032 FAX #: [phone] Reason: CODE SEPSIS EXAMS: CPT CODE: [id number] XR CHEST 1 V [id number] REASON FOR EXAM: CODE SEPSIS Exam Order Date: 08/30/2019 8:05 PM Ordering M.D.: Meron Baumann MD PROCEDURE: - XR CHEST 1 V COM PARISON: None FINDINGS: Lung volumes are diminished and th ere are patchy opacities in the lung bases. These opacities may represent subsegmental atelectasis however superimposed consolidation cannot be excl uded. No pleural effusion or pneumothorax is seen. Cardiomed iastinal silhouette is normal in size for technique. The mediastinal conto urs are within normal limits. There are mild degenerative changes in the mid to lower thoracic spine. The visualized upper abd omen is within normal limits. IMPRESSION: Low mari ng volumes with bibasilar patchy opacities which may represent subsegmen pierre atelectasis and/or consolidation. Location: [facility] * * at 3 Reported and signed by: Michele Bess MD CC: Meron Baumann MD Technologist: MEETA MANCIA Trnscrd Date/Time/By: 08/30/2019 (2122) : By: [email or web address] Orig Print D/T: S: 08/30/2019 (2125) PAGE 1 Signed Report B-TYPE NATRIURETIC [id number] 21:17:00* Test Item Value Reference Range Comments B-TYPE NATRIURETIC PEPTIDE (test code=BNP) 3.00 pgram/mL 0-100 BASIC METABOLIC [id number] 20:52:00* Test Item Value Reference Range Comments SODIUM (test code=NA) 138 mmol/L 136-145 POTASSIUM (test code=K) 4.2 mmol/L 3.5-5.1 CHLORIDE (test code=CL) 104.0 mmol/L 98-107 CARBON DIOXIDE (test code=CO2) 20.0 mmol/L 21-32 ANION GAP (test code=GAP) 18.2 10-20 GLUCOSE (test code=GLU) 123 mg/dL 74-106 BLOOD UREA NITROGEN (test code=BUN) 92 mg/dL 7-18 GLOMERULAR FILTRATION RATE (test code=GFR) 8 mL/min >=60 Estimated GFR by using Modified MDRD formula.Chronic kidney disease is defined as either kidney damageor GFR <60 mL/min/1.73 m2 for >3 months. CREATININE (test code=CREAT) 7.70 mg/dL 0.7-1.3 BUN/CREATININE RATIO (test code=BUN/CREA) 11.9 10-20 CALCIUM (test code=CA) 7.0 mg/dL 8.5-10.1 [id number] 20:52:00* Test Item Value Reference Range Comments TROPONIN-I (test code=TROPI) <0.015 ng/mL 0-0.045 LACTIC [id number] 20:37:00* Test Item Value Reference Range Comments LACTIC ACID (test code=LACT) 1.3 mmol/L 0.4-1.9 BASIC METABOLIC [id number] 20:31:00* Test Item Value Reference Range Comments SODIUM (test code=NA) 138 mmol/L 136-145 POTASSIUM (test code=K) 4.2 mmol/L 3.5-5.1 CHLORIDE (test code=CL) 104.0 mmol/L 98-107 CARBON DIOXIDE (test code=CO2) mmol/L 21-32 ANION GAP (test code=GAP) 10-20 GLUCOSE (test code=GLU) mg/dL 74-106 BLOOD UREA NITROGEN (test code=BUN) mg/dL 7-18 GLOMERULAR FILTRATION RATE (test code=GFR) mL/min >=60 CREATININE (test code=CREAT) mg/dL 0.7-1.3 BUN/CREATININE RATIO (test code=BUN/CREA) 10-20 CALCIUM (test code=CA) mg/dL 8.5-10.1 [id number] 20:31:00* Test Item Value Reference Range Comments TROPONIN-I (test code=TROPI) ng/mL 0-0.045 CBC W/O [id number] 20:26:00* Test Item Value Reference Range Comments WHITE BLOOD CELL (test code=WBC) 3.5 K/mm3 4.5-12.5 RED BLOOD CELL (test code=RBC) 4.68 mill/mm3 4.0-5.8 HEMOGLOBIN (test code=HGB) 14.6 gram/dL 13.0-17.5 HEMATOCRIT (test code=HCT) 45.2 % 42.0-52.0 MEAN CELL VOLUME (test code=MCV) 96.6 fL 80-98 MEAN CELL HGB (test code=MCH) 31.2 picogram 27.0-33.0 MEAN CELL HGB CONCETRATION (test code=MCHC) 32.3 gram/dL 33.0-36.0 RED CELL DISTRIBUTION WIDTH (test code=RDW) 14.4 % 11.6-16.2 PLATELET COUNT (test code=PLT) 187 K/mm3 150-450 MEAN PLATELET VOLUME (test code=MPV) 11.5 fL 6.7-11.0 CBC W/O [id number] 20:24:00* Test Item Value Reference Range Comments WHITE BLOOD CELL (test code=WBC) K/mm3 4.5-12.5 RED BLOOD CELL (test code=RBC) mill/mm3 4.0-5.8 HEMOGLOBIN (test code=HGB) 14.6 gram/dL 13.0-17.5 HEMATOCRIT (test code=HCT) 45.2 % 42.0-52.0 MEAN CELL VOLUME (test code=MCV) fL 80-98 MEAN CELL HGB (test code=MCH) picogram 27.0-33.0 MEAN CELL HGB CONCETRATION (test code=MCHC) gram/dL 33.0-36.0 RED CELL DISTRIBUTION WIDTH (test code=RDW) % 11.6-16.2 PLATELET COUNT (test code=PLT) K/mm3 150-450 MEAN PLATELET VOLUME (test code=MPV) fL 6.7-11.0 [id number] 19:57:00* Test Item Value Reference Range Comments GLUBED (test code=GLUBED) 130 mg/dL 74-106 Performed by certified synthetic gem press operator at [facility]"
[2019-12-04 12:25] VITALS: BP 116/85
--- NOTE | 2019-12-04 18:59 | Operative Report ---
DATE OF PROCEDURE: 12/04/2019 SURGEON: Zaki Stahl MD PROCEDURES: EGD with biopsies and PEG tube removal and a colonoscopy with polypectomy. INDICATIONS FOR EGD: The patient is PEG tube-dependent, now swallowing well, he is in for EGD and PEG tube removal. INDICATIONS FOR COLONOSCOPY: Colorectal cancer screening, mother with colon cancer. MEDICATIONS: The patient was done under MAC, please see anesthesiologist's note. PROCEDURE IN DETAIL: With the patient in the left lateral decubitus position, a flexible fiberoptic Olympus gastroscope was introduced into the esophagus under direct visualization without any difficulty. There was some patchy erythema noted in distal esophagus. The scope was then advanced with ease into the stomach. Mucosa overlying the antrum and the body revealed some patchy erythema and fdma-[id number]-uvdnuqjp edema, biopsies were obtained and sent to stain for H. pylori. The pylorus was of normal contour and shape, was intubated with ease and the scope was advanced all the way to the second portion of the duodenum. Biopsies were obtained from the proximal second portion and the duodenal bulb to rule out sprue. An approximately 1.5 cm sessile polypoid lesion was noted in the proximal aspect of the second portion of the duodenum and biopsies were obtained. The scope was then withdrawn back into the stomach and retroflexed, mucosa overlying the fundus and the cardia appeared to be within normal limits. The scope was then straightened out. The PEG tube was then removed in the usual fashion per the pull traction method. The patient tolerated the procedure well. IMPRESSION: 1. Distal esophagitis. 2. Gastritis, biopsied, biopsies sent to stain for Helicobacter pylori. 3. G-tube removed per the pull traction method. 4. Rule out sprue. 5. Approximately 1.5 cm sessile lesion in proximal second portion, biopsied, rule out just GIST tumor. PLAN: Follow up histology. Initiate Protonix 40 mg 1 p.o. q.a.m. before meals. The patient was then turned around and after adequate lubrication of the anal canal, a flexible fiberoptic Olympus colonoscope was inserted into the rectum with ease and advanced all the way to the cecum. Mucosa overlying the cecum appeared to be within normal limits. The scope was then withdrawn slowly and one polyp was snared from the ascending colon. The transverse colon appeared to be within normal limits. One polyp was snared from the descending colon. Two polyps up to 1.2 cm in size, pedunculated, were removed per snare electrocautery from the sigmoid colon. The rectum appeared to be within normal limits. The scope was then retroflexed into the distal rectum and small internal hemorrhoids were noted, none of which was actively bleeding. The scope was then straightened out, it was subsequently withdrawn, and the patient tolerated the procedure well. IMPRESSION: 1. Ascending colon polyp, snared. 2. Descending colon polyp, snared. 3. Sigmoid colon polyps x2, with the largest approximately 1.2 cm in size, removed per snare electrocautery. 4. Internal hemorrhoids, none actively bleeding. PLAN: Follow up histology. Initiate high-fiber, low-fat diet. Initiate high-fiber supplement. The patient might benefit from a followup colonoscopy in 2 to 3 years. Zaki Stahl MD [facility] [place] /[id number] cc: Dion Yepez MD
== END | disposition home or self-care (01) ==
LOC: OR 07:49
PROVIDERS: ATTEND Internal Medicine Gastroenterology
DX: Z12.11 Encounter for screening for malignant neoplasm of colon (principal); D12.2 Benign neoplasm of ascending colon; D12.4 Benign neoplasm of descending colon; D12.5 Benign neoplasm of sigmoid colon; Z43.1 Encounter for attention to gastrostomy; K29.80 Duodenitis without bleeding; K29.50 Unspecified chronic gastritis without bleeding; K20.9 Esophagitis, unspecified; K64.8 Other hemorrhoids; R56.9 Unspecified convulsions; I10 Essential (primary) hypertension; E11.9 Type 2 diabetes mellitus without complications; G62.9 Polyneuropathy, unspecified; I49.9 Cardiac arrhythmia, unspecified; G47.33 Obstructive sleep apnea (adult) (pediatric); Z01.810 Encounter for preprocedural cardiovascular examination; Z01.818 Encounter for other preprocedural examination; Z79.82 Long term (current) use of aspirin; Z68.36 Body mass index [BMI] 36.0-36.9, adult; Z87.01 Personal history of pneumonia (recurrent); Z86.19 Personal history of other infectious and parasitic diseases; Z80.0 Family history of malignant neoplasm of digestive organs
CPT/HCPCS: 36415; 43239; 43247; 45385; 71046; 84132; 93005; J2001; J2250; J2704; J2710; J3010; J7040; 43246; 45378; 45384; J7030

== ENCOUNTER 2021-03-11 13:59 | Emergency (ER) | payer BC ==
[~2021-03-11] VITALS: Ht 167.6 cm; Wt 139.7 kg
[~2021-03-11 13:59] MED LIST changes: -EPHEDRINE SULFATE INJ 50 MG/ML VIAL ONE; -FENTANYL CITRATE/PF 100MCG/2 ML INJ ONE; -HYOSCYAMINE 0.125 MG TAB ONE; -LIDOCAINE HCL 2% LOCAL INJ 5 ML SDV VIAL INJ ONE; -MIDAZOLAM HCL 2 MG/2 ML VIAL ONE; -NEOSTIGMINE 1 MG/ML 10ML VIAL ONE; -PROPOFOL IV EMULSION 10 MG/ML 50 ML VIAL ONE; -SODIUM CHLORIDE 0.9% 1000ML 0 ML ONE; -SODIUM CHLORIDE 0.9% 500ML 500 ML ONE
[2021-03-11] MEDS ORDERED: ULTRAM50 MG PO ×2 (16:00→16:57)
[2021-03-11 16:59] VITALS: BP 148/93
== END 2021-03-11 17:00 | disposition home or self-care (01) ==
LOC: ER 14:40
DX: M54.5 Low back pain (principal); M25.552 Pain in left hip; M25.562 Pain in left knee; I10 Essential (primary) hypertension; I50.9 Heart failure, unspecified
CPT/HCPCS: 99283

== ENCOUNTER 2025-02-24 16:49 | Emergency (ER) | payer BC ==
[~2025-02-24] VITALS: Ht 167.6 cm; Wt 138.1 kg
[~2025-02-24 16:49] MED LIST changes: +CEFDINIR300 MG PO; +PROVENTIL HFA6.7 GM INH; +ULTRAM50 MG PO
[2025-02-24 16:55] VITALS: PULSE 97; RESP 20; TEMP 98.7
[2025-02-24] MEDS ORDERED: NASACORT16.9 ML (17:46)
[2025-02-24] MEDS ORDERED: AZITHROMYCIN250 MG PO (17:46)
[2025-02-24] MEDS ORDERED: FEXOFENADINE H180 MG PO (17:46)
[2025-02-24 17:58] VITALS: BP 154/85; PULSE 97; RESP 20; O2SAT 96
== END 2025-02-24 17:52 | disposition home or self-care (01) ==
LOC: FSED 17:00
DX: R05.9 Cough, unspecified (principal); J20.9 Acute bronchitis, unspecified; J30.9 Allergic rhinitis, unspecified; I10 Essential (primary) hypertension; I50.9 Heart failure, unspecified; Z11.52 Encounter for screening for COVID-19
CPT/HCPCS: 0223U; 71046; 83518; 87400; 99283